=== PATIENT | female | born 1955 | race Caucasian/White ===

== ENCOUNTER 2017-03-27 14:11 | Inpatient (IN) | payer MEDICAID, SELFPAY ==
[2017-03-27] VITALS (21 sets, daily range): BP systolic 88–138; BP diastolic 43–98; PULSE 104–128; RESP 16–27; TEMP 37.4–38; O2SAT 89–98; BMI 39.2; BMI 39.9
--- NOTE | 2017-03-27 15:14 | EKG12_ITS ---
Test Reason : SOB Blood Pressure : / mmHG Vent. Rate : 118 BPM Atrial Rate : 118 BPM P-R Int : 142 ms QRS Dur : 086 ms QT Int : 324 ms P-R-T Axes : 068 -27 073 degrees QTc Int : 454 ms Sinus tachycardia Otherwise normal ECG Confirmed by JANIA GOINS ([id number]), health editor ENMA CAMACHO ([id number] on 03/29/2017 2:43:21 PM Referred By: LUCY Confirmed By:JANIA GOINS
--- NOTE | 2017-03-27 15:14 | RAD_ITS ---
STUDY: X-RAY CHEST REASON FOR EXAM: Female, 62 years old. Short of breath TECHNIQUE: Single AP portable view of the chest. COMPARISON: 09/22/2012. FINDINGS: Normal lung volumes. Poorly defined density in the mid right lung, possibly infiltrate. Nodules are not excluded. CT scan is recommended. Left lung is clear. No effusions. Normal size heart. Normal mediastinum and bautista. Normal visualized pulmonary arteries. Normal visualized aortic arch and descending thoracic aorta. There are diffuse degenerative changes of the visualized thoracic spine. Normal visualized ribs, clavicles, and shoulders. There is no demonstrated abnormality of the visualized soft tissue structures of the upper abdomen. RAD/Chest 1 View (Portable) IMPRESSION: Poorly defined density in the mid right lung, possibly infiltrate. Nodules are not excluded. CT scan is recommended. Electronically Signed: Migel Massey MD at 15:52 EST , Service support ,
[2017-03-27] MEDS: Ipratropium/Albuterol Sulfate 3 ML AMPUL.NEB INHALATION ×2 (15:25→22:56)
[2017-03-27] MEDS: Albuterol 2.5 MG/3 ML VIAL.NEB. INHALATION (15:32)
--- NOTE | 2017-03-27 15:39 | ED.VISSUMM ---
- ER Visit Summary Date of Service: 03/27/17 Chief Complaint: Shortness of breath History of Present Illness: The patient is a 62 F presenting with shortness of breath and cough. She states she has been sick since yesterday. She states her granddaughter was diagnosed with influenza. She states she has a sore throat, productive cough. She denies fever. Denies chest pain. Physical Examination: Vitals are stable. Patient is afebrile. Alert no acute distress. HEENT exam is unremarkable. Neck is supple. Lungs are rhonchi bilaterally. Heart is regular and tachycardic Abdomen is soft nontender nondistended. Extremities are unremarkable. Skin is warm and dry. No focal neurologic deficit. Remainder of exam is unremarkable. Emergency Department Course and Treatment: Chest x-ray shows a poorly defined density in the right midlung. EKG is sinus tachycardia rate of 118. White count is 20,000. Chemistries normal except glucose 330. Troponin is negative. D-dimer is elevated 0.73. Due to elevated d-dimer, CTA chest was obtained. This shows no PE, right upper and right lower lobe infiltrate. Blood cultures were sent. She is given Levaquin IV. On ambulation she is 83-87% on room air. Her repeat blood pressure is 88/61. IV fluids were continued to a bolus of 30 cc/kg. Her blood pressure improved to a systolic of 110. Discussed with Dr. Melara for admission. Disposition: Admission Impression: Septic shock, pneumonia This note was generated with [employer] dictation software. It may contain incorrect words, spelling, and punctuation that were not noted in review of the chart prior to signing ED Disposition - Plan for ED Patient: Chief Complaint: Shortness of Breath Referrals: Jesus Garcia MD [Primary Care Provider] -
[2017-03-27 16:01] LABS: Absolute Lymphocyte Count 1.24 X10^3/ul (0.83-4.51); Absolute Neutrophil Count 17.5 X10^3/uL (2.0-7.7); Basophil# 0.03 X10^3/uL; Basophil% 0.2 % (0-1); Eosinophil# 0.03 X10^3/uL; Eosinophils% 0.2 % (0-5); Hematocrit 38.2 % (37-47); Hemoglobin 12.2 g/dl (12.0-15.0); Lymphocyte # 1.24 X10^3/ul (4.0); Lymphocyte % 6.2 % (19-41); Mean Corp Hgb Conc 31.9 g/gl (32-36); Mean Corpuscular Hgb 25.7 pg (27.0-32.0); Mean Corpuscular Volume 80.6 fL (81-99); Mean Platelet Vol. 11.3 fl (6.2-12.0); Monocyte# 1.19 X10^3/uL; Neutrophil # 17.45 X10^3/uL (2.7-7.7); Neutrophil % 87.1 % (47-70); Platelet Count 193 K/mm3 (150-450); RBC Distribution Width CV 14.6 % (11.6-14.6); RBC Distribution Width SD 42.7 fl (35.1-43.9); Red Blood Count 4.74 M/mm3 (4.2-5.4)
[2017-03-27 16:06] LABS: Anion Gap 10 (5-15); BUN 10 mg/dL (7-18); BUN/Creat Ratio 11.5 RATIO (10-20); Calcium,Total 8.7 mg/dL (8.5-10.1); Chloride 98 mmol/L (98-107); Creatinine, Serum 0.87 mg/dL (0.55-1.02); EST Glomerular Filtration Rate 70 mL/min (>60); Est Glom Filt Rate - Afr Amer 85 mL/min (>60); Estimated Creatinine Clearance 46.92 ml/min; Glucose 330 mg/dL (74-106); Potassium 3.6 mmol/L (3.5-5.1); Sodium Level 135 mmol/L (136-145)
[2017-03-27 16:09] LABS: POSITIVE COUNT NO; POSITIVE DIFFERENTIAL NO; POSITIVE MORPHOLOGY NO
[2017-03-27 16:26] LABS: D-Dimer Quantitative (DVT/PE) 0.73 FEU/ug/m (0.27-0.49)
--- NOTE | 2017-03-27 16:29 | CT_ITS ---
STUDY: CTA CHEST REASON FOR EXAM: Female, 62 years old. Cough, shortness of breath, elevated d-dimer. RADIATION DOSAGE (If Supplied By Facility): CTDIvol = ( 13.24 ) mGy, DLP = ( 642.78 ) mGycm TECHNIQUE: The examination was performed with the intravenous administration of 75 ml of Isovue 370 contrast material. Post-processing of the angiographic images was performed, with multiplanar reformation and 3D reconstruction. Individualized dose optimization techniques were used for this CT. COMPARISON: Portable AP upright chest x-ray 1531 hours FINDINGS: Normal enhancement of the main pulmonary artery and right and left pulmonary arteries. Normal enhancement of the bilateral peripheral pulmonary arteries. There is no demonstrated pulmonary embolism. There is atherosclerotic calcification of the aortic arch with tortuosity of the descending thoracic aorta. There is no demonstrated aortic dissection. Normal heart and pericardium. There are calcifications of the coronary arteries. There is a nonspecific 2.3 x 1.7 x 0.6 cm right subcarinal lymph node, and a 1.1 x 0.65 x 0.4 cm lymph node just to its left. Two paratracheal lymph nodes (series 2 images 171 and 159) are upper normal in size to borderline enlarged. Normal hilar regions. Normal visualized trachea and bronchi. The lungs are well expanded. There are patchy alveolar densities consistent with infection in the lateral inferior right upper lobe and posterior medial right lower lobe. Normal pleura. Normal chest wall structures. There are multilevel spondylotic degenerative changes of the thoracic spine, and a 26-27 degree levoscoliosis centered at T3-4. The entire liver is not fully included in the lywub-ae-ecoa. Mild decreased density and mild cortical irregularity of the potentially enlarged liver suggest changes of fatty infiltration and early cirrhosis. CT/CTA Chest W/WO Contrast IMPRESSION: 1. No demonstrated pulmonary embolism or arterial dissection. 2. There are patchy alveolar densities consistent with infection in the inferolateral right upper lobe and posteromedial right lower lobe. 3. A few nonspecific mediastinal lymph nodes are described above. No overtly suspicious adenopathy. 4. Atherosclerotic calcifications of the coronary arteries and thoracic aortic arch. 5. Additional findings suggesting fatty infiltration and cirrhotic change in the enlarged liver. 6. Degenerative changes and levoscoliosis of the thoracic spine. Electronically Signed: Dealno Doe MD at 17:17 EST , Service support ,
--- NOTE | 2017-03-27 17:32 | ED.RN ---
STARTED PT FOR WALKING PULSE OX, THE EFFORT TO GET PATIENT OUT OF BED CAUSED PULSE OX TO DECREASE TO 83%. RN WAITED FOR PULSE OX TO INCREASE TO 97 TILL WE AMBULATED. WALKED PATIENT ON ROOM AIR PULSE OX DECREASED TO 87%. STOPPED AND OXYGEN LEVEL INCREASED TO 91. WHILE PATIENT GOT BACK IN BED PULSE OX DROPPED TO 81%
[2017-03-27] MEDS: 0.9% Normal Saline 1,000 ML 999 ML IV ×3 (17:44→19:18)
[2017-03-27 18:39] LABS: Lactic Acid 5.2 mmol/L (0.4-2.0)
--- NOTE | 2017-03-27 18:39 | ED.RN ---
DR. AYALA AWARE OF LACTIC 5.2
--- NOTE | 2017-03-27 19:23 | HP.PCM_ITS ---
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 Patient complains of having fever, cough and feeling short of breath. She has been around somebody who had an influenza which was a granddaughter. She complains of runny nose, sore throat and unable to eat anything last 2 days. She denied any chest pain or diarrhea or dysuria or frequency or urgency. On arrival to the ED, her temperature was 90 9.8F, heart rate is 121, was initially 121/43 but eventually dropped to 88/65, was given some fluid boluses in the ED with resolution of hypotension. A partial workup showed WBC count of 20.0, Hb of 12.2, platelets 193, d-dimer was 0.73, sodium was 135, potassium 3.6 , chloride 98, bicarbonate 27, BUN 10, creatinine 0.87, admitting lactic acid was 5.2, glucose was 330. Troponin was 0.02. Chest X-ray done shows a poorly defined infiltrate in the right midlung. CT of the chest shows no PE, it showed some infiltrate in the right upper lobe and posterior medial lower lobe and fatty infiltration with cirrhotic changes in the enlarged liver. Past Medical History Past Medical History (Chronic Problems): Chronic Problems Hyperlipemia (Chronic) Gastroenteritis (Chronic) Diabetes mellitus, type 2 (Chronic) Chronic obstructive lung disease (Chronic) Benign hypertension (Chronic) Allergies codeine Allergy (Verified 11/01/16 19:05) Rash naproxen Adverse Reaction (Verified 11/01/16 19:05) Other Home Medications: Ambulatory Orders Medication Instructions Recorded Amitriptyline HCl 50 mg PO QHS 01/16/16 Insulin Aspart [Novolog Flexpen 22 units SC TIDCM 01/16/16 ([facility])] Metformin HCl [Glucophage] 1,000 mg PO BIDCM 01/16/16 Oxybutynin [Ditropan] 10 mg PO DAILY 01/16/16 Simvastatin [Zocor] 40 mg PO QHS 01/16/16 Ondansetron [Zofran Odt] 4 mg PO Q8H PRN PRN #10 tablet 11/01/16 Albuterol Inhaler [Ventolin Hfa 1 - 2 puff INHALATION Q6H PRN PRN 03/27/17 (SP)] Cyclobenzaprine [Flexeril] 10 mg PO TID PRN PRN 03/27/17 GlipiZIDE [Glucotrol] 10 mg PO DAILY@0730 03/27/17 Insulin Glargine,Hum.rec.anlog 58 unit SQ QHS 03/27/17 [Basaglar Kwikpen U-100] Lisinopril [Zestril] 10 mg PO DAILY 03/27/17 Sertraline HCl [Zoloft] 50 mg PO DAILY 03/27/17 Surgical History: hysterectomy Psychiatric History: No pertinent psych hx 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: No pertinent 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 HEALTH RN history Lives: With Family Smoking Status: Former smoker Tobacco Use: Non-smoker Alcohol: None Drugs: None - *Family History Maternal History Items: Dementia, Heart Disease Review of Systems Constitutional: Denies: Chills, Fever, Weight Change HEENT: Denies: Head Aches, Sinus Congestion, Sinus Drainage Cardiovascular: Denies: Chest Pain, Palpitations Respiratory: Denies: Cough, Shortness of breath at rest, Sputum production Gastrointestinal: Denies: Abdominal Pain, Nausea, Vomiting Genitourinary: Denies: Dysuria Musculoskeletal: Denies: Joint Pain, Joint Tenderness Skin: Denies: Rash, Wounds Neurological: Denies: Numbness, Tingling, Focal weakness Psychiatric: Denies: Anxiety, Depression, Homicidal Ideations, Suicidal Ideations Hematologic/ Lymphatic: Denies: Easy Bruising, Easy Bleeding VTE Information - Inpt Only VTE Present on Admission: No VTE Pharm Prophylaxis ordered?: Yes Patient Problems: Active and Suspected Problems Septic shock (Acute) - Physical Exam General: Alert, Oriented x3, Cooperative HEENT: Atraumatic, PERRLA, EOMI, Normocephalic Neck: Supple, No JVD, Negative Carotid Bruits Lungs: Clear to auscultation, Normal air movement Cardiovascular: Regular rate, No murmurs Abdomen: Bowel Sounds Present, Soft, Non Tender Extremities: No edema, Capillary Refill Less than 3 Seconds Skin: No rashes, No breakdown Musculoskeletal: No Tenderness to Palpation of Joints or Extremities Neurological: Cranial nerves II-XII grossly intact Psych/Mental Status: Normal Affect, Appropriate Vital Signs Temp Pulse Resp BP Pulse Ox 99.8 F H 108 H 20 H 122/59 H 93 03/27/17 14:12 03/27/17 19:01 03/27/17 19:01 03/27/17 19:01 03/27/17 19:01 Oxygen Delivery Method Room Air Weight: 91 kg Body Mass Index (BMI) 39.2 Finger Stick Blood Glucose 333 Microbiology Past 72 Hours 03/27/17 16:10 Influenza Types A,B Direct FA (SARY) - Final Mucosa - Nose Laboratory Tests Past 24 Hrs 03/27/17 03/27/17 03/27/17 15:22 15:22 15:22 WBC 20.0 H RBC 4.74 Hgb 12.2 Hct 38.2 MCV 80.6 L MCH 25.7 L MCHC 31.9 L RDW 14.6 RDW Differential 42.7 Plt Count 193 MPV 11.3 Immature Gran % (Auto) 0.300 Neut % (Auto) 87.1 H Lymph % (Auto) 6.2 L Grady % (Auto) 6.0 Eos % (Auto) 0.2 Baso % (Auto) 0.2 Absolute Neuts (auto) 17.5 H Absolute Lymphs (auto) 1.24 Total Counted Not Reportable D-Dimer Quant (PE/DVT) 0.73 H* Sodium 135 L Potassium 3.6 Chloride 98 Carbon Dioxide 27.0 Anion Gap 10 BUN 10 Creatinine 0.87 Estim Creat Clear Calc 46.92 Est GFR (MDRD) Af Amer 85 Est GFR (MDRD) Non-Af 70 BUN/Creatinine Ratio 11.5 Glucose 330 H Lactic Acid Calcium 8.7 Troponin I < 0.02 03/27/17 17:35 WBC RBC Hgb Hct MCV MCH MCHC RDW RDW Differential Plt Count MPV Immature Gran % (Auto) Neut % (Auto) Lymph % (Auto) [place]ady % (Auto) Eos % (Auto) Baso % (Auto) Absolute Neuts (auto) Absolute Lymphs (auto) Total Counted D-Dimer Quant (PE/DVT) Sodium Potassium Chloride Carbon Dioxide Anion Gap BUN Creatinine Estim Creat Clear Calc Est GFR (MDRD) Af Amer Est GFR (MDRD) Non-Af BUN/Creatinine Ratio Glucose Lactic Acid 5.2 H* Calcium Troponin I Assessment/Plan Active and Suspected Problems Septic shock (Acute) 62 year old F past medical history of hypertension, type II DM, depression, who comes in with complaints of feeling unwell, fever, cough ongoing for the past 2 days. 1. Septic shock secondary to CAP, seen on chest x-ray and CT scan of the chest, WBC count is elevated at 20,000, patient is tachycardic, blood cultures are pending, influenza screen is negative, lactic acid is 5.2, no renal impairment. 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 2. Hypertension, now hypotensive, will hold lisinopril for now. 3. Type 2DM, on metformin, glipizide and Lantus, will check accucheks and low- dose insulin sliding scale 4. Hyperlipidemia, on statin 5. Depression, on zoloft, amitriptyline 6. Fatty liver/cirrhosis of the liver seen on CT scan of the abdomen, order hepatitis panel, liver function tests, needs to be worked up in the outpatient 7. DVT PPx - Lovenox SC Code Visit Inpatient E&M: 84097 Init Hosp L3
[2017-03-27] MEDS: Ondansetron 4 MG/2 ML Vial IV (19:53)
[2017-03-27 20:57] LABS: Bacteria 0 SEEN /hpf (None Seen); Mucous, Urine 0 SEEN /hpf (<or=2+); Red Blood Cells-Urine 0 SEEN /hpf (0-5)
[2017-03-27 21:02] LABS: Color, Urine Yellow (Yellow); Glucose, Dipstick 1000 mg/dl (Normal); Ketone-Dipstick 5 mg/dl (Negative); Leukocyte Esterase-Dipstick 25 /ul (Negative); Nitrite-Dipstick Negative (Negative); Occult Blood-Urine Negative /ul (Negative); Protein-Dipstick 15 mg/dl (Negative); Urine Bilirubin Dipstick Negative (Negative); Urine Clarity Sl. Cloudy (Clear); Urine Urobilinogen Normal (Normal)
[2017-03-27] MEDS: Amitriptyline 25 MG Tablet 50 MG PO (21:11)
[2017-03-27] MEDS: 0.9% Normal Saline 1,000 ML 125 ML IV (21:11)
[2017-03-27] MEDS: Atorvastatin Calcium 20 MG Tablet PO (21:14)
[2017-03-27] MEDS: guaiFENesin 600 MG Tablet 1200 MG PO (21:15)
[2017-03-27] MEDS: Famotidine 20 MG Tablet PO (21:16)
[2017-03-27 21:18] LABS: Lactic Acid 4.4 mmol/L (0.4-2.0)
[2017-03-27 21:30] LABS: Bedside Glucose 270 mg/dL (70-110)
[2017-03-27 21:31] LABS: Amorphous Sediment 1+ URATE; Squamous Epithelial Cells - UA 0-5 SEEN /hpf (5-10); White Blood Cells 0-5 SEEN /hpf (0-5)
[2017-03-27 21:41] LABS: Reflex Lactate? Y
[2017-03-27 22:07] LABS: M R Staph aureus DNA By PCR Negative (Negative); Probe Check PASS; Specimen Processing Control PASS
[2017-03-27] MEDS: Ceftriaxone 1 GM/50 ML BAG IV (22:30)
[2017-03-28] VITALS (23 sets, daily range): BP systolic 98–128; BP diastolic 46–70; PULSE 87–104; RESP 17–24; TEMP 36.9–37.7; O2SAT 89–99
[2017-03-28 00:39] LABS: Lactic Acid 2.5 mmol/L (0.4-2.0)
[2017-03-28 00:52] LABS: Reflex Lactate? Y
[2017-03-28] MEDS: Ipratropium/Albuterol Sulfate 3 ML AMPUL.NEB INHALATION ×3 (03:26→22:24)
[2017-03-28] MEDS: Acetaminophen 325 MG Tablet 650 MG PO ×2 (03:47→16:15)
[2017-03-28 04:58] LABS: Hematocrit 32.2 % (37-47); Mean Corp Hgb Conc 31.1 g/gl (32-36); Mean Corpuscular Hgb 25.2 pg (27.0-32.0); Mean Corpuscular Volume 81.1 fL (81-99); Mean Platelet Vol. 10.9 fl (6.2-12.0); Platelet Count 145 K/mm3 (150-450); RBC Distribution Width SD 44.4 fl (35.1-43.9); Red Blood Count 3.97 M/mm3 (4.2-5.4); White Blood Count 12.4 K/mm3 (4.4-11.0)
[2017-03-28 05:02] LABS: Scan Indicated on CBC? Y/N NO
[2017-03-28 05:23] LABS: Anion Gap 6 (5-15); BUN 9 mg/dL (7-18); BUN/Creat Ratio 14.5 RATIO (10-20); Calcium,Total 7.6 mg/dL (8.5-10.1); Chloride 102 mmol/L (98-107); Creatinine, Serum 0.62 mg/dL (0.55-1.02); EST Glomerular Filtration Rate 103 mL/min (>60); Est Glom Filt Rate - Afr Amer 125 mL/min (>60); Estimated Creatinine Clearance 65.84 ml/min; Glucose 251 mg/dL (74-106); Potassium 3.4 mmol/L (3.5-5.1); Sodium Level 136 mmol/L (136-145)
[2017-03-28 05:26] LABS: Lactic Acid 1.5 mmol/L (0.4-2.0)
[2017-03-28] MEDS: 0.9% Normal Saline 1,000 ML 125 ML IV ×2 (06:35→16:05)
[2017-03-28 08:01] LABS: Bedside Glucose 242 mg/dL (70-110)
[2017-03-28] MEDS: Famotidine 20 MG Tablet PO ×2 (09:18→21:09)
[2017-03-28] MEDS: Sertraline 50 MG Tablet PO (09:18)
[2017-03-28] MEDS: guaiFENesin 600 MG Tablet 1200 MG PO ×2 (09:18→21:09)
[2017-03-28 09:26] LABS: Hemoglobin A1c 10.5 % (4.2-6.3)
[2017-03-28] MEDS: Ondansetron 4 MG/2 ML Vial IV ×2 (09:31→20:08)
[2017-03-28] MEDS: 0.9% NaCl Peripheral Flush Adult/Peds IV (09:31)
[2017-03-28] MEDS: Enoxaparin 40 MG/0.4 ML Syringe SC (09:33)
--- NOTE | 2017-03-28 09:45 | PCM.CON.CC ---
Problem List (1) Septic shock Status: Acute (2) Hyperlipemia Status: Chronic Qualifiers: Hyperlipidemia type: unspecified Qualified Code(s): E78.5 - Hyperlipidemia, unspecified (3) Gastroenteritis Status: Chronic (4) Diabetes mellitus, type 2 Status: Chronic Qualifiers: Diabetes mellitus complication status: without complication Diabetes mellitus supervisor dials insulin use: without chcf use Qualified Code(s): E11.9 - Type 2 diabetes mellitus without complications (5) Benign hypertension Status: Chronic Reason for Consult Date of Consultation: 03/28/17 Reason for Consultation: Septic shock History of Present Illness: The patient is a 62 year old F, with past medical history listed below, who presented to [facility] on 03/27/2017 secondary to increasing shortness of breath, fever and cough over the past 2 days. Patient recently had her granddaughter admitted to the hospital with pneumonia and flu and was concerned that she had contracted the flu. Patient reports that 2 days prior to admission she started to have a runny nose, sore throat, nausea and body aches. Patient denied any chest pain at that time. On arrival to the emergency room, patient was noted to be tachycardic at 121 bpm, but blood pressure gradually decreased during ER stay to a chema of 88/65. Was also noted to have a lactic acid of 5.2 and a glucose of 330. Chest x-ray and CT scan showed no pulmonary embolism, but right upper lobe and right middle lobe infiltrates were appreciated. Patient was given a fluid bolus and transferred to the intensive care unit for further monitoring. Overnight, patient did hemodynamically well. Patient did not require any further boluses. Patient was initiated on antibiotic therapy. On my examination, patient was complaining of mild chest pain that was associated with coughing. Patient denied any hemoptysis and has variable production with the cough. Patient overall felt subjectively unchanged compared to previous. Nausea slightly improved, but patient is having difficulty eating all of breakfast. She denies any history of smoking, alcohol or drugs. Patient has never been exposed to asbestos or tuberculosis. Patient does give a history of asthma that she uses a as needed albuterol for occasionally. Patient states that she typically needs it more in the winter, but does not see a assistant golf professional at baseline. Patient has never had pulmonary function test that she is aware of. Review of systems otherwise negative ?10 systems. Past Medical History Past Medical History (Chronic Problems): Chronic Problems Hyperlipemia (Chronic) Gastroenteritis (Chronic) Diabetes mellitus, type 2 (Chronic) Chronic obstructive lung disease (Chronic) Benign hypertension (Chronic) Allergies codeine Allergy (Verified 11/01/16 19:05) Rash naproxen Adverse Reaction (Verified 11/01/16 19:05) Other Home Medications: Ambulatory Orders Medication Instructions Recorded Amitriptyline HCl 50 mg PO QHS 01/16/16 Insulin Aspart [Novolog Flexpen 22 units SC TIDCM 01/16/16 ([facility])] Metformin HCl [Glucophage] 1,000 mg PO BIDCM 01/16/16 Oxybutynin [Ditropan] 10 mg PO DAILY 01/16/16 Simvastatin [Zocor] 40 mg PO QHS 01/16/16 Ondansetron [Zofran Odt] 4 mg PO Q8H PRN PRN #10 tablet 11/01/16 Albuterol Inhaler [Ventolin Hfa 1 - 2 puff INHALATION Q6H PRN PRN 03/27/17 (SP)] Cyclobenzaprine [Flexeril] 10 mg PO TID PRN PRN 03/27/17 GlipiZIDE [Glucotrol] 10 mg PO DAILY@0730 03/27/17 Insulin Glargine,Hum.rec.anlog 58 unit SQ QHS 03/27/17 [Basaglar Kwikpen U-100] Lisinopril [Zestril] 10 mg PO DAILY 03/27/17 Sertraline HCl [Zoloft] 50 mg PO DAILY 03/27/17 Surgical History: hysterectomy Psychiatric History: No pertinent psych hx 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 CT scan did show some mediastinal lymphadenopathy with infiltrates on the right. - Physical Exam General: Alert, Oriented x3, Cooperative, No apparent distress, Well developed, Well nourished, - - Speaking in full sentences. Obese. HEENT: Atraumatic, PERRLA, EOMI, Normocephalic, - - Slight scleral injection without icterus Oral: Moist Mucosa, No Gingival or Mucosal Lesions/ Ulcerations Neck: Supple, No JVD, No Nodes, Trachea Midline Lungs: No wheeze, No rales, Diminished, Rhonchi Cardiovascular: Regular rate, Regular Rhythm, Normal S1, Normal S2, No murmurs, No rub noted, No Gallop Abdomen: Bowel Sounds Present, Soft, Non Tender, Non-Distended, Obese Extremities: No clubbing, No cyanosis, No edema, Capillary Refill Less than 3 Seconds Skin: No rashes, No breakdown Musculoskeletal: No Tenderness to Palpation of Joints or Extremities Lymphatic: No Cervical, Supraclavicular, or Inguinal Adenopathy Neurological: Cranial nerves II-XII grossly intact, Neuro grossly intact, Motor Exam 5/5 strength throughout Psych/Mental Status: Alert and oriented to time, place, person, mood and affect Vital Signs Temp Pulse Resp BP Pulse Ox 36.9 C 98 23 H 98/52 L 97 03/28/17 08:00 03/28/17 09:00 03/28/17 09:00 03/28/17 09:00 03/28/17 09:00 Oxygen Flow Rate 1 Oxygen Delivery Method Nasal Cannula Weight: 93.3 kg Body Mass Index (BMI) 39.9 Intake and Output for Last 24 Hours 03/26/17 03/27/17 03/28/17 23:59 23:59 23:59 Intake Total 1097 / 1097 818 / 818 Output Total 700 / 700 200 / 200 Balance 397 / 397 618 / 618 Microbiology Past 72 Hours 03/27/17 22:57 Respiratory Panel (PCR) - Final Mucosa - Nose Influenza A (Subtype H1) 03/27/17 20:20 Streptococcus pneumoniae Antigen (M - Final Urine, Clean Catch 03/27/17 20:20 Legionella Antigen - Final Urine, Clean Catch 03/27/17 20:20 Gram Stain - Preliminary Sputum, Expectorated/Coughed Laboratory Tests Past 24 Hrs 03/27/17 03/27/17 03/27/17 20:20 20:20 20:20 WBC RBC Hgb Hct MCV MCH MCHC RDW RDW Differential Plt Count MPV Sodium Potassium Chloride Carbon Dioxide Anion Gap BUN Creatinine Estim Creat Clear Calc Est GFR (MDRD) Af Amer Est GFR (MDRD) Non-Af BUN/Creatinine Ratio Glucose Hemoglobin A1c Lactic Acid 4.4 H* Calcium Urine Color Yellow Urine Clarity Sl. Cloudy Urine pH 5.0 Ur Specific [place] 1.010 Urine Protein 15 H Urine Glucose (UA) 1000 H Urine Ketones 5 H Urine Occult Blood Negative Urine Nitrite Negative Urine Bilirubin Negative Urine Urobilinogen Normal Ur Leukocyte Esterase 25 H Urine RBC 0 SEEN Urine WBC 0-5 SEEN Ur Squamous Epith Cells 0-5 SEEN Amorphous Sediment 1+ URATE Urine Bacteria 0 SEEN Urine Mucus 0 SEEN MRSA (PCR) Negative 03/28/17 03/28/17 03/28/17 00:00 04:35 04:35 WBC 12.4 H RBC 3.97 L Hgb 10.0 L Hct 32.2 L MCV 81.1 MCH 25.2 L MCHC 31.1 L RDW 15.0 H RDW Differential 44.4 H Plt Count 145 L MPV 10.9 Sodium 136 Potassium 3.4 L Chloride 102 Carbon Dioxide 28.0 Anion Gap 6 BUN 9 Creatinine 0.62 Estim Creat Clear Calc 65.84 Est GFR (MDRD) Af Amer 125 Est GFR (MDRD) Non-Af 103 BUN/Creatinine Ratio 14.5 Glucose 251 H Hemoglobin A1c Lactic Acid 2.5 H Calcium 7.6 L Urine Color Urine Clarity Urine pH Ur Specific [place] Urine Protein Urine Glucose (UA) Urine Ketones Urine Occult Blood Urine Nitrite Urine Bilirubin Urine Urobilinogen Ur Leukocyte Esterase Urine RBC Urine WBC Ur Squamous Epith Cells Amorphous Sediment Urine Bacteria Urine Mucus MRSA (PCR) 03/28/17 03/28/17 04:35 04:35 WBC RBC Hgb Hct MCV MCH MCHC RDW RDW Differential Plt Count MPV Sodium Potassium Chloride Carbon Dioxide Anion Gap BUN Creatinine Estim Creat Clear Calc Est GFR (MDRD) Af Amer Est GFR (MDRD) Non-Af BUN/Creatinine Ratio Glucose Hemoglobin A1c 10.5 H Lactic Acid 1.5 Calcium Urine Color Urine Clarity Urine pH Ur Specific [place] Urine Protein Urine Glucose (UA) Urine Ketones Urine Occult Blood Urine Nitrite Urine Bilirubin Urine Urobilinogen Ur Leukocyte Esterase Urine RBC Urine WBC Ur Squamous Epith Cells Amorphous Sediment Urine Bacteria Urine Mucus MRSA (PCR) POC Glucose 03/28/17 03/27/17 07:41 21:06 POC Glucose 242 H 270 H Clinical Impression(s) from Imaging Studies Chest X-Ray 03/27/17 15:14 IMPRESSION: Poorly defined density in the mid right lung, possibly infiltrate. Nodules are not excluded. CT scan is recommended. Electronically Signed: Migel Massey MD at 15:52 EST , Service support , Chest CTA 03/27/17 16:29 IMPRESSION: 1. No demonstrated pulmonary embolism or arterial dissection. 2. There are patchy alveolar densities consistent with infection in the inferolateral right upper lobe and posteromedial right lower lobe. 3. A few nonspecific mediastinal lymph nodes are described above. No overtly suspicious adenopathy. 4. Atherosclerotic calcifications of the coronary arteries and thoracic aortic arch. 5. Additional findings suggesting fatty infiltration and cirrhotic change in the enlarged liver. 6. Degenerative changes and levoscoliosis of the thoracic spine. Electronically Signed: Delano Doe MD at 17:17 EST , Service support , Assessment/Plan Active and Suspected Problems Septic shock (Acute) RECOMMENDATIONS: 1. Start Tamiflu 2. Continue Antibiotics, bronchodilators 3. Wean oxygen as tolerated 4. Okay to transfer from the intensive care unit. IMPRESSIONS: 1. Septic Shock secondary to Influenza and Community Acquired Pneumonia Patient was significantly elevated lactate on presentation with hypotension. Patient tolerated well with fluid boluses. Patient has come back positive with influenza, but imaging indicates a probable superinfection with bacterial pneumonia. Cultures have been taken. Patient is on appropriate antibiotics. Would initiate Tamiflu, but would also continue with current antibiotics and bronchodilators. Okay to leave the intensive care unit from my perspective. 2. Reported Asthma No PFTs are available for review. Patient does report periodic bronchodilator requirements. Would likely benefit from outpatient pulmonary function test for quantification and clarification of lung function studies. For now, continue with bronchodilators. 3. Diabetes Mellitus On it her blood sugars closely. During acute infections, but sugars can become very labile. Patient appears to be well-controlled at this time. Continue with q. before meals and at bedtime blood sugars. 4. Morbid Obesity Complicates care, management, recovery and prognosis. Code Visit Inpatient E&M: 68073 Init Hosp L3
--- NOTE | 2017-03-28 09:47 | PCM.PROGNOTE ---
Patient Problems: Active and Suspected Problems Septic shock (Acute) Subjective: Chief complaint: Follow-up after admission for septic shock by criteria due to a right lung community-acquired pneumonia. Patient seen and examined. No acute events overnight. She reported mild improvement of her shortness of breath, still complaining of productive cough with yellow sputum. Reported chest discomfort upon coughing. She has been having spikes of fever overnight, heart rate and blood pressure stable, pulse ox is 97% on 2 L. - Physical Exam General: Alert, Oriented x3, Cooperative, - - Minimally short of breath. HEENT: Atraumatic, PERRLA, EOMI Oral: Moist Mucosa, No Gingival or Mucosal Lesions/ Ulcerations Neck: Supple, No JVD, Negative Carotid Bruits, Trachea Midline, Thyroid Normal Size and Texture Lungs: No rhonchi, No wheeze, No rales, Diminished, Rales, Short of Breath, - - Decreased breath sounds bilateral, coarse crackles on the right base. Cardiovascular: Regular rate, Regular Rhythm, Normal S1, Normal S2, PMI Normal, Tachycardic Abdomen: Bowel Sounds Present, Soft, Non Tender, Non-Distended, No Hepato-splenomegaly Extremities: No clubbing, No cyanosis, No edema Skin: No rashes, No breakdown Lymphatic: No Cervical, Supraclavicular, or Inguinal Adenopathy Neurological: Cranial nerves II-XII grossly intact, Motor Exam 5/5 strength throughout Psych/Mental Status: Normal Affect, Appropriate, Alert and oriented to time, place, person, mood and affect Vital Signs Temp Pulse Resp BP Pulse Ox 98.5 F 98 23 H 98/52 L 97 03/28/17 08:00 03/28/17 09:00 03/28/17 09:00 03/28/17 09:00 03/28/17 09:00 Oxygen Flow Rate 1 Oxygen Delivery Method Nasal Cannula Weight: 205 lb 11.06 oz Body Mass Index (BMI) 39.9 Intake and Output for Last 24 Hours 03/26/17 03/27/17 03/28/17 23:59 23:59 23:59 Intake Total 1097 / 1097 818 / 818 Output Total 700 / 700 200 / 200 Balance 397 / 397 618 / 618 Microbiology Past 72 Hours 03/27/17 22:57 Respiratory Panel (PCR) - Final Mucosa - Nose Influenza A (Subtype H1) 03/27/17 20:20 Streptococcus pneumoniae Antigen (M - Final Urine, Clean Catch 03/27/17 20:20 Legionella Antigen - Final Urine, Clean Catch 03/27/17 20:20 Gram Stain - Preliminary Sputum, Expectorated/Coughed Laboratory Tests Past 24 Hrs 03/27/17 03/27/17 03/27/17 20:20 20:20 20:20 WBC RBC Hgb Hct MCV MCH MCHC RDW RDW Differential Plt Count MPV Sodium Potassium Chloride Carbon Dioxide Anion Gap BUN Creatinine Estim Creat Clear Calc Est GFR (MDRD) Af Amer Est GFR (MDRD) Non-Af BUN/Creatinine Ratio Glucose Hemoglobin A1c Lactic Acid 4.4 H* Calcium Urine Color Yellow Urine Clarity Sl. Cloudy Urine pH 5.0 Ur Specific [place] 1.010 Urine Protein 15 H Urine Glucose (UA) 1000 H Urine Ketones 5 H Urine Occult Blood Negative Urine Nitrite Negative Urine Bilirubin Negative Urine Urobilinogen Normal Ur Leukocyte Esterase 25 H Urine RBC 0 SEEN Urine WBC 0-5 SEEN Ur Squamous Epith Cells 0-5 SEEN Amorphous Sediment 1+ URATE Urine Bacteria 0 SEEN Urine Mucus 0 SEEN MRSA (PCR) Negative 03/28/17 03/28/17 03/28/17 00:00 04:35 04:35 WBC 12.4 H RBC 3.97 L Hgb 10.0 L Hct 32.2 L MCV 81.1 MCH 25.2 L MCHC 31.1 L RDW 15.0 H RDW Differential 44.4 H Plt Count 145 L MPV 10.9 Sodium 136 Potassium 3.4 L Chloride 102 Carbon Dioxide 28.0 Anion Gap 6 BUN 9 Creatinine 0.62 Estim Creat Clear Calc 65.84 Est GFR (MDRD) Af Amer 125 Est GFR (MDRD) Non-Af 103 BUN/Creatinine Ratio 14.5 Glucose 251 H Hemoglobin A1c Lactic Acid 2.5 H Calcium 7.6 L Urine Color Urine Clarity Urine pH Ur Specific [place] Urine Protein Urine Glucose (UA) Urine Ketones Urine Occult Blood Urine Nitrite Urine Bilirubin Urine Urobilinogen Ur Leukocyte Esterase Urine RBC Urine WBC Ur Squamous Epith Cells Amorphous Sediment Urine Bacteria Urine Mucus MRSA (PCR) 03/28/17 03/28/17 04:35 04:35 WBC RBC Hgb Hct MCV MCH MCHC RDW RDW Differential Plt Count MPV Sodium Potassium Chloride Carbon Dioxide Anion Gap BUN Creatinine Estim Creat Clear Calc Est GFR (MDRD) Af Amer Est GFR (MDRD) Non-Af BUN/Creatinine Ratio Glucose Hemoglobin A1c 10.5 H Lactic Acid 1.5 Calcium Urine Color Urine Clarity Urine pH Ur Specific [place] Urine Protein Urine Glucose (UA) Urine Ketones Urine Occult Blood Urine Nitrite Urine Bilirubin Urine Urobilinogen Ur Leukocyte Esterase Urine RBC Urine WBC Ur Squamous Epith Cells Amorphous Sediment Urine Bacteria Urine Mucus MRSA (PCR) POC Glucose 03/28/17 03/27/17 07:41 21:06 POC Glucose 242 H 270 H Clinical Impression(s) from Imaging Studies Chest X-Ray 03/27/17 15:14 IMPRESSION: Poorly defined density in the mid right lung, possibly infiltrate. Nodules are not excluded. CT scan is recommended. Electronically Signed: Migel Massey MD at 15:52 EST , Service support , Chest CTA 03/27/17 16:29 IMPRESSION: 1. No demonstrated pulmonary embolism or arterial dissection. 2. There are patchy alveolar densities consistent with infection in the inferolateral right upper lobe and posteromedial right lower lobe. 3. A few nonspecific mediastinal lymph nodes are described above. No overtly suspicious adenopathy. 4. Atherosclerotic calcifications of the coronary arteries and thoracic aortic arch. 5. Additional findings suggesting fatty infiltration and cirrhotic change in the enlarged liver. 6. Degenerative changes and levoscoliosis of the thoracic spine. Electronically Signed: Delano Doe MD at 17:17 EST , Service support , Assessment/Plan Active and Suspected Problems Septic shock (Acute) This is a 62 years old female patient presented to the emergency room because of fever, shortness of breath and productive cough and she was found to have right upper and lower lobe consolidation on CTA chest as well as lactic acid of 5.2 consistent with septic shock by criteria due to right lung community acquired pneumonia. #1 septic shock: Secondary to community acquired pneumonia, lactic acid was elevated at 5.2 and it came down to 1.5 this morning with IV fluid therapy. She is on IV Rocephin and Zithromax. This morning, patient was afebrile, blood pressure is stable, pulse ox is 97% on 2 L. Blood, sputum and urine cultures are pending. Respiratory panel for viruses is positive for influenza A. Plan: Continue same treatment, transferred to [facility] floor. #2 right lung community-acquired pneumonia: She is on IV Rocephin and Zithromax. Chest x-ray reviewed as well as CTA chest. Lactic acid is back to normal. White blood cell count is trending down. Blood pressure stabilized. Blood and urine cultures are pending as well as sputum culture. Pneumococcal and Legionella antigen were negative. Respiratory panel for viruses were positive for influenza A. Plan: Continue same treatment, monitor cultures. #3 acute influenza A: Start Tamiflu. #4 elevated d-dimer: Secondary to septic shock and infection. CTA chest negative for PE or dissection. #5 hypertension: Blood pressure stabilized, lisinopril held. #6 type 2 diabetes mellitus: ADA diet, Accu-Cheks, insulin sliding scale, continue Levemir insulin as well as glipizide, keep holding metformin. #7 COPD: Continue DuoNeb every 4 hours, albuterol as needed, oxygen as needed. No evidence of acute COPD exacerbation. #8 hyperlipidemia: Continue statins. #9 DVT prophylaxis: Subcu Lovenox. This note was generated with [employer] dictation software. It may contain incorrect words, spelling, and punctuation that were not noted in checking the note before signing. Code Visit Inpatient E&M: 41631 Subs Hosp L2
--- NOTE | 2017-03-28 09:56 | CON.PCM_ITS ---
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 Patient recently had her granddaughter admitted to the hospital with pneumonia and flu and was concerned that she had contracted the flu. Patient reports that 2 days prior to admission she started to have a runny nose, sore throat, nausea and body aches. Patient denied any chest pain at that time. On arrival to the emergency room, patient was noted to be tachycardic at 121 bpm, but blood pressure gradually decreased during ER stay to a chema of 88/65. Was also noted to have a lactic acid of 5.2 and a glucose of 330. Chest x-ray and CT scan showed no pulmonary embolism, but right upper lobe and right middle lobe infiltrates were appreciated. Patient was given a fluid bolus and transferred to the intensive care unit for further monitoring. Overnight, patient did hemodynamically well. Patient did not require any further boluses. Patient was initiated on antibiotic therapy. On my examination, patient was complaining of mild chest pain that was associated with coughing. Patient denied any hemoptysis and has variable production with the cough. Patient overall felt subjectively unchanged compared to previous. Nausea slightly improved, but patient is having difficulty eating all of breakfast. She denies any history of smoking, alcohol or drugs. Patient has never been exposed to asbestos or tuberculosis. Patient does give a history of asthma that she uses a as needed albuterol for occasionally. 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 Patient has never had pulmonary function test that she is aware of. Review of systems otherwise negative ?10 systems. Past Medical History Past Medical History (Chronic Problems): Chronic Problems Hyperlipemia (Chronic) Gastroenteritis (Chronic) Diabetes mellitus, type 2 (Chronic) Chronic obstructive lung disease (Chronic) Benign hypertension (Chronic) Allergies codeine Allergy (Verified 11/01/16 19:05) Rash naproxen Adverse Reaction (Verified 11/01/16 19:05) Other Home Medications: Ambulatory Orders Medication Instructions Recorded Amitriptyline HCl 50 mg PO QHS 01/16/16 Insulin Aspart [Novolog Flexpen 22 units SC TIDCM 01/16/16 ([facility])] Metformin HCl [Glucophage] 1,000 mg PO BIDCM 01/16/16 Oxybutynin [Ditropan] 10 mg PO DAILY 01/16/16 Simvastatin [Zocor] 40 mg PO QHS 01/16/16 Ondansetron [Zofran Odt] 4 mg PO Q8H PRN PRN #10 tablet 11/01/16 Albuterol Inhaler [Ventolin Hfa 1 - 2 puff INHALATION Q6H PRN PRN 03/27/17 (SP)] Cyclobenzaprine [Flexeril] 10 mg PO TID PRN PRN 03/27/17 GlipiZIDE [Glucotrol] 10 mg PO DAILY@0730 03/27/17 Insulin Glargine,Hum.rec.anlog 58 unit SQ QHS 03/27/17 [Basaglar Kwikpen U-100] Lisinopril [Zestril] 10 mg PO DAILY 03/27/17 Sertraline HCl [Zoloft] 50 mg PO DAILY 03/27/17 Surgical History: hysterectomy Psychiatric History: No pertinent psych hx 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 CT scan did show some mediastinal lymphadenopathy with infiltrates on the right. - Physical Exam General: Alert, Oriented x3, Cooperative, No apparent distress, Well developed, Well nourished, - - Speaking in full sentences. Obese. HEENT: Atraumatic, PERRLA, EOMI, Normocephalic, - - Slight scleral injection without icterus Oral: Moist Mucosa, No Gingival or Mucosal Lesions/ Ulcerations Neck: Supple, No JVD, No Nodes, Trachea Midline Lungs: No wheeze, No rales, Diminished, Rhonchi Cardiovascular: Regular rate, Regular Rhythm, Normal S1, Normal S2, No murmurs, No rub noted, No Gallop Abdomen: Bowel Sounds Present, Soft, Non Tender, Non-Distended, Obese Extremities: No clubbing, No cyanosis, No edema, Capillary Refill Less than 3 Seconds Skin: No rashes, No breakdown Musculoskeletal: No Tenderness to Palpation of Joints or Extremities Lymphatic: No Cervical, Supraclavicular, or Inguinal Adenopathy Neurological: Cranial nerves II-XII grossly intact, Neuro grossly intact, Motor Exam 5/5 strength throughout Psych/Mental Status: Alert and oriented to time, place, person, mood and affect Vital Signs Temp Pulse Resp BP Pulse Ox 36.9 C 98 23 H 98/52 L 97 03/28/17 08:00 03/28/17 09:00 03/28/17 09:00 03/28/17 09:00 03/28/17 09:00 Oxygen Flow Rate 1 Oxygen Delivery Method Nasal Cannula Weight: 93.3 kg Body Mass Index (BMI) 39.9 Intake and Output for Last 24 Hours 03/26/17 03/27/17 03/28/17 23:59 23:59 23:59 Intake Total 1097 / 1097 818 / 818 Output Total 700 / 700 200 / 200 Balance 397 / 397 618 / 618 Microbiology Past 72 Hours 03/27/17 22:57 Respiratory Panel (PCR) - Final Mucosa - Nose Influenza A (Subtype H1) 03/27/17 20:20 Streptococcus pneumoniae Antigen (M - Final Urine, Clean Catch 03/27/17 20:20 Legionella Antigen - Final Urine, Clean Catch 03/27/17 20:20 Gram Stain - Preliminary Sputum, Expectorated/Coughed Laboratory Tests Past 24 Hrs 03/27/17 03/27/17 03/27/17 20:20 20:20 20:20 WBC RBC Hgb Hct MCV MCH MCHC RDW RDW Differential Plt Count MPV Sodium Potassium Chloride Carbon Dioxide Anion Gap BUN Creatinine Estim Creat Clear Calc Est GFR (MDRD) Af Amer Est GFR (MDRD) Non-Af BUN/Creatinine Ratio Glucose Hemoglobin A1c Lactic Acid 4.4 H* Calcium Urine Color Yellow Urine Clarity Sl. Cloudy Urine pH 5.0 Ur Specific [place] 1.010 Urine Protein 15 H Urine Glucose (UA) 1000 H Urine Ketones 5 H Urine Occult Blood Negative Urine Nitrite Negative Urine Bilirubin Negative Urine Urobilinogen Normal Ur Leukocyte Esterase 25 H Urine RBC 0 SEEN Urine WBC 0-5 SEEN Ur Squamous Epith Cells 0-5 SEEN Amorphous Sediment 1+ URATE Urine Bacteria 0 SEEN Urine Mucus 0 SEEN MRSA (PCR) Negative 03/28/17 03/28/17 03/28/17 00:00 04:35 04:35 WBC 12.4 H RBC 3.97 L Hgb 10.0 L Hct 32.2 L MCV 81.1 MCH 25.2 L MCHC 31.1 L RDW 15.0 H RDW Differential 44.4 H Plt Count 145 L MPV 10.9 Sodium 136 Potassium 3.4 L Chloride 102 Carbon Dioxide 28.0 Anion Gap 6 BUN 9 Creatinine 0.62 Estim Creat Clear Calc 65.84 Est GFR (MDRD) Af Amer 125 Est GFR (MDRD) Non-Af 103 BUN/Creatinine Ratio 14.5 Glucose 251 H Hemoglobin A1c Lactic Acid 2.5 H Calcium 7.6 L Urine Color Urine Clarity Urine pH Ur Specific [place] Urine Protein Urine Glucose (UA) Urine Ketones Urine Occult Blood Urine Nitrite Urine Bilirubin Urine Urobilinogen Ur Leukocyte Esterase Urine RBC Urine WBC Ur Squamous Epith Cells Amorphous Sediment Urine Bacteria Urine Mucus MRSA (PCR) 03/28/17 03/28/17 04:35 04:35 WBC RBC Hgb Hct MCV MCH MCHC RDW RDW Differential Plt Count MPV Sodium Potassium Chloride Carbon Dioxide Anion Gap BUN Creatinine Estim Creat Clear Calc Est GFR (MDRD) Af Amer Est GFR (MDRD) Non-Af BUN/Creatinine Ratio Glucose Hemoglobin A1c 10.5 H Lactic Acid 1.5 Calcium Urine Color Urine Clarity Urine pH Ur Specific [place] Urine Protein Urine Glucose (UA) Urine Ketones Urine Occult Blood Urine Nitrite Urine Bilirubin Urine Urobilinogen Ur Leukocyte Esterase Urine RBC Urine WBC Ur Squamous Epith Cells Amorphous Sediment Urine Bacteria Urine Mucus MRSA (PCR) POC Glucose 03/28/17 03/27/17 07:41 21:06 POC Glucose 242 H 270 H Clinical Impression(s) from Imaging Studies Chest X-Ray 03/27/17 15:14 IMPRESSION: Poorly defined density in the mid right lung, possibly infiltrate. Nodules are not excluded. CT scan is recommended. Electronically Signed: Migel Massey MD at 15:52 EST , Service support , Chest CTA 03/27/17 16:29 IMPRESSION: 1. No demonstrated pulmonary embolism or arterial dissection. 2. There are patchy alveolar densities consistent with infection in the inferolateral right upper lobe and posteromedial right lower lobe. 3. A few nonspecific mediastinal lymph nodes are described above. No overtly suspicious adenopathy. 4. Atherosclerotic calcifications of the coronary arteries and thoracic aortic arch. 5. Additional findings suggesting fatty infiltration and cirrhotic change in the enlarged liver. 6. Degenerative changes and levoscoliosis of the thoracic spine. Electronically Signed: Delano Doe MD at 17:17 EST , Service support , Assessment/Plan Active and Suspected Problems Septic shock (Acute) RECOMMENDATIONS: 1. Start Tamiflu 2. Continue Antibiotics, bronchodilators 3. Wean oxygen as tolerated 4. Okay to transfer from the intensive care unit. IMPRESSIONS: 1. Septic Shock secondary to Influenza and Community Acquired Pneumonia Patient was significantly elevated lactate on presentation with hypotension. Patient tolerated well with fluid boluses. Patient has come back positive with influenza, but imaging indicates a probable superinfection with bacterial pneumonia. Cultures have been taken. Patient is on appropriate antibiotics. Would initiate Tamiflu, but would also continue with current antibiotics and bronchodilators. Okay to leave the intensive care unit from my perspective. 2. Reported Asthma No PFTs are available for review. Patient does report periodic bronchodilator requirements. Would likely benefit from outpatient pulmonary function test for quantification and clarification of lung function studies. For now, continue with bronchodilators. 3. Diabetes Mellitus On it her blood sugars closely. During acute infections, but sugars can become very labile. Patient appears to be well-controlled at this time. Continue with q. before meals and at bedtime blood sugars. 4. Morbid Obesity Complicates care, management, recovery and prognosis. Code Visit Inpatient E&M: 93543 Init Hosp L3
--- NOTE | 2017-03-28 10:11 | CASEMGMT ---
DC PLAN: home, no needs.
[2017-03-28] MEDS: Ceftriaxone 1 GM/50 ML BAG IV (10:43)
[2017-03-28 11:11] LABS: Bedside Glucose 206 mg/dL (70-110)
[2017-03-28] MEDS: Oseltamivir Phosphate 75 MG Capsule PO ×2 (13:22→21:09)
[2017-03-28 16:16] LABS: Bedside Glucose 185 mg/dL (70-110)
[2017-03-28] MEDS: Amitriptyline 25 MG Tablet 50 MG PO (21:09)
[2017-03-28] MEDS: Atorvastatin Calcium 20 MG Tablet PO (21:09)
[2017-03-28 21:35] LABS: Bedside Glucose 149 mg/dL (70-110)
--- NOTE | 2017-03-28 22:27 | CPS ---
aerosol tx given, pt refused to wear nasal o2. RN notified
[2017-03-29] VITALS (15 sets, daily range): BP systolic 106–159; BP diastolic 53–82; PULSE 81–108; RESP 16–20; TEMP 36.8–37.2; O2SAT 87–95
[2017-03-29] MEDS: 0.9% Normal Saline 1,000 ML 125 ML IV ×2 (00:03→08:09)
[2017-03-29] MEDS: Ipratropium/Albuterol Sulfate 3 ML AMPUL.NEB INHALATION ×4 (02:12→19:14)
[2017-03-29 05:29] LABS: Absolute Lymphocyte Count 1.46 X10^3/ul (0.83-4.51); Absolute Neutrophil Count 4.5 X10^3/uL (2.0-7.7); Basophil# 0.03 X10^3/uL; Basophil% 0.5 % (0-1); Eosinophil# 0.03 X10^3/uL; Eosinophils% 0.5 % (0-5); Hemoglobin 10.2 g/dl (12.0-15.0); Lymphocyte # 1.46 X10^3/ul (4.0); Lymphocyte % 22.3 % (19-41); Mean Corp Hgb Conc 30.9 g/gl (32-36); Mean Corpuscular Hgb 25.6 pg (27.0-32.0); Mean Corpuscular Volume 82.9 fL (81-99); Mean Platelet Vol. 11.7 fl (6.2-12.0); Monocyte# 0.52 X10^3/uL; Monocyte% 7.9 % (0-10); Neutrophil # 4.51 X10^3/uL (2.7-7.7); Neutrophil % 68.6 % (47-70); Platelet Count 139 K/mm3 (150-450); RBC Distribution Width CV 15.1 % (11.6-14.6); RBC Distribution Width SD 45.1 fl (35.1-43.9); Red Blood Count 3.98 M/mm3 (4.2-5.4); White Blood Count 6.6 K/mm3 (4.4-11.0)
[2017-03-29 05:32] LABS: Potassium 3.8 mmol/L (3.5-5.1)
[2017-03-29 05:39] LABS: POSITIVE COUNT NO; POSITIVE DIFFERENTIAL NO; POSITIVE MORPHOLOGY NO
[2017-03-29 07:11] LABS: Bedside Glucose 181 mg/dL (70-110)
--- NOTE | 2017-03-29 08:15 | PN_ITS ---
Patient Problems: Active and Suspected Problems Septic shock (Acute) Influenza A virus subtype H1 present (Acute) Community acquired pneumonia (Acute) Subjective: Patient was seen and examined. She is complaining of epigastric pain with nausea and was given antiemetics with no relief. She states this is not new. She is supposed to be receiving some different medications for her nausea. Denies any diarrhea. Endorses persistent wheezing and dyspnea on exertion, as well as intermittent yellow sputum production. Patient reports improvement with bronchodilators. Objective: Recent lab work and culture data reviewed. Patient had a low-grade fever yesterday evening and is currently afebrile and hemodynamically stable. Respiratory panel revealed influenza A. Urine strep and Legionella antigens were negative. Urine culture is pending as well as respiratory and blood cultures. She remains on Rocephin and azithromycin. - Physical Exam General: Alert, Oriented x3, Cooperative, Well developed, Well nourished, - - mild conversational dyspnea HEENT: Atraumatic, Normocephalic Oral: Moist Mucosa, No Gingival or Mucosal Lesions/ Ulcerations, - - edentulous Neck: Supple, No Nodes, Trachea Midline Lungs: - - Diminished throughout with global wheezing Cardiovascular: Regular rate, Regular Rhythm, Normal S1, Normal S2, No murmurs, No rub noted, No Gallop Abdomen: Bowel Sounds Present, Soft, Obese, Tender - Upper quadrants and epigastric area Extremities: No clubbing, No cyanosis, No edema Skin: No rashes, No breakdown Musculoskeletal: No Tenderness to Palpation of Joints or Extremities Lymphatic: No Cervical, Supraclavicular, or Inguinal Adenopathy Neurological: Cranial nerves II-XII grossly intact, Neuro grossly intact, Motor Exam 5/5 strength throughout Psych/Mental Status: Alert and oriented to time, place, person, mood and affect Vital Signs Temp Pulse Resp BP Pulse Ox 98.8 F 92 20 H 159/82 H 93 03/29/17 03:44 03/29/17 07:20 03/29/17 07:17 03/29/17 03:44 03/29/17 07:20 Oxygen Flow Rate 2 Oxygen Delivery Method Room Air Weight: 208 lb 15.971 oz Body Mass Index (BMI) 39.9 Intake and Output for Last 24 Hours 03/27/17 03/28/17 03/29/17 23:59 23:59 23:59 Intake Total 1097 / 1097 3009 / 3009 1094 / 1094 Output Total 700 / 700 200 / 200 Balance 397 / 397 2809 / 2809 1094 / 1094 Microbiology Past 72 Hours 03/27/17 20:20 Gram Stain - Final Sputum, Expectorated/Coughed 03/27/17 22:57 Respiratory Panel (PCR) - Final Mucosa - Nose Influenza A (Subtype H1) 03/27/17 20:20 Streptococcus pneumoniae Antigen (M - Final Urine, Clean Catch 03/27/17 20:20 Legionella Antigen - Final Urine, Clean Catch Laboratory Tests Past 24 Hrs 03/28/17 03/29/17 03/29/17 04:35 05:14 05:14 WBC 6.6 RBC 3.98 L Hgb 10.2 L Hct 33.0 L MCV 82.9 MCH 25.6 L MCHC 30.9 L RDW 15.1 H RDW Differential 45.1 H Plt Count 139 L MPV 11.7 Immature Gran % (Auto) 0.200 Neut % (Auto) 68.6 Lymph % (Auto) 22.3 [place] % (Auto) 7.9 Eos % (Auto) 0.5 Baso % (Auto) 0.5 Absolute Neuts (auto) 4.5 Absolute Lymphs (auto) 1.46 Total Counted Not Reportable Potassium 3.8 Hemoglobin A1c 10.5 H POC Glucose 03/29/17 03/28/17 03/28/17 06:58 21:12 16:09 POC Glucose 181 H 149 H 185 H 03/28/17 11:05 POC Glucose 206 H Assessment/Plan Active and Suspected Problems Septic shock (Acute) Influenza A virus subtype H1 present (Acute) Community acquired pneumonia (Acute) RECOMMENDATIONS: 1. Continue Tamiflu 2. Continue antibiotics 3. Wean oxygen as tolerated to keep saturations 88-92% 4. Continue incentive spirometer and increase activity as tolerated 5. Continue bronchodilators, mucolytics 6. Ambulatory pulse ox prior to discharge 7. Would benefit from outpatient pulmonary function tests to clarify/ quantify lung disease. She can follow-up in pulmonary clinic 2 weeks from discharge if she desires. IMPRESSIONS: 1. Septic Shock secondary to Influenza and Community Acquired Pneumonia Patient was significantly elevated lactate on presentation with hypotension. Improvement with fluid boluses. Lactate now normalized and leukocytosis resolved. Patient has come back positive with influenza, but imaging indicates a probable superinfection with bacterial pneumonia. Cultures have been taken, pending. Strep/Legionella negative. Patient is on appropriate antibiotics. Continue Tamiflu and current antibiotics, bronchodilators. 2. Reported Asthma No PFTs are available for review. Patient does report periodic bronchodilator requirements. Would likely benefit from outpatient pulmonary function test for quantification and clarification of lung function studies. For now, continue with bronchodilators. 3. Diabetes Mellitus Monitor blood sugars closely with acute infection. Patient appears to be well-controlled at this time. Continue scheduled and sliding scale insulin and adjust as indicated. 4. Morbid Obesity/hypertension/chronic gastroenteritis Complicates care, management, recovery and prognosis. Patient complains of epigastric and upper quadrant abdominal pain, states is not new and has history of peptic ulcer and abdominal discomfort. Defer management to hospitalist. This note was generated with [employer] dictation software. It may contain incorrect words, spelling, and punctuation that were not noted in checking the note before signing.
--- NOTE | 2017-03-29 09:20 | PN_ITS ---
Patient Problems: Active and Suspected Problems Septic shock (Acute) Subjective: Chief complaint: Follow-up after admission for septic shock by criteria due to a right lung community-acquired pneumonia. Patient seen and examined. No acute events overnight. This morning, she complained of epigastric pain with nausea. Her breathing is stable and improving. She still complaining of mild cough, no sputum production. Still having occasional wheezes. She mentioned that she does have a history of peptic ulcer disease. Recently, she saw a depot manager as outpatient and she had upper EGD done that was unremarkable according to the patient. She is afebrile, blood pressure slightly elevated, pulse ox is 93% on room air. - Physical Exam General: Alert, Oriented x3, Cooperative, No apparent distress HEENT: Atraumatic, PERRLA, EOMI Oral: Moist Mucosa, No Gingival or Mucosal Lesions/ Ulcerations Neck: Supple, No JVD, Negative Carotid Bruits, Trachea Midline, Thyroid Normal Size and Texture Lungs: Clear to auscultation, No rales, Diminished, Rhonchi, Wheezes - Minimal end expiratory wheezes. Cardiovascular: Regular rate, Regular Rhythm, Normal S1, Normal S2, PMI Normal Abdomen: Bowel Sounds Present, Soft, Non Tender, Non-Distended, No Hepato- splenomegaly Extremities: No clubbing, No cyanosis, No edema Skin: No rashes, No breakdown Lymphatic: No Cervical, Supraclavicular, or Inguinal Adenopathy Neurological: Cranial nerves II-XII grossly intact, Neuro grossly intact Psych/Mental Status: Normal Affect, Appropriate, Alert and oriented to time, place, person, mood and affect Vital Signs Temp Pulse Resp BP Pulse Ox 98.8 F 92 20 H 159/82 H 93 03/29/17 03:44 03/29/17 07:20 03/29/17 07:17 03/29/17 03:44 03/29/17 07:20 Oxygen Flow Rate 2 Oxygen Delivery Method Room Air Weight: 208 lb 15.971 oz Body Mass Index (BMI) 39.9 Intake and Output for Last 24 Hours 03/27/17 03/28/17 03/29/17 23:59 23:59 23:59 Intake Total 1097 / 1097 3009 / 3009 1094 / 1094 Output Total 700 / 700 200 / 200 Balance 397 / 397 2809 / 2809 1094 / 1094 Microbiology Past 72 Hours 03/27/17 20:20 Gram Stain - Final Sputum, Expectorated/Coughed 03/27/17 22:57 Respiratory Panel (PCR) - Final Mucosa - Nose Influenza A (Subtype H1) 03/27/17 20:20 Streptococcus pneumoniae Antigen (M - Final Urine, Clean Catch 03/27/17 20:20 Legionella Antigen - Final Urine, Clean Catch Laboratory Tests Past 24 Hrs 03/28/17 03/29/17 03/29/17 04:35 05:14 05:14 WBC 6.6 RBC 3.98 L Hgb 10.2 L Hct 33.0 L MCV 82.9 MCH 25.6 L MCHC 30.9 L RDW 15.1 H RDW Differential 45.1 H Plt Count 139 L MPV 11.7 Immature Gran % (Auto) 0.200 Neut % (Auto) 68.6 Lymph % (Auto) 22.3 Vermilion % (Auto) 7.9 Eos % (Auto) 0.5 Baso % (Auto) 0.5 Absolute Neuts (auto) 4.5 Absolute Lymphs (auto) 1.46 Total Counted Not Reportable Potassium 3.8 Hemoglobin A1c 10.5 H POC Glucose 03/29/17 03/28/17 03/28/17 06:58 21:12 16:09 POC Glucose 181 H 149 H 185 H 03/28/17 11:05 POC Glucose 206 H Assessment/Plan Active and Suspected Problems Septic shock (Acute) This is a 62 years old female patient presented to the emergency room because of fever, shortness of breath and productive cough and she was found to have right upper and lower lobe consolidation on CTA chest as well as lactic acid of 5.2 consistent with septic shock by criteria due to right lung community acquired pneumonia. #1 septic shock: She is on IV Rocephin and Zithromax. It is secondary to community acquired pneumonia, lactic acid was elevated at 5.2 and it came down to 1.5 with IV fluid therapy. Vital signs stabilized. She has been afebrile. Blood, sputum and urine cultures are pending. Respiratory panel for viruses is positive for influenza A. Plan: Continue same treatment. #2 right lung community-acquired pneumonia: Remained on IV Rocephin and Zithromax. Cultures are pending as above. White blood cell count is back to normal. Blood pressure stabilized. Blood and urine cultures are pending as well as sputum culture. Pneumococcal and Legionella antigen were negative. Respiratory panel for viruses were positive for influenza A. Plan: Continue same treatment, monitor cultures. #3 acute influenza A: She is on Tamiflu. #4 epigastric pain: In context of history of peptic ulcer disease. Recently, she saw gastroenterology as outpatient, EGD performed and no findings according to the patient. She denied upper chest pain or shortness of breath. This is likely because GERD versus peptic ulcer disease. Plan: We will start Protonix twice daily, Mylanta as needed. #5 elevated d-dimer: Secondary to septic shock and infection. CTA chest negative for PE or dissection. #6 hypertension: Blood pressure start to go up, lisinopril held. Plan to resume lisinopril. #7 type 2 diabetes mellitus: Blood sugar stable, continue ADA diet, Accu-Cheks, insulin sliding scale, continue Levemir insulin as well as glipizide, keep holding metformin. #8 COPD: Continue DuoNeb every 4 hours, albuterol as needed, oxygen as needed. No evidence of acute COPD exacerbation. #9 hyperlipidemia: Continue statins. #10 DVT prophylaxis: Subcu Lovenox. This note was generated with [employer] dictation software. It may contain incorrect words, spelling, and punctuation that were not noted in checking the note before signing. Code Visit Inpatient E&M: 77722 Subs Hosp L2
[2017-03-29] MEDS: Lisinopril 10 MG Tablet PO (10:36)
[2017-03-29] MEDS: Sertraline 50 MG Tablet PO (10:36)
[2017-03-29] MEDS: Pantoprazole Sodium 40 MG Tablet PO ×2 (10:36→21:34)
[2017-03-29] MEDS: Famotidine 20 MG Tablet PO ×2 (10:36→21:34)
[2017-03-29] MEDS: Oseltamivir Phosphate 75 MG Capsule PO ×2 (10:37→21:34)
[2017-03-29] MEDS: Enoxaparin 40 MG/0.4 ML Syringe SC (10:37)
[2017-03-29] MEDS: guaiFENesin 600 MG Tablet 1200 MG PO ×2 (10:37→21:34)
[2017-03-29] MEDS: Ceftriaxone 1 GM/50 ML BAG IV (10:37)
[2017-03-29] MEDS: Ondansetron 4 MG/2 ML Vial IV (10:37)
[2017-03-29 11:27] LABS: Bedside Glucose 190 mg/dL (70-110)
[2017-03-29 16:51] LABS: Bedside Glucose 127 mg/dL (70-110)
[2017-03-29] MEDS: Acetaminophen 325 MG Tablet 650 MG PO (19:07)
[2017-03-29] MEDS: Atorvastatin Calcium 20 MG Tablet PO (21:34)
[2017-03-29] MEDS: Amitriptyline 25 MG Tablet 50 MG PO (21:34)
[2017-03-29 21:41] LABS: Bedside Glucose 106 mg/dL (70-110)
[2017-03-30] VITALS (10 sets, daily range): BP systolic 122–127; BP diastolic 49–72; PULSE 76–100; RESP 16–20; TEMP 36.7–36.8; O2SAT 87–98
[2017-03-30] MEDS: 0.9% NaCl Peripheral Flush Adult/Peds IV ×2 (06:48→09:05)
[2017-03-30] MEDS: Ondansetron 4 MG/2 ML Vial IV (06:48)
[2017-03-30] MEDS: Ipratropium/Albuterol Sulfate 3 ML AMPUL.NEB INHALATION ×2 (06:58→10:34)
[2017-03-30 07:26] LABS: Bedside Glucose 108 mg/dL (70-110)
--- NOTE | 2017-03-30 08:38 | PCM.PROGNOTE ---
Patient Problems: Active and Suspected Problems Community acquired pneumonia (Acute) Influenza A virus subtype H1 present (Acute) Septic shock (Acute) Subjective: Patient was seen and examined. She is sitting up in bed in no acute distress. Reports she is feeling significantly better today, less achiness. Epigastric/abdominal discomfort and nausea have resolved. Still having some wheezing but less severe, endorses improvement with bronchodilators. She was 95% on a liter of oxygen, the nurses removed oxygen and is going to perform an ambulatory pulse ox. Plans are to discharge patient today. Objective: Respiratory panel positive for influenza A, subtype H1. Respiratory culture showed no growth. Urine Legionella/strep antigens were negative. Blood cultures are pending from 03/27/17. Urine culture showing mixed organisms, likely contaminant. Lab data reviewed, leukocytosis has resolved. Patient remains afebrile and hemodynamically stable. Electrolyte imbalances have resolved. No new imaging to review. - Physical Exam General: Alert, Oriented x3, Cooperative, No apparent distress, Well developed, Well nourished, - - No conversational dyspnea HEENT: Atraumatic, Normocephalic Oral: Moist Mucosa, No Gingival or Mucosal Lesions/ Ulcerations, - - Edentulous Neck: Supple, No Nodes, Trachea Midline Lungs: No rhonchi, No rales, - - Diminished throughout with faint expiratory wheeze, improved Cardiovascular: Regular rate, Regular Rhythm, Normal S1, Normal S2, No murmurs, No rub noted, No Gallop Abdomen: Bowel Sounds Present, Soft, Non Tender, Non-Distended, Obese Extremities: No clubbing, No cyanosis, No edema, Capillary Refill Less than 3 Seconds Skin: - - No changes Musculoskeletal: No Tenderness to Palpation of Joints or Extremities Lymphatic: No Cervical, Supraclavicular, or Inguinal Adenopathy Neurological: Cranial nerves II-XII grossly intact, Neuro grossly intact, Motor Exam 5/5 strength throughout Psych/Mental Status: Alert and oriented to time, place, person, mood and affect Vital Signs Temp Pulse Resp BP Pulse Ox 98.3 F 86 16 127/66 H 91 03/30/17 03:08 03/30/17 07:30 03/30/17 06:58 03/30/17 03:08 03/30/17 06:58 Oxygen Flow Rate 1 Oxygen Delivery Method Nasal Cannula Weight: 209 lb 7.026 oz Body Mass Index (BMI) 39.9 Intake and Output for Last 24 Hours 03/28/17 03/29/17 03/30/17 23:59 23:59 23:59 Intake Total 3009 / 3009 2389 / 2389 500 / 500 Output Total 200 / 200 Balance 2809 / 2809 2389 / 2389 500 / 500 Microbiology Past 72 Hours 03/27/17 20:20 Urine Culture - Preliminary Urine, Clean Catch Mixed Gram Positive Organisms 03/27/17 20:20 Gram Stain - Final Sputum, Expectorated/Coughed Respiratory Culture - Preliminary 03/27/17 22:57 Respiratory Panel (PCR) - Final Mucosa - Nose Influenza A (Subtype H1) 03/27/17 20:20 Streptococcus pneumoniae Antigen (M - Final Urine, Clean Catch 03/27/17 20:20 Legionella Antigen - Final Urine, Clean Catch POC Glucose 03/30/17 03/29/17 03/29/17 07:20 21:22 16:46 POC Glucose 108 106 127 H 03/29/17 11:21 POC Glucose 190 H Assessment/Plan Active and Suspected Problems Community acquired pneumonia (Acute) Influenza A virus subtype H1 present (Acute) Septic shock (Acute) RECOMMENDATIONS: 1. Continue Tamiflu 2. Continue antibiotics as outpatient to complete course 3. Wean oxygen as tolerated to keep saturations 88-92% 4. Continue incentive spirometer and increase activity as tolerated 5. Continue bronchodilators, mucolytics 6. Ambulatory pulse ox prior to discharge 7. Would benefit from outpatient pulmonary function tests to clarify/quantify lung disease. She can follow-up in pulmonary clinic 2 weeks from discharge 8. Patient will have a repeat chest x-ray in 4-6 weeks for documentation of resolution of pneumonia 9. Okay to discharge from pulmonary perspective IMPRESSIONS: 1. Septic Shock secondary to Influenza and Community Acquired Pneumonia Patient was significantly elevated lactate on presentation with hypotension. Improvement with fluid boluses. Lactate now normalized and leukocytosis resolved. Patient has come back positive with influenza, but imaging indicates a probable superinfection with bacterial pneumonia. Cultures have been taken, pending. Strep/Legionella negative. Patient is on appropriate antibiotics. Continue Tamiflu and current antibiotics, bronchodilators. Ambulatory pulse ox prior to discharge to assess for exertional hypoxia. Patient will require a repeat chest x-ray in 4-6 weeks for documentation of resolution of pneumonia. Pulmonary function tests can be completed as an outpatient once patient has resolution of acute illness. 2. Reported Asthma No PFTs are available for review. Patient does report periodic bronchodilator requirements. Would likely benefit from outpatient pulmonary function test for quantification and clarification of lung function studies. For now, continue with bronchodilators. Patient is willing to follow-up in the pulmonary clinic, please make appointment in 2 weeks with [employer] MAKER. 3. Diabetes Mellitus Monitor blood sugars closely with acute infection. Patient appears to be well-controlled at this time. Continue scheduled and sliding scale insulin and adjust as indicated. 4. Morbid Obesity/hypertension/chronic gastroenteritis Complicates care, management, recovery and prognosis. Patient complains of epigastric and upper quadrant abdominal pain, states is not new and has history of peptic ulcer and abdominal discomfort. No bleeding noted her stool. This note was generated with [employer] dictation software. It may contain incorrect words, spelling, and punctuation that were not noted in checking the note before signing.
[2017-03-30] MEDS: Enoxaparin 40 MG/0.4 ML Syringe SC (08:39)
[2017-03-30] MEDS: guaiFENesin 600 MG Tablet 1200 MG PO (08:41)
[2017-03-30] MEDS: Oseltamivir Phosphate 75 MG Capsule PO (08:41)
--- NOTE | 2017-03-30 08:41 | PN_ITS ---
Patient Problems: Active and Suspected Problems Community acquired pneumonia (Acute) Influenza A virus subtype H1 present (Acute) Septic shock (Acute) Subjective: Patient was seen and examined. She is sitting up in bed in no acute distress. Reports she is feeling significantly better today, less achiness. Epigastric/ abdominal discomfort and nausea have resolved. Still having some wheezing but less severe, endorses improvement with bronchodilators. She was 95% on a liter of oxygen, the nurses removed oxygen and is going to perform an ambulatory pulse ox. Plans are to discharge patient today. Objective: Respiratory panel positive for influenza A, subtype H1. Respiratory culture showed no growth. Urine Legionella/strep antigens were negative. Blood cultures are pending from 03/27/17. Urine culture showing mixed organisms, likely contaminant. Lab data reviewed, leukocytosis has resolved. Patient remains afebrile and hemodynamically stable. Electrolyte imbalances have resolved. No new imaging to review. - Physical Exam General: Alert, Oriented x3, Cooperative, No apparent distress, Well developed, Well nourished, - - No conversational dyspnea HEENT: Atraumatic, Normocephalic Oral: Moist Mucosa, No Gingival or Mucosal Lesions/ Ulcerations, - - Edentulous Neck: Supple, No Nodes, Trachea Midline Lungs: No rhonchi, No rales, - - Diminished throughout with faint expiratory wheeze, improved Cardiovascular: Regular rate, Regular Rhythm, Normal S1, Normal S2, No murmurs, No rub noted, No Gallop Abdomen: Bowel Sounds Present, Soft, Non Tender, Non-Distended, Obese Extremities: No clubbing, No cyanosis, No edema, Capillary Refill Less than 3 Seconds Skin: - - No changes Musculoskeletal: No Tenderness to Palpation of Joints or Extremities Lymphatic: No Cervical, Supraclavicular, or Inguinal Adenopathy Neurological: Cranial nerves II-XII grossly intact, Neuro grossly intact, Motor Exam 5/5 strength throughout Psych/Mental Status: Alert and oriented to time, place, person, mood and affect Vital Signs Temp Pulse Resp BP Pulse Ox 98.3 F 86 16 127/66 H 91 03/30/17 03:08 03/30/17 07:30 03/30/17 06:58 03/30/17 03:08 03/30/17 06:58 Oxygen Flow Rate 1 Oxygen Delivery Method Nasal Cannula Weight: 209 lb 7.026 oz Body Mass Index (BMI) 39.9 Intake and Output for Last 24 Hours 03/28/17 03/29/17 03/30/17 23:59 23:59 23:59 Intake Total 3009 / 3009 2389 / 2389 500 / 500 Output Total 200 / 200 Balance 2809 / 2809 2389 / 2389 500 / 500 Microbiology Past 72 Hours 03/27/17 20:20 Urine Culture - Preliminary Urine, Clean Catch Mixed Gram Positive Organisms 03/27/17 20:20 Gram Stain - Final Sputum, Expectorated/Coughed Respiratory Culture - Preliminary 03/27/17 22:57 Respiratory Panel (PCR) - Final Mucosa - Nose Influenza A (Subtype H1) 03/27/17 20:20 Streptococcus pneumoniae Antigen (M - Final Urine, Clean Catch 03/27/17 20:20 Legionella Antigen - Final Urine, Clean Catch POC Glucose 03/30/17 03/29/17 03/29/17 07:20 21:22 16:46 POC Glucose 108 106 127 H 03/29/17 11:21 POC Glucose 190 H Assessment/Plan Active and Suspected Problems Community acquired pneumonia (Acute) Influenza A virus subtype H1 present (Acute) Septic shock (Acute) RECOMMENDATIONS: 1. Continue Tamiflu 2. Continue antibiotics as outpatient to complete course 3. Wean oxygen as tolerated to keep saturations 88-92% 4. Continue incentive spirometer and increase activity as tolerated 5. Continue bronchodilators, mucolytics 6. Ambulatory pulse ox prior to discharge 7. Would benefit from outpatient pulmonary function tests to clarify/ quantify lung disease. She can follow-up in pulmonary clinic 2 weeks from discharge 8. Patient will have a repeat chest x-ray in 4-6 weeks for documentation of resolution of pneumonia 9. Okay to discharge from pulmonary perspective IMPRESSIONS: 1. Septic Shock secondary to Influenza and Community Acquired Pneumonia Patient was significantly elevated lactate on presentation with hypotension. Improvement with fluid boluses. Lactate now normalized and leukocytosis resolved. Patient has come back positive with influenza, but imaging indicates a probable superinfection with bacterial pneumonia. Cultures have been taken, pending. Strep/Legionella negative. Patient is on appropriate antibiotics. Continue Tamiflu and current antibiotics, bronchodilators. Ambulatory pulse ox prior to discharge to assess for exertional hypoxia. Patient will require a repeat chest x-ray in 4-6 weeks for documentation of resolution of pneumonia. Pulmonary function tests can be completed as an outpatient once patient has resolution of acute illness. 2. Reported Asthma No PFTs are available for review. Patient does report periodic bronchodilator requirements. Would likely benefit from outpatient pulmonary function test for quantification and clarification of lung function studies. For now, continue with bronchodilators. Patient is willing to follow-up in the pulmonary clinic, please make appointment in 2 weeks with [employer] MACHINE OPERATOR. 3. Diabetes Mellitus Monitor blood sugars closely with acute infection. Patient appears to be well-controlled at this time. Continue scheduled and sliding scale insulin and adjust as indicated. 4. Morbid Obesity/hypertension/chronic gastroenteritis Complicates care, management, recovery and prognosis. Patient complains of epigastric and upper quadrant abdominal pain, states is not new and has history of peptic ulcer and abdominal discomfort. No bleeding noted her stool. This note was generated with [employer] dictation software. It may contain incorrect words, spelling, and punctuation that were not noted in checking the note before signing.
[2017-03-30] MEDS: Pantoprazole Sodium 40 MG Tablet PO (08:42)
[2017-03-30] MEDS: Famotidine 20 MG Tablet PO (08:42)
[2017-03-30] MEDS: Sertraline 50 MG Tablet PO (08:42)
[2017-03-30] MEDS: Lisinopril 10 MG Tablet PO (08:48)
[2017-03-30] MEDS: Mag Hydrox/Al Hydrox/Simeth 30 ML UDC PO (09:05)
[2017-03-30] MEDS: Ceftriaxone 1 GM/50 ML BAG IV (09:05)
--- NOTE | 2017-03-30 09:06 | NURSING ---
Walked in hallway with mask on since pt is on droplet prec. Walking oxygen trail test done, see intervention.
--- NOTE | 2017-03-30 10:55 | PCM.DC ---
- Discharge Diagnoses Current Active Problems: Current Active and Chronic Problems Community acquired pneumonia (Acute) Influenza A virus subtype H1 present (Acute) Septic shock (Acute) Hyperlipemia (Chronic) Gastroenteritis (Chronic) Diabetes mellitus, type 2 (Chronic) Benign hypertension (Chronic) You will use the following diet at home:: Calorie/Carbohydrate Controlled (specify 1200, 1400, etc) - 1800 yumiko., Cardiac Your food should be the consistency of: Regular Discharge Activity: Return to Normal Activity Weight Bearing Status: Weight bearing as tolerated Call your doctor if you observe: Fever of 101 or Higher, Shortness of breath, Dizziness, Fainting spells, Chest pain, Increased palpitations (irregular heartbeat), Uncontrolled pain Instructions: Discharge Instructions for Pneumonia, Discharge Instructions for Gastroesophageal Reflux Disease (GERD) Allergies/Adverse Reactions: Allergies codeine Allergy (Verified 11/01/16 19:05) Rash naproxen Adverse Reaction (Verified 11/01/16 19:05) Other Medications to take at Discharge Amitriptyline HCl 50 mg PO QHS 01/16/16 Insulin Aspart [Novolog Flexpen] 22 units SC TIDCM 01/16/16 Metformin HCl [Glucophage] 1,000 mg PO BIDCM 01/16/16 Oxybutynin [Ditropan] 10 mg PO DAILY 01/16/16 Simvastatin [Zocor] 40 mg PO QHS 01/16/16 Albuterol Inhaler [Ventolin Hfa] 1 - 2 puff INHALATION Q6H PRN PRN 03/27/17 Cyclobenzaprine [Flexeril] 10 mg PO TID PRN PRN 03/27/17 GlipiZIDE [Glucotrol] 10 mg PO DAILY@0730 03/27/17 Insulin Glargine,Hum.rec.anlog [Basaglar Kwikpen U-100] 58 unit SQ QHS 03/27/17 Lisinopril [Zestril] 10 mg PO DAILY 03/27/17 Sertraline HCl [Zoloft] 50 mg PO DAILY 03/27/17 Levofloxacin [Levaquin] 750 mg PO DAILY #7 tab 03/30/17 Mag Hydrox/Al Hydrox/Simeth [Mylanta II] 15 ml PO Q8H PRN PRN #1 bottle 03/30/17 Ondansetron [Zofran Odt] 4 mg PO Q8H PRN PRN #20 tab 03/30/17 Oseltamivir Phosphate [Tamiflu] 75 mg PO BID #5 cap 03/30/17 Pantoprazole Sodium [Protonix] 40 mg PO DAILY #30 tab 03/30/17 The following prescriptions were given: Mag Hydrox/Al Hydrox/Simeth [Mylanta II] 15 ml PO Q8H PRN PRN #1 bottle PRN Reason: Epigastric pain, heartburn. Ondansetron [Zofran Odt] 4 mg PO Q8H PRN PRN #20 tab PRN Reason: Nausea Levofloxacin [Levaquin] 750 mg PO DAILY #7 tab Pantoprazole Sodium [Protonix] 40 mg PO DAILY #30 tab Oseltamivir Phosphate [Tamiflu] 75 mg PO BID #5 cap Primary Care Physician: Jesus Garcia MD [Primary Care Provider] - Please follow up with your Primary Care Physician in: 1 week.
--- NOTE | 2017-03-30 11:34 | CASEMGMT ---
Home oxygen testing reviewed with Dr. Crews. Pt will not need home O2. RN CARMINA discussed with pt, teaching re: being mindful of exertion and to rest if any shortness of breath occurs. If symptoms persist or are not relieved at rest, contact her PCP or come to ER. Pt states she is feeling fine even with short ambulation around room and to bathroom. Nursing updated. Latasha ASHFORD RN ACM
--- NOTE | 2017-03-30 12:03 | NURSING ---
Continues to sit up in chair. Blood sugar is 195. Novolog 22 units ordered to be given a long with sliding scale of 1 unit. This nurse asked pt about giving 22 units despite blood sugar only being 195. Pt stated that was right, she should take 22 units of Novolog with lunch and blood sugar of 195. Pt states she can tell when her blood sugar goes low.
[2017-03-30 12:06] LABS: Bedside Glucose 195 mg/dL (70-110)
--- NOTE | 2017-03-30 15:31 | PCM.DC.SUM ---
Discharge Date and Diagnosis Date of Admission: 03/27/17 Date of Discharge: 03/30/17 - Primary Discharge Diagnosis Active and Suspected Problems #1 septic shock by criteria. #2 right lung community-acquired pneumonia. #3 acute influenza A. #4 elevated d-dimer, CTA chest negative for PE or dissection. #5 epigastric pain/history of peptic ulcer disease. - Secondary Discharge Diagnosis Chronic Problems Hyperlipemia (Chronic) Gastroenteritis (Chronic) Diabetes mellitus, type 2 (Chronic) Chronic obstructive lung disease (Chronic) Benign hypertension (Chronic) Hospital Course and Treatment Imaging Results: Clinical Impression(s) from Imaging Studies Chest X-Ray 03/27/17 15:14 IMPRESSION: Poorly defined density in the mid right lung, possibly infiltrate. Nodules are not excluded. CT scan is recommended. Electronically Signed: Migel Massey MD at 15:52 EST , Service support , Chest CTA 03/27/17 16:29 IMPRESSION: 1. No demonstrated pulmonary embolism or arterial dissection. 2. There are patchy alveolar densities consistent with infection in the inferolateral right upper lobe and posteromedial right lower lobe. 3. A few nonspecific mediastinal lymph nodes are described above. No overtly suspicious adenopathy. 4. Atherosclerotic calcifications of the coronary arteries and thoracic aortic arch. 5. Additional findings suggesting fatty infiltration and cirrhotic change in the enlarged liver. 6. Degenerative changes and levoscoliosis of the thoracic spine. Electronically Signed: Delano Doe MD at 17:17 EST , Service support , Dr. Varghese, critical care. Operations: None Procedures: None Summary of Care Provided: Patient seen and examined on the day of discharge and appeared to be stable to be discharged home. She mentioned that her epigastric pain improved but still there. Still having mild cough, no sputum production. Denies any more shortness of breath. Her vital signs are stable, afebrile. - Physical Exam General: Alert, Oriented x3, Cooperative, No apparent distress. HEENT: Atraumatic, PERRLA, EOMI. Neck: Supple, No JVD, Negative Carotid Bruits, Trachea Midline, Thyroid Normal. Lungs: Decreased breath sounds bilateral, occasional wheezes, no rhonchi, No rales. Cardiovascular: Regular rate, Regular Rhythm, Normal S1, Normal S2, PMI Normal. Abdomen: Bowel Sounds Present, Soft, Non Tender, Non-Distended, No Hepato-splenomegaly. Extremities: No clubbing, No cyanosis, No edema Skin: No rashes, No breakdown Neurological: Neuro grossly intact Vital Signs are stable. Hospital course: The patient is a 62 year old F admitted because of fever, shortness of breath and productive cough and she was found to have right upper and lower lobe consolidation with lactic acid of 5.2 on admission consistent with septic shock due to a right lung community-acquired pneumonia. Patient was admitted to the intensive care unit for septic shock, started on IV antibiotics and IV fluids and her lactic acid came back to normal. On admission, lactic acid was 5.2 and with IV fluid therapy, it came down back to normal. Nasal swab for influenza a and B were positive for influenza A and she was treated with Tamiflu. Her d-dimer was elevated for which CTA chest done and was negative for PE or dissection. Initially, patient required oxygen up to 2 L. With treatment, patient was able to come off oxygen and she remained stable. Her pneumococcal and Legionella antigen were negative. Respiratory panel for viruses were positive for influenza A. Blood culture revealed no growth up to the time of discharge. Sputum culture revealed mixed normal respiratory sreedhar. During this hospital stay, patient complained of epigastric pain and heartburn. She did mention that she had a history of peptic ulcer disease and she has been following with GI as outpatient. She was given Protonix and Mylanta and her symptoms improved. Patient discharged home in a stable medical condition, discharged on Levaquin for 7 days, discharged on Protonix and Mylanta as needed, continued on her home medication without any changes, recommended follow-up with PCP in 1 week. Discharge Activity: Return to Normal Activity Weight Bearing Status: Weight bearing as tolerated Call your doctor if you observe: Fever of 101 or Higher, Shortness of breath, Dizziness, Fainting spells, Chest pain, Increased palpitations (irregular heartbeat), Uncontrolled pain Home Medications: Medications to take at Discharge Amitriptyline HCl 50 mg PO QHS 01/16/16 Insulin Aspart [Novolog Flexpen] 22 units SC TIDCM 01/16/16 Metformin HCl [Glucophage] 1,000 mg PO BIDCM 01/16/16 Oxybutynin [Ditropan] 10 mg PO DAILY 01/16/16 Simvastatin [Zocor] 40 mg PO QHS 01/16/16 Albuterol Inhaler [Ventolin Hfa] 1 - 2 puff INHALATION Q6H PRN PRN 03/27/17 Cyclobenzaprine [Flexeril] 10 mg PO TID PRN PRN 03/27/17 GlipiZIDE [Glucotrol] 10 mg PO DAILY@0730 03/27/17 Insulin Glargine,Hum.rec.anlog [Basaglar Kwikpen U-100] 58 unit SQ QHS 03/27/17 Lisinopril [Zestril] 10 mg PO DAILY 03/27/17 Sertraline HCl [Zoloft] 50 mg PO DAILY 03/27/17 Levofloxacin [Levaquin] 750 mg PO DAILY #7 tab 03/30/17 Mag Hydrox/Al Hydrox/Simeth [Mylanta II] 15 ml PO Q8H PRN PRN #1 bottle 03/30/17 Ondansetron [Zofran Odt] 4 mg PO Q8H PRN PRN #20 tab 03/30/17 Oseltamivir Phosphate [Tamiflu] 75 mg PO BID #5 cap 03/30/17 Pantoprazole Sodium [Protonix] 40 mg PO DAILY #30 tab 03/30/17 Following Prescrptions Were Given to Patient: Mag Hydrox/Al Hydrox/Simeth [Mylanta II] 15 ml PO Q8H PRN PRN #1 bottle PRN Reason: Epigastric pain, heartburn. Ondansetron [Zofran Odt] 4 mg PO Q8H PRN PRN #20 tab PRN Reason: Nausea Levofloxacin [Levaquin] 750 mg PO DAILY #7 tab Pantoprazole Sodium [Protonix] 40 mg PO DAILY #30 tab Oseltamivir Phosphate [Tamiflu] 75 mg PO BID #5 cap Primary Care Physician: Jesus Garcia MD [Primary Care Provider] - Please follow up with your Primary Care Physician in: 1 week. Patient Instructions: Discharge Instructions for Gastroesophageal Reflux Disease (GERD), Discharge Instructions for Pneumonia Disposition: Home Minutes spent on discharge:: 32 Patient Condition:: Stable Meaningful Use Info Meaningful Use Diagnoses (Choose all that apply): None applicable Code Visit Inpatient E&M: 31393 Disch Hosp
--- NOTE | 2017-03-30 15:34 | DS.PCM_ITS ---
Discharge Date and Diagnosis Date of Admission: 03/27/17 Date of Discharge: 03/30/17 - Primary Discharge Diagnosis Active and Suspected Problems #1 septic shock by criteria. #2 right lung community-acquired pneumonia. #3 acute influenza A. #4 elevated d-dimer, CTA chest negative for PE or dissection. #5 epigastric pain/history of peptic ulcer disease. - Secondary Discharge Diagnosis Chronic Problems Hyperlipemia (Chronic) Gastroenteritis (Chronic) Diabetes mellitus, type 2 (Chronic) Chronic obstructive lung disease (Chronic) Benign hypertension (Chronic) Hospital Course and Treatment Imaging Results: Clinical Impression(s) from Imaging Studies Chest X-Ray 03/27/17 15:14 IMPRESSION: Poorly defined density in the mid right lung, possibly infiltrate. Nodules are not excluded. CT scan is recommended. Electronically Signed: Migel Massey MD at 15:52 EST , Service support , Chest CTA 03/27/17 16:29 IMPRESSION: 1. No demonstrated pulmonary embolism or arterial dissection. 2. There are patchy alveolar densities consistent with infection in the inferolateral right upper lobe and posteromedial right lower lobe. 3. A few nonspecific mediastinal lymph nodes are described above. No overtly suspicious adenopathy. 4. Atherosclerotic calcifications of the coronary arteries and thoracic aortic arch. 5. Additional findings suggesting fatty infiltration and cirrhotic change in the enlarged liver. 6. Degenerative changes and levoscoliosis of the thoracic spine. Electronically Signed: Delano Doe MD at 17:17 EST , Service support , Dr. Varghese, critical care. Operations: None Procedures: None Summary of Care Provided: Patient seen and examined on the day of discharge and appeared to be stable to be discharged home. She mentioned that her epigastric pain improved but still there. Still having mild cough, no sputum production. Denies any more shortness of breath. Her vital signs are stable, afebrile. - Physical Exam General: Alert, Oriented x3, Cooperative, No apparent distress. HEENT: Atraumatic, PERRLA, EOMI. Neck: Supple, No JVD, Negative Carotid Bruits, Trachea Midline, Thyroid Normal. Lungs: Decreased breath sounds bilateral, occasional wheezes, no rhonchi, No rales. Cardiovascular: Regular rate, Regular Rhythm, Normal S1, Normal S2, PMI Normal. Abdomen: Bowel Sounds Present, Soft, Non Tender, Non-Distended, No Hepato- splenomegaly. Extremities: No clubbing, No cyanosis, No edema Skin: No rashes, No breakdown Neurological: Neuro grossly intact Vital Signs are stable. Hospital course: The patient is a 62 year old F admitted because of fever, shortness of breath and productive cough and she was found to have right upper and lower lobe consolidation with lactic acid of 5.2 on admission consistent with septic shock due to a right lung community-acquired pneumonia. Patient was admitted to the intensive care unit for septic shock, started on IV antibiotics and IV fluids and her lactic acid came back to normal. On admission, lactic acid was 5.2 and with IV fluid therapy, it came down back to normal. Nasal swab for influenza a and B were positive for influenza A and she was treated with Tamiflu. Her d- dimer was elevated for which CTA chest done and was negative for PE or dissection. Initially, patient required oxygen up to 2 L. With treatment, patient was able to come off oxygen and she remained stable. Her pneumococcal and Legionella antigen were negative. Respiratory panel for viruses were positive for influenza A. Blood culture revealed no growth up to the time of discharge. Sputum culture revealed mixed normal respiratory sreedhar. During this hospital stay, patient complained of epigastric pain and heartburn. She did mention that she had a history of peptic ulcer disease and she has been following with GI as outpatient. She was given Protonix and Mylanta and her symptoms improved. Patient discharged home in a stable medical condition, discharged on Levaquin for 7 days, discharged on Protonix and Mylanta as needed , continued on her home medication without any changes, recommended follow-up with PCP in 1 week. Discharge Activity: Return to Normal Activity Weight Bearing Status: Weight bearing as tolerated Call your doctor if you observe: Fever of 101 or Higher, Shortness of breath, Dizziness, Fainting spells, Chest pain, Increased palpitations (irregular heartbeat), Uncontrolled pain Home Medications: Medications to take at Discharge Amitriptyline HCl 50 mg PO QHS 01/16/16 Insulin Aspart [Novolog Flexpen] 22 units SC TIDCM 01/16/16 Metformin HCl [Glucophage] 1,000 mg PO BIDCM 01/16/16 Oxybutynin [Ditropan] 10 mg PO DAILY 01/16/16 Simvastatin [Zocor] 40 mg PO QHS 01/16/16 Albuterol Inhaler [Ventolin Hfa] 1 - 2 puff INHALATION Q6H PRN PRN 03/27/17 Cyclobenzaprine [Flexeril] 10 mg PO TID PRN PRN 03/27/17 GlipiZIDE [Glucotrol] 10 mg PO DAILY@0730 03/27/17 Insulin Glargine,Hum.rec.anlog [Basaglar Kwikpen U-100] 58 unit SQ QHS 03/27/17 Lisinopril [Zestril] 10 mg PO DAILY 03/27/17 Sertraline HCl [Zoloft] 50 mg PO DAILY 03/27/17 Levofloxacin [Levaquin] 750 mg PO DAILY #7 tab 03/30/17 Mag Hydrox/Al Hydrox/Simeth [Mylanta II] 15 ml PO Q8H PRN PRN #1 bottle Ondansetron [Zofran Odt] 4 mg PO Q8H PRN PRN #20 tab 03/30/17 Oseltamivir Phosphate [Tamiflu] 75 mg PO BID #5 cap 03/30/17 Pantoprazole Sodium [Protonix] 40 mg PO DAILY #30 tab 03/30/17 Following Prescrptions Were Given to Patient: Mag Hydrox/Al Hydrox/Simeth [Mylanta II] 15 ml PO Q8H PRN PRN #1 bottle PRN Reason: Epigastric pain, heartburn. Ondansetron [Zofran Odt] 4 mg PO Q8H PRN PRN #20 tab PRN Reason: Nausea Levofloxacin [Levaquin] 750 mg PO DAILY #7 tab Pantoprazole Sodium [Protonix] 40 mg PO DAILY #30 tab Oseltamivir Phosphate [Tamiflu] 75 mg PO BID #5 cap Primary Care Physician: Jesus Garcia MD [Primary Care Provider] - Please follow up with your Primary Care Physician in: 1 week. Patient Instructions: Discharge Instructions for Gastroesophageal Reflux Disease (GERD), Discharge Instructions for Pneumonia Disposition: Home Minutes spent on discharge:: 32 Patient Condition:: Stable Meaningful Use Info Meaningful Use Diagnoses (Choose all that apply): None applicable Code Visit Inpatient E&M: 76611 Disch Hosp
== END 2017-03-30 15:35 | disposition home or self-care (01) | DRG 720 ==
LOC: ED 17:47 → ICU 19:34 → MS2 03-29 16:18
PROVIDERS: Admitting Provider Internal Medicine; Emergency Provider Emergency Medicine; Family Provider Family Medicine; PCP Family Medicine; Visit Provider Hospitalist
DX: A41.9 Sepsis, unspecified organism (principal); J10.00 Influenza due to other identified influenza virus with unspecified type of pneumonia; E78.5 Hyperlipidemia, unspecified; F32.9 Major depressive disorder, single episode, unspecified; I10 Essential (primary) hypertension; Z79.899 Other long term (current) drug therapy; Z79.84 Long term (current) use of oral hypoglycemic drugs; Z87.891 Personal history of nicotine dependence; Z87.11 Personal history of peptic ulcer disease; E11.9 Type 2 diabetes mellitus without complications; E66.01 Morbid (severe) obesity due to excess calories; R10.13 Epigastric pain; K52.9 Noninfective gastroenteritis and colitis, unspecified; Z68.39 Body mass index [BMI] 39.0-39.9, adult
CPT/HCPCS: 36415; 71045; 71275; 80048; 81001; 82962; 83036; 83605; 84132; 84484; 85025; 85027; 85379; 87040; 87070; 87086; 87088; 87205; 87449; 87633; 87641; 87804; 93005; 94640; 99283; J7030; Q9967; A4216; J2405

== ENCOUNTER 2017-08-19 15:00 | Emergency (ER) | payer MEDICAID, SELFPAY ==
[2017-08-19 15:02] VITALS: BP 149/83; PULSE 105; RESP 16; TEMP 36.9; O2SAT 98; BMI 37.8
--- NOTE | 2017-08-19 15:09 | ED.VISSUMM ---
- ER Visit Summary Date of Service: 08/19/17 Chief Complaint: Swelling right upper eyelid after hymenoptera envenomation. History of Present Illness: The patient is a 62 F who presents secondary to hymenoptera envenomation with swelling of her right upper eyelid. She complain some burning sensation. She denies swelling of her lips, tongue or throat. She denies trouble breathing. Denies difficulty swallowing and denies drooling. She denies any palpitations or rapid heartbeat. She denies shortness of breath or cough. She denies nausea, vomiting diarrhea. She denies orthostatic symptoms. Denies skin lesions. She is never been stung before or had a reaction to her knowledge. Physical Examination: Vital signs remarkable and elevated blood pressure 149/83 heart rate 105. She appears in no distress. There is soft tissue swelling of the right upper eyelid. There is no rash. Pupils equal round reactive. Extra muscle intact. Sclerae anicteric. TMs are normal. Nares patent with no discharge. Uvula midline with mild swelling. There is no evidence of angioedema. Trach is midline. There is no inspiratory expiratory stridor. There is no cervical lymphadenopathy. Insert cardiopulmonary exam there are no skin lesions or rash noted. Test Results: None Emergency Department Course and Treatment: Benadryl Treatment Plan: Prescription for Benadryl Disposition: Discharged home Impression: Local reaction secondary to hymenoptera envenomation This note was generated with [employer] dictation software. It may contain incorrect words, spelling, and punctuation that were not noted in review of the chart prior to signing ED Disposition - Plan for ED Patient: Disposition: Home or Assisted Living Chief Complaint: Bite Instructions: ED Bite Sting Insect Local Allergic React Prescriptions: DiphenhydrAMINE [Benadryl] 25 mg PO TID PRN PRN #10 cap PRN Reason: itching and swelling Referrals: Jesus Garcia MD [Primary Care Provider] - As Needed
[2017-08-19] MEDS: DiphenhydrAMINE 25 MG Capsule PO (15:18)
== END 2017-08-19 15:35 | disposition home or self-care (01) ==
PROVIDERS: Emergency Provider Emergency Medicine; Family Provider Family Medicine; PCP Family Medicine
DX: T63.441A Toxic effect of venom of bees, accidental (unintentional), initial encounter (principal); H02.841 Edema of right upper eyelid; Y92.9 Unspecified place or not applicable; J44.9 Chronic obstructive pulmonary disease, unspecified; E11.9 Type 2 diabetes mellitus without complications; I10 Essential (primary) hypertension; E78.00 Pure hypercholesterolemia, unspecified; E66.9 Obesity, unspecified; Z68.37 Body mass index [BMI] 37.0-37.9, adult; Z79.4 Long term (current) use of insulin; Z79.84 Long term (current) use of oral hypoglycemic drugs; Z79.899 Other long term (current) drug therapy; Z87.891 Personal history of nicotine dependence
CPT/HCPCS: 99283

== ENCOUNTER 2019-08-17 19:21 | Emergency (ER) | payer MEDICARE, MEDICAID, SELFPAY ==
[2019-05-27 11:39] VITALS: BMI 37.8
[2019-08-17 19:22] VITALS: BP 128/70; PULSE 84; RESP 15; TEMP 36.7; O2SAT 94; BMI 42.4
--- NOTE | 2019-08-17 19:37 | ED.VIS.GEN ---
History of Present Illness Chief Complaint: Edema Onset: Today Current Severity: Mild Maximum Severity: Mild Narrative: 64-year-old female presents with lip swelling of her upper lip. She states that a couple of hours ago she started to have swelling from the right side of her upper lip to the mid lip. Is now improved dramatically. She has no swelling under her tongue. She has no difficulty swallowing or breathing. She is on lisinopril. She is never had a reaction like this before. Prior similar symptoms: No Past Medical History - Allergies and Home Meds Allergies/Adverse Reactions: Allergies codeine Allergy (Verified 08/17/19 19:25) Rash naproxen Adverse Reaction (Verified 08/17/19 19:25) Other Primary Care Physician: Jesus Garcia MD [Primary Care Provider] - Prior records reviewed: Yes Surgical History: hysterectomy Lives: With Family Smoking Status: Former smoker Alcohol: None Drugs: None - Family History Maternal Family History: Family History (Last Reviewed 04/18/19 @ 13:[address] MD) Other Arthritis Breast cancer Diabetes Family History: Reports: Dementia, Heart Disease Review of Systems General: Denies: Chills, Fever Eyes: Denies: Visual changes - bilaterally, Diplopia ENT: Reports: - - Mild swelling of right upper lip Cardiovascular: Denies: Chest pain, Palpitations Respiratory: Denies: Dyspnea, Cough, Dyspnea on exertion Genitourinary: Denies: Dysuria, Hematuria, Frequency Skin: Denies: Rash, Wounds Neurological: Denies: Headache, Weakness, Numbness Allergy: Denies: Uticaria, Swelling of the mouth, Swelling of the tongue Physical Exam Vital Signs/Narrative: Vital Signs Temp Pulse Resp BP Pulse Ox 08/17/19 19:22 98.0 F 84 15 128/70 H 94 Inital Vital Signs reviewed: Yes General: Well nourished, No Acute Distress Head: Normocephalic, Atraumatic Eyes: Perrl, EOMI ENT: Moist mucous membranes, - - Mild swelling of the right upper lip. No sublingual edema. No tongue swelling. Cardiovascular: Regular rate, Regular rhythm Respiratory: No distress, CTA bilaterally Skin: Normal color. Negative for: Rash Neurological: Alert, Oriented x3 Psychological: Normal affect Diagnostic/Tx/Re-eval - Medical Decision Making Patient's lip swelling is decreased dramatically. She does not have any type of allergic reaction. I feel this is likely due to her lisinopril. The swelling has dramatically improved so I feel she is safe to be discharged home. 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
== END 2019-08-17 19:58 | disposition home or self-care (01) ==
LOC: ED 19:52
PROVIDERS: Emergency Provider Student in an Organized Health Care Education/Training Program; PCP Family Medicine
DX: T78.3XXA Angioneurotic edema, initial encounter (principal); T46.4X5A Adverse effect of angiotensin-converting-enzyme inhibitors, initial encounter; Z87.891 Personal history of nicotine dependence
CPT/HCPCS: 99282

== ENCOUNTER 2019-10-04 18:46 | Emergency (ER) | payer MEDICARE, SELFPAY ==
[2019-10-04 18:47] VITALS: BP 138/71; PULSE 102; RESP 16; TEMP 36.7; O2SAT 98; BMI 41.5
--- NOTE | 2019-10-04 19:11 | ED.VISSUMM ---
- ER Visit Summary Date of Service: 10/04/19 Chief Complaint: Elevated blood sugar History of Present Illness: The patient is a 64 F presenting with elevated blood sugar. Patient states this started today. Her blood sugar has been running in the 400s. She states she been taking her normal insulin and diabetes medications. No recent change in dosages. She states she has felt nausea with no vomiting. She has had dry mouth and polyuria. She has mild headache. Denies fever or other illness. Physical Examination: Vitals are stable. Patient is afebrile. Alert no acute distress. HEENT exam is unremarkable. Neck is supple. Lungs are clear and equal bilaterally. Heart is regular rate and rhythm. Abdomen is soft nontender nondistended. Extremities are unremarkable. Skin is warm and dry. No focal neurologic deficit. Remainder of exam is unremarkable. Emergency Department Course and Treatment: Patient was given IV fluids, Zofran. CBC shows hemoglobin 11.8. Chemistries show glucose 373. Acetone negative. Patient was given IV fluids, insulin subcutaneously. Repeat BGT 248. She is feeling improved. Advised to follow-up with her primary care physician. Advised return to ED for worsening complaints. Disposition: Discharge home Impression: Hyperglycemia This note was generated with [employer] dictation software. It may contain incorrect words, spelling, and punctuation that were not noted in review of the chart prior to signing ED Disposition - Plan for ED Patient: Instructions: ED Diabetic Hyperglycemia Referrals: Jesus Garcia MD [Primary Care Provider] -
[2019-10-04] MEDS: Ondansetron 4 MG/2 ML Vial IV (19:35)
[2019-10-04] MEDS: 0.9% Normal Saline 1,000 ML 1000 ML IV (19:36)
[2019-10-04 19:38] LABS: Absolute Lymphocyte Count 2.42 X10^3/uL (0.83-4.51); Absolute Neutrophil Count 4.8 X10^3/uL (2.0-7.7); Basophil# 0.04 X10^3/uL; Basophil% 0.5 % (0-1); Eosinophils% 2.5 % (0-5); Hematocrit 38.3 % (37-47); Hemoglobin 11.8 g/dL (12.0-15.0); Lymphocyte # 2.42 X10^3/ul (4.0); Lymphocyte % 29.8 % (19-41); Mean Corp Hgb Conc 30.8 g/dL (32-36); Mean Corpuscular Hgb 25.6 pg (27.0-32.0); Mean Corpuscular Volume 83.1 fL (81-99); Mean Platelet Vol. 11.5 fl (6.2-12.0); Monocyte# 0.58 X10^3/uL; Monocyte% 7.2 % (0-10); NRBC Flagged by Analyzer 0 % (0-5); Neutrophil # 4.84 X10^3/uL (2.7-7.7); Neutrophil % 59.6 % (47-70); Platelet Count 231 K/mm3 (150-450); RBC Distribution Width CV 14.6 % (11.6-14.6); RBC Distribution Width SD 43.9 fl (35.1-43.9); Red Blood Count 4.61 M/mm3 (4.2-5.4); White Blood Count 8.1 K/mm3 (4.4-11.0)
[2019-10-04 19:45] LABS: Anion Gap 7 (5-15); BUN 10 mg/dL (7-18); BUN/Creat Ratio 10.8 RATIO (10-20); Calcium,Total 9.1 mg/dL (8.5-10.1); Chloride 101 mmol/L (98-107); Creatinine, Serum 0.92 mg/dL (0.55-1.02); EST Glomerular Filtration Rate 64 mL/min (>60); Est Glom Filt Rate - Afr Amer 78 mL/min (>60); Estimated Creatinine Clearance 82.61 ml/min; Glucose 373 mg/dL (74-106); Potassium 3.7 mmol/L (3.5-5.1); Sodium Level 137 mmol/L (136-145)
[2019-10-04] MEDS: Insulin Lispro 100 UNIT/ML INSULN.PEN 10 UNIT SC (19:57)
[2019-10-04 21:00] VITALS: BP 132/76; PULSE 85; RESP 15; O2SAT 97
[2019-10-04 21:11] LABS: Bedside Glucose 248 mg/dL (70-110)
--- NOTE | 2019-10-04 21:26 | ED.DEP ---
ED Disposition - Plan for ED Patient: Instructions: ED Diabetic Hyperglycemia Referrals: Jesus Garcia MD [Primary Care Provider] -
[2019-10-04 21:58] VITALS: BP 120/64; PULSE 80; RESP 16; O2SAT 98
== END 2019-10-04 21:58 | disposition home or self-care (01) ==
LOC: ED 19:17
PROVIDERS: Emergency Provider Emergency Medicine; PCP Family Medicine
DX: E11.65 Type 2 diabetes mellitus with hyperglycemia (principal); Z79.4 Long term (current) use of insulin; Z79.84 Long term (current) use of oral hypoglycemic drugs
CPT/HCPCS: 80048; 82009; 82962; 85025; 96361; 96374; 99283; J7030; J2405

== ENCOUNTER 2020-07-22 21:32 | Emergency (ER) | payer MEDICARE, MEDICAID, SELFPAY ==
[2020-07-22 21:32] VITALS: BP 140/73; PULSE 96; RESP 18; TEMP 36.4; O2SAT 97; BMI 40.0
--- NOTE | 2020-07-22 21:51 | EX.ED.DYSGE1 ---
HPI History of Present Illness Chief Complaint: Cellulitis Detail of Chief Complaint: This is not cellulitis is actually left lower leg pain. Informant: patient Onset/Context/Timing Onset: Weeks Timing: Intermittent Current Severity: Mild Maximum Severity: Mild Narrative Narrative: 65-year-old female history of diabetes. States she has had intermittent discomfort and swelling in her left lower leg is been going on 3 to 4 months. About a month ago she had a noninvasive study done through her primary care physician's office which was negative and there was no DVT. She is never had a DVT or PE. She has had no recent travel, surgery or immobilization. Denies any fever or chills. Primary care physician told her according to the patient she might need to start wearing compressive stockings. She denies any falls or trauma. Prior similar symptoms: Yes Recent Illness/Hospitalization: No PFSH PFSH Medical History (Updated 07/22/20 @ 22:[address] Jimbo Tamayo MD) Anemia Back problem Cataract Chronic bronchitis Chronic migraine Heart murmur High cholesterol Hypertension Neuropathy UTI (urinary tract infection) Vision problems Home Medications amitriptyline 50 mg PO QHS 01/16/16 [History Last Taken 03/25/17] insulin aspart U-100 22 units SUBCUT TIDCM 01/16/16 [History Last Taken 03/25/17] metformin 1,000 mg PO BIDCM 01/16/16 [History Last Taken 03/25/17] oxybutynin chloride 10 mg PO DAILY 01/16/16 [History Last Taken 03/25/17] simvastatin 40 mg PO QHS 01/16/16 [History Last Taken 03/25/17] albuterol sulfate [Ventolin HFA] 1 - 2 puff INHALATION Q6H PRN PRN 03/27/17 [History Last Taken Unknown] cyclobenzaprine 10 mg PO TID PRN PRN 03/27/17 [History Last Taken Unknown] glipizide 10 mg PO DAILY@0730 03/27/17 [History Last Taken 03/26/17] insulin glargine 58 unit SQ QHS 03/27/17 [History Last Taken 03/25/17] lisinopril 10 mg PO DAILY 03/27/17 [History Last Taken 03/25/17] sertraline 50 mg PO DAILY 03/27/17 [History Last Taken 02/18/18] alum-mag hydroxide-simeth 15 ml PO Q8H PRN PRN #1 bottle 03/30/17 [Rx Last Taken Unknown] ondansetron 4 mg PO Q8H PRN PRN #20 tab 03/30/17 [Rx Last Taken Unknown] oseltamivir 75 mg PO BID #5 cap 03/30/17 [Rx Last Taken Unknown] pantoprazole 40 mg PO DAILY #30 tab 03/30/17 [Rx Last Taken Unknown] diphenhydramine HCl 25 mg PO TID PRN PRN #10 cap 08/19/17 [Rx Last Taken Unknown] Allergy/AdvReac Type Severity Reaction Status Date / Time codeine Allergy Rash Verified 07/22/20 21:37 lisinopril AdvReac Angioedema Verified 07/22/20 21:37 naproxen AdvReac Other Verified 07/22/20 21:37 Family History Other Arthritis Breast cancer Diabetes Social History Smoking Status: Former smoker alcohol intake: never substance use type: does not use what type of physical activity do you participate in: none ROS ROS ED ROS Narrative Patient denies any recent illnesses. Review of Systems ROS Unobtainable: Denies due to encephalopathy Constitutional Constitutional ED: Denies chills or fever(s) Eyes Eyes: Denies change in vision ENT ENT ED: Denies ear pain or sore throat Cardiovascular Cardiovascular: Denies chest pain Respiratory/Chest Respiratory/Chest: Denies cough or dyspnea Gastrointestinal Gastrointestinal: Denies abdominal pain, diarrhea, nausea or vomiting Genitourinary Genitourinary ED: Denies dysuria Musculoskeletal Musculoskeletal: Denies myalgias Integumentary Denies rash Neurologic Neurologic: Denies headache(s) Psychiatric Psychiatric: Denies depression Endocrine Endocrinology: Denies polyuria Allergic/Immunologic Allergic/Immunologic ED: Denies urticaria EXAM Physical Exam Narrative Exam Narrative: Older female no acute distress. Exam unremarkable. Specifically left hip, knee and ankle are nontender. Normal range of motion. The lower leg there is no significant edema. There is no pitting. Is normal in color. There is no cellulitis. Is not warm to the touch. There is no calf pain. No cords. She has a very strong equal symmetrical DP pulses. Dorsi plantar flexion intact. Foot is unremarkable other than her left small toe the nail is irregular from trauma as a child. She has normal touch sensation in her feet. The lower leg and foot are unremarkable. Const Vital Signs: 07/22/20 21:32 Temperature 97.6 F L Temperature Source Temporal Pulse Rate 96 Respiratory Rate 18 Blood Pressure 140/73 H Blood Pressure Mean 95 Pulse Ox 97 Oxygen Delivery Method Room Air Positive well nourished and well developed General Appearance ED: well developed HEENT Reports moist mucous membranes Negative for trauma or tenderness Eyes PERRL and EOMs intact bilaterally Neck no lymphadenopathy, supple and no JVD General: Negative for tenderness Chest Wall inspection of chest normal and palpation of chest normal Resp normal respiratory effort and clear to auscultation bilaterally Cardio regular rate and regular rhythm; Negative for no murmurs GI normal to inspection, nondistended, normoactive bowel sounds, non-tender and non-distended Palpation: soft Back/Spine no CVA tenderness Extremity normal to inspection Extremity Narrative: Normal-appearing legs. Equal symmetrical strong DP pulses. Neurovascularly intact. General Extremety ED: Negative for edema or tenderness General Extremity: Negative for edema Neuro oriented x3, CN's II-XII intact bilaterally and no sensory deficits noted Motor Exam: strength 5/5 throughout Psych mental status grossly normal Skin no rashes or lesions noted MDM MDM MDM Narrative Medical decision making narrative: Patient is leg exam is normal. She has a strong pulse. There is no signs of cellulitis. There is no signs of DVT and she has had a recent ultrasound that was reportedly negative. I do not think she needs any further work-up at this time. She can follow-up with her primary care physician. They may want to try compression stockings. Discharge Plan Triage Chief Complaint: Cellulitis ED Provider: Jimbo Tamayo Dx/Rx/DC Orders Clinical Impression: Venous insufficiency of left leg Instructions: Understanding Chronic Venous Insufficiency Prescriptions: No Action amitriptyline 10 MG tablet 50 mg PO QHS RF: 0 simvastatin 20 MG tablet 40 mg PO QHS RF: 0 metformin 1,000 MG tablet 1,000 mg PO BIDCM RF: 0 oxybutynin chloride 5 MG tablet 10 mg PO DAILY RF: 0 insulin aspart U-100 100 UNITS/ML insulin pen 22 units subcut TIDCM RF: 0 cyclobenzaprine 10 MG tablet 10 mg PO TID PRN PRN (Reason: back pain) RF: 0 glipizide 10 MG tablet 10 mg PO DAILY@0730 RF: 0 lisinopril 10 MG tablet 10 mg PO DAILY RF: 0 albuterol sulfate [Ventolin HFA] 1 INHALER inhaler 1 - 2 puff inhalation Q6H PRN PRN (Reason: Sob &/Or Wheezing) RF: 0 sertraline 50 MG tablet 50 mg PO DAILY RF: 0 insulin glargine 100 UNIT/ML insulin pen 58 unit SQ QHS RF: 0 pantoprazole 40 MG tablet 40 mg PO DAILY Qty: 30 RF: 0 oseltamivir 75 MG capsule 75 mg PO BID Qty: 5 RF: 0 alum-mag hydroxide-simeth 30 ML suspension 15 ml PO Q8H PRN PRN (Reason: Epigastric pain, heartburn.) Qty: 1 RF: 0 ondansetron 4 MG tablet 4 mg PO Q8H PRN PRN (Reason: Nausea) Qty: 20 RF: 0 diphenhydramine HCl 25 MG capsule 25 mg PO TID PRN PRN (Reason: itching and swelling) Qty: 10 RF: 0 Primary Care Provider: Jesus Garcia Referrals: Jesus Garcia MD [Primary Care Provider] - 10-14 Days if not better Activity Restrictions/Additional Instructions: Elevate your leg at night especially to decrease swelling. You may want to try compressive stockings to see if that helps with any swelling or discomfort. Otherwise your leg exam tonight is normal. Disposition Disposition: Home, self care
== END 2020-07-22 22:12 | disposition home or self-care (01) ==
LOC: ED 22:05
PROVIDERS: Emergency Provider Emergency Medicine; PCP Family Medicine
DX: I87.2 Venous insufficiency (chronic) (peripheral) (principal); Z87.891 Personal history of nicotine dependence
CPT/HCPCS: 99282

== ENCOUNTER 2020-12-12 21:42 | Inpatient (IN) | payer MEDICARE, MEDICAID, SELFPAY ==
[2020-12-12 21:43] VITALS: BP 143/67; PULSE 104; PULSE 98; RESP 31; TEMP 37.2; O2SAT 91; O2SAT 92; BMI 42.0
[2020-12-12 21:52] VITALS: O2SAT 92
[2020-12-12 21:54] VITALS: O2SAT 90
[2020-12-12 21:55] VITALS: O2SAT 92
--- NOTE | 2020-12-12 22:08 | RAD_ITS ---
INDICATION: cough EXAMINATION/TECHNIQUE: X-RAY - XR Chest 1 View COMPARISON: 03/27/2017. FINDINGS: Patchy bilateral airspace opacities. The cardiomediastinal silhouette is unremarkable. No pleural effusion or pneumothorax. No acute osseous abnormalities. RAD/Chest 1 View (Portable) IMPRESSION: Patchy bilateral airspace opacities may represent edema and/or infection. Electronically Signed: Yohan Sanchez MD at 22:35 EST Tel , Service support ,
--- NOTE | 2020-12-12 22:09 | EDS_ITS ---
HPI History of Present Illness Chief Complaint: Shortness of Breath Informant: patient Narrative Narrative: Patient is a 65-year-old female with history of COPD, diabetes mellitus type 2, hypertension and hyperlipidemia presenting with dry eyes malaise, nausea, vomiting and positive Covid test. Patient states that she started having symptoms 1 week ago today and 3 days ago, on Sunday, had a positive home Covid test. She then went to the urgent care where she was prescribed Zofran and had a positive test there. She is not previously had a Covid vaccine. Patient is complaining of worsening dizziness, lightheadedness, nausea and vomiting. She states anything she tries to eat or drink comes back up. She was prescribed Zofran at the urgent care with no relief of her symptoms. She is continue to have cough and shortness of breath. She denies any chest pain. She does not wear oxygen at home. Patient notes that she did have a stress test on Sunday, 6 days ago, which she was told was normal. [facility] Medical History (Updated 12/13/20 @ 01:[address] Sujit Gutierrez, ) Anemia Back problem Cataract Chronic bronchitis Chronic migraine Diabetes mellitus, type 2 Heart murmur High cholesterol Hypertension Neuropathy UTI (urinary tract infection) Vision problems Home Medications amitriptyline 50 mg PO QHS 01/16/16 [History Last Taken 03/25/17] insulin aspart U-100 26 units SUBCUT TIDCM 01/16/16 [History Last Taken 03/25/17] metformin 1,000 mg PO BIDCM 01/16/16 [History Last Taken 03/25/17] oxybutynin chloride 10 mg PO DAILY 01/16/16 [History Last Taken 03/25/17] simvastatin 40 mg PO QHS 01/16/16 [History Last Taken 03/25/17] albuterol sulfate [Ventolin HFA] 1 - 2 puff INHALATION Q6H PRN PRN 03/27/17 [History Last Taken Unknown] cyclobenzaprine 10 mg PO TID PRN PRN 03/27/17 [History Last Taken Unknown] glipizide 10 mg PO DAILY@0730 03/27/17 [History Last Taken 03/26/17] insulin glargine 68 unit SQ QHS 03/27/17 [History Last Taken 02/18/18] lisinopril 10 mg PO DAILY 03/27/17 [History Last Taken 03/25/17] sertraline 50 mg PO DAILY 03/27/17 [History Last Taken 03/25/17] alum-mag hydroxide-simeth 15 ml PO Q8H PRN PRN #1 bottle 03/30/17 [Rx Last Taken Unknown] ondansetron 4 mg PO Q8H PRN PRN #20 tab 03/30/17 [Rx Last Taken Unknown] pantoprazole 40 mg PO DAILY #30 tab 03/30/17 [Rx Last Taken Unknown] diphenhydramine HCl 25 mg PO TID PRN PRN #10 cap 08/19/17 [Rx Last Taken Unknown] dulaglutide [Trulicity] mg SUBCUT 12/12/20 [History Last Taken Unknown] Allergy/AdvReac Type Severity Reaction Status Date / Time codeine Allergy Rash Verified 07/22/20 21:37 lisinopril AdvReac Angioedema Verified 07/22/20 21:37 naproxen AdvReac Other Verified 07/22/20 21:37 Family History (Updated 12/13/20 @ 01:[address] Sujit Gutierrez DO) Other Arthritis Breast cancer Diabetes Social History Smoking Status: Former smoker alcohol intake: never substance use type: does not use what type of physical activity do you participate in: none ROS ROS ED Constitutional Constitutional ED: Reports chills and fever(s) Eyes Eyes: Denies change in vision ENT ENT ED: Denies ear pain, rhinorrhea or sore throat Cardiovascular Cardiovascular: Denies chest pain Respiratory/Chest Respiratory/Chest: Reports cough and dyspnea; Denies dyspnea on exertion or sputum Gastrointestinal Gastrointestinal: Reports nausea and vomiting; Denies abdominal pain Genitourinary Genitourinary ED: Denies dysuria Musculoskeletal Musculoskeletal: Denies arthralgias or myalgias Integumentary Denies rash Neurologic Neurologic: Reports weakness; Denies headache(s) Psychiatric Psychiatric: Denies anxiety or depression EXAM Physical Exam Const Vital Signs: 12/12/20 21:43 12/12/20 21:52 12/12/20 21:54 Temperature 99 F Temperature Source Temporal Pulse Rate 98 Respiratory Rate 31 H Respiratory Effort Non-Labored Short of Breath Blood Pressure 143/67 H Blood Pressure Mean 92 Pulse Ox 92 90 Oxygen Delivery Method Room Air Room Air Room Air Oxygen Flow Rate (L/min) 12/12/20 21:55 12/13/20 00:51 Temperature Temperature Source Pulse Rate 84 Respiratory Rate 23 H Respiratory Effort Blood Pressure Blood Pressure Mean Pulse Ox 92 96 Oxygen Delivery Method Nasal Cannula Oxygen Flow Rate (L/min) 2 Positive well nourished, well developed and obese General Appearance ED: well developed Nutritional Appearance: obese HEENT Reports dry mucous membranes Negative for trauma Mouth ED: Yes dry mucous membranes Mouth: dry mucous membranes Eyes PERRL and EOMs intact bilaterally Neck supple and no JVD Chest Wall inspection of chest normal Resp normal respiratory effort Auscultation: diminished lung sounds Cardio regular rate, regular rhythm and no murmurs GI normal to inspection, nondistended, normoactive bowel sounds and non-tender Palpation: Negative for guarding Extremity normal to inspection General Extremety ED: Negative for edema or tenderness General Extremity: Negative for edema Neuro oriented x3 Sensorium / Orientation: alert Motor Exam: general weakness Psych mental status grossly normal Skin no rashes or lesions noted MDM MDM MDM Narrative Medical decision making narrative: Patient evaluated for shortness of breath, nausea and vomiting. She had positive Covid test 3 days ago. This is confirmed and report/results is printed out. Patient is hypoxic requiring supplemental oxygen the emergency room. Addition she is tachypneic. She is given IV fluids and, Pepcid and Zofran. She did not tolerate p.o. challenge and started retching again after trying to drink water. Chest x-ray shows a multifocal infiltrate. I think this is consistent with Covid. Her inflammatory markers are elevated. She is a mildly elevated D-dimer and a CTA is obtained. This s hows multifocal pneumonitis but no acute infiltrate or PE. Patient dropped on 82% on room air after ambulation. She is given IV Decadron in the ER. I do think she will require admission given her hypoxia, underlying comorbidities and inability to tolerate p.o. Patient is agreeable with this plan of care. She is otherwise hemodynamically stable in the ER. Urine culture is sent as she does have pyuria. Her procalcitonin is normal and will defer antibiotics at this time. Lab Data Attestation: I reviewed the patient's lab results. Labs: Laboratory Results - last 24 hr 12/12/20 12/12/20 12/12/20 21:53 21:53 21:53 WBC 4.6 RBC 4.86 Hgb 12.3 Hct 38.3 MCV 78.8 L MCH 25.3 L MCHC 32.1 RDW Std Deviation 42.2 RDW Coeff of Cari 14.8 H Plt Count 171 MPV 11.6 Immature Gran % (Auto) 0.200 Neut % (Auto) 59.9 Lymph % (Auto) 32.8 Foster % (Auto) 6.9 Eos % (Auto) 0.0 Baso % (Auto) 0.2 Absolute Neuts (auto) 2.8 Absolute Lymphs (auto) 1.52 Nucleated RBC % 0 Fibrinogen 486 H D-Dimer Quant (PE/DVT) 0.70 H* Sodium 133 L Potassium 3.4 L Chloride 97 L Carbon Dioxide 25.0 Anion Gap 11 BUN 10 Creatinine 0.84 Estim Creat Clear Calc 90.28 Est GFR (MDRD) Af Amer 86 Est GFR (MDRD) Non-Af 71 BUN/Creatinine Ratio 11.8 Glucose 326 H Lactic Acid Calcium 8.0 L Total Bilirubin 0.60 AST 41 H ALT 24 Alkaline Phosphatase 93 Lactate Dehydrogenase 262 H Total Creatine Kinase 79 Troponin I High Sens 12 C-React Prot Ext Range 66.30 H Total Protein 7.4 Albumin 3.1 L Globulin 4.3 H Albumin/Globulin Ratio 0.7 L Lipase 72 L Procalcitonin Urine Color Urine Clarity Urine pH Ur Specific [place] Urine Protein Urine Glucose (UA) Urine Ketones Urine Occult Blood Urine Nitrite Urine Bilirubin Urine Urobilinogen Ur Leukocyte Esterase Urine RBC Urine WBC Ur Squamous Epith Cells Urine Bacteria Hyaline Casts Urine Mucus 12/12/20 12/12/20 12/12/20 21:53 22:20 23:03 WBC RBC Hgb Hct MCV MCH MCHC RDW Std Deviation RDW Coeff of Cari Plt Count MPV Immature Gran % (Auto) Neut % (Auto) Lymph % (Auto) Foster % (Auto) Eos % (Auto) Baso % (Auto) Absolute Neuts (auto) Absolute Lymphs (auto) Nucleated RBC % Fibrinogen D-Dimer Quant (PE/DVT) Sodium Potassium Chloride Carbon Dioxide Anion Gap BUN Creatinine Estim Creat Clear Calc Est GFR (MDRD) Af Amer Est GFR (MDRD) Non-Af BUN/Creatinine Ratio Glucose Lactic Acid 1.9 Calcium Total Bilirubin AST ALT Alkaline Phosphatase Lactate Dehydrogenase Total Creatine Kinase Troponin I High Sens C-React Prot Ext Range Total Protein Albumin Globulin Albumin/Globulin Ratio Lipase Procalcitonin 0.11 H Urine Color Yellow Urine Clarity Clear Urine pH 6.0 Ur Specific [place] 1.025 Urine Protein 100 H Urine Glucose (UA) 1000 H Urine Ketones 50 H Urine Occult Blood 25 H Urine Nitrite Negative Urine Bilirubin 1 H Urine Urobilinogen 1 H Ur Leukocyte Esterase 500 H Urine RBC 0-5 SEEN Urine WBC 10-25 SEEN Ur Squamous Epith Cells 0 SEEN Urine Bacteria 1+ Hyaline Casts 25-50 SEEN Urine Mucus 3+ Radiography Chest X-Ray - ED: 1 View, Read by ED Physician, Read by Radiologist, Right Infiltrate and Left Infiltrate Diagnostic Testing: Clinical Impression(s) from Imaging Studies Chest X-Ray 12/12/20 22:08 IMPRESSION: Patchy bilateral airspace opacities may represent edema and/or infection. Electronically Signed: Yohan Sanchez MD at 22:35 EST Tel , Service support , Chest CTA 12/12/20 23:08 IMPRESSION: Negative CTA chest examination, without a demonstrated pulmonary embolism or arterial dissection. Diffuse bilateral multifocal pneumonitis. Electronically Signed: Shreya Gonzalez MD at 1:02 EST , Service support , Discharge Plan Triage Chief Complaint: Shortness of Breath ED Provider: Ginny White Dx/Rx/DC Orders Clinical Impression: COVID-19 virus infection, Hypoxia, Nausea & vomiting, Pneumonitis Primary Care Provider: Jesus Garcia Disposition Disposition: Acute Care Hospital [facility]
[2020-12-12] MEDS: Famotidine 200 MG/20 ML MDV 20 MG in 0.9% Normal Saline (Pres. free 8 ML 300 MG IV (22:23)
[2020-12-12] MEDS: Ondansetron 4 MG/2 ML Vial IV (22:23)
[2020-12-12 22:49] LABS: Fibrinogen 486 mg/dl (203-444)
[2020-12-12 22:50] LABS: Absolute Lymphocyte Count 1.52 X10^3/uL (0.83-4.51); Absolute Neutrophil Count 2.8 X10^3/uL (2.0-7.7); Basophil# 0.01 X10^3/uL; Basophil% 0.2 % (0-1); Hematocrit 38.3 % (37-47); Hemoglobin 12.3 g/dL (12.0-15.0); Lymphocyte # 1.52 X10^3/ul (0.83-4.51); Lymphocyte % 32.8 % (19-41); Mean Corp Hgb Conc 32.1 g/dL (32-36); Mean Corpuscular Hgb 25.3 pg (27.0-32.0); Mean Corpuscular Volume 78.8 fL (81-99); Mean Platelet Vol. 11.6 fl (6.2-12.0); Monocyte# 0.32 X10^3/uL; Monocyte% 6.9 % (0-10); NRBC Flagged by Analyzer 0 % (0-5); Neutrophil # 2.78 X10^3/uL (2.7-7.7); Neutrophil % 59.9 % (47-70); Platelet Count 171 K/mm3 (150-450); RBC Distribution Width CV 14.8 % (11.6-14.6); RBC Distribution Width SD 42.2 fl (35.1-43.9); Red Blood Count 4.86 M/mm3 (4.2-5.4); White Blood Count 4.6 K/mm3 (4.4-11.0)
[2020-12-12 22:56] LABS: ALB/GLOB Ratio 0.7 RATIO (0.9-2.4); AST(SGOT) 41 U/L (15-37); Alanine Aminotransfer ALT/SGPT 24 U/L (13-56); Albumin, Serum 3.1 g/dL (3.2-5.0); Alkaline Phosphatase 93 U/L (45-117); Anion Gap 11 (5-15); BUN 10 mg/dL (7-18); BUN/Creat Ratio 11.8 RATIO (10-20); CPK Total, Creatine Kinase 79 U/L (26-192); Chloride 97 mmol/L (98-107); Creatinine, Serum 0.84 mg/dL (0.55-1.02); EST Glomerular Filtration Rate 71 mL/min (>60); Est Glom Filt Rate - Afr Amer 86 mL/min (>60); Estimated Creatinine Clearance 90.28 ml/min; Globulin 4.3 g/dL (2.2-4.2); Glucose 326 mg/dL (74-106); LDH 262 U/L (84-246); Lipase 72 U/L (73-393); Potassium 3.4 mmol/L (3.5-5.1); Protein, Total 7.4 g/dL (6.4-8.2); Sodium Level 133 mmol/L (136-145); Troponin-I HS 12 pg/mL (3.0-54.0)
[2020-12-12 23:01] LABS: Procalcitonin 0.11 ng/mL (0.00-0.09)
[2020-12-12 23:07] LABS: Squamous Epithelial Cells - UA 0 SEEN /hpf (5-10)
[2020-12-12 23:08] LABS: Lactic Acid 1.9 mmol/L (0.4-1.9)
--- NOTE | 2020-12-12 23:08 | CT_ITS ---
STUDY: CTA CHEST REASON FOR EXAM: Female, 65 years old. hypoxia, COVID, elevated dimer RADIATION DOSAGE (If Supplied By Facility): CTDIvol = ( 12.57 ) mGy, DLP = ( 463.93 ) mGycm TECHNIQUE: The examination was performed with the intravenous administration of IV 100mL [id number]-370. Post-processing of the angiographic images was performed, with multiplanar reformation and 3D reconstruction. Individualized dose optimization techniques were used for this CT. COMPARISON: None. FINDINGS: Normal enhancement of the main pulmonary artery and right and left pulmonary arteries. Normal enhancement of the bilateral peripheral pulmonary arteries. There is no demonstrated pulmonary embolism. There is atherosclerotic calcification of the aortic arch with tortuosity. There is no demonstrated aortic dissection. Normal heart and pericardium. Normal mediastinum. Normal hilar regions. Normal visualized trachea and bronchi. The lungs are well expanded. There are numerous bilateral multifocal groundglass opacities compatible with multifocal pneumonitis . Normal pleura. Normal chest wall structures. There are degenerative changes of thoracic spine. Normal visualized upper abdomen. CT/CTA Chest W/WO Contrast IMPRESSION: Negative CTA chest examination, without a demonstrated pulmonary embolism or arterial dissection. Diffuse bilateral multifocal pneumonitis. Electronically Signed: Shreya Gonzalez MD at 1:02 EST , Service support ,
[2020-12-12 23:10] LABS: Color, Urine Yellow (Yellow); Glucose, Dipstick 1000 mg/dl (Normal); Ketone-Dipstick 50 mg/dl (Negative); Leukocyte Esterase-Dipstick 500 /ul (Negative); Nitrite-Dipstick Negative (Negative); Occult Blood-Urine 25 /ul (Negative); Protein-Dipstick 100 mg/dl (Negative); Specific Gravity, Urine 1.025 (1.002-1.030); Urine Clarity Clear (Clear); Urine Urobilinogen 1 mg/dl (Normal)
[2020-12-12 23:20] LABS: Urine Bilirubin Dipstick 1 mg/dL (Negative)
[2020-12-12 23:22] LABS: Bacteria 1+ /hpf (None Seen); Red Blood Cells-Urine 0-5 SEEN /hpf (0-5); White Blood Cells 10-25 SEEN /hpf (0-5)
[2020-12-12 23:23] LABS: Hyaline Cast 25-50 SEEN /lpf (0-5); Mucous, Urine 3+ /hpf (<or=2+)
[2020-12-13] VITALS (10 sets, daily range): BP systolic 105–130; BP diastolic 54–78; PULSE 79–85; RESP 18–23; TEMP 36.7–37.6; O2SAT 86–96; BMI 41.1
--- NOTE | 2020-12-13 01:55 | HP.PCM.HOS_ITS ---
HPI - General General Date of Admission: 12/13/20 Date of Service: 12/13/20 Chief Complaint: N/V HPI Narrative GLEN MOON, is a 65 F who presents with 3 days of nausea and vomiting. Patient has been unable to keep anything down during this time and presented to the emergency room. Patient has been sick overall for COVID-19 and is recently checked positive for COVID-19. She is unvaccinated. She does not know how she contracted it. In the emergency room, patient's oxygenation dropped down to the 80% range on room air and patient was put on 4 L of oxygen. She denies any diarrhea. In the emergency room, patient received IV fluids, ondansetron, famotidine and dexamethasone. [facility] Medical History (Updated 12/13/20 @ 01:[address] Sujit Gutierrez, ) Anemia Back problem Cataract Chronic bronchitis Chronic migraine Diabetes mellitus, type 2 Heart murmur High cholesterol Hypertension Neuropathy UTI (urinary tract infection) Vision problems Home Medications amitriptyline 50 mg PO QHS 01/16/16 [History Last Taken 03/25/17] insulin aspart U-100 26 units SUBCUT TIDCM 01/16/16 [History Last Taken 03/25/17] metformin 1,000 mg PO BIDCM 01/16/16 [History Last Taken 03/25/17] oxybutynin chloride 10 mg PO DAILY 01/16/16 [History Last Taken 03/25/17] simvastatin 40 mg PO QHS 01/16/16 [History Last Taken 03/25/17] albuterol sulfate [Ventolin HFA] 1 - 2 puff INHALATION Q6H PRN PRN 03/27/17 [History Last Taken Unknown] cyclobenzaprine 10 mg PO TID PRN PRN 03/27/17 [History Last Taken Unknown] glipizide 10 mg PO DAILY@0730 03/27/17 [History Last Taken 03/26/17] insulin glargine 68 unit SQ QHS 03/27/17 [History Last Taken 03/25/17] lisinopril 10 mg PO DAILY 03/27/17 [History Last Taken 03/25/17] sertraline 50 mg PO DAILY 03/27/17 [History Last Taken 03/25/17] alum-mag hydroxide-simeth 15 ml PO Q8H PRN PRN #1 bottle 02/23/18 [Rx Last Taken Unknown] ondansetron 4 mg PO Q8H PRN PRN #20 tab 03/30/17 [Rx Last Taken Unknown] pantoprazole 40 mg PO DAILY #30 tab 03/30/17 [Rx Last Taken Unknown] diphenhydramine HCl 25 mg PO TID PRN PRN #10 cap 08/19/17 [Rx Last Taken Unknown] dulaglutide [Trulicity] mg SUBCUT 12/12/20 [History Last Taken Unknown] Allergy/AdvReac Type Severity Reaction Status Date / Time codeine Allergy Rash Verified 07/22/20 21:37 lisinopril AdvReac Angioedema Verified 07/22/20 21:37 naproxen AdvReac Other Verified 07/22/20 21:37 Family History (Updated 12/13/20 @ 01:[address] Sujit Gutierrez DO) Other Arthritis Breast cancer Diabetes Social History Smoking Status: Former smoker alcohol intake: never substance use type: does not use what type of physical activity do you participate in: none ROS ROS Narrative No anosmia. No dysgeusia. All review of systems were negative except as mentioned above in the history of present illness and the other review of systems. Vital Signs Vital Signs Vital Signs: 12/12/20 21:43 12/12/20 21:52 12/12/20 21:54 Temperature 37.2 C Temperature Source Temporal Pulse Rate 98 Respiratory Rate 31 H Respiratory Effort Non-Labored Short of Breath Blood Pressure 143/67 H Blood Pressure Mean 92 Pulse Ox 92 90 Oxygen Delivery Method Room Air Room Air Room Air Oxygen Flow Rate (L/min) 12/12/20 21:55 12/13/20 00:51 Temperature Temperature Source Pulse Rate 84 Respiratory Rate 23 H Respiratory Effort Blood Pressure Blood Pressure Mean Pulse Ox 92 96 Oxygen Delivery Method Nasal Cannula Oxygen Flow Rate (L/min) 2 Weight Weight: 87.997 kg Body Mass Index (BMI) 42.0 Physical Exam Const alert and no apparent distress General Appearance: cooperative HEENT normocephalic, head/scalp atraumatic and hearing grossly normal bilaterally Eyes PERRL Resp normal respiratory effort, no retractions, no use of accessory muscles and clear to auscultation bilaterally Cardio regular rate, regular rhythm, S1 normal heart sound and S2 normal heart sound GI normal to inspection, nondistended, normoactive bowel sounds, soft to palpation, non-tender and non-distended Extremity normal to inspection and no clubbing, cyanosis or edema Skin no rashes or lesions noted and no wounds Neuro Sensorium / Orientation: awake and alert Psych affect normal Results Lab / Micro Data Attestation: I reviewed the patient's lab results. Result Diagrams: 12/12/20 21:53 12/12/20 21:53 Labs: Laboratory Results - last 24 hr 12/12/20 21:53: WBC 4.6, RBC 4.86, Hgb 12.3, Hct 38.3, MCV 78.8 L, MCH 25.3 L, MCHC 32.1, RDW Std Deviation 42.2, RDW Coeff of Cari 14.8 H, Plt Count 171, MPV 11.6, Immature Gran % (Auto) 0.200, Neut % (Auto) 59.9, Lymph % (Auto) 32.8, [place] % (Auto) 6.9, Eos % (Auto) 0.0, Baso % (Auto) 0.2, Absolute Neuts (auto) 2.8, Absolute Lymphs (auto) 1.52, Nucleated RBC % 0 12/12/20 21:53: Fibrinogen 486 H, D-Dimer Quant (PE/DVT) 0.70 H* 12/12/20 21:53: Sodium 133 L, Potassium 3.4 L, Chloride 97 L, Carbon Dioxide 25.0, Anion Gap 11, BUN 10, Creatinine 0.84, Estim Creat Clear Calc 90.28, Est GFR (MDRD) Af Amer 86, Est GFR (MDRD) Non-Af 71, BUN/Creatinine Ratio 11.8, Glucose 326 H, Calcium 8.0 L, Total Bilirubin 0.60, AST 41 H, ALT 24, Alkaline Phosphatase 93, Lactate Dehydrogenase 262 H, Total Creatine Kinase 79, Troponin I High Sens 12, C-React Prot Ext Range 66.30 H, Total Protein 7.4, Albumin 3.1 L , Globulin 4.3 H, Albumin/Globulin Ratio 0.7 L, Lipase 72 L 12/12/20 21:53: Procalcitonin 0.11 H 12/12/20 22:20: Lactic Acid 1.9 12/12/20 23:03: Urine Color Yellow, Urine Clarity Clear, Urine pH 6.0, Ur Specific [place] 1.025, Urine Protein 100 H, Urine Glucose (UA) 1000 H, Urine Ketones 50 H, Urine Occult Blood 25 H, Urine Nitrite Negative, Urine Bilirubin 1 H, Urine Urobilinogen 1 H, Ur Leukocyte Esterase 500 H, Urine RBC 0-5 SEEN, Urine WBC 10-25 SEEN, Ur Squamous Epith Cells 0 SEEN, Urine Bacteria 1+, Hyaline Casts 25-50 SEEN, Urine Mucus 3+ Radiology Impression Chest X-Ray 12/12/20 22:08 IMPRESSION: Patchy bilateral airspace opacities may represent edema and/or infection. Electronically Signed: Yohan Sanchez MD at 22:35 EST Tel , Service support , Chest CTA 12/12/20 23:08 IMPRESSION: Negative CTA chest examination, without a demonstrated pulmonary embolism or arterial dissection. Diffuse bilateral multifocal pneumonitis. Electronically Signed: Shreya Gonzalez MD at 1:02 EST , Service support , Assessment & Plan Assessment/Plan (1) Acute respiratory failure with hypoxia: (2) COVID-19: (3) Nausea & vomiting: QUALIFIERS: Vomiting type: unspecified Vomiting Intractability: intractable Qualified Code(s): R11.2 - Nausea with vomiting, unspecified PLAN: 1. Acute hypoxic respiratory failure * Secondary to COVID-19 pneumonia * Stable at present * Wean oxygen as able * Discussed with the patient about the progression of respiratory failure needs of providing oxygen, including air Vo, BiPAP and and intubation. 2. Acute COVID-19 pneumonia * Unvaccinated * onset was December 06, patient will need to quarantine through December 25 * Discussed with patient about the emergency used authorization severe and dexamethasone. She is okay with using these medications 3. Intractable nausea and vomiting * Suspect due to COVID-19 * Abdominal exam is unremarkable * Consider abdominal imaging if symptoms persist * As needed antiemetics * Add PPI 4. Diabetes mellitus type 2 * Insulin-dependent * Patient states that she has not been using her insulin lately because she is not been eating * Continue with her basal insulin instead of 60 8 at night will make it 30 twice daily and will cut her prandial insulin in half with meals and also add sliding scale insulin 5. VTE prophylaxis: Enoxaparin 6 CODE STATUS: Discussed with patient. Patient wishes to be full code. Charges/Coding Visit Charges Inpatient E&M: 16531 Init Hosp L3
[2020-12-13] MEDS: 0.9% Saline Lock 10 ML Syringe IV ×4 (03:04→07:18)
[2020-12-13] MEDS: Ondansetron 4 MG/2 ML Vial IV (03:04)
[2020-12-13 04:34] LABS: Absolute Lymphocyte Count 1.26 X10^3/uL (0.83-4.51); Hematocrit 35.2 % (37-47); Hemoglobin 11.5 g/dL (12.0-15.0); Lymphocyte # 1.26 X10^3/ul (0.83-4.51); Lymphocyte % 36.7 % (19-41); Mean Corp Hgb Conc 32.7 g/dL (32-36); Mean Corpuscular Hgb 25.5 pg (27.0-32.0); Mean Platelet Vol. 11.2 fl (6.2-12.0); Monocyte# 0.18 X10^3/uL; Monocyte% 5.2 % (0-10); NRBC Flagged by Analyzer 0 % (0-5); Neutrophil # 1.97 X10^3/uL (2.7-7.7); Neutrophil % 57.5 % (47-70); Platelet Count 135 K/mm3 (150-450); RBC Distribution Width CV 14.9 % (11.6-14.6); RBC Distribution Width SD 42.5 fl (35.1-43.9); Red Blood Count 4.51 M/mm3 (4.2-5.4); White Blood Count 3.4 K/mm3 (4.4-11.0)
[2020-12-13 04:52] LABS: Alkaline Phosphatase 81 U/L (45-117)
[2020-12-13 04:55] LABS: ALB/GLOB Ratio 0.7 RATIO (0.9-2.4); AST(SGOT) 36 U/L (15-37); Alanine Aminotransfer ALT/SGPT 20 U/L (13-56); Albumin, Serum 2.7 g/dL (3.2-5.0); Alkaline Phosphatase 81 U/L (45-117); Anion Gap 8 (5-15); BUN 8 mg/dL (7-18); BUN/Creat Ratio 11.3 RATIO (10-20); Calcium,Total 7.8 mg/dL (8.5-10.1); Chloride 98 mmol/L (98-107); Creatinine, Serum 0.71 mg/dL (0.55-1.02); EST Glomerular Filtration Rate 87 mL/min (>60); Est Glom Filt Rate - Afr Amer 106 mL/min (>60); Estimated Creatinine Clearance 74.29 ml/min; Glucose 285 mg/dL (74-106); Potassium 3.4 mmol/L (3.5-5.1); Protein, Total 6.7 g/dL (6.4-8.2); Sodium Level 133 mmol/L (136-145)
[2020-12-13] MEDS: dexAMETHasone 4 MG/ML Vial 6 MG IV (05:10)
[2020-12-13] MEDS: proCHLORPERazine 10 MG/2 ML Vial 5 MG IV (07:18)
[2020-12-13 08:00] LABS: Bedside Glucose 297 mg/dL (70-110)
[2020-12-13] MEDS: Enoxaparin 40 MG/0.4 ML Syringe SC (08:44)
[2020-12-13] MEDS: glipiZIDE 10 MG Tablet PO (08:45)
[2020-12-13] MEDS: Oxybutynin 5 MG Tablet 10 MG PO (08:45)
[2020-12-13] MEDS: Insulin Lispro 100 UNIT/ML INSULN.PEN SC ×3 (08:49→16:49)
[2020-12-13] MEDS: Insulin Lispro 100 UNIT/ML INSULN.PEN 13 UNIT SC ×2 (08:49→11:43)
[2020-12-13] MEDS: Glucerna Shake 120 ML LIQUID PO ×2 (08:50→14:24)
[2020-12-13] MEDS: Sertraline 50 MG Tablet PO (09:02)
[2020-12-13] MEDS: Pantoprazole Sodium 40 MG Tablet PO (09:02)
--- NOTE | 2020-12-13 11:37 | PCM.PN.HOSP ---
Subjective Subjective Follow-up on acute hypoxic respiratory failure secondary to acute COVID-19 pneumonia: Patient was seen and examined. She is currently on 2 L of oxygen. She feels much improved. Denied any more nausea or vomiting. Objective Data Objective Data Vital Signs: Vital Signs Temp Pulse Resp BP Pulse Ox 98.1 F 85 18 130/70 H 93 12/13/20 09:01 12/13/20 09:01 12/13/20 10:00 12/13/20 09:01 12/13/20 09:01 Oxygen Flow Rate (L/min) 2 Oxygen Delivery Method Nasal Cannula Weight: 86.2 kg Body Mass Index (BMI) 41.1 Intake & Output: Intake and Output for Last 24 Hours 12/12/20 12/12/20 12/13/20 00:59 23:59 23:59 Intake Total 250.5 / 250.5 Balance 250.5 / 250.5 Lab / Micro Data Result Diagrams: 12/13/20 04:20 12/13/20 04:20 Labs: Laboratory Results - last 24 hr 12/12/20 21:53: WBC 4.6, RBC 4.86, Hgb 12.3, Hct 38.3, MCV 78.8 L, MCH 25.3 L, MCHC 32.1, RDW Std Deviation 42.2, RDW Coeff of Cari 14.8 H, Plt Count 171, MPV 11.6, Immature Gran % (Auto) 0.200, Neut % (Auto) 59.9, Lymph % (Auto) 32.8, [place] % (Auto) 6.9, Eos % (Auto) 0.0, Baso % (Auto) 0.2, Absolute Neuts (auto) 2.8, Absolute Lymphs (auto) 1.52, Nucleated RBC % 0 12/12/20 21:53: Fibrinogen 486 H, D-Dimer Quant (PE/DVT) 0.70 H* 12/12/20 21:53: Sodium 133 L, Potassium 3.4 L, Chloride 97 L, Carbon Dioxide 25.0, Anion Gap 11, BUN 10, Creatinine 0.84, Estim Creat Clear Calc 90.28, Est GFR (MDRD) Af Amer 86, Est GFR (MDRD) Non-Af 71, BUN/Creatinine Ratio 11.8, Glucose 326 H, Calcium 8.0 L, Total Bilirubin 0.60, AST 41 H, ALT 24, Alkaline Phosphatase 93, Lactate Dehydrogenase 262 H, Total Creatine Kinase 79, Troponin I High Sens 12, C-React Prot Ext Range 66.30 H, Total Protein 7.4, Albumin 3.1 L, Globulin 4.3 H, Albumin/Globulin Ratio 0.7 L, Lipase 72 L 12/12/20 21:53: Procalcitonin 0.11 H 12/12/20 22:20: Lactic Acid 1.9 12/12/20 23:03: Urine Color Yellow, Urine Clarity Clear, Urine pH 6.0, Ur Specific [place] 1.025, Urine Protein 100 H, Urine Glucose (UA) 1000 H, Urine Ketones 50 H, Urine Occult Blood 25 H, Urine Nitrite Negative, Urine Bilirubin 1 H, Urine Urobilinogen 1 H, Ur Leukocyte Esterase 500 H, Urine RBC 0-5 SEEN, Urine WBC 10-25 SEEN, Ur Squamous Epith Cells 0 SEEN, Urine Bacteria 1+, Hyaline Casts 25-50 SEEN, Urine Mucus 3+ 12/13/20 04:20: Alkaline Phosphatase 81 12/13/20 04:20: WBC 3.4 L, RBC 4.51, Hgb 11.5 L, Hct 35.2 L, MCV 78.0 L, MCH 25.5 L, MCHC 32.7, RDW Std Deviation 42.5, RDW Coeff of Cari 14.9 H, Plt Count 135 L, MPV 11.2, Immature Gran % (Auto) 0.600, Neut % (Auto) 57.5, Lymph % (Auto) 36.7, [place] % (Auto) 5.2, Eos % (Auto) 0.0, Baso % (Auto) 0.0, Absolute Neuts (auto) 2.0, Absolute Lymphs (auto) 1.26, Nucleated RBC % 0 12/13/20 04:20: Sodium 133 L, Potassium 3.4 L, Chloride 98, Carbon Dioxide 27.0, Anion Gap 8, BUN 8, Creatinine 0.71, Estim Creat Clear Calc 74.29, Est GFR (MDRD) Af Amer 106, Est GFR (MDRD) Non-Af 87, BUN/Creatinine Ratio 11.3, Glucose 285 H, Calcium 7.8 L, Total Bilirubin 0.50, AST 36, ALT 20, Alkaline Phosphatase 81, Total Protein 6.7, Albumin 2.7 L, Globulin 4.0, Albumin/Globulin Ratio 0.7 L 12/13/20 07:09: POC Glucose 297 H Micro: Microbiology 12/12/20 23:03 Urine, Clean Catch Urine Culture - Preliminary Beta streptococcus Radiography Diagnostic Testing: Radiology Impression Chest X-Ray 12/12/20 22:08 IMPRESSION: Patchy bilateral airspace opacities may represent edema and/or infection. Electronically Signed: Yohan Sanchez MD at 22:35 EST Tel , Service support , Chest CTA 12/12/20 23:08 IMPRESSION: Negative CTA chest examination, without a demonstrated pulmonary embolism or arterial dissection. Diffuse bilateral multifocal pneumonitis. Electronically Signed: Shreya Gonzalez MD at 1:02 EST , Service support , Physical Exam Narrative Physical exam: General: Alert, Oriented x3, Cooperative, No apparent distress, Well developed, on 2 L of oxygen HEENT: Atraumatic Oral: Moist Mucosa Neck: Supple Lungs: Clear to auscultation Cardiovascular: HS I+II, regular, no murmurs Abdomen: Bowel Sounds Present, Soft, Non Tender Extremities: No edema Assessment & Plan Assessment/Plan (1) Acute respiratory failure with hypoxia: (2) COVID-19: (3) Nausea & vomiting: QUALIFIERS: Vomiting type: unspecified Vomiting Intractability: intractable Qualified Code(s): R11.2 - Nausea with vomiting, unspecified PLAN: 1. Acute hypoxic respiratory failure secondary to acute COVID-19 pneumonia Patient is unvaccinated; symptoms started on 06 December. Admitting chest x-ray and CTA shows bilateral pneumonitis; negative for acute PE Patient remains on 2 L of oxygen Continue on Decadron and remdesivir Encourage use of incentive spirometer 2. Acute intractable nausea and vomiting secondary to acute COVID-19 pneumonia, resolved 3. Hypokalemia, potassium is 3.4, secondary to #2, replaced 4. Diabetes mellitus type 2, uncontrolled secondary to steroid use and noncompliance Continue on Lantus 40 mg twice daily, Premeal insulin 15 units 3 times daily as well as insulin sliding scale 5. DVT prophylaxis with Lovenox subcu Charges/Coding Visit Charges Inpatient E&M: 57757 Subs Hosp L2
[2020-12-13] MEDS: Potassium Chloride Oral Tablet 20 MEQ 40 MEQ PO (11:43)
[2020-12-13 11:56] LABS: Bedside Glucose 413 mg/dL (70-110)
--- NOTE | 2020-12-13 13:48 | CASEMGMT ---
GARRICK GREWAL Assessment: Face to Face with pt for initial transition planning/care coordination assessment. GARRICK GREWAL introduced self and role at [facility], pt voices understanding and consents to assessment. Pt is A/O x4 and answers all questions appropriately at this time. Pt lying in bed with O2 on in no distress. Care providers, pharmacy, and demographics verified/updated. Admitting Dx: COVID 19, N/V PCP:Radha Specialists: Pt denies. Preferred Pharmacy: [facility] while inpatient Insurance: [employer] [facility] Comp, IVANIA Prescription Benefit: yes LW/HPOA: Pt denies having a LW/DPOA and denies need for info regarding AD. LNOK: Alexandria Day, dtr; Earl Day, son Living Arrangements: Pt lives alone in a ground level apt with a ramp to enter. Pt reports being I in ADL's and denies concerns at home. Transportation: Pt drives self and denies concerns with transportation. DME/HHC/SNF: Pt has a rollator, cane, walker, grab bars in the bathroom. Pt denies using AD to ambulate. Pt also has a BGM with all the supplies including lancets and needles. She states she checks her blood sugars 3x/wk. She reports she has needles for her insulin pens as well. Pt denies any previous HHC or SNF stays. Pt states she was first tested for COVID with a home test that was positive. She went to [facility] in [place] and was also positive. Pt has family who can provide her with groceries and supplies. Pt provided with a verbal local in network list of DME companies should she need home O2, pt chose [employer]. Pt states no concerns with going home at time of dc. Pt states no further concerns/needs. CM to follow. Advised pt to ask CM if any further question/concerns/needs arise, voices understanding. Pt Goal: Home Plan:Home
[2020-12-13] MEDS: Insulin Lispro 100 UNIT/ML INSULN.PEN 15 UNIT SC (16:49)
[2020-12-13 17:00] LABS: Bedside Glucose 333 mg/dL (70-110)
--- NOTE | 2020-12-13 19:31 | PCS.PANDOC ---
PANDEMIC DOCUMENTATION INITIATED: Date: 09/20/2020 Time: 190
[2020-12-13] MEDS: Amitriptyline 25 MG Tablet 50 MG PO (21:15)
[2020-12-13] MEDS: Atorvastatin Calcium 20 MG Tablet PO (21:15)
[2020-12-13] MEDS: Acetaminophen 325 MG Tablet 650 MG PO (21:16)
[2020-12-13 23:30] LABS: Bedside Glucose 276 mg/dL (70-110)
[2020-12-14] VITALS (9 sets, daily range): BP systolic 122–131; BP diastolic 64–74; PULSE 65–86; RESP 18; TEMP 35.9–36.6; O2SAT 82–95
[2020-12-14] MEDS: Insulin Lispro 100 UNIT/ML INSULN.PEN SC ×3 (08:04→16:42)
[2020-12-14] MEDS: Insulin Lispro 100 UNIT/ML INSULN.PEN 15 UNIT SC ×3 (08:05→16:44)
[2020-12-14] MEDS: Sertraline 50 MG Tablet PO (08:06)
[2020-12-14] MEDS: glipiZIDE 10 MG Tablet PO (08:06)
[2020-12-14] MEDS: Pantoprazole Sodium 40 MG Tablet PO (08:06)
[2020-12-14] MEDS: Enoxaparin 40 MG/0.4 ML Syringe SC (08:07)
[2020-12-14] MEDS: Oxybutynin 5 MG Tablet 10 MG PO (08:07)
[2020-12-14] MEDS: dexAMETHasone 4 MG Tablet 6 MG PO (08:07)
[2020-12-14 08:51] LABS: Bedside Glucose 280 mg/dL (70-110)
[2020-12-14 12:55] LABS: Bedside Glucose 344 mg/dL (70-110)
--- NOTE | 2020-12-14 14:57 | PCM.DC ---
Discharge Instructions Diet Discharge Diet: 2000 Calorie Control Diet and 2000 mg Sodium Diet Activity Discharge Activity: Return to Normal Activity Follow Up Care Test Results: Test results from this visit will be discussed in further detail at your follow-up appointment, if applicable. Discharge Plan Admission Admit Date/Time: 12/13/20 01:46 Primary Reason for Your Visit: Acute hypoxic respiratory failure/acute COVID-19 pneumonia Attending Provider: Earlene Leonardo Primary Care Provider: Jesus Garcia Instructions Additional Instructions / Restrictions: You are being discharged with oxygen. Continue to use your oxygen all the time. Continue to use your incentive spirometer. Continue to remain active and eat healthy. Let your doctor know if you develop fever >101.3F or have progressive worsening shortness of breath. Follow-up with your primary care doctor and also with pulmonology to have your continued oxygen use reevaluated. Be careful of going near open flames whilst on oxygen. Complete your Decadron as prescribed. Continue to use your inhaler as needed for shortness of breath. Continue to quarantine for 20 days total from the start of your symptoms. Discharge Orders/Prescriptions Prescriptions: New dexamethasone 4 mg Tablet 6 mg PO DAILY 9 Days Qty: 14 RF: 0 Lantus Solostar U-100 Insulin 100 unit/mL (3 mL) Insulin Pen 40 units subcut BID Qty: 0 RF: 0 Continued amitriptyline 10 MG tablet 50 mg PO QHS RF: 0 simvastatin 20 MG tablet 40 mg PO QHS RF: 0 metformin 1,000 MG tablet 1,000 mg PO BIDCM RF: 0 oxybutynin chloride 5 MG tablet 10 mg PO DAILY RF: 0 insulin aspart U-100 100 UNITS/ML insulin pen 26 units subcut TIDCM RF: 0 cyclobenzaprine 10 MG tablet 10 mg PO TID PRN PRN (Reason: Pain) RF: 0 glipizide 10 MG tablet 10 mg PO DAILY RF: 0 albuterol sulfate [Ventolin HFA] 1 INHALER inhaler 1 - 2 puff inhalation Q6H PRN PRN (Reason: Sob &/Or Wheezing) RF: 0 sertraline 50 MG tablet 50 mg PO DAILY RF: 0 pantoprazole 40 MG tablet 40 mg PO DAILY Qty: 30 RF: 0 alum-mag hydroxide-simeth 30 ML suspension 15 ml PO Q8H PRN PRN (Reason: Epigastric pain, heartburn.) Qty: 1 RF: 0 ondansetron 4 MG tablet 4 mg PO Q8H PRN PRN (Reason: Nausea) Qty: 20 RF: 0 diphenhydramine HCl 25 MG capsule 25 mg PO TID PRN PRN (Reason: itching and swelling) Qty: 10 RF: 0 Trulicity 1.5 mg/0.5 mL pen injector SUBCUT QWEEK RF: 0 hydrocodone-acetaminophen 5-325 mg Tablet 1 tab PO BID PRN (Reason: Pain) RF: 0 Discontinued insulin glargine 100 UNIT/ML insulin pen 68 unit SQ QHS RF: 0 Referrals / Follow Up: Jesus Garcia MD [Primary Care Provider] - Within 2 Weeks Disposition Disposition (needs filled in before D/C Order can be placed): Home, Self Care
--- NOTE | 2020-12-14 15:01 | PCM.DC.SUM ---
Providers Date of Admission: 12/13/20 Date of Discharge: 12/14/20 Primary Care Physician: Dr. Jesus Garcia MD Reason For Visit: COVID19, N/V Diagnosis Discharge Diagnosis (1) Acute respiratory failure with hypoxia: Status: Acute Code(s): J96.01 - Acute respiratory failure with hypoxia (2) COVID-19: Status: Acute Code(s): U07.1 - COVID-19 (3) Nausea & vomiting: Status: Acute Code(s): R11.2 - Nausea with vomiting, unspecified Qualifiers: Vomiting Intractability: intractable Vomiting type: unspecified Qualified Code(s): R11.2 - Nausea with vomiting, unspecified Medications at Discharge Home Medications amitriptyline 50 mg PO QHS 01/16/16 insulin aspart U-100 26 units SUBCUT TIDCM 01/16/16 metformin 1,000 mg PO BIDCM 01/16/16 oxybutynin chloride 10 mg PO DAILY 01/16/16 simvastatin 40 mg PO QHS 01/16/16 albuterol sulfate [Ventolin HFA] 1 - 2 puff INHALATION Q6H PRN PRN 03/27/17 cyclobenzaprine 10 mg PO TID PRN PRN 03/27/17 glipizide 10 mg PO DAILY 03/27/17 sertraline 50 mg PO DAILY 03/27/17 alum-mag hydroxide-simeth 15 ml PO Q8H PRN PRN #1 bottle 03/30/17 ondansetron 4 mg PO Q8H PRN PRN #20 tab 03/30/17 pantoprazole 40 mg PO DAILY #30 tab 03/30/17 diphenhydramine HCl 25 mg PO TID PRN PRN #10 cap 08/19/17 Trulicity mg SUBCUT QWEEK 12/12/20 hydrocodone-acetaminophen 1 tab PO BID PRN 12/13/20 dexamethasone 6 mg PO DAILY 9 Days #14 tab 12/14/20 insulin glargine [Lantus Solostar U-100 Insulin] 40 units SUBCUT BID #0 ml 12/14/20 Weight / BMI Weight Weight: 86.2 kg Body Mass Index (BMI) 41.1 ABG / Lab / Microbiology Data Result Diagrams: 12/13/20 04:20 12/13/20 04:20 Laboratory: Laboratory Results - last 24 hr 12/13/20 16:46: POC Glucose 333 H 12/13/20 21:13: POC Glucose 276 H 12/14/20 07:58: POC Glucose 280 H 12/14/20 12:24: POC Glucose 344 H Microbiology: Microbiology 12/12/20 23:03 Urine, Clean Catch Urine Culture - Final Streptococcus agalactiae (B) D/C Instructions Discharge Diet: 2000 Calorie Control Diet and 2000 mg Sodium Diet Discharge Plan Admission Admit Date/Time: 12/13/20 01:46 Primary Reason for Your Visit: Acute hypoxic respiratory failure/acute COVID-19 pneumonia Attending Provider: Earlene Leonardo Primary Care Provider: Jesus Garcia Instructions Additional Instructions / Restrictions: You are being discharged with oxygen. Continue to use your oxygen all the time. Continue to use your incentive spirometer. Continue to remain active and eat healthy. Let your doctor know if you develop fever >101.3F or have progressive worsening shortness of breath. Follow-up with your primary care doctor and also with pulmonology to have your continued oxygen use reevaluated. Be careful of going near open flames whilst on oxygen. Complete your Decadron as prescribed. Continue to use your inhaler as needed for shortness of breath. Continue to quarantine for 20 days total from the start of your symptoms. Discharge Orders/Prescriptions Prescriptions: New dexamethasone 4 mg Tablet 6 mg PO DAILY 9 Days Qty: 14 RF: 0 Lantus Solostar U-100 Insulin 100 unit/mL (3 mL) Insulin Pen 40 units subcut BID Qty: 0 RF: 0 Continued amitriptyline 10 MG tablet 50 mg PO QHS RF: 0 simvastatin 20 MG tablet 40 mg PO QHS RF: 0 metformin 1,000 MG tablet 1,000 mg PO BIDCM RF: 0 oxybutynin chloride 5 MG tablet 10 mg PO DAILY RF: 0 insulin aspart U-100 100 UNITS/ML insulin pen 26 units subcut TIDCM RF: 0 cyclobenzaprine 10 MG tablet 10 mg PO TID PRN PRN (Reason: Pain) RF: 0 glipizide 10 MG tablet 10 mg PO DAILY RF: 0 albuterol sulfate [Ventolin HFA] 1 INHALER inhaler 1 - 2 puff inhalation Q6H PRN PRN (Reason: Sob &/Or Wheezing) RF: 0 sertraline 50 MG tablet 50 mg PO DAILY RF: 0 pantoprazole 40 MG tablet 40 mg PO DAILY Qty: 30 RF: 0 alum-mag hydroxide-simeth 30 ML suspension 15 ml PO Q8H PRN PRN (Reason: Epigastric pain, heartburn.) Qty: 1 RF: 0 ondansetron 4 MG tablet 4 mg PO Q8H PRN PRN (Reason: Nausea) Qty: 20 RF: 0 diphenhydramine HCl 25 MG capsule 25 mg PO TID PRN PRN (Reason: itching and swelling) Qty: 10 RF: 0 Trulicity 1.5 mg/0.5 mL pen injector SUBCUT QWEEK RF: 0 hydrocodone-acetaminophen 5-325 mg Tablet 1 tab PO BID PRN (Reason: Pain) RF: 0 Discontinued insulin glargine 100 UNIT/ML insulin pen 68 unit SQ QHS RF: 0 Referrals / Follow Up: Jesus Garcia MD [Primary Care Provider] - Within 2 Weeks Disposition Disposition (needs filled in before D/C Order can be placed): Home, Self Care Charges/Coding Visit Charges Inpatient E&M: 87366 Disch Hosp
--- NOTE | 2020-12-14 17:16 | PCM.PN.HOSP ---
Subjective Subjective Follow-up on acute hypoxic respiratory failure secondary to acute COVID-19 pneumonia: Patient was seen and examined. She was on 2 L, and 7L on exertion. Denies fever or chills. Objective Data Objective Data Vital Signs: Vital Signs Temp Pulse Resp BP Pulse Ox 97.8 F 82 18 126/71 H 94 12/14/20 16:46 12/14/20 16:46 12/14/20 16:46 12/14/20 16:46 12/14/20 16:46 Oxygen Flow Rate (L/min) [ 8 AMBULATING with Oxygen #3] Oxygen Flow Rate (L/min) [ 6 AMBULATING with Oxygen #2] Oxygen Flow Rate (L/min) [ 4 AMBULATING with Oxygen #1] Oxygen Flow Rate (L/min) [At 2 REST with Oxygen] Oxygen Flow Rate (L/min) 4 Oxygen Delivery Method Nasal Cannula Weight: 86.2 kg Body Mass Index (BMI) 41.1 Intake & Output: Intake and Output for Last 24 Hours 12/12/20 12/13/20 12/14/20 23:59 23:59 23:59 Intake Total 2460.0 / 2460.0 Balance 2460.0 / 2460.0 Lab / Micro Data Result Diagrams: 12/13/20 04:20 12/13/20 04:20 Labs: Laboratory Results - last 24 hr 12/13/20 21:13: POC Glucose 276 H 12/14/20 07:58: POC Glucose 280 H 12/14/20 12:24: POC Glucose 344 H Micro: Microbiology 12/12/20 23:03 Urine, Clean Catch Urine Culture - Final Streptococcus agalactiae (B) Physical Exam Narrative Physical exam: General: Alert, Oriented x3, Cooperative, No apparent distress, Well developed, on 2 L of oxygen HEENT: Atraumatic Oral: Moist Mucosa Neck: Supple Lungs: Clear to auscultation Cardiovascular: HS I+II, regular, no murmurs Abdomen: Bowel Sounds Present, Soft, Non Tender Extremities: No edema Assessment & Plan Assessment/Plan (1) Acute respiratory failure with hypoxia: (2) COVID-19: (3) Nausea & vomiting: QUALIFIERS: Vomiting type: unspecified Vomiting Intractability: intractable Qualified Code(s): R11.2 - Nausea with vomiting, unspecified PLAN: 1. Acute hypoxic respiratory failure secondary to acute COVID-19 pneumonia, remains on oxygen Patient is unvaccinated; symptoms started on 06 December. Admitting chest x-ray and CTA shows bilateral pneumonitis; negative for acute PE Continue on Decadron and remdesivir Encourage use of incentive spirometer Lasix IV x 1 2. Acute intractable nausea and vomiting secondary to acute COVID-19 pneumonia, resolved 3. Hypokalemia, potassium is 3.4, secondary to #2, replaced 4. Diabetes mellitus type 2, uncontrolled secondary to steroid use and noncompliance Continue on Lantus 40 mg twice daily, Premeal insulin 15 units 3 times daily as well as insulin sliding scale 5. DVT prophylaxis with Lovenox subcu Charges/Coding Visit Charges Inpatient E&M: 32373 Subs Hosp L2
[2020-12-14 17:46] LABS: Bedside Glucose 295 mg/dL (70-110)
[2020-12-14] MEDS: Atorvastatin Calcium 20 MG Tablet PO (22:46)
[2020-12-14] MEDS: Amitriptyline 25 MG Tablet 50 MG PO (22:46)
[2020-12-14] MEDS: Furosemide 40 MG/4 ML Vial IV (22:48)
[2020-12-15 01:30] VITALS: PULSE 73; O2SAT 91
[2020-12-15 06:21] VITALS: BP 128/73; PULSE 80; RESP 18; TEMP 36.3; O2SAT 93
[2020-12-15 07:38] LABS: Absolute Lymphocyte Count 1.07 X10^3/uL (0.83-4.51); Absolute Neutrophil Count 4.9 X10^3/uL (2.0-7.7); Basophil# 0.01 X10^3/uL; Basophil% 0.2 % (0-1); Hematocrit 37.8 % (37-47); Lymphocyte # 1.07 X10^3/ul (0.83-4.51); Lymphocyte % 16.3 % (19-41); Mean Corp Hgb Conc 31.7 g/dL (32-36); Mean Corpuscular Hgb 25.1 pg (27.0-32.0); Mean Corpuscular Volume 79.1 fL (81-99); Mean Platelet Vol. 11.1 fl (6.2-12.0); Monocyte# 0.59 X10^3/uL; NRBC Flagged by Analyzer 0 % (0-5); Neutrophil # 4.86 X10^3/uL (2.7-7.7); Neutrophil % 74.2 % (47-70); POSITIVE MORPHOLOGY YES; Platelet Count 190 K/mm3 (150-450); RBC Distribution Width CV 15.2 % (11.6-14.6); RBC Distribution Width SD 43.3 fl (35.1-43.9); Red Blood Count 4.78 M/mm3 (4.2-5.4); White Blood Count 6.6 K/mm3 (4.4-11.0)
[2020-12-15 07:42] LABS: Differential Indicated SCAN CRITERIA MET
[2020-12-15 07:57] LABS: ALB/GLOB Ratio 0.7 RATIO (0.9-2.4); AST(SGOT) 30 U/L (15-37); Alanine Aminotransfer ALT/SGPT 21 U/L (13-56); Albumin, Serum 2.8 g/dL (3.2-5.0); Alkaline Phosphatase 88 U/L (45-117); Anion Gap 5 (5-15); BUN 20 mg/dL (7-18); BUN/Creat Ratio 28.2 RATIO (10-20); Calcium,Total 8.5 mg/dL (8.5-10.1); Chloride 104 mmol/L (98-107); Creatinine, Serum 0.71 mg/dL (0.55-1.02); EST Glomerular Filtration Rate 87 mL/min (>60); Est Glom Filt Rate - Afr Amer 105 mL/min (>60); Estimated Creatinine Clearance 74.29 ml/min; Globulin 4.3 g/dL (2.2-4.2); Glucose 228 mg/dL (74-106); Potassium 4.4 mmol/L (3.5-5.1); Protein, Total 7.1 g/dL (6.4-8.2); Sodium Level 139 mmol/L (136-145)
[2020-12-15 08:20] VITALS: BP 132/68; PULSE 83; RESP 18; TEMP 36.6; O2SAT 92
[2020-12-15] MEDS: Oxybutynin 5 MG Tablet 10 MG PO (08:25)
[2020-12-15] MEDS: Enoxaparin 40 MG/0.4 ML Syringe SC (08:26)
[2020-12-15] MEDS: glipiZIDE 10 MG Tablet PO (08:26)
[2020-12-15] MEDS: dexAMETHasone 4 MG Tablet 6 MG PO (08:26)
[2020-12-15] MEDS: Sertraline 50 MG Tablet PO (08:26)
[2020-12-15] MEDS: Pantoprazole Sodium 40 MG Tablet PO (08:26)
[2020-12-15] MEDS: Insulin Lispro 100 UNIT/ML INSULN.PEN SC ×3 (08:28→16:15)
[2020-12-15] MEDS: Insulin Lispro 100 UNIT/ML INSULN.PEN 15 UNIT SC ×3 (08:29→16:15)
[2020-12-15 09:01] LABS: Bedside Glucose 213 mg/dL (70-110)
--- NOTE | 2020-12-15 11:27 | PN.HOSP_ITS ---
Subjective Subjective Follow-up on acute hypoxic respiratory failure secondary to acute COVID-19 pneumonia: Patient seen and examined. Her oxygen requirements has worsened. She is on 5 L of oxygen. Denies any fever or chills. Objective Data Objective Data Vital Signs: Vital Signs Temp Pulse Resp BP Pulse Ox 97.8 F 83 18 132/68 H 92 12/15/20 08:20 12/15/20 08:20 12/15/20 08:20 12/15/20 08:20 12/15/20 08:20 Oxygen Flow Rate (L/min) [ 8 AMBULATING with Oxygen #3] Oxygen Flow Rate (L/min) [ 6 AMBULATING with Oxygen #2] Oxygen Flow Rate (L/min) [ 4 AMBULATING with Oxygen #1] Oxygen Flow Rate (L/min) [At 2 REST with Oxygen] Oxygen Flow Rate (L/min) 5 Oxygen Delivery Method Nasal Cannula Weight: 86.2 kg Body Mass Index (BMI) 41.1 Intake & Output: Intake and Output for Last 24 Hours 12/13/20 12/14/20 12/15/20 23:59 23:59 23:59 Intake Total 2460.0 / 2460.0 300 / 300 Balance 2460.0 / 2460.0 300 / 300 Lab / Micro Data Result Diagrams: 12/15/20 07:21 12/15/20 07:21 Labs: Laboratory Results - last 24 hr 12/14/20 12:24: POC Glucose 344 H 12/14/20 16:41: POC Glucose 295 H 12/15/20 07:21: WBC 6.6, RBC 4.78, Hgb 12.0, Hct 37.8, MCV 79.1 L, MCH 25.1 L, MCHC 31.7 L, RDW Std Deviation 43.3, RDW Coeff of Cari 15.2 H, Plt Count 190, MPV 11.1, Immature Gran % (Auto) 0.300, Neut % (Auto) 74.2 H, Lymph % (Auto) 16.3 L, [place] % (Auto) 9.0, Eos % (Auto) 0.0, Baso % (Auto) 0.2, Absolute Neuts (auto) 4.9, Absolute Lymphs (auto) 1.07, Nucleated RBC % 0 12/15/20 07:21: Sodium 139, Potassium 4.4, Chloride 104, Carbon Dioxide 30.0, Anion Gap 5, BUN 20 H, Creatinine 0.71, Estim Creat Clear Calc 74.29, Est GFR (MDRD) Af Amer 105, Est GFR (MDRD) Non-Af 87, BUN/Creatinine Ratio 28.2 H, Glucose 228 H, Calcium 8.5, Total Bilirubin 0.50, AST 30, ALT 21, Alkaline Phosphatase 88, Total Protein 7.1, Albumin 2.8 L, Globulin 4.3 H, Albumin/Globulin Ratio 0.7 L 12/15/20 08:18: POC Glucose 213 H Micro: Microbiology 12/12/20 22:28 Blood Culture (Wb) - Anticubital Left Blood Culture - Preliminary No growth in 48 hours. 12/12/20 22:20 Blood Culture (Wb) - Anticubital Left Blood Culture - Preliminary No growth in 48 hours. 12/12/20 23:03 Urine, Clean Catch Urine Culture - Final Streptococcus agalactiae (B) Physical Exam Narrative Physical exam: General: Alert, Oriented x3, Cooperative, No apparent distress, Well developed, on 5 L of oxygen HEENT: Atraumatic Oral: Moist Mucosa Neck: Supple Lungs: Diminished to auscultation Cardiovascular: HS I+II, regular, no murmurs Abdomen: Bowel Sounds Present, Soft, Non Tender Extremities: No edema Assessment & Plan Assessment/Plan (1) Acute respiratory failure with hypoxia: (2) COVID-19: (3) Nausea & vomiting: QUALIFIERS: Vomiting type: unspecified Vomiting Intractability: intractable Qualified Code(s): R11.2 - Nausea with vomiting, unspecified PLAN: 1. Acute hypoxic respiratory failure secondary to acute COVID-19 pneumonia, remains on oxygen Patient is unvaccinated; symptoms started on 06 December. Admitting chest x-ray and CTA shows bilateral pneumonitis; negative for acute PE Continue on Decadron and remdesivir Encourage use of incentive spirometer Repeat Lasix IV x 1 2. Acute intractable nausea and vomiting secondary to acute COVID-19 pneumonia, resolved 3. Hypokalemia, potassium is 3.4, secondary to #2, replaced 4. Diabetes mellitus type 2, uncontrolled secondary to steroid use and noncompliance Continue on Lantus 45 mg twice daily, Premeal insulin 15 units 3 times daily as well as insulin sliding scale 5. DVT prophylaxis with Lovenox subcu Charges/Coding Visit Charges Inpatient E&M: 22394 Subs Hosp L2
[2020-12-15] MEDS: Furosemide 40 MG/4 ML Vial IV (12:08)
[2020-12-15] MEDS: 0.9% Saline Lock 10 ML Syringe IV (12:08)
[2020-12-15] MEDS: guaiFENesin 600 MG Tablet PO ×2 (12:09→21:33)
[2020-12-15 16:17] VITALS: BP 136/74; PULSE 90; RESP 18; TEMP 36.6; O2SAT 92
[2020-12-15 17:01] LABS: Bedside Glucose 293 mg/dL (70-110)
[2020-12-15 17:01] LABS: Bedside Glucose 293 mg/dL (70-110)
--- NOTE | 2020-12-15 17:57 | CASEMGMT ---
Social Work Note VALERIE received call from pt's daughter Alexandria Day requesting call back ([phone]). SW placed a call to pt's daughter Alexandria. Alexandria states that she needs this worker to have pt complete form that will allow Alexandria to advocate for pt on making health care decisions. VALERIE informed Alexandria that this worker can speak with pt about HCPOA but informed Alexandria that HCPOA only comes into play if pt is not able to make own decisions, up until that point, pt is own person and can make own decisions. VALERIE informed Alexandria that this worker will ask pt about completing HCPOA and pt can complete document if she would like to. Alexandria states that pt also needs to have a medication be stopped. VALERIE informed Alexandria that she will need to speak with pt's RN about this. Alexandria states that she has called in requesting to speak to RN and RN hasn't called her back. SW into speak with pt. VALERIE introduced self and role at [facility]. Pt is alert and orientated. VALERIE spoke with pt about completing advanced directives. Pt agreeable to completing advanced directives. Pt completed advanced directives, original provided to pt. Pt denied additional needs or concerns. Annalisa Phillip MARKETING MANAGER [employer]ICATIONS, [employer]UNCH [employer]IMMER [employer]
[2020-12-15] MEDS: Amitriptyline 25 MG Tablet 50 MG PO (21:33)
[2020-12-15] MEDS: Atorvastatin Calcium 20 MG Tablet PO (21:33)
[2020-12-15 21:37] VITALS: BP 119/68; PULSE 86; RESP 18; TEMP 36.6; O2SAT 93
[2020-12-15 21:55] LABS: Bedside Glucose 213 mg/dL (70-110)
[2020-12-16 00:26] LABS: Bedside Glucose 156 mg/dL (70-110)
[2020-12-16 06:03] VITALS: BP 136/67; PULSE 89; RESP 18; TEMP 36.2; O2SAT 93
[2020-12-16 08:00] LABS: Absolute Lymphocyte Count 1.67 X10^3/uL (0.83-4.51); Absolute Neutrophil Count 5.4 X10^3/uL (2.0-7.7); Basophil# 0.02 X10^3/uL; Basophil% 0.2 % (0-1); Hematocrit 40.8 % (37-47); Hemoglobin 12.8 g/dL (12.0-15.0); Lymphocyte # 1.67 X10^3/ul (0.83-4.51); Lymphocyte % 20.6 % (19-41); Mean Corp Hgb Conc 31.4 g/dL (32-36); Mean Corpuscular Volume 79.8 fL (81-99); Monocyte# 0.97 X10^3/uL; Monocyte% 11.9 % (0-10); NRBC Flagged by Analyzer 0 % (0-5); Neutrophil % 66.6 % (47-70); POSITIVE MORPHOLOGY YES; Platelet Count 253 K/mm3 (150-450); RBC Distribution Width CV 15.3 % (11.6-14.6); RBC Distribution Width SD 44.3 fl (35.1-43.9); Red Blood Count 5.11 M/mm3 (4.2-5.4); White Blood Count 8.1 K/mm3 (4.4-11.0)
[2020-12-16 08:06] LABS: Differential Indicated SCAN CRITERIA MET
[2020-12-16] MEDS: Insulin Lispro 100 UNIT/ML INSULN.PEN SC ×3 (08:31→17:21)
[2020-12-16] MEDS: Oxybutynin 5 MG Tablet 10 MG PO (08:32)
[2020-12-16] MEDS: glipiZIDE 10 MG Tablet PO (08:32)
[2020-12-16] MEDS: Insulin Lispro 100 UNIT/ML INSULN.PEN 15 UNIT SC ×3 (08:32→17:22)
[2020-12-16] MEDS: Sertraline 50 MG Tablet PO (08:34)
[2020-12-16] MEDS: guaiFENesin 600 MG Tablet PO ×2 (08:34→21:09)
[2020-12-16] MEDS: Enoxaparin 40 MG/0.4 ML Syringe SC (08:34)
[2020-12-16] MEDS: Pantoprazole Sodium 40 MG Tablet PO (08:34)
[2020-12-16 08:39] LABS: ALB/GLOB Ratio 0.6 RATIO (0.9-2.4); AST(SGOT) 37 U/L (15-37); Alanine Aminotransfer ALT/SGPT 27 U/L (13-56); Albumin, Serum 2.9 g/dL (3.2-5.0); Alkaline Phosphatase 99 U/L (45-117); Anion Gap 8 (5-15); BUN 21 mg/dL (7-18); Calcium,Total 8.6 mg/dL (8.5-10.1); Chloride 99 mmol/L (98-107); Creatinine, Serum 0.78 mg/dL (0.55-1.02); EST Glomerular Filtration Rate 78 mL/min (>60); Est Glom Filt Rate - Afr Amer 95 mL/min (>60); Estimated Creatinine Clearance 74.29 ml/min; Globulin 4.7 g/dL (2.2-4.2); Glucose 150 mg/dL (74-106); Potassium 3.3 mmol/L (3.5-5.1); Protein, Total 7.6 g/dL (6.4-8.2); Sodium Level 140 mmol/L (136-145)
[2020-12-16] MEDS: dexAMETHasone 4 MG Tablet 6 MG PO (08:39)
[2020-12-16] MEDS: 0.9% Saline Lock 10 ML Syringe IV ×2 (08:44→21:09)
[2020-12-16] MEDS: Furosemide 40 MG/4 ML Vial IV (08:44)
[2020-12-16 12:40] LABS: Bedside Glucose 285 mg/dL (70-110)
[2020-12-16 13:44] VITALS: O2SAT 96
--- NOTE | 2020-12-16 14:04 | EX.PCM.CONCC ---
Assessment & Plan Assessment/Plan (1) Acute respiratory failure with hypoxia: (2) COVID-19: (3) Chronic obstructive lung disease: QUALIFIERS: Emphysema type: unspecified PLAN: RECOMMENDATIONS: 1. Continue Decadron (12/24/2020) and bronchodilator therapy 2. Agree with Lasix challenge as renal function allows 3. Electrolyte repletion as necessary 4. Titrate Lantus as necessary given Decadron in the setting of diabetes 5. Walking oximetry prior to discharge 6. Complete PFT and sleep study as an outpatient IMPRESSIONS: 1. Acute hypoxic respiratory failure secondary to COVID-19 in the setting of reported COPD/asthma overlap Patient states symptoms started on December 06, but is refusing Remdesivir therapy. Patient should be continued on Decadron therapy. Bronchodilators are appropriate given patient's reported history of COPD. Patient should have an outpatient pulmonary function test for quantification clarification of lung function when she has recovered from COVID-19. Patient will need a walking oximetry prior to discharge. Patient can tolerate ambulation on 6 L or less, can evaluate for disposition home. Patient appears to have responded well to diuretic therapy 2. Diabetes mellitus type 2/hypokalemia Patient is on Decadron therapy and tolerating well. Lantus has been increased as necessary along with premeal insulin. Will need to follow closely but appears to be well controlled at this time. 3. Morbid obesity/unvaccinated status/hyperlipidemia/hypertension Complicates care, management, recovery and prognosis. Okay to continue with baseline medications from my perspective. Continue to monitor renal function closely. HPI Consult Data Date of Consult: 12/16/20 HPI Narrative HPI Narrative: GLEN MOON is a 65 F, with past medical history listed below, who presented to [facility] on 12/12/2020 secondary to worsening shortness of breath, malaise, nausea and vomiting. 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 Patient reportedly had a positive Covid test and came to the ER for evaluation. Patient believes that she is on day 14 or so of symptoms. Patient had gone to an urgent care previously and was given Zofran. Patient has not received a COVID-19 vaccination or monoclonal antibody. Patient did have decreased p.o. intake. Patient does not wear supplemental oxygen at baseline. Patient reportedly did have a stress test recently that was within normal limits. In the ER, patient was afebrile, but hypertensive at 143/67. Patient was tachypneic and eventually required 2 L nasal cannula to maintain saturations. Laboratory work-up was relatively unremarkable except for an elevated fibrinogen at 486, D-dimer of 0.7 and potassium of 3.4. LDH was elevated to 262 and CRP was 66.3. Glucose was elevated at 326. Pro calcitonin was only slightly elevated at 0.11. Patient did have a UA suggestive of possible infection. Chest x-ray showed bilateral infiltrates and a follow-up CTA of the chest showed no PE with diffuse bilateral groundglass opacities. In the ER, patient desaturated 82% on ambulation, so was given IV Decadron admitted to the floor for further evaluation. Initially on the floor, patient was well controlled on nasal cannula oxygen at 2 L. After relative stability, patient was tentatively going to go home, but then started to have worsening shortness of breath and hypoxia. Patient required up to 9 L nasal cannula to maintain saturations, so a pulmonary consult was placed. Patient did receive IV Lasix prior to my evaluation and felt subjectively improved. Patient was also able to be dropped to 3 L nasal cannula. Patient does report an extensive smoking history. Patient states that she has been diagnosed with COPD and asthma, but does not report ever seeing a tree feller operator or having a pulmonary function test. Patient does not use any inhalers or oxygen at baseline. Patient is unaware of any obstructive sleep apnea. Patient carries a diagnosis of rheumatoid arthritis, but was unaware that this can affect the lungs. Patient does believe that her heart in good shape as she recently had a negative stress test. Patient is refusing Remdesivir therapy. Patient does not believe the vaccine would have made a difference. Patient believes that she can be discharged home on supplemental oxygen and do fine. Patient has noted some intermittent lower extremity edema, but feels it is better today. Review of systems otherwise negative from a constitutional, HEENT, respiratory, cardiovascular, GI, genitourinary, musculoskeletal, skin, neurologic, psychiatric and hematologic system unless stated above. [facility] Medical History Anemia Anxiety Asthma Back problem Cataract Chronic bronchitis Chronic migraine Depression Diabetes Diabetes mellitus, type 2 Former smoker Heart murmur High cholesterol Hypertension Neuropathy Rheumatoid arthritis UTI (urinary tract infection) Vision loss of left eye Vision loss of right eye Vision problems Home Medications amitriptyline 50 mg PO QHS 01/16/16 [History Last Taken 03/25/17] insulin aspart U-100 26 units SUBCUT TIDCM 01/16/16 [History Last Taken 03/25/17] metformin 1,000 mg PO BIDCM 01/16/16 [History Last Taken 03/25/17] oxybutynin chloride 10 mg PO DAILY 01/16/16 [History Last Taken 03/25/17] simvastatin 40 mg PO QHS 01/16/16 [History Last Taken 03/25/17] albuterol sulfate [Ventolin HFA] 1 - 2 puff INHALATION Q6H PRN PRN 03/27/17 [History Last Taken Unknown] cyclobenzaprine 10 mg PO TID PRN PRN 03/27/17 [History Last Taken Unknown] glipizide 10 mg PO DAILY 03/27/17 [History Last Taken 03/26/17] sertraline 50 mg PO DAILY 03/27/17 [History Last Taken 03/25/17] alum-mag hydroxide-simeth 15 ml PO Q8H PRN PRN #1 bottle 03/30/17 [Rx Last Taken Unknown] ondansetron 4 mg PO Q8H PRN PRN #20 tab 03/30/17 [Rx Last Taken Unknown] pantoprazole 40 mg PO DAILY #30 tab 03/30/17 [Rx Last Taken Unknown] diphenhydramine HCl 25 mg PO TID PRN PRN #10 cap 08/19/17 [Rx Last Taken Unknown] Trulicity mg SUBCUT QWEEK 12/12/20 [History Last Taken Unknown] hydrocodone-acetaminophen 1 tab PO BID PRN 12/13/20 [History Last Taken Unknown] dexamethasone 6 mg PO DAILY 9 Days #14 tab 12/14/20 [Rx Last Taken Unknown] insulin glargine [Lantus Solostar U-100 Insulin] 40 units SUBCUT BID #0 ml 12/14/20 [Rx Last Taken Unknown] Allergy/AdvReac Type Severity Reaction Status Date / Time codeine Allergy Rash Verified 07/22/20 21:37 lisinopril AdvReac Angioedema Verified 07/22/20 21:37 naproxen AdvReac Other Verified 07/22/20 21:37 Family History Other Arthritis Breast cancer Diabetes Surgical History History of cholecystectomy Social History Smoking Status: Former smoker alcohol intake: never substance use type: does not use what type of physical activity do you participate in: none ROS ROS Narrative See HPI Physical Exam Const alert and no apparent distress General Appearance: cooperative HEENT normocephalic, head/scalp atraumatic and hearing grossly normal bilaterally Eyes PERRL Neck General: JVD Chest inspection of chest normal Chest: symmetrical chest wall rise; Negative for crepitus Resp normal respiratory effort, no retractions and no use of accessory muscles Auscultation: diminished lung sounds; Negative for rales, rhonchi or wheezes Cardio regular rate, regular rhythm, S1 normal heart sound, S2 normal heart sound, no murmurs, no rub and no gallops GI normal to inspection, nondistended, normoactive bowel sounds, soft to palpation, non-tender and non-distended Extremity normal to inspection and no clubbing, cyanosis or edema Skin no rashes or lesions noted and no wounds Neuro Sensorium / Orientation: awake and alert Psych affect normal Lab / Micro Data Result Diagrams: 12/16/20 07:10 12/16/20 07:10 Labs: Laboratory Results - last 24 hr 12/14/20 22:44: POC Glucose 213 H 12/15/20 07:21: Diff Path Review Not Reportable 12/15/20 12:06: POC Glucose 293 H 12/15/20 16:14: POC Glucose 293 H 12/15/20 21:30: POC Glucose 156 H 12/16/20 07:10: WBC 8.1, RBC 5.11, Hgb 12.8, Hct 40.8, MCV 79.8 L, MCH 25.0 L, MCHC 31.4 L, RDW Std Deviation 44.3 H, RDW Coeff of Cari 15.3 H, Plt Count 253, MPV 11.0, Immature Gran % (Auto) 0.700, Neut % (Auto) 66.6, Lymph % (Auto) 20.6, [place] % (Auto) 11.9 H, Eos % (Auto) 0.0, Baso % (Auto) 0.2, Absolute Neuts (auto) 5.4, Absolute Lymphs (auto) 1.67, Nucleated RBC % 0 12/16/20 07:10: Sodium 140, Potassium 3.3 L, Chloride 99, Carbon Dioxide 33.0 H, Anion Gap 8, BUN 21 H, Creatinine 0.78, Estim Creat Clear Calc 74.29, Est GFR (MDRD) Af Amer 95, Est GFR (MDRD) Non-Af 78, BUN/Creatinine Ratio 27.0 H, Glucose 150 H, Calcium 8.6, Total Bilirubin 0.60, AST 37, ALT 27, Alkaline Phosphatase 99, Total Protein 7.6, Albumin 2.9 L, Globulin 4.7 H, Albumin/Globulin Ratio 0.6 L 12/16/20 12:25: POC Glucose 285 H Charges/Coding Visit Charges Inpatient E&M: 93827 Init Hosp L3
--- NOTE | 2020-12-16 14:16 | PN.HOSP_ITS ---
Subjective Subjective Follow-up on acute hypoxic respiratory failure secondary to acute COVID-19 pneumonia: Patient was seen and examined. Denied any new complaints. She is on 9 L of oxygen. She refused remdesivir. Objective Data Objective Data Vital Signs: Vital Signs Temp Pulse Resp BP Pulse Ox 97.1 F L 89 18 136/67 H 96 12/16/20 06:03 12/16/20 06:03 12/16/20 06:03 12/16/20 06:03 12/16/20 13:44 Oxygen Flow Rate (L/min) [ 8 AMBULATING with Oxygen #3] Oxygen Flow Rate (L/min) [ 6 AMBULATING with Oxygen #2] Oxygen Flow Rate (L/min) [ 4 AMBULATING with Oxygen #1] Oxygen Flow Rate (L/min) [At 2 REST with Oxygen] Oxygen Flow Rate (L/min) 9 Oxygen Delivery Method Nasal Cannula Weight: 86.2 kg Body Mass Index (BMI) 41.1 Intake & Output: Intake and Output for Last 24 Hours 12/14/20 12/15/20 12/16/20 23:59 23:59 23:59 Intake Total 300 / 300 Output Total 1600 / 1600 Balance -1300 / -1300 Lab / Micro Data Result Diagrams: 12/16/20 07:10 12/16/20 07:10 Labs: Laboratory Results - last 24 hr 12/14/20 22:44: POC Glucose 213 H 12/15/20 12:06: POC Glucose 293 H 12/15/20 16:14: POC Glucose 293 H 12/15/20 21:30: POC Glucose 156 H 12/16/20 07:10: WBC 8.1, RBC 5.11, Hgb 12.8, Hct 40.8, MCV 79.8 L, MCH 25.0 L, MCHC 31.4 L, RDW Std Deviation 44.3 H, RDW Coeff of Cari 15.3 H, Plt Count 253, MPV 11.0, Immature Gran % (Auto) 0.700, Neut % (Auto) 66.6, Lymph % (Auto) 20.6, [place] % (Auto) 11.9 H, Eos % (Auto) 0.0, Baso % (Auto) 0.2, Absolute Neuts (auto) 5.4, Absolute Lymphs (auto) 1.67, Nucleated RBC % 0 12/16/20 07:10: Sodium 140, Potassium 3.3 L, Chloride 99, Carbon Dioxide 33.0 H, Anion Gap 8, BUN 21 H, Creatinine 0.78, Estim Creat Clear Calc 74.29, Est GFR (MDRD) Af Amer 95, Est GFR (MDRD) Non-Af 78, BUN/Creatinine Ratio 27.0 H, Glucose 150 H, Calcium 8.6, Total Bilirubin 0.60, AST 37, ALT 27, Alkaline Phosphatase 99, Total Protein 7.6, Albumin 2.9 L, Globulin 4.7 H, Albumin/Globulin Ratio 0.6 L 12/16/20 12:25: POC Glucose 285 H Micro: Microbiology 12/12/20 22:28 Blood Culture (Wb) - Anticubital Left Blood Culture - Preliminary No growth in 48 hours. 12/12/20 22:20 Blood Culture (Wb) - Anticubital Left Blood Culture - Preliminary No growth in 48 hours. 12/12/20 23:03 Urine, Clean Catch Urine Culture - Final Streptococcus agalactiae (B) Physical Exam Narrative Physical exam: General: Alert, Oriented x3, Cooperative, No apparent distress, Well developed, on 9 L of oxygen HEENT: Atraumatic Oral: Moist Mucosa Neck: Supple Lungs: Diminished to auscultation Cardiovascular: HS I+II, regular, no murmurs Abdomen: Bowel Sounds Present, Soft, Non Tender Extremities: No edema Assessment & Plan Assessment/Plan (1) Acute respiratory failure with hypoxia: (2) COVID-19: (3) Nausea & vomiting: QUALIFIERS: Vomiting Intractability: intractable Vomiting type: unspecified Qualified Code(s): R11.2 - Nausea with vomiting, unspecified PLAN: 1. Acute hypoxic respiratory failure secondary to acute COVID-19 pneumonia, remains on oxygen Patient is unvaccinated; symptoms started on 06 December. Admitting chest x-ray and CTA shows bilateral pneumonitis; negative for acute PE Continue on Decadron. Refused remdesivir Encourage use of incentive spirometer Repeat Lasix IV x 1 2. Acute intractable nausea and vomiting secondary to acute COVID-19 pneumonia, resolved 3. Hypokalemia, potassium is 3.4, secondary to #2, replaced 4. Diabetes mellitus type 2, uncontrolled secondary to steroid use and noncompliance Continue on Lantus 50 mg twice daily, Premeal insulin 15 units 3 times daily as well as insulin sliding scale 5. DVT prophylaxis with Lovenox subcu Charges/Coding Visit Charges Inpatient E&M: 03813 Subs Hosp L2
[2020-12-16 14:21] VITALS: BP 133/71; PULSE 90; RESP 18; TEMP 36.6; O2SAT 93
[2020-12-16 14:26] VITALS: RESP 18
[2020-12-16] MEDS: Potassium Chloride Oral Tablet 20 MEQ 60 MEQ PO (14:28)
--- NOTE | 2020-12-16 15:19 | CASEMGMT ---
Social Work Note VALERIE updated that pt's daughter Alexandria is on the phone requesting to speak with SW. Alexandria states she had the SW yesterday have pt fill out document that allows her to participate in pt's care and advocate for pt's healthcare decisions. Alexandria states that she has called in multiple times and has asked nurses and doctors to call her back and no one has called her. Alexandria then states she did speak with RN earlier. VALERIE informed Alexandria that typically the RN's just update the families. Alexandria states that she was told pt is own person and competent and she doesn't need to be called. VALERIE had told Alexandria yesterday that HCPOA only comes into play if pt is unable to make own decisions for pt and until that point, pt is own person and can make own decisions. VALERIE informed Alexandria that this worker can update pt's physician that she wants to be called for an update. VALERIE updated physician. Annalisa Phillip FLAT GRINDER OPERATOR, RAW STOCK DRIER TENDER
[2020-12-16 17:41] LABS: Bedside Glucose 217 mg/dL (70-110)
[2020-12-16 18:00] VITALS: RESP 18
[2020-12-16 21:05] VITALS: BP 145/89; PULSE 84; RESP 18; TEMP 36.8; O2SAT 93
[2020-12-16 21:06] LABS: Bedside Glucose 161 mg/dL (70-110)
[2020-12-16] MEDS: Amitriptyline 25 MG Tablet 50 MG PO (21:09)
[2020-12-16] MEDS: Atorvastatin Calcium 20 MG Tablet PO (21:09)
[2020-12-16 21:45] LABS: Bedside Glucose 261 mg/dL (70-110)
[2020-12-17] VITALS (8 sets, daily range): BP systolic 127–146; BP diastolic 71–85; PULSE 84–86; RESP 18–22; TEMP 36.4–36.6; O2SAT 8–93
[2020-12-17 07:22] LABS: Absolute Lymphocyte Count 1.57 X10^3/uL (0.83-4.51); Absolute Neutrophil Count 3.9 X10^3/uL (2.0-7.7); Basophil# 0.01 X10^3/uL; Basophil% 0.2 % (0-1); Hematocrit 41.2 % (37-47); Lymphocyte # 1.57 X10^3/ul (0.83-4.51); Lymphocyte % 24.3 % (19-41); Mean Corp Hgb Conc 31.6 g/dL (32-36); Mean Corpuscular Hgb 25.3 pg (27.0-32.0); Mean Corpuscular Volume 80.2 fL (81-99); Monocyte# 0.88 X10^3/uL; Monocyte% 13.6 % (0-10); NRBC Flagged by Analyzer 0 % (0-5); Neutrophil # 3.94 X10^3/uL (2.7-7.7); Neutrophil % 61.1 % (47-70); POSITIVE MORPHOLOGY YES; Platelet Count 231 K/mm3 (150-450); RBC Distribution Width CV 15.4 % (11.6-14.6); RBC Distribution Width SD 44.1 fl (35.1-43.9); Red Blood Count 5.14 M/mm3 (4.2-5.4); White Blood Count 6.5 K/mm3 (4.4-11.0)
[2020-12-17 07:25] LABS: Differential Indicated SCAN CRITERIA MET
[2020-12-17 07:57] LABS: ALB/GLOB Ratio 0.7 RATIO (0.9-2.4); AST(SGOT) 43 U/L (15-37); Alanine Aminotransfer ALT/SGPT 32 U/L (13-56); Albumin, Serum 2.9 g/dL (3.2-5.0); Alkaline Phosphatase 101 U/L (45-117); Anion Gap 6 (5-15); BUN 20 mg/dL (7-18); BUN/Creat Ratio 28.5 RATIO (10-20); Calcium,Total 8.6 mg/dL (8.5-10.1); Chloride 103 mmol/L (98-107); EST Glomerular Filtration Rate 88 mL/min (>60); Est Glom Filt Rate - Afr Amer 107 mL/min (>60); Estimated Creatinine Clearance 74.29 ml/min; Globulin 4.3 g/dL (2.2-4.2); Glucose 121 mg/dL (74-106); Potassium 3.9 mmol/L (3.5-5.1); Protein, Total 7.2 g/dL (6.4-8.2); Sodium Level 139 mmol/L (136-145)
[2020-12-17 08:46] LABS: Bedside Glucose 136 mg/dL (70-110)
[2020-12-17] MEDS: Insulin Lispro 100 UNIT/ML INSULN.PEN 15 UNIT SC ×3 (08:48→16:33)
[2020-12-17] MEDS: Oxybutynin 5 MG Tablet 10 MG PO (08:50)
[2020-12-17] MEDS: Enoxaparin 40 MG/0.4 ML Syringe SC (08:50)
[2020-12-17] MEDS: guaiFENesin 600 MG Tablet PO ×2 (08:50→20:47)
[2020-12-17] MEDS: Pantoprazole Sodium 40 MG Tablet PO (08:51)
[2020-12-17] MEDS: glipiZIDE 10 MG Tablet PO (08:51)
[2020-12-17] MEDS: dexAMETHasone 4 MG Tablet 6 MG PO (08:51)
[2020-12-17] MEDS: Sertraline 50 MG Tablet PO (08:51)
--- NOTE | 2020-12-17 09:00 | NURSING ---
pt taking over 20 minutes to recover from mininal activity
--- NOTE | 2020-12-17 10:53 | PN.HOSP_ITS ---
Subjective Subjective Follow-up on acute hypoxic respiratory failure secondary to acute COVID-19 pneumonia: Patient was seen and examined. She is currently on 10 L of oxygen. I had a long talk with the daughter yesterday and answered all her questions. She denied any fever or chills. Objective Data Objective Data Vital Signs: Vital Signs Temp Pulse Resp BP Pulse Ox 97.8 F 85 22 H 135/71 H 90 12/17/20 08:57 12/17/20 08:57 12/17/20 09:51 12/17/20 08:57 12/17/20 09:51 Oxygen Flow Rate (L/min) [ 8 AMBULATING with Oxygen #3] Oxygen Flow Rate (L/min) [ 91 AMBULATING with Oxygen #2] Oxygen Flow Rate (L/min) [ 6 AMBULATING with Oxygen #1] Oxygen Flow Rate (L/min) [At 6 REST with Oxygen] Oxygen Flow Rate (L/min) 10 Oxygen Delivery Method Nasal Cannula Weight: 86.2 kg Body Mass Index (BMI) 41.1 Intake & Output: Intake and Output for Last 24 Hours 12/15/20 12/16/20 12/17/20 23:59 23:59 23:59 Intake Total 300 / 300 700 / 700 Output Total 1600 / 1600 1200 / 1200 Balance -1300 / -1300 -500 / -500 Lab / Micro Data Result Diagrams: 12/17/20 06:44 12/17/20 06:44 Labs: Laboratory Results - last 24 hr 12/16/20 08:30: POC Glucose 161 H 12/16/20 12:25: POC Glucose 285 H 12/16/20 17:18: POC Glucose 217 H 12/16/20 21:02: POC Glucose 261 H 12/17/20 06:44: WBC 6.5, RBC 5.14, Hgb 13.0, Hct 41.2, MCV 80.2 L, MCH 25.3 L, MCHC 31.6 L, RDW Std Deviation 44.1 H, RDW Coeff of Cari 15.4 H, Plt Count 231, MPV 11.0, Immature Gran % (Auto) 0.800, Neut % (Auto) 61.1, Lymph % (Auto) 24.3, [place] % (Auto) 13.6 H, Eos % (Auto) 0.0, Baso % (Auto) 0.2, Absolute Neuts (auto) 3.9, Absolute Lymphs (auto) 1.57, Nucleated RBC % 0 12/17/20 06:44: Sodium 139, Potassium 3.9, Chloride 103, Carbon Dioxide 30.0, Anion Gap 6, BUN 20 H, Creatinine 0.70, Estim Creat Clear Calc 74.29, Est GFR (MDRD) Af Amer 107, Est GFR (MDRD) Non-Af 88, BUN/Creatinine Ratio 28.5 H, Glucose 121 H, Calcium 8.6, Total Bilirubin 0.60, AST 43 H, ALT 32, Alkaline Phosphatase 101, Total Protein 7.2, Albumin 2.9 L, Globulin 4.3 H, Albumin/ Globulin Ratio 0.7 L 12/17/20 08:40: POC Glucose 136 H Micro: Microbiology 12/12/20 22:28 Blood Culture (Wb) - Anticubital Left Blood Culture - Preliminary No growth in 48 hours. 12/12/20 22:20 Blood Culture (Wb) - Anticubital Left Blood Culture - Preliminary No growth in 48 hours. 12/12/20 23:03 Urine, Clean Catch Urine Culture - Final Streptococcus agalactiae (B) Physical Exam Narrative Physical exam: General: Alert, Oriented x3, Cooperative, No apparent distress, Well developed, on 10 L of oxygen HEENT: Atraumatic Oral: Moist Mucosa Neck: Supple Lungs: Diminished to auscultation Cardiovascular: HS I+II, regular, no murmurs Abdomen: Bowel Sounds Present, Soft, Non Tender Extremities: No edema Const alert and no apparent distress General Appearance: cooperative HEENT normocephalic, head/scalp atraumatic and hearing grossly normal bilaterally Eyes PERRL Resp normal respiratory effort, no retractions, no use of accessory muscles and clear to auscultation bilaterally Cardio regular rate, regular rhythm, S1 normal heart sound and S2 normal heart sound GI normal to inspection, nondistended, normoactive bowel sounds, soft to palpation, non-tender and non-distended Extremity normal to inspection and no clubbing, cyanosis or edema Skin no rashes or lesions noted and no wounds Neuro Sensorium / Orientation: awake and alert Psych affect normal Assessment & Plan Assessment/Plan (1) Acute respiratory failure with hypoxia: (2) COVID-19: (3) Nausea & vomiting: QUALIFIERS: Vomiting type: unspecified Vomiting Intractability: intractable Qualified Code(s): R11.2 - Nausea with vomiting, unspecified PLAN: 1. Acute hypoxic respiratory failure secondary to acute COVID-19 pneumonia, slightly worsening, on 10 L of oxygen Patient is unvaccinated; symptoms started on 06 December. Admitting chest x-ray and CTA shows bilateral pneumonitis; negative for acute PE Continue on Decadron. Refused remdesivir Encourage use of incentive spirometer Repeat Lasix IV x 1 2. Acute intractable nausea and vomiting secondary to acute COVID-19 pneumonia, resolved 3. Hypokalemia, potassium is 3.4, secondary to #2, replaced 4. Diabetes mellitus type 2, uncontrolled secondary to steroid use and nonc ompliance Continue on Lantus 60 mg twice daily, Premeal insulin 20 units 3 times daily as well as insulin sliding scale 5. DVT prophylaxis with Lovenox subcu Charges/Coding Visit Charges Inpatient E&M: 82637 Subs Hosp L3
[2020-12-17] MEDS: Insulin Lispro 100 UNIT/ML INSULN.PEN SC ×2 (11:30→16:33)
[2020-12-17 11:36] LABS: Bedside Glucose 295 mg/dL (70-110)
--- NOTE | 2020-12-17 12:08 | PN.CC_ITS ---
Assessment & Plan Assessment/Plan (1) Acute respiratory failure with hypoxia: (2) COVID-19: (3) Chronic obstructive lung disease: QUALIFIERS: Emphysema type: unspecified PLAN: RECOMMENDATIONS: 1. Continue Decadron (12/24/2020) and bronchodilator therapy 2. Agree with Lasix challenge as renal function allows. Dose today 3. Electrolyte repletion as necessary 4. Titrate Lantus as necessary given Decadron in the setting of diabetes 5. Walking oximetry prior to discharge 6. Complete PFT and sleep study as an outpatient IMPRESSIONS: 1. Acute hypoxic respiratory failure secondary to COVID-19 in the setting of reported COPD/asthma overlap Patient states symptoms started on December 06, but is refusing Remdesivir therapy. Patient should be continued on Decadron therapy. Bronchodilators are appropriate given patient's reported history of COPD. Patient should have an outpatient pulmonary function test for quantification clarification of lung function when she has recovered from COVID-19. Patient will need a walking oximetry prior to discharge. Patient can tolerate ambulation on 6 L or less, can evaluate for disposition home. Patient appears to have responded well to diuretic therapy. We will dose again today 2. Diabetes mellitus type 2/hypokalemia Patient is on Decadron therapy and tolerating well. Lantus has been increased as necessary along with premeal insulin. Will need to follow closely but appears to be well controlled at this time. 3. Morbid obesity/unvaccinated status/hyperlipidemia/hypertension Complicates care, management, recovery and prognosis. Okay to continue with baseline medications from my perspective. Continue to monitor renal function closely. Subjective Subjective Patient did okay overnight. No acute issues were reported. Patient overall feels subjectively slightly improved compared to yesterday. Nursing is reporting patient requires up to 10 L nasal cannula with any ambulation. Objective Data Objective Data Vital Signs: Vital Signs Temp Pulse Resp BP Pulse Ox 36.6 C 85 22 H 135/71 H 90 12/17/20 08:57 12/17/20 08:57 12/17/20 09:51 12/17/20 08:57 12/17/20 09:51 Oxygen Flow Rate (L/min) [ 8 AMBULATING with Oxygen #3] Oxygen Flow Rate (L/min) [ 91 AMBULATING with Oxygen #2] Oxygen Flow Rate (L/min) [ 6 AMBULATING with Oxygen #1] Oxygen Flow Rate (L/min) [At 6 REST with Oxygen] Oxygen Flow Rate (L/min) 10 Oxygen Delivery Method Nasal Cannula Weight: 86.2 kg Body Mass Index (BMI) 41.1 Intake & Output: Intake and Output for Last 24 Hours 12/15/20 12/16/20 12/17/20 23:59 23:59 23:59 Intake Total 300 / 300 700 / 700 Output Total 1600 / 1600 1200 / 1200 Balance -1300 / -1300 -500 / -500 Lab / Micro Data Result Diagrams: 12/17/20 06:44 12/17/20 06:44 Labs: Laboratory Results - last 24 hr 12/16/20 08:30: POC Glucose 161 H 12/16/20 12:25: POC Glucose 285 H 12/16/20 17:18: POC Glucose 217 H 12/16/20 21:02: POC Glucose 261 H 12/17/20 06:44: WBC 6.5, RBC 5.14, Hgb 13.0, Hct 41.2, MCV 80.2 L, MCH 25.3 L, MCHC 31.6 L, RDW Std Deviation 44.1 H, RDW Coeff of Cari 15.4 H, Plt Count 231, MPV 11.0, Immature Gran % (Auto) 0.800, Neut % (Auto) 61.1, Lymph % (Auto) 24.3, [place] % (Auto) 13.6 H, Eos % (Auto) 0.0, Baso % (Auto) 0.2, Absolute Neuts (auto) 3.9, Absolute Lymphs (auto) 1.57, Nucleated RBC % 0 12/17/20 06:44: Sodium 139, Potassium 3.9, Chloride 103, Carbon Dioxide 30.0, Anion Gap 6, BUN 20 H, Creatinine 0.70, Estim Creat Clear Calc 74.29, Est GFR (MDRD) Af Amer 107, Est GFR (MDRD) Non-Af 88, BUN/Creatinine Ratio 28.5 H, Glucose 121 H, Calcium 8.6, Total Bilirubin 0.60, AST 43 H, ALT 32, Alkaline Phosphatase 101, Total Protein 7.2, Albumin 2.9 L, Globulin 4.3 H, Albumin/Globulin Ratio 0.7 L 12/17/20 08:40: POC Glucose 136 H 12/17/20 11:26: POC Glucose 295 H Micro: Microbiology 12/12/20 22:28 Blood Culture (Wb) - Anticubital Left Blood Culture - Preliminary No growth in 48 hours. 12/12/20 22:20 Blood Culture (Wb) - Anticubital Left Blood Culture - Preliminary No growth in 48 hours. 12/12/20 23:03 Urine, Clean Catch Urine Culture - Final Streptococcus agalactiae (B) Physical Exam Const alert and no apparent distress General Appearance: cooperative HEENT normocephalic, head/scalp atraumatic and hearing grossly normal bilaterally Eyes PERRL Neck General: JVD Chest inspection of chest normal Chest: symmetrical chest wall rise; Negative for crepitus Resp normal respiratory effort, no retractions and no use of accessory muscles Auscultation: diminished lung sounds; Negative for rales, rhonchi or wheezes Cardio regular rate, regular rhythm, S1 normal heart sound, S2 normal heart sound, no murmurs, no rub and no gallops GI normal to inspection, nondistended, normoactive bowel sounds, soft to palpation, non-tender and non-distended Extremity normal to inspection and no clubbing, cyanosis or edema Skin no rashes or lesions noted and no wounds Neuro Sensorium / Orientation: awake and alert Psych affect normal Charges/Coding Visit Charges Inpatient E&M: 61323 Subs Hosp L2
[2020-12-17] MEDS: 0.9% Saline Lock 10 ML Syringe IV (14:25)
[2020-12-17] MEDS: Furosemide 20 MG/2 ML VIAL IV (14:25)
[2020-12-17 16:41] LABS: Bedside Glucose 444 mg/dL (70-110)
[2020-12-17] MEDS: Amitriptyline 25 MG Tablet 50 MG PO (20:47)
[2020-12-17] MEDS: Atorvastatin Calcium 20 MG Tablet PO (20:47)
[2020-12-18] VITALS (7 sets, daily range): BP systolic 124–134; BP diastolic 66–78; PULSE 83–98; RESP 18–22; TEMP 36.4–36.6; O2SAT 84–94
[2020-12-18 00:10] LABS: Bedside Glucose 374 mg/dL (70-110)
[2020-12-18 08:17] LABS: Absolute Lymphocyte Count 1.84 X10^3/uL (0.83-4.51); Absolute Neutrophil Count 5.2 X10^3/uL (2.0-7.7); Basophil# 0.01 X10^3/uL; Basophil% 0.1 % (0-1); Hematocrit 42.4 % (37-47); Hemoglobin 13.3 g/dL (12.0-15.0); Lymphocyte # 1.84 X10^3/ul (0.83-4.51); Mean Corp Hgb Conc 31.4 g/dL (32-36); Mean Corpuscular Hgb 24.6 pg (27.0-32.0); Mean Corpuscular Volume 78.5 fL (81-99); Monocyte# 0.95 X10^3/uL; Monocyte% 11.9 % (0-10); NRBC Flagged by Analyzer 0 % (0-5); Neutrophil # 5.16 X10^3/uL (2.7-7.7); Neutrophil % 64.4 % (47-70); POSITIVE MORPHOLOGY YES; Platelet Count 243 K/mm3 (150-450); RBC Distribution Width CV 15.3 % (11.6-14.6); RBC Distribution Width SD 42.8 fl (35.1-43.9)
[2020-12-18 08:20] LABS: Differential Indicated SCAN CRITERIA MET
[2020-12-18 08:33] LABS: ALB/GLOB Ratio 0.8 RATIO (0.9-2.4); AST(SGOT) 50 U/L (15-37); Alanine Aminotransfer ALT/SGPT 55 U/L (13-56); Albumin, Serum 3.1 g/dL (3.2-5.0); Alkaline Phosphatase 127 U/L (45-117); Anion Gap 7 (5-15); BUN 21 mg/dL (7-18); BUN/Creat Ratio 27.7 RATIO (10-20); Calcium,Total 8.7 mg/dL (8.5-10.1); Chloride 99 mmol/L (98-107); Creatinine, Serum 0.76 mg/dL (0.55-1.02); EST Glomerular Filtration Rate 81 mL/min (>60); Est Glom Filt Rate - Afr Amer 98 mL/min (>60); Estimated Creatinine Clearance 74.29 ml/min; Globulin 4.1 g/dL (2.2-4.2); Glucose 105 mg/dL (74-106); Potassium 3.5 mmol/L (3.5-5.1); Protein, Total 7.2 g/dL (6.4-8.2); Sodium Level 138 mmol/L (136-145)
[2020-12-18] MEDS: dexAMETHasone 4 MG Tablet 6 MG PO (08:43)
[2020-12-18] MEDS: Oxybutynin 5 MG Tablet 10 MG PO (08:44)
[2020-12-18] MEDS: Sertraline 50 MG Tablet PO (08:44)
[2020-12-18] MEDS: Pantoprazole Sodium 40 MG Tablet PO (08:44)
[2020-12-18] MEDS: glipiZIDE 10 MG Tablet PO (08:44)
[2020-12-18] MEDS: guaiFENesin 600 MG Tablet PO (08:45)
[2020-12-18] MEDS: Insulin Lispro 100 UNIT/ML INSULN.PEN 20 UNIT SC ×2 (08:46→11:28)
[2020-12-18] MEDS: Enoxaparin 40 MG/0.4 ML Syringe SC (08:50)
[2020-12-18 09:41] LABS: Differential Comment SCANNED
--- NOTE | 2020-12-18 09:45 | PN.CC_ITS ---
Assessment & Plan Assessment/Plan (1) Acute respiratory failure with hypoxia: (2) COVID-19: (3) Chronic obstructive lung disease: QUALIFIERS: Emphysema type: unspecified PLAN: RECOMMENDATIONS: 1. Continue Decadron (12/24/2020) and bronchodilator therapy 2. Agree with Lasix challenge as renal function allows. Dose today 3. Electrolyte repletion as necessary 4. Titrate Lantus as necessary given Decadron in the setting of diabetes 5. Obtain walking oximetry 6. Complete PFT and sleep study as an outpatient IMPRESSIONS: 1. Acute hypoxic respiratory failure secondary to COVID-19 in the setting of reported COPD/asthma overlap Patient states symptoms started on December 06, but is refusing Remdesivir therapy. Patient should be continued on Decadron therapy. Bronchodilators are appropriate given patient's reported history of COPD. Patient should have an outpatient pulmonary function test for quantification clarification of lung function when she has recovered from COVID-19. Will obtain walking oximetry prior to discharge. Patient can tolerate ambulation on 6 L or less, can evaluate for disposition home. Patient appears to have responded well to diuretic therapy. We will dose again today with prophylactic potassium supplementation 2. Diabetes mellitus type 2/hypokalemia Patient is on Decadron therapy and tolerating well. Lantus has been used as necessary along with premeal insulin. Will need to follow closely but appears to be well controlled at this time. 3. Morbid obesity/unvaccinated status/hyperlipidemia/hypertension Complicates care, management, recovery and prognosis. Okay to continue with baseline medications from my perspective. Continue to monitor renal func tion closely. Subjective Subjective Patient did okay overnight. No acute issues are reported. Patient subjectively feels improved compared to yesterday. Patient denies any current chest pain or abdominal pain. Patient was able to be weaned to 4 L nasal cannula during my evaluation. Patient reports her cough is slightly improved. Objective Data Objective Data Vital Signs: Vital Signs Temp Pulse Resp BP Pulse Ox 36.6 C 95 20 H 124/66 H 91 12/18/20 08:41 12/18/20 08:41 12/18/20 09:02 12/18/20 08:41 12/18/20 08:41 Oxygen Flow Rate (L/min) [ 8 AMBULATING with Oxygen #3] Oxygen Flow Rate (L/min) [ 6 AMBULATING with Oxygen #2] Oxygen Flow Rate (L/min) [ 5 AMBULATING with Oxygen #1] Oxygen Flow Rate (L/min) [At 5 REST with Oxygen] Oxygen Flow Rate (L/min) 5 Oxygen Delivery Method Nasal Cannula Weight: 86.2 kg Body Mass Index (BMI) 41.1 Intake & Output: Intake and Output for Last 24 Hours 12/16/20 12/17/20 12/18/20 23:59 23:59 23:59 Intake Total 700 / 700 Output Total 1200 / 1200 500 / 500 Balance -500 / -500 -500 / -500 Lab / Micro Data Result Diagrams: 12/18/20 08:03 12/18/20 08:03 Labs: Laboratory Results - last 24 hr 12/17/20 11:26: POC Glucose 295 H 12/17/20 16:31: POC Glucose 444 H 12/17/20 20:41: POC Glucose 374 H 12/18/20 08:03: WBC 8.0, RBC 5.40, Hgb 13.3, Hct 42.4, MCV 78.5 L, MCH 24.6 L, MCHC 31.4 L, RDW Std Deviation 42.8, RDW Coeff of Cari 15.3 H, Plt Count 243, MPV 11.0, Immature Gran % (Auto) 0.600, Neut % (Auto) 64.4, Lymph % (Auto) 23.0, [place] % (Auto) 11.9 H, Eos % (Auto) 0.0, Baso % (Auto) 0.1, Absolute Neuts (auto) 5.2, Absolute Lymphs (auto) 1.84, Nucleated RBC % 0, Differential Comment SCANNED 12/18/20 08:03: Sodium 138, Potassium 3.5, Chloride 99, Carbon Dioxide 32.0, Anion Gap 7, BUN 21 H, Creatinine 0.76, Estim Creat Clear Calc 74.29, Est GFR (MDRD) Af Amer 98, Est GFR (MDRD) Non-Af 81, BUN/Creatinine Ratio 27.7 H, Glucose 105, Calcium 8.7, Total Bilirubin 0.70, AST 50 H, ALT 55, Alkaline Phosphatase 127 H, Total Protein 7.2, Albumin 3.1 L, Globulin 4.1, Albumin/Globulin Ratio 0.8 L Micro: Microbiology 11/07/21 22:20 Blood Culture (Wb) - Anticubital Left Blood Culture - Final No growth in 5 days. 12/12/20 22:28 Blood Culture (Wb) - Anticubital Left Blood Culture - Final No growth in 5 days. 12/12/20 23:03 Urine, Clean Catch Urine Culture - Final Streptococcus agalactiae (B) Physical Exam Const alert and no apparent distress General Appearance: cooperative HEENT normocephalic, head/scalp atraumatic and hearing grossly normal bilaterally Eyes PERRL Neck General: JVD Chest inspection of chest normal Chest: symmetrical chest wall rise; Negative for crepitus Resp normal respiratory effort, no retractions and no use of accessory muscles Auscultation: diminished lung sounds; Negative for rales, rhonchi or wheezes Cardio regular rate, regular rhythm, S1 normal heart sound, S2 normal heart sound, no murmurs, no rub and no gallops GI normal to inspection, nondistended, normoactive bowel sounds, soft to palpation, non-tender and non-distended Extremity normal to inspection and no clubbing, cyanosis or edema Skin no rashes or lesions noted and no wounds Neuro Sensorium / Orientation: awake and alert Psych affect normal Charges/Coding Visit Charges Inpatient E&M: 99636 Subs Hosp L2
[2020-12-18 10:15] LABS: Bedside Glucose 95 mg/dL (70-110)
[2020-12-18] MEDS: Potassium Chloride Oral Tablet 20 MEQ 40 MEQ PO (11:27)
[2020-12-18] MEDS: Furosemide 20 MG/2 ML VIAL IV (11:28)
[2020-12-18] MEDS: 0.9% Saline Lock 10 ML Syringe IV (11:29)
[2020-12-18] MEDS: Insulin Lispro 100 UNIT/ML INSULN.PEN SC (11:29)
[2020-12-18 11:41] LABS: Bedside Glucose 287 mg/dL (70-110)
--- NOTE | 2020-12-18 15:00 | PCM.PN.HOSP ---
Subjective Subjective Follow-up on acute hypoxic respiratory failure secondary to acute COVID-19 pneumonia: Patient was seen and examined. She feels improved. She is on 5 L of oxygen. Objective Data Objective Data Vital Signs: Vital Signs Temp Pulse Resp BP Pulse Ox 97.8 F 98 22 H 129/71 H 92 12/18/20 14:13 12/18/20 14:13 12/18/20 14:13 12/18/20 14:13 12/18/20 14:13 Oxygen Flow Rate (L/min) [ 8 AMBULATING with Oxygen #3] Oxygen Flow Rate (L/min) [ 5 AMBULATING with Oxygen #2] Oxygen Flow Rate (L/min) [ 3 AMBULATING with Oxygen #1] Oxygen Flow Rate (L/min) [At 3 REST with Oxygen] Oxygen Flow Rate (L/min) 3 Oxygen Delivery Method Nasal Cannula Weight: 86.2 kg Body Mass Index (BMI) 41.1 Intake & Output: Intake and Output for Last 24 Hours 12/16/20 12/17/20 12/18/20 23:59 23:59 23:59 Intake Total 700 / 700 350 / 350 Output Total 1200 / 1200 500 / 500 Balance -500 / -500 -150 / -150 Lab / Micro Data Result Diagrams: 12/18/20 08:03 12/18/20 08:03 Labs: Laboratory Results - last 24 hr 12/17/20 16:31: POC Glucose 444 H 12/17/20 20:41: POC Glucose 374 H 12/18/20 08:03: WBC 8.0, RBC 5.40, Hgb 13.3, Hct 42.4, MCV 78.5 L, MCH 24.6 L, MCHC 31.4 L, RDW Std Deviation 42.8, RDW Coeff of Cari 15.3 H, Plt Count 243, MPV 11.0, Immature Gran % (Auto) 0.600, Neut % (Auto) 64.4, Lymph % (Auto) 23.0, [place] % (Auto) 11.9 H, Eos % (Auto) 0.0, Baso % (Auto) 0.1, Absolute Neuts (auto) 5.2, Absolute Lymphs (auto) 1.84, Nucleated RBC % 0, Differential Comment SCANNED 12/18/20 08:03: Sodium 138, Potassium 3.5, Chloride 99, Carbon Dioxide 32.0, Anion Gap 7, BUN 21 H, Creatinine 0.76, Estim Creat Clear Calc 74.29, Est GFR (MDRD) Af Amer 98, Est GFR (MDRD) Non-Af 81, BUN/Creatinine Ratio 27.7 H, Glucose 105, Calcium 8.7, Total Bilirubin 0.70, AST 50 H, ALT 55, Alkaline Phosphatase 127 H, Total Protein 7.2, Albumin 3.1 L, Globulin 4.1, Albumin/Globulin Ratio 0.8 L 12/18/20 08:33: POC Glucose 95 12/18/20 11:26: POC Glucose 287 H Micro: Microbiology 12/12/20 22:20 Blood Culture (Wb) - Anticubital Left Blood Culture - Final No growth in 5 days. 12/12/20 22:28 Blood Culture (Wb) - Anticubital Left Blood Culture - Final No growth in 5 days. 12/12/20 23:03 Urine, Clean Catch Urine Culture - Final Streptococcus agalactiae (B) Physical Exam Narrative Physical exam: General: Alert, Oriented x3, Cooperative, No apparent distress, Well developed, on 10 L of oxygen HEENT: Atraumatic Oral: Moist Mucosa Neck: Supple Lungs: Diminished to auscultation Cardiovascular: HS I+II, regular, no murmurs Abdomen: Bowel Sounds Present, Soft, Non Tender Extremities: No edema Assessment & Plan Assessment/Plan (1) Acute respiratory failure with hypoxia: (2) COVID-19: (3) Chronic obstructive lung disease: QUALIFIERS: Emphysema type: unspecified COPD type: emphysema Qualified Code(s): J43.9 - Emphysema, unspecified PLAN: 1. Acute hypoxic respiratory failure secondary to acute COVID-19 pneumonia, slightly worsening, on 10 L of oxygen Patient is unvaccinated; symptoms started on 06 December. Admitting chest x-ray and CTA shows bilateral pneumonitis; negative for acute PE Continue on Decadron. Refused remdesivir Encourage use of incentive spirometer 2. Acute intractable nausea and vomiting secondary to acute COVID-19 pneumonia, resolved 3. Hypokalemia, replaced 4. Diabetes mellitus type 2, uncontrolled secondary to steroid use and noncompliance Continue on Lantus 60 mg twice daily, Premeal insulin 20 units 3 times daily as well as insulin sliding scale 5. DVT prophylaxis with Lovenox subcu Charges/Coding Visit Charges Inpatient E&M: 93097 Subs Hosp L2
--- NOTE | 2020-12-18 15:53 | DS.PCM_ITS ---
Providers Date of Admission: 12/13/20 Date of Discharge: 12/18/20 Primary Care Physician: Dr. Jesus Garcia MD Consultations 12/16/20 07:27 Consult: Chief Technology Officer / Pulmonary Medicine Routine Consulting Provider: Moose Varghese Reason for Consult: COVID-19 EMERGENT Consult: No MD Notified: Yes Date Notified: 12/16/20 Time Notified: 09:53 Method of Notification: Text Reason For Visit: COVID19, N/V Diagnosis Discharge Diagnosis (1) Acute respiratory failure with hypoxia: Status: Acute Code(s): J96.01 - Acute respiratory failure with hypoxia (2) COVID-19: Status: Acute Code(s): U07.1 - COVID-19 (3) Chronic obstructive lung disease: Status: Chronic Code(s): J44.9 - Chronic obstructive pulmonary disease, unspecified Qualifiers: Emphysema type: unspecified Medications at Discharge Home Medications amitriptyline 50 mg PO QHS 01/16/16 insulin aspart U-100 26 units SUBCUT TIDCM 01/16/16 metformin 1,000 mg PO BIDCM 01/16/16 oxybutynin chloride 10 mg PO DAILY 01/16/16 simvastatin 40 mg PO QHS 01/16/16 albuterol sulfate [Ventolin HFA] 1 - 2 puff INHALATION Q6H PRN PRN 03/27/17 cyclobenzaprine 10 mg PO TID PRN PRN 03/27/17 glipizide 10 mg PO DAILY 03/27/17 sertraline 50 mg PO DAILY 03/27/17 alum-mag hydroxide-simeth 15 ml PO Q8H PRN PRN #1 bottle 03/30/17 ondansetron 4 mg PO Q8H PRN PRN #20 tab 03/30/17 pantoprazole 40 mg PO DAILY #30 tab 03/30/17 diphenhydramine HCl 25 mg PO TID PRN PRN #10 cap 08/19/17 Trulicity mg SUBCUT QWEEK 12/12/20 hydrocodone-acetaminophen 1 tab PO BID PRN 12/13/20 dexamethasone 6 mg PO DAILY 4 Days #6 tab 12/18/20 insulin glargine [Lantus Solostar U-100 Insulin] 60 units SUBCUT BID 30 Days #36 ml 11/13/21 Hospital Course Operations None Procedures None Summary of Care Provided Minutes Spent on Discharge: 50 Hospital Course: 65 y/o female with multiple co-morbidities, who is unvaccinated for COVID-19 infection, who comes with intractable nausea and vomiting. She was unable to keep anything down. She has recently been diagnosed COVID-19 infection. The emergency room, she was found to be saturating 80% on room air, improved to 4 L. He received IV fluids, dexamethasone, famotidine ondansetron in the ED Patient was admitted to the [facility] floor and managed as acute hypoxic respiratory failure secondary to acute COVID-19 pneumonia. Her oxygen status worsened. She went up to 10 L of oxygen. She was managed initially on dexamethasone and remdesivir. Patient after a second day refused to be giving remdesivir. She received intermittent Lasix. Pulmonology was consulted. Patient several times wanted to be discharged. She was evaluated for oxygen and remained less than 6 L on oxygen. She was on 2 to 3 L on room air and that progressed to 5 L on exertion. She had uncontrolled blood sugars and changes were made to her insulin regimen. She qualified for home oxygen and will follow up with her primary care doctor within 1 to 2 weeks. Physical Exam Narrative Physical exam: General: Alert, Oriented x3, Cooperative, No apparent distress, Well developed, on 10 L of oxygen HEENT: Atraumatic Oral: Moist Mucosa Neck: Supple Lungs: Diminished to auscultation Cardiovascular: HS I+II, regular, no murmurs Abdomen: Bowel Sounds Present, Soft, Non Tender Extremities: No edema Weight / BMI Weight Weight: 86.2 kg Body Mass Index (BMI) 41.1 ABG / Lab / Microbiology Data Result Diagrams: 12/18/20 08:03 12/18/20 08:03 Laboratory: Laboratory Results - last 24 hr 12/17/20 16:31: POC Glucose 444 H 12/17/20 20:41: POC Glucose 374 H 12/18/20 08:03: WBC 8.0, RBC 5.40, Hgb 13.3, Hct 42.4, MCV 78.5 L, MCH 24.6 L, MCHC 31.4 L, RDW Std Deviation 42.8, RDW Coeff of Cari 15.3 H, Plt Count 243, MPV 11.0, Immature Gran % (Auto) 0.600, Neut % (Auto) 64.4, Lymph % (Auto) 23.0, [place] % (Auto) 11.9 H, Eos % (Auto) 0.0, Baso % (Auto) 0.1, Absolute Neuts (auto) 5.2, Absolute Lymphs (auto) 1.84, Nucleated RBC % 0, Differential Comment SCANNED 12/18/20 08:03: Sodium 138, Potassium 3.5, Chloride 99, Carbon Dioxide 32.0, Anion Gap 7, BUN 21 H, Creatinine 0.76, Estim Creat Clear Calc 74.29, Est GFR (MDRD) Af Amer 98, Est GFR (MDRD) Non-Af 81, BUN/Creatinine Ratio 27.7 H, Glucose 105, Calcium 8.7, Total Bilirubin 0.70, AST 50 H, ALT 55, Alkaline Phosphatase 127 H, Total Protein 7.2, Albumin 3.1 L, Globulin 4.1, Albumin/Globulin Ratio 0.8 L 12/18/20 08:33: POC Glucose 95 12/18/20 11:26: POC Glucose 287 H Microbiology: Microbiology 12/12/20 22:20 Blood Culture (Wb) - Anticubital Left Blood Culture - Final No growth in 5 days. 12/12/20 22:28 Blood Culture (Wb) - Anticubital Left Blood Culture - Final No growth in 5 days. 12/12/20 23:03 Urine, Clean Catch Urine Culture - Final Streptococcus agalactiae (B) D/C Instructions Discharge Diet: 2000 Calorie Control Diet and 2000 mg Sodium Diet Meaningful Use Info Meaningful Use Diagnoses (Choose all that apply): None applicable Discharge Plan Admission Admit Date/Time: 12/13/20 01:46 Primary Reason for Your Visit: Acute hypoxic respiratory failure/acute COVID-19 pneumonia Attending Provider: Earlene Leonardo Primary Care Provider: Jesus Garcia Consulting Providers: Moose Varghese Instructions Additional Instructions / Restrictions: You are being discharged with oxygen. Continue to use your oxygen all the time. Continue to use your incentive spirometer. Continue to remain active and eat healthy. Let your doctor know if you develop fever >101.3F or have progressive worsening shortness of breath. Follow-up with your primary care doctor and also with pulmonology to have your continued oxygen use reevaluated. Be careful of going near open flames whilst on oxygen. Complete your Decadron as prescribed. Continue to use your inhaler as needed for shortness of breath. Continue to quarantine for 20 days total from the start of your symptoms. Discharge Orders/Prescriptions Prescriptions: New dexamethasone 4 mg Tablet 6 mg PO DAILY 4 Days Qty: 6 RF: 0 Lantus Solostar U-100 Insulin 100 unit/mL (3 mL) Insulin Pen 60 units subcut BID 30 Days Qty: 36 RF: 0 Continued amitriptyline 10 MG tablet 50 mg PO QHS RF: 0 simvastatin 20 MG tablet 40 mg PO QHS RF: 0 metformin 1,000 MG tablet 1,000 mg PO BIDCM RF: 0 oxybutynin chloride 5 MG tablet 10 mg PO DAILY RF: 0 insulin aspart U-100 100 UNITS/ML insulin pen 26 units subcut TIDCM RF: 0 cyclobenzaprine 10 MG tablet 10 mg PO TID PRN PRN (Reason: Pain) RF: 0 glipizide 10 MG tablet 10 mg PO DAILY RF: 0 albuterol sulfate [Ventolin HFA] 1 INHALER inhaler 1 - 2 puff inhalation Q6H PRN PRN (Reason: Sob &/Or Wheezing) RF: 0 sertraline 50 MG tablet 50 mg PO DAILY RF: 0 pantoprazole 40 MG tablet 40 mg PO DAILY Qty: 30 RF: 0 alum-mag hydroxide-simeth 30 ML suspension 15 ml PO Q8H PRN PRN (Reason: Epigastric pain, heartburn.) Qty: 1 RF: 0 ondansetron 4 MG tablet 4 mg PO Q8H PRN PRN (Reason: Nausea) Qty: 20 RF: 0 diphenhydramine HCl 25 MG capsule 25 mg PO TID PRN PRN (Reason: itching and swelling) Qty: 10 RF: 0 Trulicity 1.5 mg/0.5 mL pen injector SUBCUT QWEEK RF: 0 hydrocodone-acetaminophen 5-325 mg Tablet 1 tab PO BID PRN (Reason: Pain) RF: 0 Discontinued insulin glargine 100 UNIT/ML insulin pen 68 unit SQ QHS RF: 0 Referrals / Follow Up: Jesus Garcia MD [Primary Care Provider] - Within 2 Weeks Disposition Disposition (needs filled in before D/C Order can be placed): Home, Self Care Charges/Coding Visit Charges Inpatient E&M: 53137 Disch Hosp
[2020-12-18 17:31] LABS: Bedside Glucose 322 mg/dL (70-110)
--- NOTE | 2020-12-20 14:51 | CASEMGMT ---
GARRICK GREWAL Discharge Follow-up Phone Call: CHRISTAL: Vaibhav Strata: 3 Call Date: 12/20/20 Discharge Date: 12/18/20 Time of Call: 1455 Duration: 1 min Admitting Diagnosis: Covid GARRICK GREWAL attempted to complete follow-up phone call after recent hospitalization. Patient's grandson answered and stated patient was not available. Return number left with grandson and requested patient call back.
== END 2020-12-18 18:11 | disposition home or self-care (01) | DRG 177 ==
LOC: ED 22:17 → MS3 12-13 02:01
PROVIDERS: Emergency Provider Emergency Medicine; PCP Family Medicine; Visit Provider Internal Medicine
DX: U07.1 COVID-19 (principal); J12.82 Pneumonia due to coronavirus disease 2019; J96.01 Acute respiratory failure with hypoxia; J44.0 Chronic obstructive pulmonary disease with (acute) lower respiratory infection; Z68.41 Body mass index [BMI] 40.0-44.9, adult; E11.65 Type 2 diabetes mellitus with hyperglycemia; T38.0X5A Adverse effect of glucocorticoids and synthetic analogues, initial encounter; Y92.9 Unspecified place or not applicable; I10 Essential (primary) hypertension; E11.36 Type 2 diabetes mellitus with diabetic cataract; E66.01 Morbid (severe) obesity due to excess calories; E78.00 Pure hypercholesterolemia, unspecified; E78.5 Hyperlipidemia, unspecified; E87.6 Hypokalemia; F32.A Depression, unspecified; F41.9 Anxiety disorder, unspecified; M06.9 Rheumatoid arthritis, unspecified; E11.42 Type 2 diabetes mellitus with diabetic polyneuropathy; G43.909 Migraine, unspecified, not intractable, without status migrainosus; Z87.440 Personal history of urinary (tract) infections; Z79.4 Long term (current) use of insulin; Z79.899 Other long term (current) drug therapy; Z87.891 Personal history of nicotine dependence; Z91.14 Patient's other noncompliance with medication regimen
CPT/HCPCS: 36415; 71045; 71275; 80053; 81001; 82550; 82962; 83605; 83615; 83690; 84075; 84145; 84484; 85025; 85027; 85379; 85384; 86140; 87040; 87077; 87086; 87088; 87186; 94667; 94762; 99285; J7040; J7050; Q9967; A4216; J1940; J2405; J3490

== ENCOUNTER → 2021-08-24 | Outpatient (CLI) | payer MEDICARE, MEDICAID, SELFPAY ==
[2021-08-24 10:46] LABS: Erythrocyte Sedimentation Rate 28 mm/hr (0-30)
[2021-08-24 10:49] LABS: Absolute Lymphocyte Count 2.11 X10^3/uL (0.83-4.51); Absolute Neutrophil Count 2.7 X10^3/uL (2.0-7.7); Basophil# 0.05 X10^3/uL; Basophil% 0.9 % (0-1); Eosinophils% 3.6 % (0-5); Hemoglobin 12.7 g/dL (12.0-15.0); Lymphocyte # 2.11 X10^3/ul (0.83-4.51); Lymphocyte % 38.4 % (19-41); Mean Corpuscular Hgb 24.9 pg (27.0-32.0); Mean Corpuscular Volume 80.4 fL (81-99); Mean Platelet Vol. 12.4 fl (6.2-12.0); Monocyte# 0.48 X10^3/uL; Monocyte% 8.7 % (0-10); NRBC Flagged by Analyzer 0 % (0-5); Neutrophil # 2.65 X10^3/uL (2.7-7.7); Neutrophil % 48.2 % (47-70); Platelet Count 207 K/mm3 (150-450); RBC Distribution Width CV 16.3 % (11.6-14.6); RBC Distribution Width SD 46.8 fl (35.1-43.9); White Blood Count 5.5 K/mm3 (4.4-11.0)
[2021-08-24 10:52] LABS: Prothrombin Time (Protime)PT. 12.6 SECONDS (11.7-14.9)
[2021-08-24 11:18] LABS: Hemoglobin A1c 9.1 % (3.8-5.6)
[2021-08-24 11:21] LABS: ALB/GLOB Ratio 0.9 RATIO (0.9-2.4); AST(SGOT) 23 U/L (15-37); Alanine Aminotransfer ALT/SGPT 23 U/L (13-56); Albumin, Serum 3.6 g/dL (3.2-5.0); Alkaline Phosphatase 111 U/L (45-117); Anion Gap 7 (5-15); BUN 14 mg/dL (7-18); BUN/Creat Ratio 19.4 RATIO (10-20); Calcium,Total 8.8 mg/dL (8.5-10.1); Chloride 107 mmol/L (98-107); Creatinine, Serum 0.72 mg/dL (0.55-1.02); EST Glomerular Filtration Rate 85 mL/min (>60); Est Glom Filt Rate - Afr Amer 103 mL/min (>60); Ferritin 32 ng/mL (8-252); Glucose 142 mg/dL (74-106); LDH 207 U/L (84-246); Potassium 3.7 mmol/L (3.5-5.1); Protein, Total 7.6 g/dL (6.4-8.2); Sodium Level 140 mmol/L (136-145)
[2021-08-24 11:43] LABS: HIV - WCH Non-Reactive (Nonreactive)
[2021-08-25 15:08] LABS: Anti-Centromere B Ab <0.2 AI (0.0-0.9); Anti-Chromatin <0.2 AI (0.0-0.9); Anti-Jo <0.2 AI (0.0-0.9); Anti-Scleroderma-70 AB <0.2 AI (0.0-0.9); RNP Ab 0.8 AI (0.0-0.9); SJOGREN'S Anti-SS-A test < 0.2 AI (0.0-0.9); SJOGREN'S Anti-SS-B test < 0.2 AI (0.0-0.9); Smith Ab <0.2 AI (0.0-0.9)
[2021-08-26 07:52] LABS: Anti-Mitochondrial AB <20.0 Units (0.0-20.0); Anti-dsDNA Ab 2 IU/mL (0-9)
[2021-08-27 00:06] LABS: Angiotensin Convert Enzyme 75 U/L (14-82); Ceruloplasmin 30.9 mg/dL (19.0-39.0); Cytoplasmic Ab (C-ANCA) <1:20 titer (Neg:<1:20); HEPATITIS B SURFACE AG Negative (Negative); Hep C Antibodies <0.1 s/co ratio (0.0-0.9); Hepatitis A IgM Antibody Negative (Negative); Hepatitis B Core AB IgM Negative (Negative)
[2021-08-27 08:18] LABS: AFP, Tumor Marker 4.6 ng/mL (0.0-9.2); Anti-Smooth Muscle ABS 3 Units (0-19); Copper, Serum or Plasma 132 ug/dL (80-158); Haptoglobin 131 mg/dL (37-355); Perinuclear Ab (P-ANCA) <1:20 titer (Neg:<1:20)
== END | disposition home or self-care (01) ==
LOC: LAB 10:05
PROVIDERS: PCP Family Medicine; Visit Provider Nurse Practitioner Adult Health
DX: K74.00 Hepatic fibrosis, unspecified (principal); E11.9 Type 2 diabetes mellitus without complications; Z79.4 Long term (current) use of insulin; I87.2 Venous insufficiency (chronic) (peripheral); K86.89 Other specified diseases of pancreas; J18.9 Pneumonia, unspecified organism
CPT/HCPCS: 36415; 80053; 80074; 82105; 82140; 82164; 82390; 82525; 82728; 83010; 83036; 83516; 83615; 85025; 85610; 85652; 86140; 86225; 86235; 86256; 86703

== ENCOUNTER → 2021-09-01 | Outpatient (CLI) | payer MEDICARE, MEDICAID, SELFPAY ==
--- NOTE | 2021-09-01 09:15 | US_ITS ---
STUDY: ABDOMINAL ULTRASOUND - RIGHT UPPER QUADRANT REASON FOR VISIT: Female, 66 years old . Hepatomegaly. TECHNIQUE: Ultrasound evaluation of the right upper quadrant was performed with real-time and static lawson-scale imaging. TECHNICAL QUALITY: Adequate. COMPARISON: Comparison is made with prior study dated 02/19/2017. FINDINGS: Liver: The liver is enlarged and measures 18.9 cm. 3 The bile ducts are within normal limits. There is hepatic color flow. The direction of portal flow is hepatopetal. There is no demonstrated mass lesion. Gallbladder: The patient is status post cholecystectomy. Common Bile Duct (C.B.D.): The common bile duct measures 4 mm. Pancreas: Normal size of the head, body and tail of the pancreas. There is normal echogenicity of the pancreas. There is no demonstrated pancreatic mass or cyst. Right Kidney: Normal size of the right kidney. The right kidney measures 11.9 cm x 5.2 cm x 4.8 cm. Normal renal cortex. The right cortex measures 1.4 cm. There is no demonstrated renal mass or cyst. There is no right hydronephrosis. US/Abdomen Limited IMPRESSION: Hepatomegaly and diffuse fatty infiltration of the liver. The patient is status post cholecystectomy. Electronically Signed: Eric Pichardo MD at 14:44 EDT ,
--- NOTE | 2021-09-01 09:15 | US_ITS ---
STUDY: ABDOMINAL ULTRASOUND - ELASTOGRAPHY REASON FOR VISIT: Female, 66 years old. Hepatomegaly and fatty infiltration of the liver. TECHNIQUE: Liver stiffness measurements were obtained on a Sossee RS 85 ultrasound machine using a CA 1-7 probe following the SRU guidelines. 3 measurements were obtained using a 2-D-SWE method. The IQR/M was 17% suggesting a quality data set. TECHNICAL QUALITY: Adequate. COMPARISON: Comparison is made with prior study done earlier in the day. FINDINGS: Liver: Hepatomegaly. Diffuse fatty infiltration of the liver. Median liver stiffness measured 21 kPa. US/Elastography Parenchyma/Organ IMPRESSION: Liver stiffness measures 21 kPa compatible with F3-F4 (Moderate to severe liver fibrosis) Metavir score. Electronically Signed: Eric Pichardo MD at 14:46 EDT ,
== END | disposition home or self-care (01) ==
PROVIDERS: PCP Family Medicine; Referring Provider Nurse Practitioner Adult Health; Visit Provider Nurse Practitioner Adult Health
DX: K76.89 Other specified diseases of liver (principal)
CPT/HCPCS: 76705; 76981

== ENCOUNTER → 2021-09-12 | Outpatient (CLI) | payer MEDICARE, MEDICAID, SELFPAY ==
[2021-09-12] VITALS (7 sets, daily range): BP systolic 137–186; BP diastolic 58–92; PULSE 82–88; RESP 15–18; TEMP 36.2–36.6; O2SAT 92–100; BMI 41.1
--- NOTE | 2021-09-12 08:44 | CT_ITS ---
PROCEDURE: CT DIRECTED CORE LIVER BIOPSY INDICATION: Female, 66 years old. 21 kPa, F3-F4, eval for cirrhosis PHYSICIAN: Dr. RHODA Carnes CONSENT: Written informed consent was obtained having explained the risks, benefits and alternatives in detail with the patient who accepted the risks and agreed to proceed. Laboratory review and clinical assessment was performed. CONSCIOUS SEDATION PROTOCOL: The Drugs used were: 2 mg Versed, IV., and 50 mcg Fentanyl, IV. The sedation time was: 17 minutes. Conscious sedation was started at 9:50 AM and terminated at 10:07 AM. The conscious sedation protocol was independently monitored. RADIATION DOSAGE (If Supplied By Facility): CTDIvol = ( 21 ) mGy, DLP = ( 1066.33 ) mGycm Individualized dose optimization techniques were used for this CT. TECHNIQUE: Using CT image guidance with image documentation, a suitable location in the left lobe of the liver was identified. Using an anterior approach , puncture of the liver was uneventful with an 18-gauge core needle system. 4, 18-gauge core samples were obtained, and submitted in formalin to the pathologist for further assessment. Followup CT scan revealed no distinct sequelae. CT/Biopsy/Inj or Needle Placement IMPRESSION: 1. CT directed core needle biopsy of the liver, using CT image guidance with image documentation as described. 2. Conscious Sedation protocol utilized with independent monitoring. Electronically Signed: Eric Pichardo MD at 10:35 EDT ,
[2021-09-12 09:00] LABS: Platelet Count 196 K/mm3 (150-450)
[2021-09-12 09:11] LABS: Prothrombin Time (Protime)PT. 12.8 SECONDS (11.7-14.9)
[2021-09-12 09:12] LABS: Partial Thromboplast Time 27.9 Seconds (24.1-36.2)
[2021-09-12] MEDS: 0.9% Normal Saline 250 ML IV.SOLN. IV (09:45)
[2021-09-12] MEDS: fentaNYL 100 MCG/2 ML Ampul IV (09:50)
[2021-09-12] MEDS: Midazolam 2 MG/2 ML Syringe IV (09:50)
[2021-09-12] MEDS: Lidocaine 2% (10 ml mdv) 10 ML Vial INFILT (09:58)
--- NOTE | 2021-09-12 10:05 | LIVB_PTH ---
PATIENT: GLEN MOON LOC: CT U#:[id number] AGE/SX: 66/F ROOM: RE09/12/[address]: ANDER Reyes : 1955 BED: DIS: 09/12/2021 SPEC #: [id number] RECD: 09/12/21 10:24 STATUS: CHANTAL DOUG #: [id number] ELIZABET: 09/12/21 10:[address]: Ana Guerra NP DEPT: SURGICAL PATHOLOGY RECD BY: Maria Fernanda Conner ENTERED: 09/12/21 12:59 SP TYPE: LIVER BX OTHR DR: Dr. Jesus Garcia MD Tissues: Liver, NOS Procedures: PAS with Diastase (control) Trichrome (control) Special Stain Group II PAS Stain (control) Surgery Specimen Level V Retic (control) Iron Stain (control) HEADER OPERATION: Liver biopsy PRE-OP DIAGNOSIS: Cirrhosis, hepatic fibrosis TISSUE SUBMITTED: Liver 18-gauge core x4 MICROSCOPIC DIAGNOSIS Liver, core biopsy: Consistent with cirrhosis. Extensive macro- and microvesicular steatosis. See microscopic description and comment. LILLIE:dimas 09/13/2021 COMMENT Clinical correlation and appropriate follow up are necessary. MICROSCOPIC DESCRIPTION Slides are reviewed. The specimen shows liver parenchymal tissue with distortion of normal lobular architecture in multiple nodules divided by fibrous septae. The hepatocytes in the nodules show extensive macro- and microvesicular steatosis. Fibrous septae show mild to moderate chronic inflammation. Iron stain does not show any iron deposition. Reticulin and trichrome stains highlight the fibrous septae. PAS stain with and without diastase does not show any abnormal accumulation of protein. All stains are performed with appropriate matched control. GROSS DESCRIPTION Received in fixative is one container labeled with the patient's name and designated liver. The specimen consists of multiple elongated fragments of soliman soft tissue that in aggregate measure 0.8 to 2 cm in length and 0.1 cm in diameter. The specimen is totally submitted in one cassette. / LILLIE:dimas 09/12/2021 TC:5 CPT: 76230, 79114 x5
== END | disposition home or self-care (01) ==
LOC: CT 08:44
PROVIDERS: PCP Family Medicine; Referring Provider Nurse Practitioner Adult Health; Visit Provider Nurse Practitioner Adult Health
DX: K76.89 Other specified diseases of liver (principal); K74.00 Hepatic fibrosis, unspecified
CPT/HCPCS: 47000; 36415; 77012; 85049; 85610; 85730; 88307; 88313; 99156; J7050

== ENCOUNTER 2021-09-13 09:34 | Outpatient (CLI) | payer MEDICARE, SELFPAY ==
[2021-09-13 10:56] LABS: Amphetamine Urine VISTA NEGATIVE (<1000 ng/mL); Barbiturate Urine VISTA NEGATIVE (< 200 ng/mL); Benzodiazepine Urine VISTA POSITIVE (< 200 ng/mL); Cocaine Urine VISTA NEGATIVE (< 300 ng/mL); Ecstacy Urine VISTA NEGATIVE (< 500 ng/mL); Methadone Urine VISTA NEGATIVE (< 300 ng/mL); PCP Urine VISTA NEGATIVE (< 25 ng/mL); THC Urine VISTA NEGATIVE (< 50 ng/mL); Vista UDS pH Range 5
== END 2021-09-13 23:59 | disposition home or self-care (01) ==
PROVIDERS: PCP Family Medicine; Visit Provider Physician Assistant
DX: F11.90 Opioid use, unspecified, uncomplicated (principal)
CPT/HCPCS: 80307

== ENCOUNTER → 2021-10-05 | Outpatient (CLI) | payer MEDICARE, SELFPAY ==
[2021-10-09 11:44] LABS: Vitamin D 1,25-Dihydroxy 18.4 pg/mL (24.8-81.5)
== END | disposition home or self-care (01) ==
LOC: LAB 11:25
PROVIDERS: PCP Family Medicine; Referring Provider Nurse Practitioner Adult Health; Visit Provider Nurse Practitioner Adult Health
DX: K74.60 Unspecified cirrhosis of liver (principal)
CPT/HCPCS: 36415; 82652

== ENCOUNTER 2021-10-25 12:09 | Day surgery (SDC) | payer MEDICARE, MEDICAID, SELFPAY ==
[2021-10-25] VITALS (7 sets, daily range): BP systolic 98–143; BP diastolic 54–79; PULSE 73–79; RESP 15–18; TEMP 36.6–37.1; O2SAT 94–98; BMI 31.3
--- NOTE | 2021-10-25 12:31 | HP.PCM_ITS ---
History and Physical Date of Admission: 10/25/21 66 F who presents to the office today for 6 wk f/u?nodular contour of liver seen on CT and ultrasound; since her initial visit we have confirmed she has cirrhosis. We obtained liver elastography which demonstrated liver stiffness 21kPa compatible with F3 to F4 Metavir score.? Liver biopsy is consistent with cirrhosis, and extensive macro and microvesicular steatosis.? The biochemical work-up? CRP 10.6, hgb A1c 9.1 09/13/21 started vitamin E 400 IU bid and ursodiol 300 mg BID. She wonders if these meds are affecting her blood glucose; numbers are very variable. She saw direct marketing representative Dr Lane on 09/08/21, has f/u in early November. MELD Scores: 09/2021 6 Daughter notes she is forgetful, patient does not think it is a problem BM 1-2x per day She denies jaundice, ascites, edema, bleeding She denies nausea, vomiting, dysphagia, abdominal pain, diarrhea, constipation, melena, hematochezia. She established with [facility] on 08/24/21 for nodular liver seen on CT and ultrasound.? A chest CT that was done in April 2021 revealed mild nodular surface of the liver as well as recannulization of the umbilical vein, raising the question of possible liver cirrhosis.? She had ultrasound in June 2021 which revealed heterogeneous echotexture of the liver and mildly lobular contour of the liver.? The liver measures 18 cm.? Patient reports no prior history of liver disease.? She was surprised that she might have liver disease considering no history of alcohol use and the fact that she feels fine.? She does have poorly controlled diabetes, hyperlipidemia, and obesity.? 04/29/2021 CT chest without contrast: Limited study through the upper abdomen demonstrates mild nodular surface of the liver.? There appears to be recannulization of the umbilical vein. 06/27/2021 right upper quadrant ultrasound, abdominal ultrasound: Heterogeneous echotexture of the liver and mildly lobular contour with increased echogenicity, raising concern for liver cirrhosis.? No splenomegaly the liver measures 18 cm.? Gallbladder is surgically absent.? Normal appearance of pancreas.? No biliary duct dilatation. 2013 colonoscopy 2016 EGD Former smoker, no alcohol use Comorbidities include anxiety, chronic pain, COPD, degenerative disc disease, diabetes, hyperlipidemia, hypertension, murmur, low iron Past surgical history includes cholecystectomy, hysterectomy/BSO 09/01/21 US/Elastography Parenchyma/Organ IMPRESSION: Liver stiffness measures 21 kPa compatible with F3-F4 (Moderate to severe liver fibrosis) Metavir score. 09/13/21 Liver Biopsy MICROSCOPIC DIAGNOSIS Liver, core biopsy: ?Consistent with cirrhosis. ?Extensive macro- and microvesicular steatosis. MICROSCOPIC DESCRIPTION Slides are reviewed. The specimen shows liver parenchymal tissue with distortion of normal lobular architecture in multiple nodules divided by fibrous septae.? The hepatocytes in the nodules show extensive macro- and microvesicular steatosis.? Fibrous septae show mild to moderate chronic inflammation.? Iron stain does not show any iron deposition.? Reticulin and trichrome stains highlight the fibrous septae.? PAS stain with and without diastase does not show any abnormal accumulation of protein.? All stains are performed with appropriate matched control, ROS Const Constitutional: No fatigue, fever(s), headache(s), weight change, sleep problems, abnormal sleep pattern or change in appetite ENT ENT: No headache(s), difficulty swallowing, hoarseness or sore throat Resp Respiratory: No cough, hemoptysis or shortness of breath Cardio Cardiology: No chest pain at rest or generalized swelling Gastro GI: No abdominal pain, belching, bloating, change in bowel habits, change in stool character, coffee ground emesis, constipation, cramping, diarrhea, heartburn, difficulty swallowing, feeling full early, excessive flatus, incontinent of stools, Vomiting blood/hematemesis, Blood in stool, loose stools, Black,tarry stools, nausea/dyspepsia, pain with swallowing or vomiting Musc Musculoskeletal: Positive for joint swelling, numbness, tingling and Arthritis; No joint pain or back pain Skin Skin: No itchy eyes or rash Neuro Neurology: Positive for numbness and tingling; No behavioral changes, confusion or headache(s) Psych Psychiatric: No abnormal sleep pattern, No anxiety, No behavioral changes, No change in appetite, No confusion and Positive for depression Endo Endocrine: No cold intolerance, fatigue, heat intolerance, increased thirst/drinking or weight change Aller/Imm Allergy/Immunologic: No food intolerance or itchy eyes Tanvir/Lymp Hematologic/Lymphatic: No easy bleeding, easy bruising or enlarged lymph nodes Exam Const General: cooperative and comfortable Nutritional Appearance: obese Orientation: alert, awake and oriented x3 Eyes General: appearance normal, both eyes and all related structures Resp Effort & Inspection: normal respiratory effort GI Inspection: obesity Palpation: soft Skin General: no jaundice Extrem General: no pedal edema Quality Reporting Tobacco Screening ([facility] 138) Smoking Status: Former smoker Assessment and Plan Assessment and Plan (1) Cirrhosis: ?Status:?Acute ?Plan: Discussion with patient and her daughter about recent diagnosis of cirrhosis I'll check with endocrinology re patient's concern about vitamin E and ursodiol; initially she was concerned they were causing labile blood glucose readings; we are using this medication to treat the liver steatosis Will provide handout on cirrhosis at next visit Will schedule EGD to eval for varices and portal hypertensive gastropathy, scheduled for 10/25/21, f/u 2 wks later in office We discussed that she can focus on managing DM since that will help with her liver health also Consider lactulose, diuretics ? ? ? Orders: Orders Vitamin D 1,25-Dihydroxy 10/05/21 K74.60 - Unspecified cirrhosis of liver ? I have re-examined the patient. There are no clinical changes since date of exam.
[2021-10-25 12:55] LABS: Bedside Glucose 90 mg/dL (74-106)
--- NOTE | 2021-10-25 12:55 | OP.CCLET_ITS ---
10/25/2021 Jesus Garcia Re : Upper GI endoscopy procedure for Krystina Alicea Radha This procedure was performed on Monday, October 25, 2021. My impressions and recommendations are as follows: Impressions : - LA Grade A reflux esophagitis. Biopsied. - A large amount of a phytobezoar in the stomach. - No gross lesions in the duodenal bulb. Recommendations : - Discharge patient to home. - Resume previous diet. - Continue present medications. - Await pathology results. - Gastric emptying study My findings are described in the full procedure note, which is enclosed. If I can be of further assistance, please feel free to contact me at . Sincerely, Kirk King, 10/25/2021 12:54:25 PM This report has been signed electronically.
--- NOTE | 2021-10-25 12:55 | OP.EGD_ITS ---
Patient Name: Krystina Day Procedure Date: 10/25/2021 12:40 PM Date of : 1955 Age: 66 Procedure: Upper GI endoscopy Indications: Epigastric abdominal pain, Functional Dyspepsia, Suspected esophageal reflux Providers: Kirk King DO Referring MD: Jesus Garcia Medicines: Monitored Anesthesia Care Patient Profile: This is a 66 year old female. Refer to note in patient chart for documentation of history and physical. Patient has symptoms of chronic nausea. Complications: No immediate complications. Procedure: Pre-Anesthesia Assessment: - Prior to the procedure, a History and Physical was performed, and patient medications and allergies were reviewed. The risks and benefits of the procedure and the sedation options and risks were discussed with the patient. All questions were answered and informed consent was obtained. Patient identification and proposed procedure were verified by the physician in the pre-procedure area. Mental Status Examination: alert and oriented. Airway Examination: normal oropharyngeal airway and neck mobility. Respiratory Examination: clear to auscultation. CV Examination: normal. Prophylactic Antibiotics: The patient does not require prophylactic antibiotics. Prior Anticoagulants: The patient has taken no previous anticoagulant or antiplatelet agents. ASA Grade Assessment: II - A patient with mild systemic disease. After reviewing the risks and benefits, the patient was deemed in satisfactory condition to undergo the procedure. The anesthesia plan was to use monitored anesthesia care (MAC). Immediately prior to administration of medications, the patient was re-assessed for adequacy to receive sedatives. The heart rate, respiratory rate, oxygen saturations, blood pressure, adequacy of pulmonary ventilation, and response to care were monitored throughout the procedure. The physical status of the patient was re-assessed after the procedure. After obtaining informed consent, the endoscope was passed under direct vision. Throughout the procedure, the patient's blood pressure, pulse, and oxygen saturations were monitored continuously. The Endoscope was introduced through the mouth, and advanced to the second part of duodenum. The upper GI endoscopy was accomplished without difficulty. The patient tolerated the procedure well. Scope In: 12:47:41 PM Scope Out: 12:50:38 PM Total Procedure Duration Time 0 hours 2 minutes 57 seconds Findings: LA Grade A (one or more mucosal breaks less than 5 mm, not extending between tops of 2 mucosal folds) esophagitis with no bleeding was found 36 to 38 cm from the incisors. Biopsies were taken with a cold forceps for histology. Verification of patient identification for the specimen was done. Estimated blood loss was minimal. A large amount of a phytobezoar was found in the gastric body. No gross lesions were noted in the duodenal bulb. Impression: - LA Grade A reflux esophagitis. Biopsied. - A large amount of a phytobezoar in the stomach. - No gross lesions in the duodenal bulb. Recommendation: - Discharge patient to home. - Resume previous diet. - Continue present medications. - Await pathology results. - Gastric emptying study Procedure Code(s): --- Professional --- 19470, Esophagogastroduodenoscopy, flexible, transoral; with biopsy, single or multiple CPT copyright 2017 [employer]. All rights reserved. The codes documented in this report are preliminary and upon certified procedural coder review may be revised to meet current compliance requirements. Kirk King DO 10/25/2021 12:54:25 PM This report has been signed electronically. Number of Addenda: 0 Note Initiated On: 10/25/2021 12:40 PM
--- NOTE | 2021-10-25 13:15 | EGD_PTH ---
PATIENT: GLEN MOON LOC: EN U#:[id number] AGE/SX: 66/F ROOM: RE10/25/[address]: Dr. Kirk King DO : 1955 BED: DIS: 10/25/2021 SPEC #: [id number] RECD: 10/25/21 15:19 STATUS: CHANTAL CAMACHO #: [id number] ELIZABET: 10/25/21 13:[address]: Kirk King DEPT: SURGICAL PATHOLOGY RECD BY: Sarah Vidal ENTERED: 10/26/21 07:50 SP TYPE: EGD BIOPSY OT DR: Dr. Jesus Garcia MD Tissues: Esophagus, NOS Procedures: Special Stain Group II Surgery Specimen Level IV Alcian Blue/PAS (control) HEADER OPERATION: EGD ([facility] [place]), biopsy PRE-OP DIAGNOSIS: Cirrhosis TISSUE SUBMITTED: Distal esophagus biopsy MICROSCOPIC DIAGNOSIS Distal esophagus, biopsy: Fragments of gastroesophageal mucosa with chronic inflammation. Intestinal metaplasia (goblet cell metaplasia) not identified. See comment. LILLIE:dimas 10/27/2021 COMMENT Alcian blue/PAS stain with matched control is used in the evaluation of the specimen. MICROSCOPIC DESCRIPTION Slides are reviewed. GROSS DESCRIPTION Received in fixative is one container labeled with the patient's name and designated distal esophagus biopsy. The specimen consists of two irregular fragments of light soliman soft tissue that in aggregate measure 0.6 x 0.3 x 0.1 cm. The specimen is totally submitted in one cassette. / LILLIE:dimas 10/26/2021 TC:3 CPT: 04042, 86738
== END 2021-10-25 13:50 | disposition home or self-care (01) ==
LOC: EN 12:09 → AC 12:10
PROVIDERS: PCP Family Medicine; Referring Provider Family Medicine; Visit Provider Internal Medicine Gastroenterology
PROC: 0DJ08ZZ Inspection of Upper Intestinal Tract, Via Natural or Artificial Opening Endoscopic (ICD-10-PCS; CPT 43235; principal; 2021-10-25 13:10)
DX: K21.00 Gastro-esophageal reflux disease with esophagitis, without bleeding (principal); K74.60 Unspecified cirrhosis of liver; Z79.4 Long term (current) use of insulin; E11.9 Type 2 diabetes mellitus without complications; F41.9 Anxiety disorder, unspecified; F32.A Depression, unspecified; I10 Essential (primary) hypertension; G47.33 Obstructive sleep apnea (adult) (pediatric); E78.00 Pure hypercholesterolemia, unspecified; Z87.891 Personal history of nicotine dependence; Z79.899 Other long term (current) drug therapy; Z79.84 Long term (current) use of oral hypoglycemic drugs; Z86.16 Personal history of COVID-19
CPT/HCPCS: 43239; 82962; 88305; 88313; J7120; J2405

== ENCOUNTER → 2021-11-14 | Outpatient (CLI) | payer MEDICARE, MEDICAID, SELFPAY ==
--- NOTE | 2021-11-14 12:18 | NM_ITS ---
CLINICAL: 66-year-old diabetic female with history of chronic nausea. SEMI-SOLID PHASE 99m Tc SULFUR COLLOID GASTRIC EMPTYING STUDY COMPARISON: Abdominal ultrasound report 09/01/2021 FINDINGS: The patient was administered 1.1 mCi of 99m Tc sulfur colloid mixed with oatmeal and consumed per os. Image acquisitions in the anterior and posterior projections were obtained for 60 minutes. There is prompt visualization of the stomach. There is no gastroesophageal reflux identified. The T ? emptying was calculated to be 47.97 minutes, (Normal: 12-56 minutes). NM/Gastric Emptying Study IMPRESSION: 1. NORMAL 99m Tc sulfur colloid semi-solid phase (oatmeal) gastric emptying imaging examination. A. There is normal and preserved semi-solid phase gastric emptying compared to normal controls. (Ana et al, J Nucl Med Tech 38: 186, 2010). Electronically Signed: Earl Sands, at 22:42 EDT ,
[2021-11-14 14:35] LABS: Absolute Lymphocyte Count 2.66 X10^3/uL (0.83-4.51); Absolute Neutrophil Count 4.2 X10^3/uL (2.0-7.7); Basophil# 0.04 X10^3/uL; Basophil% 0.5 % (0-1); Eosinophil# 0.33 X10^3/uL; Eosinophils% 4.3 % (0-5); Hematocrit 39.8 % (37-47); Hemoglobin 12.4 g/dL (12.0-15.0); Lymphocyte # 2.66 X10^3/ul (0.83-4.51); Lymphocyte % 34.5 % (19-41); Mean Corp Hgb Conc 31.2 g/dL (32-36); Mean Corpuscular Hgb 26.3 pg (27.0-32.0); Mean Corpuscular Volume 84.5 fL (81-99); Mean Platelet Vol. 11.7 fl (6.2-12.0); Monocyte# 0.47 X10^3/uL; Monocyte% 6.1 % (0-10); NRBC Flagged by Analyzer 0 % (0-5); Neutrophil % 54.3 % (47-70); Platelet Count 214 K/mm3 (150-450); RBC Distribution Width CV 14.6 % (11.6-14.6); RBC Distribution Width SD 44.9 fl (35.1-43.9); Red Blood Count 4.71 M/mm3 (4.2-5.4); White Blood Count 7.7 K/mm3 (4.4-11.0)
[2021-11-14 14:42] LABS: Ammonia < 10.0 umol/L (11-32)
[2021-11-14 14:46] LABS: International Normalized Ratio 1.1; Prothrombin Time (Protime)PT. 13.9 SECONDS (11.7-14.9)
[2021-11-14 16:42] LABS: ALB/GLOB Ratio 0.9 RATIO (0.9-2.4); AST(SGOT) 16 U/L (15-37); Alanine Aminotransfer ALT/SGPT 18 U/L (13-56); Albumin, Serum 3.6 g/dL (3.2-5.0); Alkaline Phosphatase 80 U/L (45-117); Anion Gap 5 (5-15); BUN 13 mg/dL (7-18); BUN/Creat Ratio 20.7 RATIO (10-20); Calcium,Total 9.6 mg/dL (8.5-10.1); Chloride 105 mmol/L (98-107); Creatinine, Serum 0.63 mg/dL (0.55-1.02); EST Glomerular Filtration Rate 100 mL/min (>60); Est Glom Filt Rate - Afr Amer 121 mL/min (>60); Globulin 3.8 g/dL (2.2-4.2); Glucose 80 mg/dL (74-106); Potassium 4.5 mmol/L (3.5-5.1); Protein, Total 7.4 g/dL (6.4-8.2); Sodium Level 142 mmol/L (136-145)
== END | disposition home or self-care (01) ==
PROVIDERS: Nurse Practitioner Adult Health; PCP Family Medicine; Referring Provider Internal Medicine Gastroenterology; Visit Provider Internal Medicine Gastroenterology
DX: I87.2 Venous insufficiency (chronic) (peripheral) (principal); K74.60 Unspecified cirrhosis of liver; I10 Essential (primary) hypertension
CPT/HCPCS: 36415; 78264; 80053; 82140; 85025; 85610; A9541

== ENCOUNTER 2022-03-14 08:54 | Inpatient (IN) | payer MEDICARE, MEDICAID, SELFPAY ==
[2022-03-14] VITALS (10 sets, daily range): BP systolic 120–141; BP diastolic 72–79; PULSE 81–117; RESP 16–20; TEMP 36.6–36.8; O2SAT 89–98; BMI 40.8; BMI 40.6
--- NOTE | 2022-03-14 09:49 | EKG12_ITS ---
Test Reason : Blood Pressure : / mmHG Vent. Rate : 094 BPM Atrial Rate : 094 BPM P-R Int : 144 ms QRS Dur : 088 ms QT Int : 364 ms P-R-T Axes : 069 -49 071 degrees QTc Int : 455 ms Normal sinus rhythm Left anterior fascicular block Abnormal ECG Confirmed by ZACHARY GOINS, BRYN ([id number]), communications editor LOC WALLS ([id number]) on 03/16/2022 11:38:54 AM Referred By: ENMANUEL Confirmed By:BRYN SHARMA MD
--- NOTE | 2022-03-14 10:13 | EDS_ITS ---
HPI HPI - GI History of Present Illness Chief Complaint: Abd Pain Informant: patient Narrative Narrative: Patient is a 67-year-old female with history of COPD, hypertension, hyperlipidemia, diabetes mellitus and cirrhosis of the liver presenting with 2 weeks of persistent/worsening epigastric abdominal pain. She states she really cannot eat or drink anything because it makes the pain worse. Denies any other aggravating or alleviating factors. Feels nauseous and has had intermittent vomiting. Denies any change in her bowel movements. Did try taking Pepto- Bismol with no relief. States she had an EGD and colonoscopy within the last year and does follow with Dr. King. She reports a history of an ulcer but is not on any medicine for it. Denies any black or blood in her stool. Denies any fever chills. States sometimes the pain radiates around her bilateral upper abdomen into her back. States that she had a hard time taking her medicines because of her symptoms. Notes her blood sugar was 290 this morning. Has been taking her evening medicines. No other complaints at this time. [facility] Medical History Abnormal liver ultrasound Anemia Anxiety Arthritis Asthma Back problem Cataract Chronic bronchitis Chronic migraine Depression Diabetes Diabetes mellitus, type 2 Easy bruising Esophagitis Former smoker Heart murmur High cholesterol History of stress test Hypertension Injury of head and neck Low iron Migraines Neuropathy Obesity BRAXTON (obstructive sleep apnea) Proteinuria due to type 2 diabetes mellitus Rheumatoid arthritis Shortness of breath on exertion UTI (urinary tract infection) Vision loss of left eye Vision loss of right eye Vision problems Wears dentures Wears glasses Home Medications amitriptyline 10 mg tablet 50 mg PO QHS heart 01/16/16 [History Last Taken 03/13/22] metformin 1,000 mg tablet 1,000 mg PO BIDCM blood sugar 01/16/16 [History Last Taken 03/13/22] oxybutynin chloride 5 mg tablet 10 mg PO DAILY bladder 01/16/16 [History Last Taken 03/13/22] simvastatin 20 mg tablet 40 mg PO QHS cholesterol lowering 01/16/16 [History Last Taken 03/13/22] cyclobenzaprine 10 mg tablet 10 mg PO TID PRN PRN Pain 03/27/17 [History Last Taken 03/13/22] hydrocodone-acetaminophen 5-325mg 5mg-325mg 1 tab PO BID PRN Pain 12/13/20 [History Last Taken 03/13/22] ferrous sulfate 325 mg (65 mg iron) tablet 325 mg PO DAILY supplement 07/05/21 [History Last Taken 03/13/22] insulin aspart U-100 100 unit/mL (3 mL) subcutaneous pen 24 unit subcut TIDCM blood sugar 08/24/21 [History Last Taken 03/13/22] insulin glargine 100 unit/mL (3 mL) subcutaneous pen (Lantus Solostar U-100 Insulin) 68 unit subcut QPM DM 08/24/21 [History Last Taken 03/13/22] sertraline 50 mg tablet (Zoloft) 50 mg PO DAILY mood 09/09/21 [History Last Taken 03/13/22] dulaglutide 3 mg/0.5 mL subcutaneous pen injector (Trulicity) 1.5 mg subcut QWEE K dm 10/21/21 [History Last Taken 03/08/22] ergocalciferol (vitamin D2) 25,000 unit capsule 50,000 unit PO WE supplement 10/21/21 [History Last Taken 03/08/22] albuterol sulfate 90 mcg/actuation aerosol inhaler 2 puff inhalation Q4H PRN PRN sob 03/14/22 [History Last Taken Unknown] tiotropium bromide 2.5 mcg/actuation mist for inhalation (Spiriva Respimat) 2 puff inhalation DAILY PRN sob 03/14/22 [History Last Taken 3 Days Ago ~03/11/22] ursodiol 300 mg capsule 300 mg PO BID GI 03/14/22 [History Last Taken 03/13/22] vitamin E (dl, acetate) 180 mg (400 unit) capsule 180 mg PO BID supplement 08/27 [History Last Taken 03/13/22] Allergy/AdvReac Type Severity Reaction Status Date / Time codeine Allergy Rash Verified 03/14/22 08:56 lisinopril AdvReac Angioedema Verified 03/14/22 08:56 naproxen AdvReac Other Verified 03/14/22 08:56 Family History Mother Diabetes Breast cancer Sister Diabetes CAD (coronary artery disease) Other Arthritis Surgical History History of cholecystectomy History of colonoscopy History of esophagogastroduodenoscopy (EGD) History of hysterectomy Social History Smoking Status: Former smoker alcohol intake: never substance use type: does not use what type of physical activity do you participate in: none ROS ROS ED Constitutional Constitutional ED: Denies chills or fever(s) ENT ENT ED: Denies sore throat Cardiovascular Cardiovascular: Denies chest pain or palpitations Respiratory/Chest Respiratory/Chest: Denies cough or dyspnea Gastrointestinal Gastrointestinal: Reports abdominal pain and nausea; Denies constipation, diar meredith or melena Genitourinary Genitourinary ED: Denies dysuria, hematuria or urinary frequency Musculoskeletal Musculoskeletal: Denies back pain or myalgias Neurologic Neurologic: Denies headache(s) or weakness Psychiatric Psychiatric: Denies anxiety Hematologic/Lymphatic Hematologic/Lymphatic: Denies easy bleeding or easy bruising EXAM Physical Exam Const Vital Signs: 03/14/22 08:54 03/14/22 11:16 03/14/22 13:00 Temperature 97.8 F Temperature Source Temporal Pulse Rate 117 H 94 98 Respiratory Rate 16 16 18 Blood Pressure 120/79 136/79 H 141/78 H Blood Pressure Mean 92 98 99 Pulse Ox 98 97 94 Oxygen Delivery Method Room Air Room Air Room Air Positive well nourished and well developed General Appearance ED: well developed and NAD; Negative for pallor HEENT Reports moist mucous membranes normocephalic and atraumatic Eyes PERRL and EOMs intact bilaterally General Eye ED: Negative for scleral icterus Resp normal respiratory effort and clear to auscultation bilaterally Cardio regular rate, regular rhythm and no murmurs GI non-distended GI Narrative: No fluid wave appreciated Auscultation: normoactive bowel sounds Palpation: soft and tender epigastric and RUQ; Negative for guarding or rigid Back/Spine no CVA tenderness Neuro moves all extremities Sensorium / Orientation: alert, oriented to person, oriented to place and oriented to time Motor Exam: Negative for general weakness Psych mental status grossly normal and thought process normal Skin no wounds General Skin Exam: Negative for jaundice or pallor MDM MDM MDM Narrative Medical decision making narrative: Patient is evaluated for 2 weeks of worsening epigastric abdominal pain with decreased oral intake. Pain is worse after she eats. Patient is initially given morphine for pain control with no significant proving her symptoms. She is also given IV Zofran and IV fluids. She did have some slight improvement with a GI cocktail. Patient CBC is normal. Her CMP is remarkable for hyperglycemia with a glucose of 207 however she has a normal anion gap and normal bicarb. She has an elevation of her AST, ALT and alkaline phosphatase and her direct/total bili is mildly elevated at 0.[address] of the abdomen pelvis is obtained for further evaluation and incidentally she is noted to have a mass in her right lung. A CT of the chest is added on. CT abdomen pelvis shows diffuse fatty infiltration of the liver with nodular contour suggestive of cirrhotic changes, multiple rounded nodular densities in the region of the gastro epiglottic ligaments as well as fat in the region of the head of the uncinates process of the pancreas suggestive of adenopathy and consolidation of the left aspect of the right middle lobe. CT of the chest shows a right perihilar mass with postobstructive pneumonitis of the right middle lobe and volume loss. She has enlarged mediastinal lymph nodes. This is concerning for metastatic disease. Patient is 90 to 91% was seen in the bed. She is ambulated while she is symptomatic she does drop to 85% on room air. Case is discussed with Dr. Varghese, pulmonology on-call, who states that patient likely will require bronchoscopy but more likely on an outpatient basis. Case is discussed with Dr. King, GI on-call (her GI doctor) who has no immediate interventions at this time. Patient is started on Protonix in the ER for her epigastric abdominal pain. Case is discussed with hospitalist admitted for her acute hypoxia and started on Unasyn as well as Solu-Medrol for pneumonitis and possible aspiration/postobstructive pneumonia. Patient agreeable this plan of care. She remains hemodynamically stable in the ER. Lab Data Attestation: I reviewed the patient's lab results. Labs: Laboratory Results - last 24 hr 03/14/22 03/14/22 03/14/22 10:15 10:15 10:15 WBC 7.4 RBC 5.03 Hgb 13.4 Hct 42.5 MCV 84.5 MCH 26.6 L MCHC 31.5 L RDW Std Deviation 43.4 RDW Coeff of Cari 14.1 Plt Count 197 MPV 12.5 H Immature Gran % (Auto) 0.100 Neut % (Auto) 70.8 H Lymph % (Auto) 19.7 [place] % (Auto) 7.3 Eos % (Auto) 1.4 Baso % (Auto) 0.7 Absolute Neuts (auto) 5.2 Absolute Lymphs (auto) 1.46 Nucleated RBC % 0 Sodium 139 Potassium 3.8 Chloride 104 Carbon Dioxide 25.0 Anion Gap 10 BUN 11 Creatinine 0.73 Estim Creat Clear Calc 71.86 Est GFR (MDRD) Af Amer 102 Est GFR (MDRD) Non-Af 85 BUN/Creatinine Ratio 15.2 Glucose 207 H Calcium 9.2 Total Bilirubin 1.40 H Direct Bilirubin 0.67 H AST 108 H ALT 72 H Alkaline Phosphatase 263 H Ammonia 31.0 Troponin I High Sens 5 Total Protein 7.6 Albumin 3.5 Globulin 4.1 Lipase 230 Urine Color Urine Clarity Urine pH Ur Specific [place] Urine Protein Urine Glucose (UA) Urine Ketones Urine Occult Blood Urine Nitrite Urine Bilirubin Urine Urobilinogen Ur Leukocyte Esterase Urine RBC Urine WBC Ur Squamous Epith Cells Ur Renal Epithelial Cell Urine Bacteria Hyaline Casts Urine Mucus POC Glucose 03/14/22 03/14/22 10:15 13:00 WBC RBC Hgb Hct MCV MCH MCHC RDW Std Deviation RDW Coeff of Cari Plt Count MPV Immature Gran % (Auto) Neut % (Auto) Lymph % (Auto) [place] % (Auto) Eos % (Auto) Baso % (Auto) Absolute Neuts (auto) Absolute Lymphs (auto) Nucleated RBC % Sodium Potassium Chloride Carbon Dioxide Anion Gap BUN Creatinine Estim Creat Clear Calc Est GFR (MDRD) Af Amer Est GFR (MDRD) Non-Af BUN/Creatinine Ratio Glucose Calcium Total Bilirubin Direct Bilirubin AST ALT Alkaline Phosphatase Ammonia Troponin I High Sens Total Protein Albumin Globulin Lipase Urine Color Yellow Urine Clarity Sl. Cloudy Urine pH 6.0 Ur Specific [place] 1.020 Urine Protein 30 H Urine Glucose (UA) 50 H Urine Ketones 15 H Urine Occult Blood 10 H Urine Nitrite Negative Urine Bilirubin 3 H Urine Urobilinogen 4 H Ur Leukocyte Esterase 100 H Urine RBC 0-5 SEEN Urine WBC 5-10 SEEN Ur Squamous Epith Cells 0-5 SEEN Ur Renal Epithelial Cell 0-5 SEEN Urine Bacteria 1+ Hyaline Casts 0-5 SEEN Urine Mucus 2+ POC Glucose 159 H Radiography Diagnostic Testing: Clinical Impression(s) from Imaging Studies Abdomen/Pelvis CT 03/14/22 11:01 IMPRESSION: Diffuse fatty infiltration of liver with a nodular contour suggestive of a cirrhotic change. Multiple rounded nodular densities in the region of the gastroepiploic ligament as well as in the fat in the region of the head and uncinate process of the pancreas suggestive of adenopathy. Consolidation in the left aspect of the right middle lobe. Electronically Signed: Eric Pichardo MD at 12:33 EST , Chest CT 03/14/22 11:25 IMPRESSION: Right perihilar mass with postobstructive pneumonitis of the right middle lobe and volume loss. Enlarged mediastinal lymph nodes. Electronically Signed: Eric Pichardo MD at 12:36 EST , Rhythm Strip Rhythm Strip: Sinus Rhythm Rate: 94 Ectopy: None EKG Initial EKG: Attestation: I personally reviewed and interpreted this EKG as follows: Interpretation: Sinus Rhythm Comments: Normal sinus rhythm at a rate of 94 bpm Slight left axis deviation Normal intervals Left anterior fascicular block Normal ST segments Compared to prior EKG on 03/27/2017 patient is no longer tachycardic and did not meet criteria for left anterior fascicular block with no significant changes noted Discharge Plan Dx/Rx/DC Orders Clinical Impression: Obstructive pneumonia, Cirrhosis, Mass of right lung, Abdominal pain, acute, epigastric Disposition Disposition: Acute Care Hospital [facility] Discharge Date/Time: 03/14/22 15:47
[2022-03-14 10:26] LABS: Color, Urine Yellow (Yellow); Glucose, Dipstick 50 mg/dl (Normal); Ketone-Dipstick 15 mg/dl (Negative); Leukocyte Esterase-Dipstick 100 /ul (Negative); Nitrite-Dipstick Negative (Negative); Occult Blood-Urine 10 /ul (Negative); Protein-Dipstick 30 mg/dl (Negative); Urine Clarity Sl. Cloudy (Clear); Urine Urobilinogen 4 mg/dl (Normal)
[2022-03-14] MEDS: 0.9% Normal Saline 1,000 ML 1000 ML IV (10:26)
[2022-03-14] MEDS: fentaNYL 100 MCG/2 ML Ampul 50 MCG IV (10:26)
[2022-03-14] MEDS: Ondansetron 4 MG/2 ML Vial IV (10:26)
[2022-03-14 10:27] LABS: Urine Bilirubin Dipstick 3 mg/dL (Negative)
[2022-03-14 10:28] LABS: Absolute Lymphocyte Count 1.46 X10^3/uL (0.83-4.51); Absolute Neutrophil Count 5.2 X10^3/uL (2.0-7.7); Basophil# 0.05 X10^3/uL; Basophil% 0.7 % (0-1); Eosinophils% 1.4 % (0-5); Hematocrit 42.5 % (37-47); Hemoglobin 13.4 g/dL (12.0-15.0); Lymphocyte # 1.46 X10^3/ul (0.83-4.51); Lymphocyte % 19.7 % (19-41); Mean Corp Hgb Conc 31.5 g/dL (32-36); Mean Corpuscular Hgb 26.6 pg (27.0-32.0); Mean Corpuscular Volume 84.5 fL (81-99); Mean Platelet Vol. 12.5 fl (6.2-12.0); Monocyte# 0.54 X10^3/uL; Monocyte% 7.3 % (0-10); NRBC Flagged by Analyzer 0 % (0-5); Neutrophil # 5.24 X10^3/uL (2.7-7.7); Neutrophil % 70.8 % (47-70); Platelet Count 197 K/mm3 (150-450); RBC Distribution Width CV 14.1 % (11.6-14.6); RBC Distribution Width SD 43.4 fl (35.1-43.9); Red Blood Count 5.03 M/mm3 (4.2-5.4); White Blood Count 7.4 K/mm3 (4.4-11.0)
[2022-03-14 10:32] LABS: Bacteria 1+ /hpf (None Seen); Red Blood Cells-Urine 0-5 SEEN /hpf (0-5); Renal Epithelial Cells 0-5 SEEN /hpf (0-5); Squamous Epithelial Cells - UA 0-5 SEEN /hpf (5-10); White Blood Cells 5-10 SEEN /hpf (0-5)
[2022-03-14 10:33] LABS: Hyaline Cast 0-5 SEEN /lpf (0-5); Mucous, Urine 2+ /hpf (<or=2+)
[2022-03-14 10:51] LABS: AST(SGOT) 108 U/L (15-37); Alanine Aminotransfer ALT/SGPT 72 U/L (13-56); Albumin, Serum 3.5 g/dL (3.2-5.0); Alkaline Phosphatase 263 U/L (45-117); Anion Gap 10 (5-15); BUN 11 mg/dL (7-18); BUN/Creat Ratio 15.2 RATIO (10-20); Bilirubin, Direct 0.67 mg/dL (0.00-0.30); Calcium,Total 9.2 mg/dL (8.5-10.1); Chloride 104 mmol/L (98-107); Creatinine, Serum 0.73 mg/dL (0.55-1.02); EST Glomerular Filtration Rate 85 mL/min (>60); Est Glom Filt Rate - Afr Amer 102 mL/min (>60); Estimated Creatinine Clearance 71.86 ml/min; Globulin 4.1 g/dL (2.2-4.2); Glucose 207 mg/dL (74-106); Lipase 230 U/L (73-393); Potassium 3.8 mmol/L (3.5-5.1); Protein, Total 7.6 g/dL (6.4-8.2); Sodium Level 139 mmol/L (136-145); Troponin-I HS 5 pg/mL (3.0-54.0)
--- NOTE | 2022-03-14 11:01 | CT_ITS ---
STUDY: CT ABDOMEN AND PELVIS WITH CONTRAST REASON FOR EXAM: Female, 67 years old. Upper abd pain, transaminitis RADIATION DOSAGE (If Supplied By Facility): CTDIvol = ( 16.31 ) mGy, DLP = ( 1568.15 ) mGycm TECHNIQUE: Transaxial images were obtained from the dome of the diaphragm to the symphysis pubis without oral contrast. IV 100mL [id number]-300 was administered. Sagittal and coronal images were reconstructed. Individualized dose optimization techniques were used for this CT. COMPARISON: None. FINDINGS: Consolidation in the posterior aspect of the right middle lobe. Coronary artery calcification. There is decreased attenuation of the liver consistent with steatosis. Mild nodular contour of the liver. There is recannulization of the umbilical vein. The patient is status post cholecystectomy. Normal spleen. Normal pancreas. Lymphadenopathy is seen in the gastroepiploic ligament as well as in the region of the neda hepatis and in the region of the head of the pancreas as well as the uncinate process of the pancreas. Normal bilateral adrenal glands. Normal right kidney. Normal left kidney. Normal visualized stomach. Normal small intestine. There are scattered colonic diverticula consistent with diverticulosis. The appendix is visualized and appears normal. Normal abdominal aorta. Normal inferior vena cava. Normal retroperitoneum. Normal urinary bladder. There is absence of the uterus consistent with a prior hysterectomy. Normal abdominal wall. There are degenerative changes of the visualized lumbar spine. CT/Abdomen/Pelvis W IV Cont ONLY IMPRESSION: Diffuse fatty infiltration of liver with a nodular contour suggestive of a cirrhotic change. Multiple rounded nodular densities in the region of the gastroepiploic ligament as well as in the fat in the region of the head and uncinate process of the pancreas suggestive of adenopathy. Consolidation in the left aspect of the right middle lobe. Electronically Signed: Eric Pichardo MD at 12:33 EST ,
[2022-03-14] MEDS: Morphine 4 MG/ML Syringe IV (11:13)
--- NOTE | 2022-03-14 11:25 | CT_ITS ---
STUDY: CT CHEST WITHOUT CONTRAST REASON FOR EXAM: Female, 67 years old. MASS RADIATION DOSAGE (If Supplied By Facility): CTDIvol = ( 16.31 ) mGy, DLP = ( 1568.15 ) mGycm TECHNIQUE: Transaxial imaging was performed without the administration of intravenous contrast material. Multiplanar coronal and sagittal images were reformatted. Individualized dose optimization techniques were used for this CT. COMPARISON: Comparison made with prior examination of 12/13/2020. FINDINGS: CHEST Bilaterally consolidation in the posterolateral aspect of the right middle lobe most likely send it to postobstructive pneumonitis caused by a right parahilar mass. There is no demonstrated pleural abnormality. There are calcifications of the coronary arteries. There is evidence of a mediastinal lymphadenopathy. The largest lymph node is in the precarinal space and measures 2.4 cm. Right hilar mass with consolidation and mild loss in the posterior aspect of the right middle lobe. This most likely represents postobstructive pneumonitis. Normal unenhanced pulmonary arteries. There is atherosclerotic calcification of the aortic arch with tortuosity and elongation of the aortic arch and descending thoracic aorta. There are multi-level degenerative changes of the thoracic spine. Diffuse fatty filtration of the liver with a mild contour nodularity. CT/Chest without Contrast IMPRESSION: Right perihilar mass with postobstructive pneumonitis of the right middle lobe and volume loss. Enlarged mediastinal lymph nodes. Electronically Signed: Eric Pichardo MD at 12:36 EST ,
[2022-03-14] MEDS: Mag Hydrox/Al Hydrox/Simeth 30 ML UDC PO (13:16)
[2022-03-14 13:25] LABS: Bedside Glucose 159 mg/dL (74-106)
--- NOTE | 2022-03-14 13:54 | HP.PCM.HOS_ITS ---
HPI - General General Date of Admission: 03/14/22 Date of Service: 03/14/22 Chief Complaint: Abdominal pain, N/V HPI Narrative The patient is a 67 y/o F w/ PMHx: Morbid obesity, Diabetes mellitus type II w/ neuropathy, Asthma/COPD, Rheumatoid arthritis, BRAXTON, HTN, HLD, Former tobacco use, Cirrhotic liver disease following with gastroenterology outpatient with last evaluation 11/10/2021 who presents to the [facility] ED on 03/14/22 with history of 2 weeks of ongoing worsening epigastric discomfort with inability to appropriately have oral intake both food and drink secondary to worsening discomfort with oral intake ~ 20-30 minutes following each intake attempt with associated nausea and intermittent emesis with no specific change in her bowel movements with no improvement with any self administered medications including Pepto-Bismol with normal peeling stools and no fevers or chills. She does report that sometimes the pain radiates to her bilateral upper abdomen and back; however, R>L. Patient improved with GI cocktail in the ED. She denies any recent cough, congestion, rhinorrhea, dyspnea sensation or chest pain despite her noted ED work-up and findings. Work-up in the ED included T97.8, heart rate initially 117, BP 120/79, respiratory rate 16, 98% on room air however when she ambulated she dropped 85% on RA but denied dyspnea sensation, CBC with WC 7.4, hemoglobin 13.4, platelet 197 without marked shift, CMP with glucose 207, total bilirubin 1.40, direct bilirubin 0.67, AST/LT 108/72, alk phos 263, lipase 230, troponin 5, ammonia level 31, urinalysis with elevated specific [place] 1.020, protein 30, glucose 50, ketones 10, occult blood 10, negative nitrate, leukocyte esterase 100, urine RBCs 0-5, urine WBCs 5-10 with 1+ urine bacteria, CT of the chest with a right perihilar mass with postobstructive pneumonitis of the right middle lobe and volume loss, enlarged mediastinal lymph nodes, CT abdomen and pelvis with IV con trast with diffuse fatty infiltration of the liver with nodular contour suggestive of cirrhotic change, multiple rounded nodular densities in the region of the gastroepiploic ligament as well as the fat in the region of the head and uncinate process of the pancreas suggestive of adenopathy, consolidation in the left aspect of the right middle lobe, EKG with sinus rhythm with LAFB with no acute evidence of ischemia. In the ED administered 1 L normal saline, Unasyn, prednisone 125 mg IV x1, GI cocktail, fentanyl 50 mcg IV x1, morphine 4 mg IV x1, Zofran 4 mg IV x1 as well as Protonix 40 mg IV x1. ED discussed case with Dr. Bullock and Dr. Fernando given abdominal findings concurrently and he follows with her for her cirrhotic disease. [facility] Medical History Abnormal liver ultrasound Anemia Anxiety Arthritis Asthma Back problem Cataract Chronic bronchitis Chronic migraine Depression Diabetes Diabetes mellitus, type 2 Easy bruising Esophagitis Former smoker Heart murmur High cholesterol History of stress test Hypertension Injury of head and neck Low iron Migraines Neuropathy Obesity BRAXTON (obstructive sleep apnea) Proteinuria due to type 2 diabetes mellitus Rheumatoid arthritis Shortness of breath on exertion UTI (urinary tract infection) Vision loss of left eye Vision loss of right eye Vision problems Wears dentures Wears glasses Home Medications amitriptyline 10 mg tablet 50 mg PO QHS 01/16/16 [History Last Taken 03/25/17] metformin 1,000 mg tablet 1,000 mg PO BIDCM blood sugar 01/16/16 [History Last Taken 03/25/17] oxybutynin chloride 5 mg tablet 10 mg PO DAILY bladder 01/16/16 [History Last Taken 03/25/17] simvastatin 20 mg tablet 40 mg PO QHS cholesterol lowering 01/16/16 [History Last Taken 03/25/17] cyclobenzaprine 10 mg tablet 10 mg PO TID PRN PRN Pain 03/27/17 [History Last Taken Unknown] hydrocodone-acetaminophen 5-325mg 5mg-325mg 1 tab PO BID PRN Pain 12/13/20 [History Last Taken Unknown] ferrous sulfate 325 mg (65 mg iron) tablet 325 mg PO DAILY 07/05/21 [History Last Taken Unknown] insulin aspart U-100 100 unit/mL (3 mL) subcutaneous pen 28 unit subcut TIDCM blood sugar 08/24/21 [History Last Taken Unknown] insulin glargine 100 unit/mL (3 mL) subcutaneous pen (Lantus Solostar U-100 Insulin) 68 unit subcut QPM 08/24/21 [History Last Taken Unknown] sertraline 50 mg tablet (Zoloft) 50 mg PO DAILY 09/09/21 [History Last Taken Unknown] ursodiol 300 mg capsule 300 mg PO BID #180 caps 09/13/21 [Rx Last Taken Unknown] vitamin E (dl, acetate) 180 mg (400 unit) capsule 180 mg PO BID #180 caps 09/13/21 [Rx Last Taken Unknown] dulaglutide 3 mg/0.5 mL subcutaneous pen injector (Trulicity) 1.5 mg subcut Q WEEK 10/21/21 [History Last Taken Unknown] ergocalciferol (vitamin D2) 25,000 unit capsule 50,000 unit PO WE 10/21/21 [History Last Taken Unknown] Allergy/AdvReac Type Severity Reaction Status Date / Time codeine Allergy Rash Verified 03/14/22 08:56 lisinopril AdvReac Angioedema Verified 03/14/22 08:56 naproxen AdvReac Other Verified 03/14/22 08:56 Family History Mother Diabetes Breast cancer Sister Diabetes CAD (coronary artery disease) Other Arthritis Surgical History History of cholecystectomy History of colonoscopy History of esophagogastroduodenoscopy (EGD) History of hysterectomy Social History Smoking Status: Former smoker alcohol intake: never substance use type: does not use what type of physical activity do you participate in: none ROS ROS Narrative Admission Review of Systems: CONSTITUTIONAL: No weight loss, fever, chills, + weakness or fatigue. HEENT: Eyes: No visual loss, blurred vision, double vision or yellow sclerae. Ears, Nose, Throat: No hearing loss, sneezing, congestion, runny nose or sore throat. SKIN: No rash or itching, lesions, wounds. CARDIOVASCULAR: No chest pain, chest pressure or chest discomfort, palpitations, edema, orthopnea, syncopal events. RESPIRATORY: + Hypoxia in the ED but asymptomatic. No shortness of breath, cough or sputum, wheezing, hemoptysis. GASTROINTESTINAL: + anorexia, nausea, vomiting, abdominal pain, No diarrhea/constipation, melena, BRBPR. GENITOURINARY: No dysuria, frequency, urgency or retention. NEUROLOGICAL: No headache, dizziness, syncope, paralysis, ataxia, numbness or tingling in the extremities, focal weakness, change in bowel or bladder control, seizure. MUSCULOSKELETAL: + muscle, back pain, joint pain or stiffness. HEMATOLOGIC: No anemia, bleeding or bruising. LYMPHATICS: No enlarged nodes. No history of splenectomy. PSYCHIATRIC: + history of depression or anxiety. ENDOCRINOLOGIC: No reports of sweating, cold or heat intolerance. No polyuria or polydipsia. ALLERGIES: + history of angioedema. Vital Signs Vital Signs Vital Signs: 03/14/22 08:54 03/14/22 11:16 03/14/22 13:00 Temperature 97.8 F Temperature Source Temporal Pulse Rate 117 H 94 98 Respiratory Rate 16 16 18 Blood Pressure 120/79 136/79 H 141/78 H Blood Pressure Mean 92 98 99 Pulse Ox 98 97 94 Oxygen Delivery Method Room Air Room Air Room Air Weight Weight: 189 lb Body Mass Index (BMI) 40.8 Physical Exam Narrative Physical Examination: General: Awake, alert, oriented x 3 and cooperative, seated upright in ED bed, fatigued appearing, no acute distress. Skin: Normal color, normal turgor, no icterus, no cyanosis. HEENT: AT/NC, EOMI, PERRLA, dry MM, no carotid bruits or JVD noted. Lungs: Significantly diminished, greater bases to mid, right greater than left, mildly increased respiratory rate but no distress, occasional expiratory wheeze but very tight, no rhonchi or rales. Heart: Currently regular rate and rhythm; no gallop, rub audible. Abdomen: Soft, morbidly obese, notable tenderness to right upper quadrant and epigastric discomfort with voluntary guarding, no marked rebound, difficult to assess distention given habitus, mildly hyperactive bowel sounds, difficult to assess HSM given pain and habitus. Extremities: No cyanosis, clubbing, or edema. Neurological: Patient awake, alert, oriented as noted cognitive function intact; pupils equally reactive to light and accommodation, cranial nerves II-XII gr ossly normal, moving all 4 extremities, no focal deficits, strength moderately to severely global decrease secondary to acute presentation and complaints Psychiatric: Affect appears fatigued, flat, no acute evidence of depressive or anxiety feelings but does have underlying history. Results Lab / Micro Data Result Diagrams: 03/14/22 10:15 03/14/22 10:15 Labs: Laboratory Results - last 24 hr 03/14/22 10:15: WBC 7.4, RBC 5.03, Hgb 13.4, Hct 42.5, MCV 84.5, MCH 26.6 L, MCHC 31.5 L, RDW Std Deviation 43.4, RDW Coeff of Cari 14.1, Plt Count 197, MPV 12.5 H, Immature Gran % (Auto) 0.100, Neut % (Auto) 70.8 H, Lymph % (Auto) 19.7, [place] % (Auto) 7.3, Eos % (Auto) 1.4, Baso % (Auto) 0.7, Absolute Neuts (auto) 5 .2, Absolute Lymphs (auto) 1.46, Nucleated RBC % 0 03/14/22 10:15: Sodium 139, Potassium 3.8, Chloride 104, Carbon Dioxide 25.0, Anion Gap 10, BUN 11, Creatinine 0.73, Estim Creat Clear Calc 71.86, Est GFR (MDRD) Af Amer 102, Est GFR (MDRD) Non-Af 85, BUN/Creatinine Ratio 15.2, Glucose 207 H, Calcium 9.2, Total Bilirubin 1.40 H, Direct Bilirubin 0.67 H, AST 108 H, ALT 72 H, Alkaline Phosphatase 263 H, Troponin I High Sens 5, Total Protein 7.6, Albumin 3.5, Globulin 4.1, Lipase 230 03/14/22 10:15: Ammonia 31.0 03/14/22 10:15: Urine Color Yellow, Urine Clarity Sl. Cloudy, Urine pH 6.0, Ur Specific [place] 1.020, Urine Protein 30 H, Urine Glucose (UA) 50 H, Urine Ketones 15 H, Urine Occult Blood 10 H, Urine Nitrite Negative, Urine Bilirubin 3 H, Urine Urobilinogen 4 H, Ur Leukocyte Esterase 100 H, Urine RBC 0-5 SEEN, Urine WBC 5-10 SEEN, Ur Squamous Epith Cells 0-5 SEEN, Ur Renal Epithelial Cell 0-5 SEEN, Urine Bacteria 1+, Hyaline Casts 0-5 SEEN, Urine Mucus 2+ 03/14/22 13:00: POC Glucose 159 H Rhythm Strip Rhythm Strip: Sinus Rhythm Rate: 94 Ectopy: None Radiology Impression Abdomen/Pelvis CT 03/14/22 11:01 IMPRESSION: Diffuse fatty infiltration of liver with a nodular contour suggestive of a cirrhotic change. Multiple rounded nodular densities in the region of the gastroepiploic ligament as well as in the fat in the region of the head and uncinate process of the pancreas suggestive of adenopathy. Consolidation in the left aspect of the right middle lobe. Electronically Signed: Eric Pichardo MD at 12:33 EST , Chest CT 03/14/22 11:25 IMPRESSION: Right perihilar mass with postobstructive pneumonitis of the right middle lobe and volume loss. Enlarged mediastinal lymph nodes. Electronically Signed: Eric Pichardo MD at 12:36 EST , Assessment & Plan Assessment/Plan (1) Pneumonia: PLAN: Plan The patient is a 67 y/o F w/ PMHx: Morbid obesity, Diabetes mellitus type II w/ neuropathy, Asthma/COPD, Rheumatoid arthritis, BRAXTON, HTN, HLD, Former tobacco use, Cirrhotic liver disease following with gastroenterology outpatient with last evaluation 11/10/2021 who presents to the [facility] ED on 03/14/22 with history of 2 weeks of ongoing worsening epigastric discomfort with inability to appropriately have oral intake both food and drink secondary to worsening discomfort with oral intake ~ 20-30 minutes following each intake attempt with associated nausea and intermittent emesis with no specific change in her bowel movements with no improvement with any self administered medications including Pepto-Bismol with normal peeling stools and no fevers or chills. She does report that sometimes the pain radiates to her bilateral upper abdomen and back; however, R>L. Patient improved with GI cocktail in the ED. #1. Acute Hypoxia secondary to Acute Right perihilar mass with postobstructive pneumonitis of the right middle lobe with enlarged mediastinal lymphadenopathy and consolidation in the left aspect of the right middle lobe/Pneumonia complicated by Acute on Chronic Asthma/COPD Exacerbation: Will admit to medical surgical floor, maintain on oxygen with wean as tolerated to room air, continue ATC duonebs, PRN albuterol, maintain on IV Solu-Medrol, maintained on IV Unasyn/Azithromycin per pneumonia order set protocol with pending MRSA screen with de-escalation as able, HOB, IS parameters w/ pending sputum cultures and urine antigens. Pulmonary medicine consulted, evaluation pending. Will maintain n.p.o. after midnight given #2, #3 in case of possible endoscopy repeat needs. From discussion pulmonary medicine likely would not perform bronchoscopy until outpatient follow-up. #2. Cirrhotic Liver Disease w/ acutely elevated Bilirubin and LFTs, Unclear etiology with multiple rounded nodular densities in the region of the gastroepiploic ligament as well as the fat in the region of the head and uncinate process of the pancreas concerning for metastatic disease complicated by acute epigastric abdominal pain with intractable nausea and emesis suspected possibly related to acute gastritis/GERD possible ulcer although did have recent endoscopy as noted prior: Admission CMP with total bilirubin 1.40, direct bi lirubin 0.67, AST/ALT 108/72, alk phos 263, ammonia level normal 31 however these had been previously normal and translate you elevated in the past but normalized, patient with 09/01/2021 gallbladder/liver ultrasound with diffuse fatty infiltration of the liver at that time status post cholecystectomy with follow-up liver elastography with liver stiffness measuring 21 K PA compatible with F3 to F4 moderate to severe liver fibrosis Medicare score, CT biopsy liver 09/12/2021 consistent with cirrhosis with extensive macro and microvascular steatosis. 11/14/2021 gastric emptying study performed secondary to chronic nausea noted to be normal. 10/25/2021 distal esophagus biopsy with fragments of the GE mucosa with chronic inflammation, intestinal metaplasia not identified. Will continue vitamin E 400 IU twice daily and ursodiol 300 mg twice daily, repeat CMP in a.m, continue gastroenterology involvement, maintain n.p.o. status on judicious IV fluids with as needed nausea and pain medications, maintain on IV PPI. Of note lipase is normal however to be cautious we will repeat in a.m. #3. Diabetes mellitus type II with chronic neuropathy: Hold oral home regimen, continue home insulin regimen however may have to dose given n.p.o. status pending blood sugar trending, n.p.o. status with every 6 hours accu checks w/ ISS. #4. Rheumatoid arthritis: Not on any chronic regimen per review of current list, encourage continued outpatient follow-up with rheumatology. #5. Anxiety and depression: We will continue patient low-dose sertraline and amitriptyline regimen. #6. Hypertension: Noted history, not on a regimen currently, BP normal range in the ED, continue monitor and add oral regimen if appropriate, IV hydralazine in the interim #7. Hyperlipidemia: Given presentation we will hold patient home statin therapy. #8. Morbid Obesity: Weight loss and lifestyle changes encouraged. #9. Former tobacco use: Encourage continued tobacco cessation #10. GERD: Given acute presentation as noted will maintain on IV PPI. #11. BRAXTON: CPAP nightly. #12. DVT prophylaxis: SCDs, hold chemoprophylaxis in case of endoscopy. #13. CODE status: Patient SANJANA is her daughter who is present, living will is not. Discussed CODE status at length including difference between FULL code, DNR-CCA and DNR-CC status. Following discussions about the differences in these status, requested Full Code status. Advanced Care Planning Face to Face Time: 16 minutes. Admission Evaluation Time spent evaluating chart, patient history, patient evaluation, care planning and discussion with specialists: 76 minutes. Charges/Coding Visit Charges Inpatient E&M: 10898 Init Hosp L3 Procedures Hospitalists Procedures: 57761 Advncd Care Plan 30 Min
[2022-03-14] MEDS: MethylPREDNISolone 125 MG/2 ML Vial IV (14:07)
[2022-03-14] MEDS: 0.9% Normal Saline 1,000 ML 100 ML IV (17:04)
[2022-03-14] MEDS: 0.9% Saline Lock 10 ML Syringe IV (17:05)
[2022-03-14] MEDS: Insulin Lispro 100 UNIT/ML INSULN.PEN SC ×2 (18:10→20:44)
[2022-03-14] MEDS: Morphine 2 MG/ML Syringe IV (18:43)
[2022-03-14 18:45] LABS: Bedside Glucose 164 mg/dL (74-106)
--- NOTE | 2022-03-14 19:46 | CON.PCM.GI_ITS ---
HPI Consult Data Date of Consult: 03/14/22 HPI Narrative Reason for Consultation: Abdominal pain HPI Narrative: GLEN MOON, is a 67 F who presents from home with worsening abdominal pain. She has a past medical history of COPD, hypertension, hyperlipidemia, diabetes mellitus and cirrhosis of the liver presenting with 2 weeks of persi stent/worsening epigastric abdominal pain.? She states she really cannot eat or drink anything because it makes the pain worse.? Denies any other aggravating or alleviating factors.? Feels nauseous and has had intermittent vomiting.? Denies any change in her bowel movements.? Did try taking Pepto-Bismol with no relief.?.? She recently underwent a?EGD because of a new diagnosis of cirrhosis. No esophageal varices or portal hypertensive gastropathy. Esophageal biopsies were negative for Montano's. Large bezoar found in her stomach; she is scheduled for gastric emptying study. She does report nausea, she has been waking up with nausea for the past few days.? Denies any black or blood in her stool.? Denies any fever chills.? States sometimes the pain radiates around her bilateral upper abdomen into her back.? States that she had a hard time taking her medicines because of her symptoms.? Notes her blood sugar was 290 this morning.? Has been taking her evening medicines.? No other complaints at this time. She had a CT scan of the abdomen pelvis due to worsening abdominal pain. It d isplayed: Diffuse fatty infiltration of liver with a nodular contour suggestive of a cirrhotic change. Multiple rounded nodular densities in the region of the gastroepiploic ligament as well as in the fat in the region of the head and uncinate process of the pancreas suggestive of adenopathy. Consolidation in the left aspect of the right middle lobe. She had a CT scan of the chest: Right perihilar mass with postobstructive pneumonitis of the right middle lobe and volume loss. Enlarged mediastinal lymph nodes. FORMERLY [facility], [facility] Medical History Abnormal liver ultrasound Anemia Anxiety Arthritis Asthma Back problem Cataract Chronic bronchitis Chronic migraine Depression Diabetes Diabetes mellitus, type 2 Easy bruising Esophagitis Former smoker Heart murmur High cholesterol History of stress test Hypertension Injury of head and neck Low iron Migraines Neuropathy Obesity BRAXTON (obstructive sleep apnea) Proteinuria due to type 2 diabetes mellitus Rheumatoid arthritis Shortness of breath on exertion UTI (urinary tract infection) Vision loss of left eye Vision loss of right eye Vision problems Wears dentures Wears glasses Home Medications amitriptyline 10 mg tablet 50 mg PO QHS heart 01/16/16 [History Last Taken 03/13/22] metformin 1,000 mg tablet 1,000 mg PO BIDCM blood sugar 01/16/16 [History Last Taken 03/13/22] oxybutynin chloride 5 mg tablet 10 mg PO DAILY bladder 01/16/16 [History Last Taken 03/13/22] simvastatin 20 mg tablet 40 mg PO QHS cholesterol lowering 01/16/16 [History Last Taken 03/13/22] cyclobenzaprine 10 mg tablet 10 mg PO TID PRN PRN Pain 03/27/17 [History Last Taken 03/13/22] hydrocodone-acetaminophen 5-325mg 5mg-325mg 1 tab PO BID PRN Pain 12/13/20 [History Last Taken 03/13/22] ferrous sulfate 325 mg (65 mg iron) tablet 325 mg PO DAILY supplement 07/05/21 [History Last Taken 03/13/22] insulin aspart U-100 100 unit/mL (3 mL) subcutaneous pen 24 unit subcut TIDCM blood sugar 08/24/21 [History Last Taken 03/13/22] insulin glargine 100 unit/mL (3 mL) subcutaneous pen (Lantus Solostar U-100 Insulin) 68 unit subcut QPM DM 08/24/21 [History Last Taken 03/13/22] sertraline 50 mg tablet (Zoloft) 50 mg PO DAILY mood 09/09/21 [History Last Taken 03/13/22] dulaglutide 3 mg/0.5 mL subcutaneous pen injector (Trulicity) 1.5 mg subcut QWEEK dm 10/21/21 [History Last Taken 03/08/22] ergocalciferol (vitamin D2) 25,000 unit capsule 50,000 unit PO WE supplement 10/21/21 [History Last Taken 03/08/22] albuterol sulfate 90 mcg/actuation aerosol inhaler 2 puff inhalation Q4H PRN PRN sob 03/14/22 [History Last Taken Unknown] tiotropium bromide 2.5 mcg/actuation mist for inhalation (Spiriva Respimat) 2 puff inhalation DAILY PRN sob 03/14/22 [History Last Taken 3 Days Ago ~03/11/22] ursodiol 300 mg capsule 300 mg PO BID GI 03/14/22 [History Last Taken 03/13/22] vitamin E (dl, acetate) 180 mg (400 unit) capsule 180 mg PO BID supplement 03/14/22 [History Last Taken 03/13/22] Allergy/AdvReac Type Severity Reaction Status Date / Time codeine Allergy Rash Verified 03/14/22 08:56 lisinopril AdvReac Angioedema Verified 03/14/22 08:56 naproxen AdvReac Other Verified 03/14/22 08:56 Family History Mother Diabetes Breast cancer Sister Diabetes CAD (coronary artery disease) Other Arthritis Surgical History History of cholecystectomy History of colonoscopy History of esophagogastroduodenoscopy (EGD) History of hysterectomy Social History Smoking Status: Former smoker alcohol intake: never substance use type: does not use what type of physical activity do you participate in: none ROS ROS Narrative Admission Review of Systems: CONSTITUTIONAL: No weight loss, fever, chills, + weakness or fatigue. HEENT: Eyes: No visual loss, blurred vision, double vision or yellow sclerae. Ears, Nose, Throat: No hearing loss, sneezing, congestion, runny nose or sore throat. SKIN: No rash or itching, lesions, wounds. CARDIOVASCULAR: No chest pain, chest pressure or chest discomfort, palpitations, edema, orthopnea, syncopal events. RESPIRATORY: + Hypoxia in the ED but asymptomatic. No shortness of breath, cough or sputum, wheezing, hemoptysis. GASTROINTESTINAL: + anorexia, nausea, vomiting, abdominal pain, No diarr hea/constipation, melena, BRBPR. GENITOURINARY: No dysuria, frequency, urgency or retention. NEUROLOGICAL: No headache, dizziness, syncope, paralysis, ataxia, numbness or tingling in the extremities, focal weakness, change in bowel or bladder control, seizure. MUSCULOSKELETAL: + muscle, back pain, joint pain or stiffness. HEMATOLOGIC: No anemia, bleeding or bruising. LYMPHATICS: No enlarged nodes. No history of splenectomy. PSYCHIATRIC: + history of depression or anxiety. ENDOCRINOLOGIC: No reports of sweating, cold or heat intolerance. No polyuria or polydipsia. ALLERGIES: + history of angioedema. Physical Exam Narrative Physical Examination: General: Awake, alert, oriented x 3 and cooperative, seated upright in ED bed, fatigued appearing, no acute distress. Skin: Normal color, normal turgor, no icterus, no cyanosis. HEENT: AT/NC, EOMI, PERRLA, dry MM, no carotid bruits or JVD noted. Lungs: Significantly diminished, greater bases to mid, right greater than left, mildly increased respiratory rate but no distress, occasional expiratory wheeze but very tight, no rhonchi or rales. Heart: Currently regular rate and rhythm; no gallop, rub audible. Abdomen: Soft, morbidly obese, notable tenderness to right upper quadrant and epigastric discomfort with voluntary guarding, no marked rebound, difficult to assess distention given habitus, mildly hyperactive bowel sounds, difficult to assess HSM given pain and habitus. Extremities: No cyanosis, clubbing, or edema. Neurological: Patient awake, alert, oriented as noted cognitive function intact; pupils equally reactive to light and accommodation, cranial nerves II-XII grossly normal, moving all 4 extremities, no focal deficits, strength moderately to severely global decrease secondary to acute presentation and complaints Psychiatric: Affect appears fatigued, flat, no acute evidence of depressive or anxiety feelings but does have underlying history. Lab / Micro Data Result Diagrams: 03/14/22 10:15 03/14/22 10:15 Labs: Laboratory Results - last 24 hr 03/14/22 10:15: WBC 7.4, RBC 5.03, Hgb 13.4, Hct 42.5, MCV 84.5, MCH 26.6 L, MCHC 31.5 L, RDW Std Deviation 43.4, RDW Coeff of Cari 14.1, Plt Count 197, MPV 12.5 H, Immature Gran % (Auto) 0.100, Neut % (Auto) 70.8 H, Lymph % (Auto) 19.7, [place] % (Auto) 7.3, Eos % (Auto) 1.4, Baso % (Auto) 0.7, Absolute Neuts (auto) 5.2, Absolute Lymphs (auto) 1.46, Nucleated RBC % 0 03/14/22 10:15: Sodium 139, Potassium 3.8, Chloride 104, Carbon Dioxide 25.0, Anion Gap 10, BUN 11, Creatinine 0.73, Estim Creat Clear Calc 71.86, Est GFR (MDRD) Af Amer 102, Est GFR (MDRD) Non-Af 85, BUN/Creatinine Ratio 15.2, Glucose 207 H, Calcium 9.2, Total Bilirubin 1.40 H, Direct Bilirubin 0.67 H, AST 108 H, ALT 72 H, Alkaline Phosphatase 263 H, Troponin I High Sens 5, Total Protein 7.6, Albumin 3.5, Globulin 4.1, Lipase 230 03/14/22 10:15: Ammonia 31.0 03/14/22 10:15: Urine Color Yellow, Urine Clarity Sl. Cloudy, Urine pH 6.0, Ur Specific [place] 1.020, Urine Protein 30 H, Urine Glucose (UA) 50 H, Urine Ketones 15 H, Urine Occult Blood 10 H, Urine Nitrite Negative, Urine Bilirubin 3 H, Urine Urobilinogen 4 H, Ur Leukocyte Esterase 100 H, Urine RBC 0-5 SEEN, Urine WBC 5-10 SEEN, Ur Squamous Epith Cells 0-5 SEEN, Ur Renal Epithelial Cell 0-5 SEEN, Urine Bacteria 1+, Hyaline Casts 0-5 SEEN, Urine Mucus 2+ 03/14/22 13:00: POC Glucose 159 H 03/14/22 18:04: POC Glucose 164 H Micro: Microbiology 03/14/22 10:15 Urine, Clean Catch Legionella Antigen - Final 03/14/22 10:15 Urine, Clean Catch Streptococcus pneumoniae Antigen (M - Final Rhythm Strip Rhythm Strip: Sinus Rhythm Rate: 94 Ectopy: None Radiology Impression Abdomen/Pelvis CT 03/14/22 11:01 IMPRESSION: Diffuse fatty infiltration of liver with a nodular contour suggestive of a cirrhotic change. Multiple rounded nodular densities in the region of the gastroepiploic ligament as well as in the fat in the region of the head and uncinate process of the pancreas suggestive of adenopathy. Consolidation in the left aspect of the right middle lobe. Electronically Signed: Eric Pichardo MD at 12:33 EST , Chest CT 03/14/22 11:25 IMPRESSION: Right perihilar mass with postobstructive pneumonitis of the right middle lobe and volume loss. Enlarged mediastinal lymph nodes. Electronically Signed: Eric Pichardo MD at 12:36 EST , Assessment & Plan Assessment/Plan (1) Pneumonia: PLAN: Plan Nonalcoholic steatohepatitis with cirrhosis. 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 She has been having intermittent abdominal pain for the last several months and has not been seen in the office in approximately 3-1/2 to 4 months. She has lost weight since she was seen in the office. CT scan does show some diffuse lymphadenopathy near the pancreas and I am concerned about obstructive physiology affecting the hepatobiliary system in the setting of possible decompensated cirrhosis. I would recommend an MRCP for evaluation of her hepatobiliary system. I agree with antibiotic at this time. She is not exhibiting any signs of a sending cholangitis. She has multiple factors for chronic nausea including poorly controlled diabetes, med side effect from multiple anticholinergic medicines that she takes on a daily basis. She can have a liquid diet until midnight. Continue ursodiol and I will start Xifaxan 550 mg twice a day, Reglan and continue PPI twice a day. Check ammonia level. Check CA 19-9 and alpha-fetoprotein. Charges/Coding Visit Charges Inpatient E&M: 51093 Init Hosp L3
[2022-03-14] MEDS: Ipratropium/Albuterol Sulfate 3 ML AMPUL.NEB INHALATION (19:47)
--- NOTE | 2022-03-14 20:09 | NURSING ---
pt states she has had mris in the past and does not require medications.
[2022-03-14 20:27] LABS: M R Staph aureus DNA By PCR Negative (Negative); Probe Check PASS; Specimen Processing Control PASS
[2022-03-14] MEDS: Insulin Glargine-YFGN 100 UNIT/ML Pen 68 UNIT SC (20:36)
[2022-03-14] MEDS: guaiFENesin 1,200 MG Tablet 1200 MG PO (20:37)
[2022-03-14] MEDS: Amitriptyline 25 MG Tablet 50 MG PO (20:37)
[2022-03-14] MEDS: Ursodiol 250 MG Tablet PO (20:37)
[2022-03-15] VITALS (8 sets, daily range): BP systolic 105–125; BP diastolic 57–81; PULSE 59–94; RESP 16–18; TEMP 36.4–36.8; O2SAT 93–97
[2022-03-15] MEDS: Metoclopramide 10 MG/2 ML Vial 5 MG IV ×4 (00:27→17:07)
[2022-03-15] MEDS: 0.9% Normal Saline 1,000 ML 100 ML IV (04:49)
[2022-03-15 05:01] LABS: Bedside Glucose 216 mg/dL (74-106)
[2022-03-15] MEDS: 0.9% Saline Lock 10 ML Syringe IV ×4 (05:47→17:08)
[2022-03-15 06:26] LABS: Absolute Lymphocyte Count 0.94 X10^3/uL (0.83-4.51); Absolute Neutrophil Count 5.6 X10^3/uL (2.0-7.7); Hematocrit 36.6 % (37-47); Hemoglobin 11.7 g/dL (12.0-15.0); Lymphocyte # 0.94 X10^3/ul (0.83-4.51); Lymphocyte % 13.9 % (19-41); Mean Corpuscular Hgb 27.2 pg (27.0-32.0); Mean Corpuscular Volume 85.1 fL (81-99); Mean Platelet Vol. 12.8 fl (6.2-12.0); Monocyte# 0.22 X10^3/uL; Monocyte% 3.2 % (0-10); NRBC Flagged by Analyzer 0 % (0-5); Neutrophil # 5.59 X10^3/uL (2.7-7.7); Neutrophil % 82.6 % (47-70); Platelet Count 158 K/mm3 (150-450); RBC Distribution Width CV 14.1 % (11.6-14.6); RBC Distribution Width SD 43.9 fl (35.1-43.9); White Blood Count 6.8 K/mm3 (4.4-11.0)
[2022-03-15 06:52] LABS: ALB/GLOB Ratio 0.7 RATIO (0.9-2.4); AST(SGOT) 76 U/L (15-37); Alanine Aminotransfer ALT/SGPT 59 U/L (13-56); Albumin, Serum 2.8 g/dL (3.2-5.0); Alkaline Phosphatase 215 U/L (45-117); Anion Gap 7 (5-15); BUN 15 mg/dL (7-18); BUN/Creat Ratio 21.6 RATIO (10-20); Chloride 108 mmol/L (98-107); EST Glomerular Filtration Rate 89 mL/min (>60); Est Glom Filt Rate - Afr Amer 107 mL/min (>60); Globulin 3.9 g/dL (2.2-4.2); Glucose 250 mg/dL (74-106); Lipase 261 U/L (73-393); Potassium 4.1 mmol/L (3.5-5.1); Protein, Total 6.7 g/dL (6.4-8.2); Sodium Level 140 mmol/L (136-145)
--- NOTE | 2022-03-15 07:33 | PN.HOSP_ITS ---
Reason for Visit Reason for Visit: Diagnoses Pneumonia, unspecified organism (03/14/22) Subjective Subjective Mrs. Ashley is a 67-year-old white female who presented to the emergency department on 03/14/2022 with abdominal pain, nausea, and vomiting. She indicated on presentation she has had about a 2-week history of worsening epigastric pain and discomfort with the inability to appropriately intake food and drink with worsening discomfort approximately 20 to 30 minutes following the intake with associated nausea and intermittent emesis. She denies any specific changes to her bowel movements and has had no improvement with any administered medications including Pepto-Bismol. She indicated she does have some pain that intermittently radiates to the upper abdomen and back right greater than left however her symptoms did improve with a GI cocktail in the emergency department. CT of the chest was performed as she became hypoxic with ambulation on room air but denied dyspnea. Oxygen saturations were 98% with rest and 85% with exertion on room air. CT of the chest showed a right perihilar mass with a postobstructive pneumonitis of the right middle lobe and volume loss along with a large mediastinal lymph nodes. A CT of the abdomen pelvis with IV contrast showed diffuse fatty liver infiltration of the liver with a nodular contour suggestive of cirrhosis, multiple rounded nodular densities in the region of the gastroepiploic ligament as well as the fat in the region of the head and the uncinate process of the pancreas suggestive of adenopathy and consolidation of the left aspect of the middle lobe. She is a known cirrhotic and follows with gastroenterology for this. They were consulted for her abdominal pain and recommended an MRCP as they were concerned based on her CAT scan findings that some of the diffuse lymphadenopathy near the pancreas could be causing obstructive physiology. He also ordered rifaximin 550 mg p.o. twice daily as well as Reglan and a PPI to continue twice daily. He assess an ammonia level, CA 19-9, and an alpha-fetoprotein level. Discussed the case the pulmonology and they are consulted however not have the have not seen the patient as of yet. The current plan is for treatment with antibiotics and supplemental oxygen for her postobstructive pneumonia and then arrange for an outpatient EBUS to be done shortly after discharge. Patient was evaluated on hospital day 1. Patient is overall feeling much better today. She has been weaned to room air and we did ambulate her on room air and she had no hypoxia with sats at 93% with ambulation. She was seen by pulmonary medicine who recommended ongoing antibiotics at discharge and will follow-up for EBUS shortly after discharge. Gastroenterology feels that she likely had a stone that she passed as her LFTs were elevated and she had hyperbilirubinemia on presentation her LFTs are improving and her bilirubin is normalized. She is hungry and would like to eat. Objective Data Objective Data Vital Signs: Vital Signs Temp Pulse Resp BP Pulse Ox O2 Del Method O2 Flow Rate 97.8 F 78 18 114/81 H 96 Room Air 2 03/15/22 05:36 03/15/22 05:36 03/15/22 05:36 03/15/22 05:36 03/15/22 05:36 03/15/22 05:36 03/15/22 05:36 Oxygen Flow Rate (L/min) 2 Oxygen Delivery Method Room Air Weight: 86.5 kg Body Mass Index (BMI) 40.6 Intake & Output: Intake and Output for Last 24 Hours 03/13/22 03/14/22 03/15/22 23:59 23:59 23:59 Intake Total 1545.67 / 1545.67 2060.33 / 2060.33 Balance 1545.67 / 1545.67 2060.33 / 2060.33 Lab / Micro Data Result Diagrams: 03/15/22 06:00 03/15/22 06:00 Labs: Laboratory Results - last 24 hr 03/14/22 10:15: WBC 7.4, RBC 5.03, Hgb 13.4, Hct 42.5, MCV 84.5, MCH 26.6 L, MCHC 31.5 L, RDW Std Deviation 43.4, RDW Coeff of Cari 14.1, Plt Count 197, MPV 12.5 H, Immature Gran % (Auto) 0.100, Neut % (Auto) 70.8 H, Lymph % (Auto) 19.7, [place] % (Auto) 7.3, Eos % (Auto) 1.4, Baso % (Auto) 0.7, Absolute Neuts (auto) 5.2, Absolute Lymphs (auto) 1.46, Nucleated RBC % 0 03/14/22 10:15: Sodium 139, Potassium 3.8, Chloride 104, Carbon Dioxide 25.0, Anion Gap 10, BUN 11, Creatinine 0.73, Estim Creat Clear Calc 71.86, Est GFR (MDRD) Af Amer 102, Est GFR (MDRD) Non-Af 85, BUN/Creatinine Ratio 15.2, Glucose 207 H, Calcium 9.2, Total Bilirubin 1.40 H, Direct Bilirubin 0.67 H, AST 108 H, ALT 72 H, Alkaline Phosphatase 263 H, Troponin I High Sens 5, Total Protein 7.6, Albumin 3.5, Globulin 4.1, Lipase 230 03/14/22 10:15: Ammonia 31.0 03/14/22 10:15: Urine Color Yellow, Urine Clarity Sl. Cloudy, Urine pH 6.0, Ur Specific [place] 1.020, Urine Protein 30 H, Urine Glucose (UA) 50 H, Urine Ketones 15 H, Urine Occult Blood 10 H, Urine Nitrite Negative, Urine Bilirubin 3 H, Urine Urobilinogen 4 H, Ur Leukocyte Esterase 100 H, Urine RBC 0-5 SEEN, Urine WBC 5-10 SEEN, Ur Squamous Epith Cells 0-5 SEEN, Ur Renal Epithelial Cell 0-5 SEEN, Urine Bacteria 1+, Hyaline Casts 0-5 SEEN, Urine Mucus 2+ 03/14/22 13:00: POC Glucose 159 H 03/14/22 16:02: MRSA (PCR) Negative 03/14/22 18:04: POC Glucose 164 H 03/14/22 20:34: POC Glucose 216 H 03/15/22 06:00: WBC 6.8, RBC 4.30, Hgb 11.7 L, Hct 36.6 L, MCV 85.1, MCH 27.2, MCHC 32.0, RDW Std Deviation 43.9, RDW Coeff of Cari 14.1, Plt Count 158, MPV 12.8 H, Immature Gran % (Auto) 0.300, Neut % (Auto) 82.6 H, Lymph % (Auto) 13.9 L, [place] % (Auto) 3.2, Eos % (Auto) 0.0, Baso % (Auto) 0.0, Absolute Neuts (auto) 5.6, Absolute Lymphs (auto) 0.94, Nucleated RBC % 0 03/15/22 06:00: Sodium 140, Potassium 4.1, Chloride 108 H, Carbon Dioxide 25.0, Anion Gap 7, BUN 15, Creatinine 0.70, Estim Creat Clear Calc 72.50, Est GFR (MDRD) Af Amer 107, Est GFR (MDRD) Non-Af 89, BUN/Creatinine Ratio 21.6 H, Glucose 250 H, Calcium 8.0 L, Total Bilirubin 0.70, AST 76 H, ALT 59 H, Alkaline Phosphatase 215 H, Total Protein 6.7, Albumin 2.8 L, Globulin 3.9, Albumin/Globulin Ratio 0.7 L, Lipase 261 Micro: Microbiology 03/14/22 17:10 Mucosa - Nasopharyngeal Respiratory Panel (PCR) - Final 03/14/22 10:15 Urine, Clean Catch Legionella Antigen - Final 03/14/22 10:15 Urine, Clean Catch Streptococcus pneumoniae Antigen (M - Final Radiography Diagnostic Testing: Radiology Impression Abdomen/Pelvis CT 03/14/22 11:01 IMPRESSION: Diffuse fatty infiltration of liver with a nodular contour suggestive of a cirrhotic change. Multiple rounded nodular densities in the region of the gastroepiploic ligament as well as in the fat in the region of the head and uncinate process of the pancreas suggestive of adenopathy. Consolidation in the left aspect of the right middle lobe. Electronically Signed: Eric Pichardo MD at 12:33 EST , Chest CT 03/14/22 11:25 IMPRESSION: Right perihilar mass with postobstructive pneumonitis of the right middle lobe and volume loss. Enlarged mediastinal lymph nodes. Electronically Signed: Eric Pichardo MD at 12:36 EST , Rhythm Strip Rhythm Strip: Sinus Rhythm Rate: 94 Ectopy: None Physical Exam Const alert, oriented x3, no apparent distress and well nourished Constitutional Narrative: Morbidly obese, upper middle-aged white female sitting up in bed, appears older than stated age, daughter at bedside, patient appears comfortable nontoxic, asking to eat HEENT head/scalp atraumatic and moist oral mucous membranes HEENT Narrative: Dentition is poor, Mallampati is 3, no thrush Head and Scalp: normocephalic Eyes PERRL, EOMs intact bilaterally and conjunctivae normal Eyes Narrative: No scleral icterus Neck no lymphadenopathy, supple and no JVD Neck Narrative: Trachea midline, no thyroid enlargement Resp normal respiratory effort, no retractions, no use of accessory muscles and clear to auscultation bilaterally Resp Narrative: Diminished but clear, no adventitious sounds noted Auscultation: Negative for crackles, rhonchi or wheezes Cardio regular rate, regular rhythm, S1 normal heart sound, S2 normal heart sound, no rub, no gallops, no clicks and no JVD Cardio Narrative: 2 out of 6 systolic murmur loudest at right upper sternal border GI normal to inspection, nondistended, normoactive bowel sounds, soft to palpation and non-tender GI Narrative: Soft, nontender Extremity no clubbing, cyanosis or edema Extremity Narrative: 2+ pedal pulses Skin no rashes or lesions noted, no wounds, skin turgor normal, no jaundice, no petechiae and no mottling Neuro oriented x3, CN's II-XII intact bilaterally, moves all extremities and no focal motor deficits Speech: speech normal Psych affect normal Psych Narrative: Very pleasant, appropriately interactive Assessment & Plan Assessment/Plan (1) Obstructive pneumonia: (2) Mass of right lung: (3) Abdominal pain, acute, epigastric: (4) Hypoxia: PLAN: Plan Acute hypoxia secondary to postobstructive pneumonia/pneumonitis and right perihilar mass -Was on 2 L this morning has been weaned to room air--> no ambulatory pulse ox required -Discharged on Levaquin -MRSA screen is negative -Strep pneumo and Legionella antigens and are negative -Respiratory viral panel is unremarkable -Continue I-S -Add Acapella -Add Mucinex -Pulmonary medicine is consulted--> plans to schedule outpatient EBUS and outpatient pulmonary follow-up will be arranged at discharge. Epigastric pain/nausea/vomiting -GI is following -MRCP pending however GI suspects that she passed a gallstone -Epigastric pain/nausea and vomiting have resolved -Start regular diet -Discontinue IV fluids -Continue antiemetics -CA 19-9 is pending -GI following appreciate input--> okay for discharge Liver cirrhosis -Bilirubin and LFTs were elevated on presentation -Bilirubin has normalized -LFTs are trending down -Ammonia level is normal -Continue rifaximin as recommended by gastroenterology -Continue your ursodiol -Alpha-fetoprotein level is pending -Does follow as an outpatient for this -Suspect secondary to JACOME DM-2 -Hold home oral agents -Hold home Trulicity -Patient currently n.p.o. no next event Home regimen held mission -May need to initiate basal insulin at a lower dose as she is at baseline on 68 units -Prandial insulin on hold--> patient takes 24 units 3 times daily at baseline -Continue sliding scale -Accu-Cheks as ordered Diabetic neuropathy -Continue home amitriptyline Rheumatoid arthritis -Patient is not on any chronic regimen -Outpatient follow-up -No acute issues Hypertension/hyperlipidemia -Patient is on no antihypertensive regimen at baseline but there is documentation of hypertension in her chart -Monitor BP -Continue statin GERD -Continue IV PPI started on admission Morbid obesity -BMI is 41.3 -Recommend weight loss -Complicates treatment, prognosis, outcomes BRAXTON -Continue not internal CPAP History of tobacco abuse -Encourage ongoing cessation Anxiety/depression -Continue home amitriptyline -Continue home Zoloft Chronic pain -Continue home as needed Flexeril -Continue home as needed [place] DVT prophylaxis -SCDs -Start Lovenox 40 twice daily CODE STATUS -Full code verified on admission
[2022-03-15] MEDS: Ipratropium/Albuterol Sulfate 3 ML AMPUL.NEB INHALATION ×3 (07:37→15:39)
[2022-03-15 07:46] LABS: Bedside Glucose 254 mg/dL (74-106)
[2022-03-15] MEDS: Insulin Lispro 100 UNIT/ML INSULN.PEN SC ×3 (07:46→16:42)
[2022-03-15] MEDS: Sertraline 50 MG Tablet PO (07:47)
[2022-03-15] MEDS: Oxybutynin 5 MG Tablet 10 MG PO (07:47)
[2022-03-15] MEDS: Ferrous Sulfate 325 MG Tablet PO (07:47)
[2022-03-15] MEDS: Ursodiol 250 MG Tablet PO (07:48)
[2022-03-15] MEDS: guaiFENesin 1,200 MG Tablet 1200 MG PO (07:50)
[2022-03-15] MEDS: Enoxaparin 40 MG/0.4 ML Syringe SC (08:46)
--- NOTE | 2022-03-15 09:00 | PN_ITS ---
Subjective Subjective Patient is feeling a lot better today. She tolerated a diet. She still having some shortness of breath but she is not requiring oxygen. Objective Data Objective Data Vital Signs: Vital Signs Temp Pulse Resp BP Pulse Ox O2 Del Method O2 Flow Rate 98.3 F 82 18 125/59 H 95 Room Air 2 03/15/22 17:15 03/15/22 17:15 03/15/22 17:15 03/15/22 17:15 03/15/22 17:15 03/15/22 17:15 03/15/22 05:36 Oxygen Flow Rate (L/min) 2 Oxygen Delivery Method Room Air Weight: 190 lb 11.2 oz Body Mass Index (BMI) 40.6 Intake & Output: Intake and Output for Last 24 Hours 03/13/22 03/14/22 03/15/22 23:59 23:59 23:59 Intake Total 1545.67 / 1545.67 2522.33 / 2522.33 Balance 1545.67 / 1545.67 2522.33 / 2522.33 Lab / Micro Data Result Diagrams: 03/15/22 06:00 03/15/22 06:00 Labs: Laboratory Results - last 24 hr 03/14/22 16:02: MRSA (PCR) Negative 03/14/22 18:04: POC Glucose 164 H 03/14/22 20:34: POC Glucose 216 H 03/15/22 06:00: WBC 6.8, RBC 4.30, Hgb 11.7 L, Hct 36.6 L, MCV 85.1, MCH 27.2, MCHC 32.0, RDW Std Deviation 43.9, RDW Coeff of Cari 14.1, Plt Count 158, MPV 12.8 H, Immature Gran % (Auto) 0.300, Neut % (Auto) 82.6 H, Lymph % (Auto) 13.9 L, [place]cho % (Auto) 3.2, Eos % (Auto) 0.0, Baso % (Auto) 0.0, Absolute Neuts (auto) 5.6, Absolute Lymphs (auto) 0.94, Nucleated RBC % 0 03/15/22 06:00: Sodium 140, Potassium 4.1, Chloride 108 H, Carbon Dioxide 25.0, Anion Gap 7, BUN 15, Creatinine 0.70, Estim Creat Clear Calc 72.50, Est GFR (MDRD) Af Amer 107, Est GFR (MDRD) Non-Af 89, BUN/Creatinine Ratio 21.6 H, Glucose 250 H, Calcium 8.0 L, Total Bilirubin 0.70, AST 76 H, ALT 59 H, Alkaline Phosphatase 215 H, Total Protein 6.7, Albumin 2.8 L, Globulin 3.9, Albumin/Globulin Ratio 0.7 L, Lipase 261 03/15/22 07:23: POC Glucose 254 H 03/15/22 10:52: POC Glucose 225 H 03/15/22 16:41: POC Glucose 449 H Micro: Microbiology 03/14/22 17:10 Mucosa - Nasopharyngeal Respiratory Panel (PCR) - Final 03/14/22 10:15 Urine, Clean Catch Legionella Antigen - Final 03/14/22 10:15 Urine, Clean Catch Streptococcus pneumoniae Antigen (M - Final Radiography Diagnostic Testing: Radiology Impression MRCP 03/15/22 09:30 IMPRESSION: No biliary dilation or choledocolithiasis. Cirrhotic liver with evidence of portal hypertension including small volume ascites. No suspicious mass. Periportal lymphadenopathy. Electronically Signed: Yohan Sanchez MD at 16:51 EST , Rhythm Strip Rhythm Strip: Sinus Rhythm Rate: 94 Ectopy: None Physical Exam Const alert, oriented x3, no apparent distress and well nourished Constitutional Narrative: Morbidly obese, upper middle-aged white female sitting up in bed, appears older than stated age, daughter at bedside, patient appears comfortable nontoxic, asking to eat General Appearance: cooperative, comfortable, well kempt and well developed Orientation / Consciousness: awake, oriented to person, oriented to place and or iented to time Exam Limitations: no limitations Nutritional Appearance: morbidly obese HEENT normocephalic, head/scalp atraumatic and moist oral mucous membranes HEENT Narrative: Mallampati 3, no thrush Eyes PERRL, EOMs intact bilaterally and conjunctivae normal Eyes Narrative: No scleral icterus Neck no lymphadenopathy, supple and no JVD Neck Narrative: Trachea midline, no thyroid enlargement Resp normal respiratory effort, no retractions, no use of accessory muscles and clear to auscultation bilaterally Resp Narrative: Diminished but clear, no adventitious sounds noted Auscultation: Negative for crackles, rhonchi or wheezes Cardio regular rate, regular rhythm, S1 normal heart sound, S2 normal heart sound, no rub, no gallops, no clicks and no JVD Cardio Narrative: 2 out of 6 systolic murmur loudest at right upper sternal border GI normal to inspection, nondistended, normoactive bowel sounds, soft to palpation and non-tender GI Narrative: Soft, nontender Extremity no clubbing, cyanosis or edema Extremity Narrative: 2+ pedal pulses Skin no rashes or lesions noted, no wounds, skin turgor normal, no jaundice, no petechiae and no mottling Neuro oriented x3, CN's II-XII intact bilaterally, moves all extremities and no focal motor deficits Speech: speech normal Psych affect normal Psych Narrative: Very pleasant, appropriately interactive Assessment & Plan Assessment/Plan (1) Pneumonia: PLAN: Plan Nonalcoholic steatohepatitis with cirrhosis. 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 She has been having intermittent abdominal pain for the last several months and has not been seen in the office in approximately 3-1/2 to 4 months. She has lost weight since she was seen in the office. CT scan does show some diffuse lymphadenopathy near the pancreas and I am concerned about obstructive physiology affecting the hepatobiliary system in the setting of possible decompensated cirrhosis. I would recommend an MRCP for evaluation of her hepatobiliary system. I agree with antibiotic at this time. She is not exhibiting any signs of a sending cholangitis. She has multiple factors for chronic nausea including poorly controlled diabetes, med side effect from multiple anticholinergic medicines that she takes on a daily basis. She can have a liquid diet until midnight. Continue ursodiol and I will start Xifaxan 550 mg twice a day, Reglan and continue PPI twice a day. Check ammonia level. Check CA 19-9 and alpha- fetoprotein. Charges/Coding Visit Charges Inpatient E&M: 79003 Subs Hosp L3
--- NOTE | 2022-03-15 09:21 | NURSING ---
pt to mri
--- NOTE | 2022-03-15 09:30 | MRI_ITS ---
INDICATION: obstructive jaundice EXAMINATION: MRI - MR MRCP W/O Contrast TECHNIQUE: Multiplanar and multisequence MR images of the abdomen were obtained with MRCP sequence. Three-dimensional post-processing reconstructions were performed. IV Contrast Dosage and Agent: None. COMPARISON: CT 03/14/2022. FINDINGS: LIVER: No mass. Nodular contour. Heterogeneous parenchyma. GALLBLADDER AND BILIARY TREE: The gallbladder is surgically absent. The CBD measures 3 mm. No intra- or extrahepatic biliary dilation. No choledochal filling defect. PANCREAS: No mass. No pancreatic duct dilation. SPLEEN: Non-enlarged. ADRENAL GLANDS: No nodules. KIDNEYS: Normal renal size and position. No hydronephrosis. No mass. LYMPH NODES: There is periportal lymphadenopathy. PERITONEUM: Trace ascites. VESSELS: Aorta is non-dilated. Aortoiliac atherosclerosis. LOWER CHEST: No pleural effusion. MRI/MRCP Abdomen without Contrast IMPRESSION: No biliary dilation or choledocolithiasis. Cirrhotic liver with evidence of portal hypertension including small volume ascites. No suspicious mass. Periportal lymphadenopathy. Electronically Signed: Yohan Sanchez MD at 16:51 EST ,
--- NOTE | 2022-03-15 10:39 | CON.PCM.CC_ITS ---
Assessment & Plan Assessment/Plan (1) Mass of right lung: PLAN: Plan RECOMMENDATIONS: 1. Continue antimicrobials to complete 7 days of therapy. Okay to transition to Levaquin at discharge. 2. Perform walking oximetry study prior to consideration for discharge home. 3. Please arrange outpatient pulmonary follow-up next week to facilitate scheduling for EBUS. 4. Will sign off at this time. Please call with any additional questions. IMPRESSIONS: 1. Right perihilar lung mass with mediastinal lymphadenopathy These findings were noted incidentally in the emergency department while being worked up from a GI perspective. The patient does have a remote smoking history. Given the possibility of underlying postobstructive pneumonia, I agree with continuing antimicrobials to complete 7 days of treatment. Recommend performing a walking oximetry study prior to consideration for discharge home. I did advise that the patient follow-up in the pulmonary medicine clinic within 2 weeks of discharge so that we can help facilitate outpatient bronchoscopy with EBUS to facilitate mediastinal lymph node sampling. The patient is in agreement. 2. Epigastric pain with nausea and vomiting Gastroenterology is following to assist with medical management. MRCP is completed. Awaiting interpretation. 3. Questionable COPD/morbid obesity/hypertension/hyperlipidemia/rheumatoid arthritis Complicates care, management, recovery and prognosis. Continue home medications as indicated. This note was generated with [employer] dictation software. It may contain incorrect words, spelling, and punctuation that were not noted in checking the note before signing. HPI Consult Data Date of Consult: 03/15/22 HPI Narrative Reason for Consultation: Lung mass HPI Narrative: The patient is a 67-year-old female, with a history as outlined below, who presented to the emergency department on March 14 with epigastric abdominal pain and associated nausea and emesis. The patient has reported history of COPD and cirrhosis of the liver. She has a prior smoking history, having quit completely 10+ years ago. Despite the aforementioned, the patient has never been formally evaluated by a geochemical manager or completed PFTs. On presentation to the emergency department, the patient was noted to be afebrile hemodynamically stable. She was maintaining appropriate oxygen saturations on room air. Initial laboratory evaluation revealed no evidence of leukocytosis. Chemistry profile was unrevealing. CT abdomen/pelvis demonstrated diffuse fatty infiltration of the liver along with consolidation in the left aspect of the right middle lobe. Given the findings noted within the lung, a dedicated chest CT was obtained, which revealed a right perihilar lung mass with consolidation in the right middle lobe and mediastinal lymphadenopathy. The patient was subsequently admitted to the hospital for gastroenterology evaluation. [facility] Medical History Abnormal liver ultrasound Anemia Anxiety Arthritis Asthma Back problem Cataract Chronic bronchitis Chronic migraine Depression Diabetes Diabetes mellitus, type 2 Easy bruising Esophagitis Former smoker Heart murmur High cholesterol History of stress test Hypertension Injury of head and neck Low iron Migraines Neuropathy Obesity BRAXTON (obstructive sleep apnea) Proteinuria due to type 2 diabetes mellitus Rheumatoid arthritis Shortness of breath on exertion UTI (urinary tract infection) Vision loss of left eye Vision loss of right eye Vision problems Wears dentures Wears glasses Home Medications amitriptyline 10 mg tablet 50 mg PO QHS heart 01/16/16 [History Last Taken 03/13/22] metformin 1,000 mg tablet 1,000 mg PO BIDCM blood sugar 01/16/16 [History Last Taken 03/13/22] oxybutynin chloride 5 mg tablet 10 mg PO DAILY bladder 01/16/16 [History Last Taken 03/13/22] simvastatin 20 mg tablet 40 mg PO QHS cholesterol lowering 01/16/16 [History Last Taken 03/13/22] cyclobenzaprine 10 mg tablet 10 mg PO TID PRN PRN Pain 03/27/17 [History Last Taken 03/13/22] hydrocodone-acetaminophen 5-325mg 5mg-325mg 1 tab PO BID PRN Pain 12/13/20 [History Last Taken 03/13/22] ferrous sulfate 325 mg (65 mg iron) tablet 325 mg PO DAILY supplement 07/05/21 [History Last Taken 03/13/22] insulin aspart U-100 100 unit/mL (3 mL) subcutaneous pen 24 unit subcut TIDCM blood sugar 08/24/21 [History Last Taken 03/13/22] insulin glargine 100 unit/mL (3 mL) subcutaneous pen (Lantus Solostar U-100 Insulin) 68 unit subcut QPM DM 08/24/21 [History Last Taken 03/13/22] sertraline 50 mg tablet (Zoloft) 50 mg PO DAILY mood 09/09/21 [History Last Taken 03/13/22] dulaglutide 3 mg/0.5 mL subcutaneous pen injector (Trulicity) 1.5 mg subcut QWEEK dm 10/21/21 [History Last Taken 03/08/22] ergocalciferol (vitamin D2) 25,000 unit capsule 50,000 unit PO WE supplement 10/21/21 [History Last Taken 03/08/22] albuterol sulfate 90 mcg/actuation aerosol inhaler 2 puff inhalation Q4H PRN PRN sob 03/14/22 [History Last Taken Unknown] tiotropium bromide 2.5 mcg/actuation mist for inhalation (Spiriva Respimat) 2 puff inhalation DAILY PRN sob 03/14/22 [History Last Taken 3 Days Ago ~03/11/22] ursodiol 300 mg capsule 300 mg PO BID GI 03/14/22 [History Last Taken 03/13/22] vitamin E (dl, acetate) 180 mg (400 unit) capsule 180 mg PO BID supplement 03/14/22 [History Last Taken 03/13/22] Allergy/AdvReac Type Severity Reaction Status Date / Time codeine Allergy Rash Verified 03/14/22 08:56 lisinopril AdvReac Angioedema Verified 03/14/22 08:56 naproxen AdvReac Other Verified 03/14/22 08:56 Family History Mother Diabetes Breast cancer Sister Diabetes CAD (coronary artery disease) Other Arthritis Surgical History History of cholecystectomy History of colonoscopy History of esophagogastroduodenoscopy (EGD) History of hysterectomy Social History Smoking Status: Former smoker alcohol intake: never substance use type: does not use what type of physical activity do you participate in: none ROS ROS Narrative 10 systems reviewed with pertinent positives as noted in the HPI above. Physical Exam Const alert and no apparent distress General Appearance: cooperative HEENT normocephalic, head/scalp atraumatic and moist oral mucous membranes Eyes PERRL, EOMs intact bilaterally and conjunctivae normal Neck supple General: trachea midline Chest inspection of chest normal Resp normal respiratory effort Auscultation: Negative for rales, rhonchi or wheezes Cardio regular rate and regular rhythm GI normal to inspection, nondistended, normoactive bowel sounds Extremity no clubbing, cyanosis or edema Skin no rashes or lesions noted Neuro CN's II-XII intact bilaterally, moves all extremities and no focal motor deficits Psych cooperative and affect normal Lab / Micro Data Result Diagrams: 03/15/22 06:00 03/15/22 06:00 Labs: Laboratory Results - last 24 hr 03/14/22 10:15: Sodium 139, Potassium 3.8, Chloride 104, Carbon Dioxide 25.0, Anion Gap 10, BUN 11, Creatinine 0.73, Estim Creat Clear Calc 71.86, Est GFR (MDRD) Af Amer 102, Est GFR (MDRD) Non-Af 85, BUN/Creatinine Ratio 15.2, Glucose 207 H, Calcium 9.2, Total Bilirubin 1.40 H, Direct Bilirubin 0.67 H, AST 108 H, ALT 72 H, Alkaline Phosphatase 263 H, Troponin I High Sens 5, Total Protein 7.6, Albumin 3.5, Globulin 4.1, Lipase 230 03/14/22 10:15: Ammonia 31.0 03/14/22 13:00: POC Glucose 159 H 03/14/22 16:02: MRSA (PCR) Negative 03/14/22 18:04: POC Glucose 164 H 03/14/22 20:34: POC Glucose 216 H 03/15/22 06:00: WBC 6.8, RBC 4.30, Hgb 11.7 L, Hct 36.6 L, MCV 85.1, MCH 27.2, MCHC 32.0, RDW Std Deviation 43.9, RDW Coeff of Cari 14.1, Plt Count 158, MPV 12.8 H, Immature Gran % (Auto) 0.300, Neut % (Auto) 82.6 H, Lymph % (Auto) 13.9 L, Ritchie % (Auto) 3.2, Eos % (Auto) 0.0, Baso % (Auto) 0.0, Absolute Neuts (auto) 5.6, Absolute Lymphs (auto) 0.94, Nucleated RBC % 0 03/15/22 06:00: Sodium 140, Potassium 4.1, Chloride 108 H, Carbon Dioxide 25.0, Anion Gap 7, BUN 15, Creatinine 0.70, Estim Creat Clear Calc 72.50, Est GFR (MDRD) Af Amer 107, Est GFR (MDRD) Non-Af 89, BUN/Creatinine Ratio 21.6 H, Glucose 250 H, Calcium 8.0 L, Total Bilirubin 0.70, AST 76 H, ALT 59 H, Alkaline Phosphatase 215 H, Total Protein 6.7, Albumin 2.8 L, Globulin 3.9, Albumin/Globulin Ratio 0.7 L, Lipase 261 03/15/22 07:23: POC Glucose 254 H Micro: Microbiology 03/14/22 17:10 Mucosa - Nasopharyngeal Respiratory Panel (PCR) - Final 03/14/22 10:15 Urine, Clean Catch Legionella Antigen - Final 03/14/22 10:15 Urine, Clean Catch Streptococcus pneumoniae Antigen (M - Final Rhythm Strip Rhythm Strip: Sinus Rhythm Rate: 94 Ectopy: None Radiology Impression Abdomen/Pelvis CT 03/14/22 11:01 IMPRESSION: Diffuse fatty infiltration of liver with a nodular contour suggestive of a cirrhotic change. Multiple rounded nodular densities in the region of the gastroepiploic ligament as well as in the fat in the region of the head and uncinate process of the pancreas suggestive of adenopathy. Consolidation in the left aspect of the right middle lobe. Electronically Signed: Eric Pichardo MD at 12:33 EST , Chest CT 03/14/22 11:25 IMPRESSION: Right perihilar mass with postobstructive pneumonitis of the right middle lobe and volume loss. Enlarged mediastinal lymph nodes. Electronically Signed: Eric Pichardo MD at 12:36 EST , Charges/Coding Visit Charges Inpatient E&M: 77991 Init Hosp L3
[2022-03-15 11:26] LABS: Bedside Glucose 225 mg/dL (74-106)
--- NOTE | 2022-03-15 14:00 | CASEMGMT ---
GARRICK GREWAL DC Planning Assessment: Face to face with patient for initial transition planning/care coordination. GARRICK GREWAL introduced self and role at [facility], pt voices understanding. Pt alert, ambulating in room independently and is agreeable to participating in assessment. Admitting Dx: post obs pneumonia, lung mass, elevated LFTs PCP: Dr. Garcia Specialists: none recently Preferred Pharmacy: [facility] retail Insurance: [facility], [facility] Prescription benefit: yes Living will/HPOA: yes/yes HPOA is pt's bette Ibrahim. Notified pt that these documents are not in our EMR and encouraged pt to have these brought in. 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 LNOK: daughter Alexandria, son Earl Living arrangements: Pt lives in a single story apartment that is handicapped accessible including a ramp to enter. Pt reports she is independent with all ADLs including self care and household tasks. States she helps care for her grandchildren who are in her home frequently. States her son Earl lives in the apartment above her and her daughter lives in the next block over so they are able to assist her as needed. Transportation: pt states she drives short distances including to the grocery store, family is able to assist if she is unable to drive. DME: multiple canes, wheeled walker, rollator with broken seat (was her mothers), and grab bars in her bathroom. Also has two lift chairs. HHC/SNF: denies Plan: pt states she plans to return home with the support of her family. Noted pt did not qualify for home O2. 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 Per Anna, pt does not qualify since pt has a wheeled walker already. Will notify pt. No discharge needs are identified at this time. Will remain available if pt has any additional needs or concerns. Silvia Boyd RN CM
--- NOTE | 2022-03-15 14:23 | DS.PCM_ITS ---
Providers Date of Admission: 03/14/22 Date of Discharge: 03/15/22 Primary Care Physician: Dr. Jesus Garcia MD Consultations 03/14/22 16:02 Consult: Gastroenterology Routine Consulting Provider: [facility] Reason for Consult: Worsening Bili, LFTs, known cirrhotic disease, suspect met CA in abd EMERGENT Consult: No Notified: Yes Date Notified: 03/14/22 Time Notified: 14:16 Method of Notification: ED Physician Initiated Consult: [employer] / Pulmonary Medicine Routine Consulting Provider: Hussein Bullock Reason for Consult: Post-obstructive PNA, Lung Mass EMERGENT Consult: No Notified: Yes Date Notified: 03/14/22 Time Notified: 14:09 Method of Notification: ED Physician Initiated Reason For Visit: POST OPSTRUCTIVE PNA, LUNG MASS, ELEVATED LFT/BILI Diagnosis Discharge Diagnosis (1) Obstructive pneumonia: Status: Acute Code(s): J18.9 - Pneumonia, unspecified organism (2) Mass of right lung: Status: Acute Code(s): R91.8 - Other nonspecific abnormal finding of lung field (3) Abdominal pain, acute, epigastric: Status: Acute Code(s): R10.13 - Epigastric pain (4) Hypoxia: Status: Acute Code(s): R09.02 - Hypoxemia Medications at Discharge Home Medications amitriptyline 10 mg tablet 50 mg PO QHS heart 01/16/16 metformin 1,000 mg tablet 1,000 mg PO BIDCM blood sugar 01/16/16 oxybutynin chloride 5 mg tablet 10 mg PO DAILY bladder 01/16/16 simvastatin 20 mg tablet 40 mg PO QHS cholesterol lowering 01/16/16 cyclobenzaprine 10 mg tablet 10 mg PO TID PRN PRN Pain 03/27/17 hydrocodone-acetaminophen 5-325mg 5mg-325mg 1 tab PO BID PRN Pain 12/13/20 ferrous sulfate 325 mg (65 mg iron) tablet 325 mg PO DAILY supplement 07/05/21 insulin aspart U-100 100 unit/mL (3 mL) subcutaneous pen 24 unit subcut TIDCM blood sugar 08/24/21 insulin glargine 100 unit/mL (3 mL) subcutaneous pen (Lantus Solostar U-100 Insulin) 68 unit subcut QPM DM 08/24/21 sertraline 50 mg tablet (Zoloft) 50 mg PO DAILY mood 09/09/21 dulaglutide 3 mg/0.5 mL subcutaneous pen injector (Trulicity) 1.5 mg subcut QWEEK dm 10/21/21 ergocalciferol (vitamin D2) 25,000 unit capsule 50,000 unit PO WE supplement 10/21/21 albuterol sulfate 90 mcg/actuation aerosol inhaler 2 puff inhalation Q4H PRN PRN sob 03/14/22 tiotropium bromide 2.5 mcg/actuation mist for inhalation (Spiriva Respimat) 2 puff inhalation DAILY PRN sob 03/14/22 ursodiol 300 mg capsule 300 mg PO BID GI 03/14/22 vitamin E (dl, acetate) 180 mg (400 unit) capsule 180 mg PO BID supplement 03/14/22 levofloxacin 750 mg tablet 750 mg PO DAILY #6 tabs 03/15/22 Hospital Course Procedures - (MRCP/CT chest/CT abdomen pelvis) Summary of Care Provided Minutes Spent on Discharge: 36 Hospital Course: Mrs. Ashley is a 67-year-old white female who presented to the emergency department on 03/14/2022 with abdominal pain, nausea, and vomiting.? She indicated on presentation she has had about a 2-week history of worsening epigastric pain and discomfort with the inability to appropriately intake food and drink with worsening discomfort approximately 20 to 30 minutes following the intake with associated nausea and intermittent emesis.? She denies any specific changes to her bowel movements and has had no improvement with any administered medications including Pepto-Bismol.? She indicated she does have some pain that intermittently radiates to the upper abdomen and back right greater than left however her symptoms did improve with a GI cocktail in the emergency dep artment.? CT of the chest was performed as she became hypoxic with ambulation on room air but denied dyspnea.? Oxygen saturations were 98% with rest and 85% with exertion on room air.? CT of the chest showed a right perihilar mass with a postobstructive pneumonitis of the right middle lobe and volume loss along with a large mediastinal lymph nodes.? A CT of the abdomen pelvis with IV contrast showed diffuse fatty liver infiltration of the liver with a nodular contour suggestive of cirrhosis, multiple rounded nodular densities in the region of the gastroepiploic ligament as well as the fat in the region of the head and the uncinate process of the pancreas suggestive of adenopathy and consolidation of the left aspect of the middle lobe.? She is a known cirrhotic and follows with gastroenterology for this.? They were consulted for her abdominal pain and recommended an MRCP as they were concerned based on her CAT scan findings that some of the diffuse lymphadenopathy near the pancreas could be causing obstructive physiology.? He also ordered rifaximin 550 mg p.o. twice daily as well as Reglan and a PPI to continue twice daily.? He assessed an ammonia level which was normal, CA 19-9 which was pending at discharge, and an alpha- fetoprotein level which was pending at discharge.? Discussed the case the pulmonology and she is now on room air and they feel comfortable discharging her home to complete a total of 7-day course of antibiotics with Levaquin. We did an ambulatory pulse ox and she was satting 93% with exertion on room air. I discussed the case with GI post MRCP and given the fact that her pain had resolved he was okay with feeding her. We put her on a diet she tolerated this well. We highly suspect based on her labs given the fact that she had an elevated bilirubin and transaminitis which was all new that she passed a stone and that is the etiology for her abdominal pain/nausea/vomiting on presentation. Her MRCP noted. Gastroenterology would like to follow-up with her in the next 2 to 4 weeks in the GI office. We faxed a prescription for her Levaquin and outpatient follow-ups with GI and pulmonary medicine need to be pursued after discharge. Pulmonary medicine appointment will need to be in the next 1 week and GI follow-up within the next month. Discharge diagnoses: Acute hypoxia secondary to postobstructive pneumonia-hypoxia is resolved Postobstructive pneumonia/pneumonitis Perihilar mass Lymphadenopathy in the chest and abdomen Epigastric pain/nausea/vomiting-resolved Transaminitis-improving Hyperbilirubinemia-resolved Suspected choledocholithiasis-resolved Liver cirrhosis secondary to [place] DM-2 Diabetic neuropathy Rheumatoid arthritis Hypertension Hyperlipidemia GERD BRAXTON Tobacco abuse Anxiety Depression Morbid obesity Chronic pain Physical Exam Const alert, oriented x3, no apparent distress and well nourished Constitutional Narrative: Morbidly obese, upper middle-aged white female sitting up in bed, appears older than stated age, daughter at bedside, patient appears comfortable nontoxic, asking to eat General Appearance: cooperative, comfortable, well kempt and well developed Orientation / Consciousness: awake, oriented to person, oriented to place and oriented to time Exam Limitations: no limitations Nutritional Appearance: morbidly obese HEENT normocephalic, head/scalp atraumatic and moist oral mucous membranes HEENT Narrative: Mallampati 3, no thrush Eyes PERRL, EOMs intact bilaterally and conjunctivae normal Eyes Narrative: No scleral icterus Neck no lymphadenopathy, supple and no JVD Neck Narrative: Trachea midline, no thyroid enlargement Resp normal respiratory effort, no retractions, no use of accessory muscles and clear to auscultation bilaterally Resp Narrative: Diminished but clear, no adventitious sounds noted Auscultation: Negative for crackles, rhonchi or wheezes Cardio regular rate, regular rhythm, S1 normal heart sound, S2 normal heart sound, no rub, no gallops, no clicks and no JVD Cardio Narrative: 2 out of 6 systolic murmur loudest at right upper sternal border GI normal to inspection, nondistended, normoactive bowel sounds, soft to palpation and non-tender GI Narrative: Soft, nontender Extremity no clubbing, cyanosis or edema Extremity Narrative: 2+ pedal pulses Skin no rashes or lesions noted, no wounds, skin turgor normal, no jaundice, no petechiae and no mottling Neuro oriented x3, CN's II-XII intact bilaterally, moves all extremities and no focal motor deficits Speech: speech normal Psych affect normal Psych Narrative: Very pleasant, appropriately interactive Weight / BMI Weight Weight: 86.5 kg Body Mass Index (BMI) 40.6 ABG / Lab / Microbiology Data Result Diagrams: 03/15/22 06:00 03/15/22 06:00 Laboratory: Laboratory Results - last 24 hr 03/14/22 16:02: MRSA (PCR) Negative 03/14/22 18:04: POC Glucose 164 H 03/14/22 20:34: POC Glucose 216 H 03/15/22 06:00: WBC 6.8, RBC 4.30, Hgb 11.7 L, Hct 36.6 L, MCV 85.1, MCH 27.2, MCHC 32.0, RDW Std Deviation 43.9, RDW Coeff of Cari 14.1, Plt Count 158, MPV 12.8 H, Immature Gran % (Auto) 0.300, Neut % (Auto) 82.6 H, Lymph % (Auto) 13.9 L, [place] % (Auto) 3.2, Eos % (Auto) 0.0, Baso % (Auto) 0.0, Absolute Neuts (auto) 5.6, Absolute Lymphs (auto) 0.94, Nucleated RBC % 0 03/15/22 06:00: Sodium 140, Potassium 4.1, Chloride 108 H, Carbon Dioxide 25.0, Anion Gap 7, BUN 15, Creatinine 0.70, Estim Creat Clear Calc 72.50, Est GFR (MDRD) Af Amer 107, Est GFR (MDRD) Non-Af 89, BUN/Creatinine Ratio 21.6 H, Glucose 250 H, Calcium 8.0 L, Total Bilirubin 0.70, AST 76 H, ALT 59 H, Alkaline Phosphatase 215 H, Total Protein 6.7, Albumin 2.8 L, Globulin 3.9, Albumin/Globulin Ratio 0.7 L, Lipase 261 03/15/22 07:23: POC Glucose 254 H 03/15/22 10:52: POC Glucose 225 H Microbiology: Microbiology 03/14/22 17:10 Mucosa - Nasopharyngeal Respiratory Panel (PCR) - Final 03/14/22 10:15 Urine, Clean Catch Legionella Antigen - Final 03/14/22 10:15 Urine, Clean Catch Streptococcus pneumoniae Antigen (M - Final Radiography Diagnostic Testing: Radiology Impression Abdomen/Pelvis CT 03/14/22 11:01 IMPRESSION: Diffuse fatty infiltration of liver with a nodular contour suggestive of a cirrhotic change. Multiple rounded nodular densities in the region of the gastroepiploic ligament as well as in the fat in the region of the head and uncinate process of the pancreas suggestive of adenopathy. Consolidation in the left aspect of the right middle lobe. Electronically Signed: Eric Pichardo MD at 12:33 EST , Chest CT 03/14/22 11:25 IMPRESSION: Right perihilar mass with postobstructive pneumonitis of the right middle lobe and volume loss. Enlarged mediastinal lymph nodes. Electronically Signed: Eric Pichardo MD at 12:36 EST , D/C Instructions Discharge Diet: Low fat / Low cholesterol and 1800 Calorie Control Diet Discharge Activity: Return to Normal Activity Meaningful Use Info Meaningful Use Diagnoses (Choose all that apply): None applicable Discharge Plan Admission Admit Date/Time: 03/14/22 14:08 Primary Reason for Your Visit: Epigastric pain/nausea/vomiting Attending Provider: Chey Meraz Primary Care Provider: Jesus Garcia Consulting Providers: Hussein Bullock ; Evelin Perdue Discharge Orders/Prescriptions Prescriptions: New levofloxacin 750 mg tablet 750 mg PO DAILY Qty: 6 0RF Continued ferrous sulfate 325 mg (65 mg iron) tablet 325 mg PO DAILY Lantus Solostar U-100 Insulin 100 unit/mL (3 mL) insulin pen 68 unit subcut QPM amitriptyline 10 MG tablet 50 mg PO QHS simvastatin 20 MG tablet 40 mg PO QHS metformin 1,000 MG tablet 1,000 mg PO BIDCM oxybutynin chloride 5 MG tablet 10 mg PO DAILY insulin aspart U-100 100 unit/mL (3 mL) insulin pen 24 unit subcut TIDCM cyclobenzaprine 10 MG tablet 10 mg PO TID PRN PRN (Reason: Pain) hydrocodone-acetaminophen 5-325 mg Tablet 1 tab PO BID PRN (Reason: Pain) sertraline [Zoloft] 50 mg Tablet 50 mg PO DAILY Trulicity 3 mg/0.5 mL pen injector 1.5 mg subcut QWEEK Rx Instructions: Sunday ergocalciferol (vitamin D2) 25,000 unit Capsule 50,000 unit PO WE ursodiol 300 mg capsule 300 mg PO BID vitamin E (dl, acetate) 180 mg (400 unit) capsule 180 mg PO BID albuterol sulfate 90 mcg/actuation HFA aerosol inhaler 2 puff INHALATION Q4H PRN PRN (Reason: sob) Label Comments: Inhale 2 Puffs as instructed every 4 hours as needed for wheezing/shortness of breath. Spiriva Respimat 2.5 mcg/actuation mist 2 puff INHALATION DAILY PRN (Reason: sob) Label Comments: Inhale 2 Puffs as instructed once daily. Referrals / Follow Up: Hussein Bullock DO [Med Staff - Active Staff] - See Referral Note (Outpatient appointment to be set up for you by pulmonary office, if you do not hear from them by Sunday call) Friend,DO Kirk [Med Staff - Active Staff] - Within 1 Month (Call to make an appointment) Jesus Garcia MD [Primary Care Provider] - Within 2 Weeks Disposition Disposition (needs filled in before D/C Order can be placed): Home, Self Care Charges/Coding Visit Charges Inpatient E&M: 31032 Disch Hosp >30min
--- NOTE | 2022-03-15 16:14 | CASEMGMT ---
GARRICK GREWAL obtained script for wheeled walker/rollator to pt. Discussed options for obtaining after discharge. Silvia Boyd RN CM
[2022-03-15 17:35] LABS: Bedside Glucose 449 mg/dL (74-106)
== END 2022-03-15 18:30 | disposition home or self-care (01) | DRG 194 ==
LOC: ED 10:37 → MS2 14:55
PROVIDERS: Admitting Provider Family Medicine; Emergency Provider Emergency Medicine; PCP Family Medicine; Visit Provider Internal Medicine
DX: J18.8 Other pneumonia, unspecified organism (principal); J44.1 Chronic obstructive pulmonary disease with (acute) exacerbation; J44.0 Chronic obstructive pulmonary disease with (acute) lower respiratory infection; Z68.41 Body mass index [BMI] 40.0-44.9, adult; E11.40 Type 2 diabetes mellitus with diabetic neuropathy, unspecified; K74.60 Unspecified cirrhosis of liver; E11.65 Type 2 diabetes mellitus with hyperglycemia; E66.01 Morbid (severe) obesity due to excess calories; Z79.4 Long term (current) use of insulin; M06.9 Rheumatoid arthritis, unspecified; K80.50 Calculus of bile duct without cholangitis or cholecystitis without obstruction; E78.00 Pure hypercholesterolemia, unspecified; K75.81 Nonalcoholic steatohepatitis (NASH); I10 Essential (primary) hypertension; F41.9 Anxiety disorder, unspecified; G47.33 Obstructive sleep apnea (adult) (pediatric); K21.9 Gastro-esophageal reflux disease without esophagitis; R59.1 Generalized enlarged lymph nodes; R09.02 Hypoxemia; F32.A Depression, unspecified; G89.29 Other chronic pain; R91.8 Other nonspecific abnormal finding of lung field; Z90.49 Acquired absence of other specified parts of digestive tract; Z79.84 Long term (current) use of oral hypoglycemic drugs; Z79.899 Other long term (current) drug therapy; Z87.891 Personal history of nicotine dependence
CPT/HCPCS: 36415; 71250; 74177; 74181; 80048; 80053; 80076; 81001; 82140; 82962; 83690; 84484; 85025; 87449; 87633; 87641; 93005; 94640; 94668; 99252; 99284; J7030; Q9967; A4216; G0463; J0295; J2405

== ENCOUNTER 2022-03-19 18:00 | Emergency (ER) | payer MEDICARE, MEDICAID, SELFPAY ==
[2022-03-19 18:01] VITALS: BP 105/66; PULSE 112; RESP 18; TEMP 36.6; O2SAT 98; BMI 40.4
[2022-03-19 18:34] LABS: Absolute Lymphocyte Count 1.56 X10^3/uL (0.83-4.51); Absolute Neutrophil Count 7.5 X10^3/uL (2.0-7.7); Basophil# 0.03 X10^3/uL; Basophil% 0.3 % (0-1); Eosinophil# 0.06 X10^3/uL; Eosinophils% 0.6 % (0-5); Hematocrit 41.7 % (37-47); Lymphocyte # 1.56 X10^3/ul (0.83-4.51); Lymphocyte % 15.4 % (19-41); Mean Corp Hgb Conc 31.2 g/dL (32-36); Mean Corpuscular Hgb 26.7 pg (27.0-32.0); Mean Corpuscular Volume 85.6 fL (81-99); Mean Platelet Vol. 12.7 fl (6.2-12.0); Monocyte# 0.94 X10^3/uL; Monocyte% 9.3 % (0-10); NRBC Flagged by Analyzer 0 % (0-5); Neutrophil # 7.47 X10^3/uL (2.7-7.7); Platelet Count 241 K/mm3 (150-450); RBC Distribution Width CV 14.6 % (11.6-14.6); RBC Distribution Width SD 45.5 fl (35.1-43.9); Red Blood Count 4.87 M/mm3 (4.2-5.4); White Blood Count 10.1 K/mm3 (4.4-11.0)
[2022-03-19 18:52] LABS: ALB/GLOB Ratio 0.8 RATIO (0.9-2.4); AST(SGOT) 89 U/L (15-37); Alanine Aminotransfer ALT/SGPT 65 U/L (13-56); Albumin, Serum 3.1 g/dL (3.2-5.0); Alkaline Phosphatase 299 U/L (45-117); Anion Gap 11 (5-15); BUN 16 mg/dL (7-18); BUN/Creat Ratio 16.7 RATIO (10-20); Calcium,Total 8.9 mg/dL (8.5-10.1); Chloride 99 mmol/L (98-107); Creatinine, Serum 0.96 mg/dL (0.55-1.02); EST Glomerular Filtration Rate 61 mL/min (>60); Est Glom Filt Rate - Afr Amer 74 mL/min (>60); Estimated Creatinine Clearance 74.06 ml/min; Globulin 3.9 g/dL (2.2-4.2); Glucose 257 mg/dL (74-106); Lipase 271 U/L (73-393); Potassium 3.9 mmol/L (3.5-5.1); Sodium Level 137 mmol/L (136-145)
[2022-03-19 19:33] LABS: Bacteria 0 SEEN /hpf (None Seen); Mucous, Urine 0 SEEN /hpf (<or=2+)
[2022-03-19 19:35] LABS: Glucose, Dipstick 100 mg/dl (Normal); Ketone-Dipstick 15 mg/dl (Negative); Leukocyte Esterase-Dipstick 100 /ul (Negative); Nitrite-Dipstick Positive (Negative); Occult Blood-Urine 10 /ul (Negative); Protein-Dipstick 100 mg/dl (Negative); Specific Gravity, Urine 1.015 (1.002-1.030); Urine Urobilinogen 8 mg/dl (Normal)
--- NOTE | 2022-03-19 19:39 | EX.ED.DYSGE1 ---
HPI History of Present Illness Chief Complaint: Abd Pain Narrative Narrative: 67-year-old female presenting with abdominal pain. She states in the left upper quadrant in the epigastrium. It is the exact same pain she has had since her previous admission. She still has nausea. She was told it was due to a massively pulling on her abdomen and she states it was initially better when she arrived home but now she does not have any pain medicine. She is not vomiting. She has been taking her antibiotics prescribed to her for pneumonia. She is post to follow-up with Dr. Bullock next week and pulmonology. She is also had a GI follow-up scheduled for this next month. Patient states she called her primary care provider for pain medicine and he sent her to the emergency room. [facility] Medical History Abnormal liver ultrasound Anemia Anxiety Arthritis Asthma Back problem Cataract Chronic bronchitis Chronic migraine Depression Diabetes Diabetes mellitus, type 2 Easy bruising Esophagitis Former smoker Heart murmur High cholesterol History of stress test Hypertension Injury of head and neck Low iron Migraines Neuropathy Obesity BRAXTON (obstructive sleep apnea) Proteinuria due to type 2 diabetes mellitus Rheumatoid arthritis Shortness of breath on exertion UTI (urinary tract infection) Vision loss of left eye Vision loss of right eye Vision problems Wears dentures Wears glasses Home Medications amitriptyline 10 mg tablet 50 mg PO QHS heart 01/16/16 [History Last Taken 03/13/22] metformin 1,000 mg tablet 1,000 mg PO BIDCM blood sugar 01/16/16 [History Last Taken 03/13/22] oxybutynin chloride 5 mg tablet 10 mg PO DAILY bladder 01/16/16 [History Last Taken 03/13/22] simvastatin 20 mg tablet 40 mg PO QHS cholesterol lowering 01/16/16 [History Last Taken 03/13/22] cyclobenzaprine 10 mg tablet 10 mg PO TID PRN PRN Pain 03/27/17 [History Last Taken 03/13/22] hydrocodone-acetaminophen 5-325mg 5mg-325mg 1 tab PO BID PRN Pain 12/13/20 [History Last Taken 03/13/22] ferrous sulfate 325 mg (65 mg iron) tablet 325 mg PO DAILY supplement 07/05/21 [History Last Taken 03/13/22] insulin aspart U-100 100 unit/mL (3 mL) subcutaneous pen 24 unit subcut TIDCM blood sugar 08/24/21 [History Last Taken 03/13/22] insulin glargine 100 unit/mL (3 mL) subcutaneous pen (Lantus Solostar U-100 Insulin) 68 unit subcut QPM DM 08/24/21 [History Last Taken 03/13/22] sertraline 50 mg tablet (Zoloft) 50 mg PO DAILY mood 09/09/21 [History Last Taken 03/13/22] dulaglutide 3 mg/0.5 mL subcutaneous pen injector (Trulicity) 1.5 mg subcut QWEEK dm 10/21/21 [History Last Taken 03/08/22] ergocalciferol (vitamin D2) 25,000 unit capsule 50,000 unit PO WE supplement 10/21/21 [History Last Taken 03/08/22] albuterol sulfate 90 mcg/actuation aerosol inhaler 2 puff inhalation Q4H PRN PRN sob 03/14/22 [History Last Taken Unknown] tiotropium bromide 2.5 mcg/actuation mist for inhalation (Spiriva Respimat) 2 puff inhalation DAILY PRN sob 03/14/22 [History Last Taken 3 Days Ago ~03/11/22] ursodiol 300 mg capsule 300 mg PO BID GI 03/14/22 [History Last Taken 03/13/22] vitamin E (dl, acetate) 180 mg (400 unit) capsule 180 mg PO BID supplement 03/14/22 [History Last Taken 03/13/22] levofloxacin 750 mg tablet 750 mg PO DAILY #6 tabs 03/15/22 [Rx Last Taken Unknown] hydrocodone-acetaminophen 5-325mg 5mg-325mg 1 tab PO Q6H 3 days #12 TABLETS 03/19/22 [Rx Last Taken Unknown] ondansetron 4 mg disintegrating tablet 4 mg PO Q8H PRN PRN Nausea #14 tabs 03/19/22 [Rx Last Taken Unknown] Allergy/AdvReac Type Severity Reaction Status Date / Time codeine Allergy Rash Verified 03/19/22 18:02 lisinopril AdvReac Angioedema Verified 03/19/22 18:02 naproxen AdvReac Other Verified 03/19/22 18:02 Family History Mother Diabetes Breast cancer Sister Diabetes CAD (coronary artery disease) Other Arthritis Surgical History History of cholecystectomy History of colonoscopy History of esophagogastroduodenoscopy (EGD) History of hysterectomy Social History Smoking Status: Former smoker alcohol intake: never substance use type: does not use what type of physical activity do you participate in: none ROS ROS ED Constitutional Constitutional ED: Denies chills, fever(s) or sweats Eyes Eyes: Denies blurry vision or change in vision ENT ENT ED: Denies ear pain or sore throat Cardiovascular Cardiovascular: Denies chest pain, palpitations or racing heartbeat Respiratory/Chest Respiratory/Chest: Denies cough, dyspnea or sputum Gastrointestinal Gastrointestinal: Reports abdominal pain and nausea; Denies constipation, diarrhea or vomiting Genitourinary Genitourinary ED: Denies dysuria, hematuria or urinary frequency Musculoskeletal Musculoskeletal: Denies arthralgias, myalgias or neck pain Integumentary Denies abscess, Abrasions or rash Neurologic Neurologic: Denies headache(s), paresthesias or weakness Psychiatric Psychiatric: Denies anxiety, depression, suicidal ideation or suicidal thoughts Endocrine Endocrinology: Denies polydipsia or polyuria EXAM Physical Exam Const Vital Signs: 03/19/22 18:01 03/19/22 20:02 Temperature 97.8 F Temperature Source Temporal Pulse Rate 112 H Respiratory Rate 18 16 Blood Pressure 105/66 Blood Pressure Mean 79 Pulse Ox 98 Oxygen Delivery Method Room Air Positive well nourished and obese General Appearance ED: NAD; Negative for pallor Nutritional Appearance: obese HEENT Reports moist mucous membranes Eyes PERRL and EOMs intact bilaterally Neck no lymphadenopathy Chest Wall inspection of chest normal and palpation of chest normal Cardio regular rhythm GI Palpation: tender epigastric and LUQ Extremity normal to inspection Neuro oriented x3 and CN's II-XII intact bilaterally Motor Exam: strength 5/5 throughout Psych mental status grossly normal Skin no rashes or lesions noted General Skin Exam: Negative for jaundice or pallor MDM MDM MDM Narrative Medical decision making narrative: Patient presenting with the pain that she has had since her previous admission. There is nothing new about it. The only problem is she does not have any pain medicine. She tried to request some from her primary care physician who sent her to the emergency room. Screening lab work was obtained and her CBC shows no leukocytosis. Hemoglobin hematocrit are stable. Platelets are normal. Renal function electrolytes within normal limits. Glucose 257 without anion gap. Bilirubin slightly elevated 1.4 however this is not new. Alkaline phosphatase slightly elevated at 299. Lipase normal at 271. Urinalysis positive nitrites however it is contaminated and there is no bacteria. Also this for culture. Patient currently on Levaquin. I will give her [place] and Zofran for home so she can make follow-up appointments outpatient. Return precautions discussed. Impression: 1. Abdominal pain 2. Nausea Lab Data Attestation: I reviewed the patient's lab results. Labs: Laboratory Results - last 24 hr 03/19/22 03/19/22 03/19/22 18:20 18:20 19:25 WBC 10.1 RBC 4.87 Hgb 13.0 Hct 41.7 MCV 85.6 MCH 26.7 L MCHC 31.2 L RDW Std Deviation 45.5 H RDW Coeff of Cari 14.6 Plt Count 241 MPV 12.7 H Immature Gran % (Auto) 0.400 Neut % (Auto) 74.0 H Lymph % (Auto) 15.4 L [place] % (Auto) 9.3 Eos % (Auto) 0.6 Baso % (Auto) 0.3 Absolute Neuts (auto) 7.5 Absolute Lymphs (auto) 1.56 Nucleated RBC % 0 Sodium 137 Potassium 3.9 Chloride 99 Carbon Dioxide 27.0 Anion Gap 11 BUN 16 Creatinine 0.96 Estim Creat Clear Calc 74.06 Est GFR (MDRD) Af Amer 74 Est GFR (MDRD) Non-Af 61 BUN/Creatinine Ratio 16.7 Glucose 257 H Calcium 8.9 Total Bilirubin 1.40 H AST 89 H ALT 65 H Alkaline Phosphatase 299 H Total Protein 7.0 Albumin 3.1 L Globulin 3.9 Albumin/Globulin Ratio 0.8 L Lipase 271 Urine Color RIKA Urine Clarity Sl Cloudy Urine pH 6.0 Ur Specific [place] 1.015 Urine Protein 100 H Urine Glucose (UA) 100 H Urine Ketones 15 H Urine Occult Blood 10 H Urine Nitrite Positive H Urine Bilirubin 3 H Urine Urobilinogen 8 H Ur Leukocyte Esterase 100 H Urine RBC 0-5 SEEN Urine WBC 5-10 SEEN Ur Squamous Epith Cells 5-10 SEEN Urine Bacteria 0 SEEN Hyaline Casts 0-5 SEEN Urine Mucus 0 SEEN Discharge Plan Triage Chief Complaint: Abd Pain ED Provider: Kuldeep Del Castillo Dx/Rx/DC Orders Instructions: ED Abdominal Pain Unkn Cause Fem Prescriptions: New ondansetron 4 mg tablet,disintegrating 4 mg PO Q8H PRN PRN (Reason: Nausea) Qty: 14 0RF hydrocodone-acetaminophen 5-325 mg tablet 1 tab PO Q6H 3 Days Qty: 12 0RF No Action ferrous sulfate 325 mg (65 mg iron) tablet 325 mg PO DAILY Lantus Solostar U-100 Insulin 100 unit/mL (3 mL) insulin pen 68 unit subcut QPM amitriptyline 10 MG tablet 50 mg PO QHS simvastatin 20 MG tablet 40 mg PO QHS metformin 1,000 MG tablet 1,000 mg PO BIDCM oxybutynin chloride 5 MG tablet 10 mg PO DAILY insulin aspart U-100 100 unit/mL (3 mL) insulin pen 24 unit subcut TIDCM cyclobenzaprine 10 MG tablet 10 mg PO TID PRN PRN (Reason: Pain) hydrocodone-acetaminophen 5-325 mg Tablet 1 tab PO BID PRN (Reason: Pain) sertraline [Zoloft] 50 mg Tablet 50 mg PO DAILY Trulicity 3 mg/0.5 mL pen injector 1.5 mg subcut QWEEK Rx Instructions: Sunday ergocalciferol (vitamin D2) 25,000 unit Capsule 50,000 unit PO WE ursodiol 300 mg capsule 300 mg PO BID vitamin E (dl, acetate) 180 mg (400 unit) capsule 180 mg PO BID albuterol sulfate 90 mcg/actuation HFA aerosol inhaler 2 puff INHALATION Q4H PRN PRN (Reason: sob) Label Comments: Inhale 2 Puffs as instructed every 4 hours as needed for wheezing/shortness of breath. Spiriva Respimat 2.5 mcg/actuation mist 2 puff INHALATION DAILY PRN (Reason: sob) Label Comments: Inhale 2 Puffs as instructed once daily. levofloxacin 750 mg tablet 750 mg PO DAILY Qty: 6 0RF Primary Care Provider: Jesus Garcia Referrals: Jesus Garcia MD [Primary Care Provider] - Disposition Disposition: Home, Self Care
[2022-03-19 19:40] LABS: Color, Urine AMBER (Yellow); Urine Bilirubin Dipstick 3 mg/dL (Negative); Urine Clarity Sl Cloudy (Clear)
[2022-03-19 19:55] LABS: Red Blood Cells-Urine 0-5 SEEN /hpf (0-5); Squamous Epithelial Cells - UA 5-10 SEEN /hpf (5-10); White Blood Cells 5-10 SEEN /hpf (0-5)
[2022-03-19 19:56] LABS: Hyaline Cast 0-5 SEEN /lpf (0-5)
[2022-03-19] MEDS: Morphine 4 MG/ML Syringe IV (20:01)
[2022-03-19] MEDS: Ondansetron 4 MG/2 ML Vial IV (20:01)
[2022-03-19 20:02] VITALS: RESP 16
== END 2022-03-19 21:16 | disposition home or self-care (01) ==
PROVIDERS: Emergency Provider Student in an Organized Health Care Education/Training Program; PCP Family Medicine; Visit Provider Student in an Organized Health Care Education/Training Program
DX: R10.12 Left upper quadrant pain (principal); E11.40 Type 2 diabetes mellitus with diabetic neuropathy, unspecified; Z79.4 Long term (current) use of insulin; R11.0 Nausea; E78.00 Pure hypercholesterolemia, unspecified; G47.33 Obstructive sleep apnea (adult) (pediatric); E66.9 Obesity, unspecified; Z79.899 Other long term (current) drug therapy; Z79.84 Long term (current) use of oral hypoglycemic drugs; Z87.891 Personal history of nicotine dependence
CPT/HCPCS: 80053; 81001; 83690; 85025; 87086; 96374; 96375; 99282; A4216; J2405

== ENCOUNTER 2022-03-31 10:51 | Day surgery (SDC) | payer MEDICARE, MEDICAID, SELFPAY ==
[2022-03-27 08:55] LABS: Platelet Count 250 K/mm3 (150-450)
[2022-03-27 09:08] LABS: International Normalized Ratio 1.1; Prothrombin Time (Protime)PT. 14.3 SECONDS (11.7-14.9)
[2022-03-27 09:09] LABS: Partial Thromboplast Time 31.3 Seconds (24.1-36.2)
--- NOTE | 2022-03-28 07:17 | HP.PCM_ITS ---
HPI - General HPI Narrative The patient is a 67-year-old male who was last seen in the pulmonary medicine clinic on March 23 in follow-up from a recent hospitalization. The patient was admitted to the hospital in March 2022 with abdominal pain and associated nausea and emesis.? She has reported history of COPD and cirrhosis of the liver.? The patient does have a prior smoking history, having quit completely 10+ years ago.? As part of her inpatient work-up, a dedicated chest CT was obtained which revealed a right perihilar lung mass with consolidation in the right middle lobe and mediastinal lymphadenopathy.? The patient was treated with antimicrobials for potential postobstructive pneumonia. The patient has an approximate [id number] smoking history.? She did have spirometry completed through [facility] in December 2021, which apparently demonstrated no evidence of obstruction, but suggested the possibility of a restrictive impairment.? However, lung volumes were not completed to confirm this assertion.? The patient, despite the aforementioned PFT results, is currently utilizing Spiriva and as needed albuterol.? [facility] Medical History Abnormal liver ultrasound Anemia Anxiety Arthritis Asthma Back problem Cataract Chronic bronchitis Chronic migraine Cirrhosis Depression Diabetes Diabetes mellitus, type 2 Easy bruising Esophagitis Former smoker Heart murmur High cholesterol History of stress test Hypertension Injury of head and neck Low iron Migraines Neuropathy Obesity BRAXTON (obstructive sleep apnea) Proteinuria due to type 2 diabetes mellitus Rheumatoid arthritis Shortness of breath on exertion UTI (urinary tract infection) Vision loss of left eye Vision loss of right eye Vision problems Wears dentures Wears glasses Home Medications amitriptyline 10 mg tablet 50 mg PO QHS heart 01/16/16 [History Last Taken 03/13/22] metformin 1,000 mg tablet 1,000 mg PO BIDCM blood sugar 01/16/16 [History Last Taken 03/13/22] oxybutynin chloride 5 mg tablet 10 mg PO DAILY bladder 01/16/16 [History Last Taken 03/13/22] simvastatin 20 mg tablet 40 mg PO QHS cholesterol lowering 01/16/16 [History Last Taken 03/13/22] cyclobenzaprine 10 mg tablet 10 mg PO TID PRN PRN Pain 03/27/17 [History Last Taken 03/13/22] ferrous sulfate 325 mg (65 mg iron) tablet 325 mg PO DAILY supplement 07/05/21 [History Last Taken 03/13/22] insulin aspart U-100 100 unit/mL (3 mL) subcutaneous pen 24 unit subcut TIDCM blood sugar 08/24/21 [History Last Taken 03/13/22] insulin glargine 100 unit/mL (3 mL) subcutaneous pen (Lantus Solostar U-100 Insulin) 68 unit subcut QPM DM 08/24/21 [History Last Taken 03/13/22] sertraline 50 mg tablet (Zoloft) 50 mg PO DAILY mood 09/09/21 [History Last Taken 03/13/22] dulaglutide 3 mg/0.5 mL subcutaneous pen injector (Trulicity) 1.5 mg subcut QWE EK dm 10/21/21 [History Last Taken 03/08/22] ergocalciferol (vitamin D2) 25,000 unit capsule 50,000 unit PO WE supplement 10/21/21 [History Last Taken 03/08/22] albuterol sulfate 90 mcg/actuation aerosol inhaler 2 puff inhalation Q4H PRN PRN sob 03/14/22 [History Last Taken Unknown] tiotropium bromide 2.5 mcg/actuation mist for inhalation (Spiriva Respimat) 2 puff inhalation DAILY PRN sob 03/14/22 [History Last Taken 3 Days Ago ~03/11/22] ursodiol 300 mg capsule 300 mg PO BID GI 03/14/22 [History Last Taken 03/13/22] vitamin E (dl, acetate) 180 mg (400 unit) capsule 180 mg PO BID supplement [History Last Taken 03/13/22] hydrocodone-acetaminophen 5-325mg 5mg-325mg 1 tab PO Q6H 3 days #12 TABLETS 03/19/22 [Rx Last Taken Unknown] ondansetron 4 mg disintegrating tablet 4 mg PO Q8H PRN PRN Nausea #30 tabs 03/27/22 [Rx Last Taken Unknown] pantoprazole 40 mg tablet,delayed release (Protonix) 40 mg PO BID #60 tabs 03/27/22 [Rx Last Taken Unknown] sucralfate 100 mg/mL oral suspension (Carafate) 10 ml PO QAC #1,000 mL 03/27/22 [Rx Last Taken Unknown] Allergy/AdvReac Type Severity Reaction Status Date / Time codeine Allergy Rash Verified 03/23/22 08:33 lisinopril AdvReac Angioedema Verified 03/23/22 08:33 naproxen AdvReac Other Verified 03/23/22 08:33 Family History Mother Diabetes Breast cancer Sister Diabetes CAD (coronary artery disease) Other Arthritis Surgical History History of cholecystectomy History of colonoscopy History of esophagogastroduodenoscopy (EGD) History of hysterectomy Social History Smoking Status: Former smoker alcohol intake: never substance use type: does not use what type of physical activity do you participate in: none ROS ROS Narrative 10 systems were reviewed with pertinent positives as noted in the HPI above. Physical Exam Const alert and no apparent distress General Appearance: cooperative HEENT normocephalic and head/scalp atraumatic Eyes PERRL and EOMs intact bilaterally Neck supple General: trachea midline Resp normal respiratory effort Auscultation: Negative for rales, rhonchi or wheezes Cardio regular rate and regular rhythm GI normal to inspection, nondistended, normoactive bowel sounds Extremity no clubbing, cyanosis or edema Skin Lesions: no lesions Rashes: no rashes Neuro CN's II-XII intact bilaterally and no focal motor deficits Psych cooperative and affect normal Results Lab / Micro Data Result Diagrams: 03/27/22 08:28 Labs: Laboratory Results - last 24 hr 03/27/22 08:28: Plt Count 250 03/27/22 08:28: PT 14.3, INR 1.1, APTT 31.3 Assessment & Plan Assessment/Plan (1) Mass of right lung: PLAN: Plan The patient was recently hospitalized with abdominal pain.? As part of her work- up, a CT chest was obtained which demonstrated a right perihilar lung mass with consolidation in the right middle lobe and associated mediastinal lymphadenopathy.? The patient was treated for postobstructive pneumonia.? She has completed her antibiotic treatment course.? In light of the aforementioned findings, I did discuss the possibility of proceeding with airway evaluation and mediastinal lymph node sampling via EBUS.? Risks and benefits of the pros procedure were discussed with the patient.? Questions were answered acco rdingly.? The patient is agreement to proceed.
--- NOTE | 2022-03-31 | IMM_PTH ---
PATIENT: GLEN MOON LOC: EN U#:[id number] AGE/SX: 67/F ROOM: RE03/31/[address]: Dr. Hussein Bullock DO : 1955 BED: DIS: 03/31/2022 SPEC #: [id number] RECD: 04/03/22 12:51 STATUS: CHANTAL REQ #: [id number] ELIZABET: 03/31/22 00:[address]: Hussein Bullock DEPT: IMMUNOHISTOCHEMISTRY RECD BY: Olivia Vences ENTERED: 04/03/22 12:53 SP TYPE: IMMUNO OTHR DR: Dr. Jesus Garcia MD Tissues: E - Lung, NOS Procedures: Synapto (add) CD45 (add) CD56 (add) CHROMO (add) CK20 (add) CK7 (add) CK8 (add) KI-67 (add) TTF1 (add) Pankeratin (initial) [facility]YSICIAN [facility]STIT[facility] [address] [address] SPECIMEN INFORMATION: Tissue Source: E - EBUS, TBNA, site 7 fluid (cell block) Clinical Info: Right lung mass, mediastinal lymphadenopathy Specimen Number: [id number] CPT code: 02526, 33486 x9 METHODOLOGY: Deparaffinized sections of prefer/formalin-fixed tissue or PAP/DQ stained slides are incubated with monoclonal/polyclonal antibodies/oligonucleotide probes. Localization is made via biotin free immunoperoxidase method. Appropriate controls are performed and reacted as expected. Results on target cell population are indicated in the following table: RESULTS: ANTIBODY / CLONE RESULT Block E AE1-3 (AE1/AE3/PCK26) positive, focal CK7 (OV-TL12/30) negative CK8 (07fcvwO09) positive, focal CK20 (KS20.8) negative CD45 (RP2/18) negative CD56 (123C3.D5) positive Chromo (LK2H10) positive Synapto (polyclonal) positive TTF-1 (8G7G3/1) positive Ki-67 (30-9) positive, high, >95% These tests were developed and their performance characteristics determined by [facility]. They may not have been cleared or approved by the U.S. Food and Drug Administration. The FDA has determined that such clearance or approval is not necessary. The above immunohistochemical/dualISH markers are ordered and reviewed by the Pathologist. INTERPRETATION: E. EBUS, TBNA, site 7 fluid (cell block): Metastatic small cell neuroendocrine carcinoma. SJ:dimas 04/04/2022
[2022-03-31 11:17] VITALS: BP 104/89; PULSE 108; RESP 16; TEMP 35.9; O2SAT 99; BMI 39.6
[2022-03-31] MEDS: Insulin Lispro 100 UNIT/ML INSULN.PEN 12 UNIT SC (11:48)
[2022-03-31] MEDS: Lidocaine Jelly 2% 20 ML Syringe (URO-JET) 1 APPLIC (12:30)
--- NOTE | 2022-03-31 12:30 | ASPIG_PTH ---
PATIENT: GLEN MOON LOC: EN U#:[id number] AGE/SX: 67/F ROOM: RE03/31/[address]: Dr. Hussein Bullock DO : 1955 BED: DIS: 03/31/2022 SPEC #: [id number] RECD: 03/31/22 13:05 STATUS: CHANTAL DOUG #: [id number] ELIZABET: 03/31/22 12:[address]: Hussein Bullock DEPT: CYTOLOGY RECD BY: Maria Fernanda Conner ENTERED: 03/31/22 13:06 SP TYPE: ASP OUT OTHR DR: Dr. Jesus Garcia MD Tissues: Lung, NOS Procedures: FNA Specimen Adequacy Special Stain Group II Surgery Specimen Level IV Cytology Other HEADER OPERATION: Endobronchial ultrasound with TBNA PRE-OP DIAGNOSIS: Mass of right lung, mediastinal lymphadenopathy TISSUE SUBMITTED: A - EBUS, TBNA, site 7 #1, B - EBUS, TBNA, site 7 #2, C - EBUS, TBNA, site 10R #3, D - EBUS, TBNA, site 10R #4, E - EBUS, TBNA, site 7, F - EBUS, TBNA, site 10R DIAGNOSIS CYTOLOGY A. EBUS, TBNA, site 7 #1 (smears): Positive for malignant cells derived from small cell carcinoma. B. EBUS, TBNA, site 7 #2 (smears): Positive for malignant cells derived from small cell carcinoma. C. EBUS, TBNA, site 10R #3 (smears): Positive for malignant cells derived from small cell carcinoma. D. EBUS, TBNA, site 10R #4 (smears): Negative for malignant cells, predominantly respiratory epithelial cells. E. EBUS, TBNA, site 7 fluid (cell block): Metastatic small cell neuroendocrine carcinoma. See comment. F. EBUS, TBNA, site 10R fluid (cell block): Metastatic small cell neuroendocrine carcinoma. SJ:dimas 04/03/2022 COMMENT The specimen is evaluated at the time of procedure by Dr. Weeks. Rapid On-Site Evaluation: A. EBUS, TBNA, site 7 #1 - Positive for malignant cells derived from small cell carcinoma. B. EBUS, TBNA, site 7 #2 - Positive for malignant cells derived from small cell carcinoma. C. EBUS, TBNA, site 10R #3 - Positive for malignant cells derived from small cell carcinoma. D. EBUS, TBNA, site 10R #4 - Negative for malignant cells, predominantly respiratory epithelial cells. E. Immunohistochemistry ([id number]) supports the above diagnosis. Case has been reviewed in consultation with Dr. Sosa who concurs with the above diagnosis. IDC:AM CYTOLOGY STUDY Slides are reviewed. CYTOLOGY GROSS A - Received labeled with the patient's name and and designated EBUS, TBNA, site 7 #1. The specimen consists of two stained smears for RICARDO (Rapid On-Site Evaluation). B - Received labeled with the patient's name and and designated EBUS, TBNA, site 7 #2. The specimen consists of two stained smears for RICARDO. C - Received labeled with the patient's name and and designated EBUS, TBNA, site 10R #3. The specimen consists of two stained smears for RICARDO. D - Received labeled with the patient's name and and designated EBUS, TBNA, site 10R #4. The specimen consists of two stained smears for RICARDO. E - Received in RPMI is 20 ml of pink, needle rinsed fluid labeled with the patient's name and and designated EBUS, TBNA, site 7. The specimen is submitted for cell block preparation. F - Received in RPMI is 20 ml of pink, needle rinsed fluid labeled with the patient's name and and designated EBUS, TBNA, site 10R. The specimen is submitted for cell block preparation. / SJ:rg 03/31/2022 TC:0 CPT: 99700 x2, 56454 x2, 73812 x4
[2022-03-31 13:03] VITALS: BP 104/89; BP 106/68; PULSE 102; RESP 17; TEMP 36.2; O2SAT 97
--- NOTE | 2022-03-31 13:11 | OP.BRONCH_ITS ---
Patient Name: Krystina Day Procedure Date: 03/31/2022 11:38 AM Date of : 1955 Age: 67 Procedure: Bronchoscopy Indications: Mediastinal adenopathy, Lung mass suspicious for cancer Providers: Hussein Bullock MD Referring MD: Hussein Bullock MD Complications: No immediate complications Procedure: Pre-Anesthesia Assessment: - A History and Physical has been performed. Patient meds and allergies have been reviewed. The risks and benefits of the procedure and the sedation options and risks were discussed with the patient. All questions were answered and informed consent was obtained. Patient identification and proposed procedure were verified prior to the procedure by the physician and the nurse in the procedure room. Mental Status Examination: alert and oriented. Airway Examination: normal oropharyngeal airway. Respiratory Examination: poor air movement. CV Examination: normal. ASA Grade Assessment: III - A patient with severe systemic disease. After reviewing the risks and benefits, the patient was deemed in satisfactory condition to undergo the procedure. The anesthesia plan was to use general anesthesia. Immediately prior to administration of medications, the patient was re-assessed for adequacy to receive sedatives. The heart rate, respiratory rate, oxygen saturations, blood pressure, adequacy of pulmonary ventilation, and response to care were monitored throughout the procedure. The physical status of the patient was re-assessed after the procedure. After I obtained informed consent, the scope was passed under direct vision. Throughout the procedure, the patient's blood pressure, pulse, and oxygen saturations were monitored continuously. The ultrasound bronchoscope was introduced through the mouth, via laryngeal mask airway and advanced to the tracheobronchial tree. The bronchoscope was introduced through the mouth, via laryngeal mask airway and advanced to the tracheobronchial tree. The procedure was accomplished without difficulty. The patient tolerated the procedure well. Findings: The laryngeal mask airway is in good position. The vocal cords appear normal. The subglottic space is normal. The trachea is of normal caliber. The quin is sharp. The tracheobronchial tree of the left lung was examined to at least the first subsegmental level. Bronchial mucosa and anatomy are normal; there are no endobronchial lesions, and no secretions. Right Lung Abnormalities: Extrinsic compression was found in the bronchus intermedius. The airway is moderately narrowed. The lesion was successfully traversed. The scope was withdrawn and replaced with the EBUS bronchoscope to accomplish the ultrasound examination. Lymph Nodes: An endobronchial ultrasound endoscope was utilized to systematically examine the subcarinal mediastinum (level 7) and right hilar region (level 10R) in order to assist with guiding the biopsy needle. Lymph node sizing was performed via endobronchial ultrasound for suspected lung cancer. Sampling by transbronchial needle aspiration was also performed using an Olympus EBUS-TBNA 19 gauge needle in the subcarinal mediastinum (level 7) and right hilar region (level 10R) and sent for routine cytology. - The 7 (subcarinal) node was evaluated. Two samples with the needle were obtained. - The 10R (hilar) node was evaluated. Two samples with the needle were obtained. Lymph Nodes: Rapid On-Site Evaluation (RICARDO): Preliminary cytology was suggestive of small cell carcinoma (final results are pending) Impression: - Mediastinal adenopathy - Lung mass suspicious for cancer - The airway examination of the left lung was normal. - Extrinsic compression was found in the bronchus intermedius. - Endobronchial ultrasound was performed. - Lymph node sizing and sampling was performed. - Rapid On-Site Evaluation (RICARDO): Preliminary cytology was suggestive of small cell carcinoma. Recommendation: - Await biopsy results. Procedure Code(s): --- Professional --- 86057, Bronchoscopy, rigid or flexible, including fluoroscopic guidance, when performed; with endobronchial ultrasound (EBUS) guided transtracheal and/or transbronchial sampling (eg, aspiration[s]/biopsy[ies]), one or two mediastinal and/or hilar lymph node stations or structures Diagnosis Code(s): --- Professional --- R59.0, Localized enlarged lymph nodes R91.8, Other nonspecific abnormal finding of lung field CPT copyright 2017 [employer] [place] [employer]. All rights reserved. The codes documented in this report are preliminary and upon drug department worker review may be revised to meet current compliance requirements. DO Hussein Pires MD 03/31/2022 1:11:34 PM This report has been signed electronically. Number of Addenda: 0 Note Initiated On: 03/31/2022 11:38 AM
[2022-03-31 13:15] VITALS: BP 104/89; BP 107/79; PULSE 104; RESP 16; O2SAT 99
[2022-03-31 13:25] LABS: Bedside Glucose 372 mg/dL (74-106)
[2022-03-31 13:30] VITALS: BP 104/89; BP 132/69; PULSE 112; RESP 18; O2SAT 93
[2022-03-31 13:45] VITALS: BP 104/89; BP 114/79; PULSE 108; RESP 17; TEMP 36.1; O2SAT 91
[2022-03-31 14:24] VITALS: BP 104/89; RESP 16; O2SAT 96
[2022-04-03 11:05] LABS: Bedside Glucose 436 mg/dL (74-106)
[2022-04-03 11:05] LABS: Bedside Glucose 394 mg/dL (74-106)
== END 2022-03-31 14:28 | disposition home or self-care (01) ==
LOC: EN 10:52 → AC 10:54
PROVIDERS: PCP Family Medicine; Referring Provider Internal Medicine Critical Care Medicine; Visit Provider Internal Medicine Critical Care Medicine
PROC: BB4BZZZ Ultrasonography of Pleura (ICD-10-PCS; CPT 31652; principal; 2022-03-31 11:30)
DX: C7A.8 Other malignant neuroendocrine tumors (principal); E11.40 Type 2 diabetes mellitus with diabetic neuropathy, unspecified; Z79.4 Long term (current) use of insulin; K76.89 Other specified diseases of liver; F41.9 Anxiety disorder, unspecified; F32.A Depression, unspecified; E78.00 Pure hypercholesterolemia, unspecified; K21.9 Gastro-esophageal reflux disease without esophagitis; K75.81 Nonalcoholic steatohepatitis (NASH); J45.909 Unspecified asthma, uncomplicated; Z79.899 Other long term (current) drug therapy; Z87.891 Personal history of nicotine dependence; Z79.84 Long term (current) use of oral hypoglycemic drugs; Z86.16 Personal history of COVID-19
CPT/HCPCS: 31652; 36415; 82962; 85049; 85610; 85730; 88161; 88172; 88305; 88313; J7120; J2405

== ENCOUNTER 2022-03-31 19:02 | Inpatient (IN) | payer MEDICARE, MEDICAID, SELFPAY ==
[2022-03-31 19:02] VITALS: BP 120/52; PULSE 114; RESP 18; TEMP 36.2; O2SAT 98; BMI 39.4
--- NOTE | 2022-03-31 20:43 | CT_ITS ---
STUDY: CT ABDOMEN AND PELVIS WITHOUT CONTRAST REASON FOR EXAM: Female, 67 years old. Abdominal pain for multiple days with bloating. Patient appears jaundice. Diagnosed with lung cancer after bronchoscopy. 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 History of cholecystectomy and hysterectomy. RADIATION DOSAGE (If Supplied By Facility): CTDIvol = ( 18.49 ) mGy, DLP = ( 896.24 ) mGycm TECHNIQUE: Transaxial images were obtained from the dome of the diaphragm to the symphysis pubis without oral contrast, and without intravenous contrast. Sagittal and coronal images were reconstructed. Individualized dose optimization techniques were used for this CT. COMPARISON: CT the abdomen and pelvis, March 14, 2022. FINDINGS: Complete collapse of the right middle lobe. The lungs are otherwise clear. The visualized portions of the heart are within normal limits. Cirrhotic appearing liver without focal mass. Recannulization of the umbilical vein. There are surgical clips in the gallbladder fossa consistent with a prior cholecystectomy. Normal spleen. Total fatty replacement of pancreas. Normal bilateral adrenal glands. Normal right kidney. Normal left kidney. Well-visualized ureters. Marked gastroesophageal and gastrohepatic ligament varices. The stomach is grossly normal. Normal small intestine. Normal colon. There is non-visualization of the appendix. There is diffuse atherosclerotic calcification of the abdominal aorta, without a demonstrated aneurysm. Normal inferior vena cava. Normal retroperitoneum. Collapsed urinary bladder. Unremarkable vaginal cuff. There is mild diffuse ascites without free air. Normal abdominal wall. Degenerative changes of the lumbar spine and hips. CT/Abdomen/Pelvis without Cont IMPRESSION: 1. In development of ascites since the previous study. 2. No other major interval change when compared to March 14, 2022. Electronically Signed: Ronen Loera DO at 22:18 EST ,
[2022-03-31] MEDS: 0.9% Normal Saline 1,000 ML 1000 ML IV (21:26)
[2022-03-31 21:32] LABS: Mucous, Urine 0 SEEN /hpf (<or=2+); Red Blood Cells-Urine 0 SEEN /hpf (0-5)
[2022-03-31 21:37] LABS: Absolute Lymphocyte Count 1.81 X10^3/uL (0.83-4.51); Absolute Neutrophil Count 12.5 X10^3/uL (2.0-7.7); Basophil# 0.05 X10^3/uL; Basophil% 0.3 % (0-1); Color, Urine Amber (Yellow); Eosinophil# 0.08 X10^3/uL; Eosinophils% 0.5 % (0-5); Glucose, Dipstick 100 mg/dl (Normal); Hematocrit 42.1 % (37-47); Ketone-Dipstick 5 mg/dl (Negative); Leukocyte Esterase-Dipstick 25 /ul (Negative); Lymphocyte # 1.81 X10^3/ul (0.83-4.51); Lymphocyte % 11.5 % (19-41); Mean Corp Hgb Conc 33.3 g/dL (32-36); Mean Corpuscular Hgb 27.6 pg (27.0-32.0); Mean Corpuscular Volume 82.9 fL (81-99); Monocyte# 1.26 X10^3/uL; NRBC Flagged by Analyzer 0 % (0-5); Neutrophil # 12.47 X10^3/uL (2.7-7.7); Neutrophil % 79.3 % (47-70); Nitrite-Dipstick Positive (Negative); Occult Blood-Urine 25 /ul (Negative); Platelet Count 271 K/mm3 (150-450); Protein-Dipstick 30 mg/dl (Negative); RBC Distribution Width SD 56.5 fl (35.1-43.9); Red Blood Count 5.08 M/mm3 (4.2-5.4); Specific Gravity, Urine 1.025 (1.002-1.030); Urine Clarity Cloudy (Clear); Urine Urobilinogen 12 mg/dl (Normal); White Blood Count 15.7 K/mm3 (4.4-11.0)
[2022-03-31 21:48] LABS: Urine Bilirubin Dipstick 6 mg/dL (Negative)
[2022-03-31 21:52] LABS: Bacteria 4+ /hpf (None Seen); Hyaline Cast 0-5 SEEN /lpf (0-5); Squamous Epithelial Cells - UA 0-5 SEEN /hpf (5-10); White Blood Cells 10-25 SEEN /hpf (0-5)
[2022-03-31 22:03] LABS: AST(SGOT) 187 U/L (15-37); Alanine Aminotransfer ALT/SGPT 79 U/L (13-56); Albumin, Serum 2.8 g/dL (3.2-5.0); Alkaline Phosphatase 714 U/L (45-117); Anion Gap 11 (5-15); BUN 25 mg/dL (7-18); Bilirubin, Direct 6.82 mg/dL (0.00-0.30); Calcium,Total 9.3 mg/dL (8.5-10.1); Chloride 92 mmol/L (98-107); Creatinine, Serum 1.39 mg/dL (0.55-1.02); EST Glomerular Filtration Rate 40 mL/min (>60); Est Glom Filt Rate - Afr Amer 48 mL/min (>60); Estimated Creatinine Clearance 49.78 ml/min; Globulin 4.5 g/dL (2.2-4.2); Glucose 359 mg/dL (74-106); Lipase 338 U/L (73-393); Potassium 5.7 mmol/L (3.5-5.1); Protein, Total 7.3 g/dL (6.4-8.2); Sodium Level 131 mmol/L (136-145)
--- NOTE | 2022-03-31 22:19 | EDS_ITS ---
HPI HPI - GI History of Present Illness Chief Complaint: Abd Pain Informant: patient and family Abdominal Pain/Flank Pain Onset: Weeks (2-3) Context: Gradual Onset Timing: Continuous Quality: Aching Location: Diffuse Worsened by: Nothing Relieved by: Nothing Nausea/Vomiting/Emesis GI Symptom: Positive for Nausea and Vomiting Quality: Positive for Nonbilious; Negative for Blood streaks, Coffee ground or Hematemesis Diarrhea/Melena/Hematochezia GI Symptom: Negative for Diarrhea, Melena or Hematochezia Associated Symptoms Associated Symptoms: Negative for Dysuria, Frequency or Hematuria Narrative Narrative: Presents with abdominal pain that has been getting worse over the past 2 to 3 weeks. Patient states it is gradually getting worse. Patient states she started having some nausea and vomiting today. Patient denies any hematemesis or coffee-ground emesis. Patient states her pain is diffuse across her abdomen. Patient describes it as aching. Patient states it is constant. Patient states she had a lung biopsy today and her pain became worse after she got home from that. Patient does not feel it is related to her lung biopsy. Patient states that she was told that her biopsy was positive for cancer which caused some increase in her anxiety. [facility] Medical History Ambulates with cane Anemia Anxiety Arthritis Asthma Back problem Bladder disease Chronic bronchitis Cirrhosis COPD (chronic obstructive pulmonary disease) Depression Diabetes Diabetes mellitus, type 2 Dietary restriction Easy bruising Esophagitis Former smoker Gastric reflux Heart murmur High cholesterol History of stress test Injury of head and neck Insulin dependent diabetes mellitus Low iron JACOME (nonalcoholic steatohepatitis) Obesity Proteinuria due to type 2 diabetes mellitus Rheumatoid arthritis Shortness of breath on exertion Walker as ambulation aid Wears dentures Wears glasses Home Medications amitriptyline 10 mg tablet 50 mg PO QHS heart 01/16/16 [History Last Taken 03/13/22] metformin 1,000 mg tablet 1,000 mg PO BIDCM blood sugar 01/16/16 [History Last Taken 03/13/22] oxybutynin chloride 5 mg tablet 10 mg PO DAILY bladder 01/16/16 [History Last Taken 03/13/22] simvastatin 20 mg tablet 40 mg PO QHS cholesterol lowering 01/16/16 [History Last Taken 03/13/22] cyclobenzaprine 10 mg tablet 10 mg PO TID PRN PRN Pain 03/27/17 [History Last Taken 03/13/22] ferrous sulfate 325 mg (65 mg iron) tablet 325 mg PO DAILY supplement 07/05/21 [History Last Taken 03/13/22] insulin aspart U-100 100 unit/mL (3 mL) subcutaneous pen 24 unit subcut TIDCM blood sugar 08/24/21 [History Last Taken 03/13/22] insulin glargine 100 unit/mL (3 mL) subcutaneous pen (Lantus Solostar U-100 Insulin) 68 unit subcut QPM DM 08/24/21 [History Last Taken 03/13/22] sertraline 50 mg tablet (Zoloft) 50 mg PO DAILY mood 09/09/21 [History Last Taken 03/13/22] dulaglutide 3 mg/0.5 mL subcutaneous pen injector (Trulicity) 1.5 mg subcut QWEEK dm 10/21/21 [History Last Taken 03/08/22] ergocalciferol (vitamin D2) 25,000 unit capsule 50,000 unit PO WE supplement 10/21/21 [History Last Taken 03/08/22] albuterol sulfate 90 mcg/actuation aerosol inhaler 2 puff inhalation Q4H PRN PRN sob 03/14/22 [History Last Taken Unknown] tiotropium bromide 2.5 mcg/actuation mist for inhalation (Spiriva Respimat) 2 puff inhalation DAILY PRN sob 03/14/22 [History Last Taken 3 Days Ago ~03/11/22] ursodiol 300 mg capsule 300 mg PO BID GI 03/14/22 [History Last Taken 03/13/22] vitamin E (dl, acetate) 180 mg (400 unit) capsule 180 mg PO BID supplement 03/14/22 [History Last Taken 03/13/22] hydrocodone-acetaminophen 5-325mg 5mg-325mg 1 tab PO Q6H 3 days #12 TABLETS 03/19/22 [Rx Last Taken Unknown] pantoprazole 40 mg tablet,delayed release (Protonix) 40 mg PO BID #60 tabs 03/27/22 [Rx Last Taken Unknown] sucralfate 100 mg/mL oral suspension (Carafate) 10 ml PO QAC #1,000 mL 03/27/22 [Rx Last Taken Unknown] ondansetron 4 mg disintegrating tablet 4 mg translingual Q8H NAUSEA 03/28/22 [History Last Taken 03/31/22] Allergy/AdvReac Type Severity Reaction Status Date / Time codeine Allergy Rash Verified 03/31/22 11:15 lisinopril AdvReac Angioedema Verified 03/31/22 11:15 naproxen AdvReac Other Verified 03/31/22 11:15 Family History Mother Diabetes Breast cancer Sister Diabetes CAD (coronary artery disease) Other Arthritis Surgical History History of cholecystectomy History of colonoscopy History of esophagogastroduodenoscopy (EGD) History of hysterectomy Hx of left cataract extraction Hx of right cataract extraction Social History Smoking Status: Former smoker alcohol intake: never substance use type: does not use what type of physical activity do you participate in: none ROS ROS ED Constitutional Constitutional ED: Denies chills or fever(s) Eyes Eyes: Reports blurry vision; Denies diplopia ENT ENT ED: Denies rhinorrhea or sore throat Cardiovascular Cardiovascular: Reports chest pain; Denies palpitations Respiratory/Chest Respiratory/Chest: Reports dyspnea; Denies cough Gastrointestinal Gastrointestinal: Reports abdominal pain, nausea and vomiting; Denies diarrhea or melena Genitourinary Genitourinary ED: Denies dysuria or hematuria Musculoskeletal Musculoskeletal: Denies back pain or neck pain Integumentary Denies abscess or rash Neurologic Neurologic: Reports headache(s); Denies weakness Allergic/Immunologic Allergic/Immunologic ED: Denies mouth swelling or urticaria EXAM Physical Exam Const Vital Signs: 03/31/22 19:02 03/31/22 23:30 Temperature 97.2 F L Temperature Source Temporal Pulse Rate 114 H 99 Respiratory Rate 18 19 H Blood Pressure 120/52 L 137/57 H Blood Pressure Mean 74 83 Pulse Ox 98 98 Oxygen Delivery Method Room Air Room Air Positive well nourished, well developed and obese General Appearance ED: well developed and NAD Nutritional Appearance: obese HEENT Reports moist mucous membranes Neck supple and no JVD Resp normal respiratory effort and clear to auscultation bilaterally Cardio regular rate, regular rhythm and no murmurs GI Inspection: abdominal distention and other Other Details: There is ascites with positive fluid wave noted. Auscultation: normoactive bowel sounds Palpation: soft and tender epigastric, LLQ, RLQ, LUQ, RUQ, periumbilical and suprapubic; Negative for guarding or rebound tenderness present Extremity normal to inspection General Extremety ED: Negative for edema or tenderness General Extremity: Negative for edema Neuro oriented x3, CN's II-XII intact bilaterally and no sensory deficits noted Sensorium / Orientation: alert Motor Exam: strength 5/5 throughout Psych mental status grossly normal Skin no rashes or lesions noted MDM MDM MDM Narrative Medical decision making narrative: Differential diagnosis includes cirrhosis, bowel obstruction, perforation, hepatitis, pancreatitis, colitis, urinary tract infection, and gastroenteritis. CBC will be obtained to assess for leukocytosis and anemia. Comprehensive metabolic profile will be obtained to assess for hepatic function, renal function, and electrolyte abnormality. Lipase will be obtained to assess for pancreatitis. Urinalysis will be obtained to assess for urinary tract infection. Lab Data Attestation: I reviewed the patient's lab results. Lab results narrative: CBC was reviewed and showed a mild leukocytosis of 15.7. Platelets were normal. Comprehensive metabolic profile was reviewed. BUN was slightly elevated at 25 and creatinine was 1.39. Potassium was slightly elevated at 5.7. Glucose was elevated at 359. Total bilirubin was elevated at 9.2 and direct bilirubin was 6.82. AST was 187 and ALT was 79. Alk phos was elevated at 714. Lipase was reviewed and was normal at 338. Urine Alysis was reviewed. Leukocyte esterase was 25 with positive nitrites. There were 10-25 white blood cells and 4+ bacteria. Urine culture was ordered. Labs: Laboratory Results - last 24 hr 03/31/22 03/31/22 03/31/22 20:59 20:59 20:59 WBC 15.7 H RBC 5.08 Hgb 14.0 Hct 42.1 MCV 82.9 MCH 27.6 MCHC 33.3 RDW Std Deviation 56.5 H RDW Coeff of Cari 20.0 H Plt Count 271 MPV TNP Immature Gran % (Auto) 0.400 Neut % (Auto) 79.3 H Lymph % (Auto) 11.5 L [place] % (Auto) 8.0 Eos % (Auto) 0.5 Baso % (Auto) 0.3 Absolute Neuts (auto) 12.5 H Absolute Lymphs (auto) 1.81 Nucleated RBC % 0 Sodium 131 L Potassium 5.7 H Chloride 92 L Carbon Dioxide 28.0 Anion Gap 11 BUN 25 H Creatinine 1.39 H Estim Creat Clear Calc 49.78 Est GFR (MDRD) Af Amer 48 L Est GFR (MDRD) Non-Af 40 L BUN/Creatinine Ratio 18.0 Glucose 359 H Calcium 9.3 Total Bilirubin 9.20 H Direct Bilirubin 6.82 H AST 187 H ALT 79 H Alkaline Phosphatase 714 H Total Protein 7.3 Albumin 2.8 L Globulin 4.5 H Lipase 338 Urine Color Ivette Urine Clarity Cloudy Urine pH 5.0 Ur Specific [place] 1.025 Urine Protein 30 H Urine Glucose (UA) 100 H Urine Ketones 5 H Urine Occult Blood 25 H Urine Nitrite Positive H Urine Bilirubin 6 H Urine Urobilinogen 12 H Ur Leukocyte Esterase 25 H Urine RBC 0 SEEN Urine WBC 10-25 SEEN Ur Squamous Epith Cells 0-5 SEEN Urine Bacteria 4+ Hyaline Casts 0-5 SEEN Urine Mucus 0 SEEN Radiography Diagnostic Testing: Clinical Impression(s) from Imaging Studies Abdomen/Pelvis CT 03/31/22 20:43 IMPRESSION: 1. In development of ascites since the previous study. 2. No other major interval change when compared to March 14, 2022. Electronically Signed: Ronen Loera DO at 22:18 EST Reading Location ID and State: [address] [place] [address] Tel [phone], Service support , CT scan of the abdomen pelvis was obtained. There is ascites noted. There is no free air noted. There is no other major changes compared to previous CT dated 03/14/2022. This was interpreted by the radiologist and was also independently reviewed by myself. Treatment and Re-Evaluation Narrative: Patient was given IV fluids. Urine culture was ordered. Patient was given a dose of Rocephin. Patient was given a dose of morphine for her pain. Hepatitis profile was ordered. Case was discussed with the hospitalist. I said I contact Dr. King from gastroenterology. I discussed the case with Dr. King. He recommended obtaining a Tylenol level to see if she had been taking too much Tylenol which caused her bilirubin and liver function test to go up. This was ordered. He is okay with the patient staying here. He is agreeable with Rocephin as the antibiotic of choice. Hospitalist will be in to evaluate the patient and admit the patient to the hospital. Patient understood and was agreeable with the plan. All questions were answered. Discharge Plan Dx/Rx/DC Orders Clinical Impression: Elevated liver enzymes, Diabetes, Urinary tract infection, Non-alcoholic cirrhosis Disposition Disposition: Acute Care Hospital [facility]
[2022-03-31] MEDS: Ceftriaxone 1 GM/50 ML BAG IV (23:22)
[2022-03-31] MEDS: Morphine 4 MG/ML Syringe IV (23:25)
--- NOTE | 2022-03-31 23:29 | PCM.HP.STD ---
HPI - General General Date of Admission: 04/01/22 Date of Service: 03/31/22 Chief Complaint: Abdominal pain, nausea, emesis HPI Narrative The patient is a 67 y/o F w/ PMHx: COPD, Morbid obesity, Diabetes mellitus type II w/ neuropathy, Asthma/COPD, Rheumatoid arthritis, BRAXTON, HTN, HLD, Former tobacco use, Cirrhotic liver disease following with gastroenterology, recent discharge 03/15/22 following evaluation for worsening elevation of bilirubin, LFTs with MRCP 03/15/2022 with no evidence of biliary dilatation or choledocholithiasis with cirrhotic liver with evidence of portal hypertension including small volume ascites with no suspicious mass with periportal lymphadenopathy noted with suspected underlying metastatic cancer in the abdomen as well as postobstructive pneumonia with CT chest demonstrating a right perihilar mass discharged on Levaquin with 6 additional days of dosing with follow-up outpatient with Dr. 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 Last GI evaluation while inpatient with recommendation to continue ursodiol, xifaxan 550 BID, reglan and PPI. She notes that unfortunately she has not been taking her medications secondary to nausea and emesis with her abdominal discomfort. She denies taking any heavy amounts of Tylenol. Work-up in the ED included T97.2, heart rate 114, BP 120/52, respiratory rate 18, 98% on room air, CBC with WC 15.7, hemoglobin 14, platelet 271 with left shift, CMP with sodium 131, potassium 5.7 however this is moderately hemolyzed, chloride 92, BUN/creatinine 25/1.39, glucose 359, T. bili 9.20, direct bili 6.82, AST/ALT 197/79, alk phos 714, lipase 338, urinalysis with specific gravity elevated 1.025, protein 30, glucose 100, ketone 5, occult blood 25, nitrite positive, bilirubin 6, urobilinogen 12, leukocyte Estrace 25, urine WBCs 10-25 with 4+ urine bacteria, urine culture pending per ED, CT abdomen pelvis with complete collapse right middle lobe with lungs otherwise clear, cirrhotic appearing liver without focal mass evidence of prior cholecystectomy, marked gastroesophageal and gastrohepatic ligament varices mild diffuse ascites without any free air otherwise no interval change since 03/14/2022 CT. in the ED patient ministered morphine 4 mg IV x1, 1 L normal saline bolus as well as Rocephin 1 g IV x1. Hepatitis panel, coags and tylenol level pending upon evaluation. [facility] Medical History Ambulates with cane Anemia Anxiety Arthritis Asthma Back problem Bladder disease Chronic bronchitis Cirrhosis COPD (chronic obstructive pulmonary disease) Depression Diabetes Diabetes mellitus, type 2 Dietary restriction Easy bruising Esophagitis Former smoker Gastric reflux Heart murmur High cholesterol History of stress test Injury of head and neck Insulin dependent diabetes mellitus Low iron JACOME (nonalcoholic steatohepatitis) Obesity Proteinuria due to type 2 diabetes mellitus Rheumatoid arthritis Shortness of breath on exertion Walker as ambulation aid Wears dentures Wears glasses Home Medications amitriptyline 10 mg tablet 50 mg PO QHS heart 01/16/16 [History Last Taken 03/13/22] metformin 1,000 mg tablet 1,000 mg PO BIDCM blood sugar 01/16/16 [History Last Taken 03/13/22] oxybutynin chloride 5 mg tablet 10 mg PO DAILY bladder 01/16/16 [History Last Taken 03/13/22] simvastatin 20 mg tablet 40 mg PO QHS cholesterol lowering 01/16/16 [History Last Taken 03/13/22] cyclobenzaprine 10 mg tablet 10 mg PO TID PRN PRN Pain 03/27/17 [History Last Taken 03/13/22] ferrous sulfate 325 mg (65 mg iron) tablet 325 mg PO DAILY supplement 07/05/21 [History Last Taken 03/13/22] insulin aspart U-100 100 unit/mL (3 mL) subcutaneous pen 24 unit subcut TIDCM blood sugar 08/24/21 [History Last Taken 03/13/22] insulin glargine 100 unit/mL (3 mL) subcutaneous pen (Lantus Solostar U-100 Insulin) 68 unit subcut QPM DM 08/24/21 [History Last Taken 03/13/22] sertraline 50 mg tablet (Zoloft) 50 mg PO DAILY mood 09/09/21 [History Last Taken 03/13/22] dulaglutide 3 mg/0.5 mL subcutaneous pen injector (Trulicity) 1.5 mg subcut QWEEK dm 10/21/21 [History Last Taken 03/08/22] ergocalciferol (vitamin D2) 25,000 unit capsule 50,000 unit PO WE supplement 10/21/21 [History Last Taken 03/08/22] albuterol sulfate 90 mcg/actuation aerosol inhaler 2 puff inhalation Q4H PRN PRN sob 03/14/22 [History Last Taken Unknown] tiotropium bromide 2.5 mcg/actuation mist for inhalation (Spiriva Respimat) 2 puff inhalation DAILY PRN sob 03/14/22 [History Last Taken 3 Days Ago ~03/11/22] ursodiol 300 mg capsule 300 mg PO BID GI 03/14/22 [History Last Taken 03/13/22] vitamin E (dl, acetate) 180 mg (400 unit) capsule 180 mg PO BID supplement 03/14/22 [History Last Taken 03/13/22] hydrocodone-acetaminophen 5-325mg 5mg-325mg 1 tab PO Q6H 3 days #12 TABLETS 03/19/22 [Rx Last Taken Unknown] pantoprazole 40 mg tablet,delayed release (Protonix) 40 mg PO BID #60 tabs 03/27/22 [Rx Last Taken Unknown] sucralfate 100 mg/mL oral suspension (Carafate) 10 ml PO QAC #1,000 mL 03/27/22 [Rx Last Taken Unknown] ondansetron 4 mg disintegrating tablet 4 mg translingual Q8H NAUSEA 03/28/22 [History Last Taken 03/31/22] Allergy/AdvReac Type Severity Reaction Status Date / Time codeine Allergy Rash Verified 03/31/22 11:15 lisinopril AdvReac Angioedema Verified 03/31/22 11:15 naproxen AdvReac Other Verified 03/31/22 11:15 Family History Mother Diabetes Breast cancer Sister Diabetes CAD (coronary artery disease) Other Arthritis Surgical History History of cholecystectomy History of colonoscopy History of esophagogastroduodenoscopy (EGD) History of hysterectomy Hx of left cataract extraction Hx of right cataract extraction Social History Smoking Status: Former smoker alcohol intake: never substance use type: does not use what type of physical activity do you participate in: none ROS ROS Narrative Admission Review of Systems: CONSTITUTIONAL: No weight loss, fever, chills, + weakness or fatigue. HEENT: Eyes: No visual loss, blurred vision, double vision or yellow sclerae. Ears, Nose, Throat: No hearing loss, sneezing, congestion, runny nose or sore throat. SKIN: No rash or itching, lesions, wounds. CARDIOVASCULAR: No chest pain, chest pressure or chest discomfort, palpitations, edema, orthopnea, syncopal events. RESPIRATORY: +No shortness of breath, cough or sputum, wheezing, hemoptysis. GASTROINTESTINAL: + anorexia, nausea, vomiting, abdominal pain, No diarrhea/constipation, melena, BRBPR. GENITOURINARY: No dysuria, frequency, urgency or retention. NEUROLOGICAL: No headache, dizziness, syncope, paralysis, ataxia, numbness or tingling in the extremities, focal weakness, change in bowel or bladder control, seizure. MUSCULOSKELETAL: + muscle, back pain, joint pain or stiffness. HEMATOLOGIC: No anemia, bleeding or bruising. LYMPHATICS: No enlarged nodes. No history of splenectomy. PSYCHIATRIC: + history of depression or anxiety. ENDOCRINOLOGIC: No reports of sweating, cold or heat intolerance. No polyuria or polydipsia. ALLERGIES: + history of angioedema. Vital Signs Vital Signs Vital Signs: 03/31/22 19:02 Temperature 97.2 F L Temperature Source Temporal Pulse Rate 114 H Respiratory Rate 18 Blood Pressure 120/52 L Blood Pressure Mean 74 Pulse Ox 98 Oxygen Delivery Method Room Air Weight Weight: 182 lb Body Mass Index (BMI) 39.4 Physical Exam Narrative Physical Examination: General: Awake, alert, oriented x 3 and cooperative, seated upright in ED bed, fatigued appearing, anxious, tearful. Skin: Normal color, normal turgor, no icterus, no cyanosis. HEENT: AT/NC, EOMI, PERRLA, dry MM, no carotid bruits or JVD noted. Lungs: Improved from previous evaluation, diminished, greater bases, right still greater than left, appropriate respiratory rate and effort, no wheezing, rales or rhonchi. Heart: Very mildly tachycardic with regular rhythm; no gallop, rub audible. Abdomen: Soft, morbidly obese, generalized discomfort to the abdomen with no specific rebound but noted mild voluntary guarding, mildly hyperactive bowel sounds, difficult to assess HSM given discomfort with evaluation. Extremities: No cyanosis, clubbing, or edema. Neurological: Patient awake, alert, oriented as noted, cognitive function intact; pupils equally reactive to light and accommodation, cranial nerves II-XII grossly normal, moving all 4 extremities, no focal deficits, strength moderately to severely global decrease secondary to acute presentation and underlying comorbidities Psychiatric: Affect appears anxious, tearful, bronchoscopy recently performed with preliminary cancer diagnosis, underlying depression and anxiety. Results Lab / Micro Data Result Diagrams: 03/31/22 20:59 03/31/22 20:59 Labs: Laboratory Results - last 24 hr 03/31/22 20:59: WBC 15.7 H, RBC 5.08, Hgb 14.0, Hct 42.1, MCV 82.9, MCH 27.6, MCHC 33.3, RDW Std Deviation 56.5 H, RDW Coeff of Cari 20.0 H, Plt Count 271, MPV TNP, Immature Gran % (Auto) 0.400, Neut % (Auto) 79.3 H, Lymph % (Auto) 11.5 L, [place] % (Auto) 8.0, Eos % (Auto) 0.5, Baso % (Auto) 0.3, Absolute Neuts (auto) 12.5 H, Absolute Lymphs (auto) 1.81, Nucleated RBC % 0 03/31/22 20:59: Sodium 131 L, Potassium 5.7 H, Chloride 92 L, Carbon Dioxide 28.0, Anion Gap 11, BUN 25 H, Creatinine 1.39 H, Estim Creat Clear Calc 49.78, Est GFR (MDRD) Af Amer 48 L, Est GFR (MDRD) Non-Af 40 L, BUN/Creatinine Ratio 18.0, Glucose 359 H, Calcium 9.3, Total Bilirubin 9.20 H, Direct Bilirubin 6.82 H, AST 187 H, ALT 79 H, Alkaline Phosphatase 714 H, Total Protein 7.3, Albumin 2.8 L, Globulin 4.5 H, Lipase 338 03/31/22 20:59: Urine Color [place], Urine Clarity Cloudy, Urine pH 5.0, Ur Specific [place] 1.025, Urine Protein 30 H, Urine Glucose (UA) 100 H, Urine Ketones 5 H, Urine Occult Blood 25 H, Urine Nitrite Positive H, Urine Bilirubin 6 H, Urine Urobilinogen 12 H, Ur Leukocyte Esterase 25 H, Urine RBC 0 SEEN, Urine WBC 10-25 SEEN, Ur Squamous Epith Cells 0-5 SEEN, Urine Bacteria 4+, Hyaline Casts 0-5 SEEN, Urine Mucus 0 SEEN Radiology Impression Abdomen/Pelvis CT 03/31/22 20:43 IMPRESSION: 1. In development of ascites since the previous study. 2. No other major interval change when compared to March 14, 2022. Electronically Signed: Ronen Loera DO at 22:18 EST Reading Location ID and State: [address] [place] [address] Tel [phone], Service support , Assessment & Plan Assessment/Plan (1) Urinary tract infection: PLAN: Plan The patient is a 67 y/o F w/ PMHx: COPD, Morbid obesity, Diabetes mellitus type II w/ neuropathy, Asthma/COPD, Rheumatoid arthritis, BRAXTON, HTN, HLD, Former tobacco use, Cirrhotic liver disease following with gastroenterology, recent discharge 03/15/22 following evaluation for worsening elevation of bilirubin, LFTs with MRCP 03/15/2022 with no evidence of biliary dilatation or choledocholithiasis with cirrhotic liver with evidence of portal hypertension including small volume ascites with no suspicious mass with periportal lymphadenopathy noted with suspected underlying metastatic cancer in the abdomen as well as postobstructive pneumonia with CT chest demonstrating a right perihilar mass discharged on Levaquin with 6 additional days of dosing with follow-up outpatient with Dr. 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 #1. Intractable abdominal pain with nausea and emesis secondary to Nonalcoholic Cirrhotic Liver Disease w/ progressively worsening acutely elevated Bilirubin and LFTs: 09/01/2021 gallbladder/liver ultrasound with diffuse fatty infiltration of the liver at that time status post cholecystectomy with follow-up liver elastography with liver stiffness measuring 21 K PA compatible with F3 to F4 moderate to severe liver fibrosis score. CT biopsy liver 09/12/2021 consistent with cirrhosis with extensive macro and microvascular steatosis. 11/14/2021 gastric emptying study performed secondary to chronic nausea noted to be normal. 10/25/2021 distal esophagus biopsy with fragments of the GE mucosa with chronic inflammation, intestinal metaplasia not identified. Admission with T. bili 9.20, D bili 6.82, AST/ALT 197/79, alk phos 714 notably further elevated from previous, will admit to MS, maintain on judicious IVFs, maintain NPO status given pain and nausea/emesis, maintain on IV PPI, continue ursodiol, xifaxan 550 BID, reglan pending GI repeat evaluation. Tylenol level, hepatic profile and coags pending. #2. Possible Acute Urinary Tract Infection: UA upon ED evaluation remarkable, pending UCx, monitor I/Os, continue IV Rocephin w/ transition as able pending sensitivities and speciation. Bld cx x 2 obtained in the ED. #3. Mild acute renal insufficiency: Likely secondary to poor intake, intractable nausea and emesis with abdominal pain, admission BUN/creatinine 25/1.39, baseline 0.6-0.7 although most recently 03/19/2022 creatinine 0.96, will very judiciously hydrate and repeat CMP in AM. #4. 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 #5. Diabetes mellitus type II with chronic neuropathy: Hold oral home regimen, monitor blood sugar trending with plan for one half dose long-acting insulin while n.p.o. however if blood sugars elevated will increase to full, n.p.o. status with every 6 hours accu checks w/ ISS. #6. Rheumatoid arthritis: Not on any chronic regimen per review of current list, encourage continued outpatient follow-up with rheumatology. #7. Anxiety and depression: Given worsening hepatic function will hold sertraline and amitriptyline regimen. #8. Hypertension: Noted prior history, BP normal range in the ED, continue to monitor, as needed IV hydralazine. #9. Hyperlipidemia: Hold statin therapy. #10. Morbid Obesity: Weight loss and lifestyle changes encouraged. #11. Former tobacco use: Encourage continued tobacco cessation #12. GERD: Given acute presentation as noted will maintain on IV PPI. #13. Chronic COPD: We will temporarily hold home inhalers in interim transition to ATC budesonide therapy, PRN albuterol, HOB, IS parameters. #14. BRAXTON: CPAP nightly. #15. DVT prophylaxis: SCDs, coags requested given significantly worsened liver function noted #16. CODE status: Patient HCPOA is her daughter who is present, living will is not placed. Full Code status. Admission Evaluation Time spent evaluating chart, patient history, patient evaluation, care planning and discussion with specialists: 75 minutes.
[2022-03-31 23:30] VITALS: BP 137/57; PULSE 99; RESP 19; O2SAT 98
[2022-04-01] VITALS (8 sets, daily range): BP systolic 111–148; BP diastolic 59–80; PULSE 70–103; RESP 16–20; TEMP 36.4–36.9; O2SAT 93–98; BMI 40.6; BMI 41.7
[2022-04-01 01:07] LABS: International Normalized Ratio 1.3; Prothrombin Time (Protime)PT. 15.8 SECONDS (11.7-14.9)
[2022-04-01 01:08] LABS: Partial Thromboplast Time 30.2 Seconds (24.1-36.2)
[2022-04-01 01:28] LABS: Acetaminophen (Tylenol) Level < 2.0 ug/mL (10.0-30.0)
[2022-04-01] MEDS: 0.9% Normal Saline 1,000 ML 100 ML IV ×3 (01:47→21:51)
[2022-04-01] MEDS: Insulin Lispro 100 UNIT/ML INSULN.PEN SC ×5 (01:55→21:38)
[2022-04-01] MEDS: Metoclopramide 10 MG/2 ML Vial 5 MG IV ×4 (01:55→21:39)
[2022-04-01 02:05] LABS: Bedside Glucose 352 mg/dL (74-106)
[2022-04-01 06:45] LABS: Bedside Glucose 278 mg/dL (74-106)
[2022-04-01] MEDS: Sucralfate 1 GM Tablet PO ×3 (06:45→16:51)
[2022-04-01] MEDS: Budesonide Respules 0.5 MG/2 ML AMPUL.NEB. INHALATION ×2 (06:54→18:43)
[2022-04-01 07:09] LABS: Absolute Lymphocyte Count 1.77 X10^3/uL (0.83-4.51); Absolute Neutrophil Count 9.3 X10^3/uL (2.0-7.7); Basophil# 0.04 X10^3/uL; Basophil% 0.3 % (0-1); Eosinophils% 0.8 % (0-5); Hematocrit 40.2 % (37-47); Lymphocyte # 1.77 X10^3/ul (0.83-4.51); Lymphocyte % 14.1 % (19-41); Mean Corp Hgb Conc 32.3 g/dL (32-36); Mean Corpuscular Hgb 26.9 pg (27.0-32.0); Mean Corpuscular Volume 83.2 fL (81-99); Mean Platelet Vol. 13.5 fl (6.2-12.0); Monocyte# 1.27 X10^3/uL; Monocyte% 10.1 % (0-10); NRBC Flagged by Analyzer 0 % (0-5); Neutrophil # 9.31 X10^3/uL (2.7-7.7); Neutrophil % 74.1 % (47-70); Platelet Count 232 K/mm3 (150-450); RBC Distribution Width CV 18.9 % (11.6-14.6); RBC Distribution Width SD 54.6 fl (35.1-43.9); Red Blood Count 4.83 M/mm3 (4.2-5.4); White Blood Count 12.6 K/mm3 (4.4-11.0)
--- NOTE | 2022-04-01 07:23 | PCM.PN.HOSP ---
Reason for Visit Reason for Visit: Pain/nausea/vomiting Subjective Subjective Mrs. Ashley is a 67-year-old female who was seen here early in March at which time a lung mass was identified. At that time she presented with abdominal pain nausea vomiting and had a worsening elevation of her bilirubin and LFTs. An MRCP was done with no evidence of biliary dilation or choledocholithiasis and her liver was found to be cirrhotic with evidence of portal hypertension. She was discharged home with Levaquin and followed up with Dr. Bullock on 03/31/2022 for bronchoscopy. 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 She represented to the emergency department last evening with the onset of aching diffuse abdominal pain as well as associated nausea and vomiting. On presentation she was found to have a total bilirubin of 9.2, direct bili of 6.8 to, AST of 1.9 and ALT of 79 with an alk phos of 714. Her lipase was mildly elevated at 338. Liver biopsy done 09/12/2021 was consistent with cirrhosis and extensive macro and microvascular steatosis. She had a normal gastric emptying study on 11/14/2021. She was admitted to the medical floor maintained on IV fluids, was made n.p.o., placed on IV PPI, Ursodiol was continued as well as rifaximin and she was to continue her Reglan. GI was consulted. Her Tylenol level was undetectable. Patient states her abdominal pain, nausea, and vomiting are improved. She is requesting a clear liquid diet if possible. We will go ahead and initiate this. Transaminases are improving. Mentation is good. Objective Data Objective Data Vital Signs: Vital Signs Temp Pulse Resp BP Pulse Ox O2 Del Method 98.1 F 99 18 132/75 H 93 Room Air 04/01/22 06:23 04/01/22 06:23 04/01/22 06:23 04/01/22 06:23 04/01/22 06:23 04/01/22 06:23 Oxygen Delivery Method Room Air Weight: 87.7 kg Body Mass Index (BMI) 41.7 Intake & Output: Intake and Output for Last 24 Hours 03/30/22 03/31/22 04/01/22 23:59 23:59 23:59 Intake Total 1050 / 1050 110 / 110 Balance 1050 / 1050 110 / 110 Lab / Micro Data Result Diagrams: 04/01/22 05:52 04/01/22 05:52 Labs: Laboratory Results - last 24 hr 03/31/22 20:59: WBC 15.7 H, RBC 5.08, Hgb 14.0, Hct 42.1, MCV 82.9, MCH 27.6, MCHC 33.3, RDW Std Deviation 56.5 H, RDW Coeff of Cari 20.0 H, Plt Count 271, MPV TNP, Immature Gran % (Auto) 0.400, Neut % (Auto) 79.3 H, Lymph % (Auto) 11.5 L, [place] % (Auto) 8.0, Eos % (Auto) 0.5, Baso % (Auto) 0.3, Absolute Neuts (auto) 12.5 H, Absolute Lymphs (auto) 1.81, Nucleated RBC % 0 03/31/22 20:59: Sodium 131 L, Potassium 5.7 H, Chloride 92 L, Carbon Dioxide 28.0, Anion Gap 11, BUN 25 H, Creatinine 1.39 H, Estim Creat Clear Calc 49.78, Est GFR (MDRD) Af Amer 48 L, Est GFR (MDRD) Non-Af 40 L, BUN/Creatinine Ratio 18.0, Glucose 359 H, Calcium 9.3, Total Bilirubin 9.20 H, Direct Bilirubin 6.82 H, AST 187 H, ALT 79 H, Alkaline Phosphatase 714 H, Total Protein 7.3, Albumin 2.8 L, Globulin 4.5 H, Lipase 338 03/31/22 20:59: Urine Color [place], Urine Clarity Cloudy, Urine pH 5.0, Ur Specific [place] 1.025, Urine Protein 30 H, Urine Glucose (UA) 100 H, Urine Ketones 5 H, Urine Occult Blood 25 H, Urine Nitrite Positive H, Urine Bilirubin 6 H, Urine Urobilinogen 12 H, Ur Leukocyte Esterase 25 H, Urine RBC 0 SEEN, Urine WBC 10-25 SEEN, Ur Squamous Epith Cells 0-5 SEEN, Urine Bacteria 4+, Hyaline Casts 0-5 SEEN, Urine Mucus 0 SEEN 04/01/22 00:45: PT 15.8 H, INR 1.3, APTT 30.2 04/01/22 00:45: Acetaminophen < 2.0 L 04/01/22 00:45: Ammonia 27.0 04/01/22 01:38: POC Glucose 352 H 04/01/22 05:52: WBC 12.6 H, RBC 4.83, Hgb 13.0, Hct 40.2, MCV 83.2, MCH 26.9 L, MCHC 32.3, RDW Std Deviation 54.6 H, RDW Coeff of Cari 18.9 H, Plt Count 232, MPV 13.5 H, Immature Gran % (Auto) 0.600, Neut % (Auto) 74.1 H, Lymph % (Auto) 14.1 L, [place] % (Auto) 10.1 H, Eos % (Auto) 0.8, Baso % (Auto) 0.3, Absolute Neuts (auto) 9.3 H, Absolute Lymphs (auto) 1.77, Nucleated RBC % 0 04/01/22 06:12: POC Glucose 278 H Radiography Diagnostic Testing: Radiology Impression Abdomen/Pelvis CT 03/31/22 20:43 IMPRESSION: 1. In development of ascites since the previous study. 2. No other major interval change when compared to March 14, 2022. Electronically Signed: Ronen Loera DO at 22:18 EST Reading Location ID and State: [address] [place] [address] Tel [phone], Service support , Physical Exam Const alert, oriented x3, no apparent distress and well nourished Constitutional Narrative: Morbidly obese, white female, sitting up in bed, appears sick but nontoxic, requests tea to drink HEENT head/scalp atraumatic and moist oral mucous membranes HEENT Narrative: Mallampati is 3, no thrush Head and Scalp: normocephalic Eyes PERRL, EOMs intact bilaterally and conjunctivae normal Eyes Narrative: Positive scleral icterus Neck no lymphadenopathy, supple and no JVD Neck Narrative: Trachea midline, no thyroid enlargement Resp normal respiratory effort, no retractions, no use of accessory muscles and clear to auscultation bilaterally Resp Narrative: Diffusely diminished but clear Auscultation: Negative for crackles, rhonchi or wheezes Cardio regular rate, regular rhythm, S1 normal heart sound, S2 normal heart sound, no murmurs, no rub, no gallops and no clicks GI soft to palpation and non-distended GI Narrative: Tenderness in the epigastrium and across bilateral upper abdominal quadrants, but sounds are normoactive Extremity no clubbing, cyanosis or edema Extremity Narrative: 2+ pedal pulses Skin no wounds, skin turgor normal, No no jaundice, no petechiae and no mottling Skin Narrative: Jaundice noted Neuro oriented x3, moves all extremities and no focal motor deficits Speech: speech normal Psych Psych Narrative: Affect is mildly flat however mood seems to be stable and eye contact is good Assessment & Plan Assessment/Plan (1) Abdominal pain: (2) Elevated liver enzymes: (3) Urinary tract infection: (4) Hyperkalemia: (5) ADIS (acute kidney injury): (6) Hyperbilirubinemia: PLAN: Plan Epigastric pain/nausea/vomiting -GI consulted--> await input -MRCP done earlier this month and demonstrated no biliary dilation or choledocholithiasis, cirrhotic liver with evidence of portal hypertension and no suspicious mass, periportal lymphadenopathy was noted -N.p.o. -Continue IV fluids -Continue antiemetics -CA 19-9 is pending -Tylenol level is unremarkable Liver cirrhosis with acute transaminitis/hyperbilirubinemia -Patient had mild transaminitis before with hyperbilirubinemia that resolved at her previous admission early in March however her hyperbilirubinemia is much more severe at this time as is her alkaline phosphatase -A.m. bilirubin is down to 7.7 from 9.2 on presentation -GI consulted for further recommendations -Ammonia level was normal at 27 -Continue rifaximin as recommended by gastroenterology -Continue your ursodiol -Alpha-fetoprotein level was 4.6 on 08/24/2021 -Suspected to be secondary to JACOME--> patient has had previous liver biopsy in 2021 with extensive work-up -Continue outpatient GI follow-up after discharge ADIS -Baseline serum creatinine is between 0.7 and 1 -Serum creatinine admission was 1.39 -Continue IV fluids -Serum creatinine is down to 1.32 -We will continue hydration and reevaluate in 24 hours Hyperkalemia -Resolved--> serum creatinine is now 4.4 -Potassium on admission was 5.7 Lung mass/mediastinal lymphadenopathy -Rapid onsite evaluation with 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 Bullock as an outpatient [id number] -Last A1c was 9.1 on 08/24/2021 -Hold home oral agents -Hold home Trulicity -Patient currently n.p.o. -Basal insulin 68 units at bedtime was ordered--> finger fingerstick glucose this morning was 278 -Chemistry panel is consistent showing a blood glucose of 263--> change Lantus dosing to 40 units twice daily -Prandial insulin on hold while n.p.o.--> patient takes 24 units 3 times daily at baseline -Continue sliding scale -Accu-Cheks as ordered Diabetic neuropathy -Continue home amitriptyline Rheumatoid arthritis -Patient is not on any chronic regimen -Outpatient follow-up -No acute issues Hypertension/hyperlipidemia -Patient is on no antihypertensive regimen at baseline but there is documentation of hypertension in her chart -Monitor BP -Continue statin GERD -Continue Protonix IV push 40 mg twice daily BRAXTON -Continue nocturnal CPAP History of tobacco abuse -Encourage ongoing cessation Anxiety/depression -Continue home amitriptyline -Continue home Zoloft Chronic pain -Continue home as needed Flexeril -Oxycodone available -Hold on Tylenol -Would confirm [place] to Oxy at discharge given liver issues Morbid obesity -BMI 41.8 -Complicates treatment, prognosis, outcomes -Recommend weight loss DVT prophylaxis -SCDs -Start Lovenox 40 twice daily with BMI of 41.8 CODE STATUS -Full code verified on admission Charges/Coding Visit Charges Inpatient E&M: 45027 [facility] Hosp L3
[2022-04-01 07:42] LABS: AST(SGOT) 172 U/L (15-37); Alanine Aminotransfer ALT/SGPT 69 U/L (13-56); Albumin, Serum 2.4 g/dL (3.2-5.0); Alkaline Phosphatase 637 U/L (45-117); Anion Gap 7 (5-15); BUN 29 mg/dL (7-18); Bilirubin, Direct 6.55 mg/dL (0.00-0.30); Calcium,Total 8.3 mg/dL (8.5-10.1); Chloride 97 mmol/L (98-107); Creatinine, Serum 1.32 mg/dL (0.55-1.02); EST Glomerular Filtration Rate 42 mL/min (>60); Est Glom Filt Rate - Afr Amer 51 mL/min (>60); Estimated Creatinine Clearance 55.69 ml/min; Globulin 3.7 g/dL (2.2-4.2); Glucose 263 mg/dL (74-106); Potassium 4.4 mmol/L (3.5-5.1); Protein, Total 6.1 g/dL (6.4-8.2); Sodium Level 132 mmol/L (136-145)
[2022-04-01] MEDS: rifAXIMin 550 MG Tablet PO ×2 (09:21→21:37)
[2022-04-01] MEDS: Ferrous Sulfate 325 MG Tablet PO (09:21)
[2022-04-01] MEDS: Vitamin E 400 UNITS Capsule PO ×2 (09:21→21:37)
--- NOTE | 2022-04-01 09:21 | MRI_ITS ---
INDICATION: abnormal labs EXAMINATION: MRI - MR MRCP W/O Contrast TECHNIQUE: Multiplanar and multisequence MR images of the abdomen were obtained with MRCP sequence. Three-dimensional post-processing reconstructions were performed. IV Contrast Dosage and Agent: None. COMPARISON: None. FINDINGS: LIVER: Liver demonstrates a truncated nodular appearance consistent with cirrhosis. No evidence of focal hepatic lesion. GALLBLADDER AND BILIARY TREE: Gallbladder is not visualized likely related to prior cholecystectomy. Contracted gallbladder considered less likely. There is no evidence of intrahepatic biliary ductal dilatation. There is no evidence of extrahepatic biliary ductal dilatation. No evidence of filling defect within the common duct. The common bile duct measures 0.31 cm which is within normal limits. PANCREAS: No mass. No pancreatic duct dilation. SPLEEN: Non-enlarged. ADRENAL GLANDS: No nodules. KIDNEYS: Normal renal size and position. No hydronephrosis. No mass. LYMPH NODES: No enlarged periportal or retroperitoneal lymph nodes. PERITONEUM: Moderate perihepatic and perisplenic ascites. VESSELS: Aorta is non-dilated. LOWER CHEST: No pleural effusion. MRI/MRCP Abdomen without Contrast IMPRESSION: Gallbladder not visualized likely due to cholecystectomy less likely due to contracted gallbladder. No evidence of intra or extrahepatic biliary ductal dilatation. Findings consistent with cirrhotic liver with concurrent moderate ascites within the upper abdomen. Electronically Signed: Alberto Bentley MD, NESHA at 11:56 EST ,
[2022-04-01] MEDS: Insulin Glargine-YFGN 100 UNIT/ML Pen 40 UNIT SC ×2 (09:22→21:37)
[2022-04-01] MEDS: Enoxaparin 40 MG/0.4 ML Syringe SC ×2 (09:22→21:38)
--- NOTE | 2022-04-01 11:28 | EX.PCM.CON.G ---
HPI Consult Data Date of Consult: 04/01/22 HPI Narrative Reason for Consultation: Abnormal liver function test HPI Narrative: GLEN MOON, is a 67 F who presents with worsening abdominal pain. She presents with abdominal pain that has been getting worse over the past 2 to 3 weeks.? Patient states it is gradually getting worse.? Patient states she started having some nausea and vomiting today.? Patient denies any hematemesis or coffee-ground emesis.? Patient states her pain is diffuse across her abdomen.? Patient describes it as aching.? Patient states it is constant.? Patient states she had a lung biopsy today and her pain became worse after she got home from that.? Patient does not feel it is related to her lung biopsy.? Patient states that she was told that her biopsy was positive for cancer which caused some increase in her anxiety. Biochemical work-up in the ED did show a severe cholestatic hepatitis. She had a similar presentation not too long ago when she was admitted to the hospital and she had increase in her LFTs mostly bilirubin and alkaline phosphatase. She got an MRCP doing a visit did not show any signs of choledocholithiasis or obstructive physiology. Today she had a CT scan abdomen pelvis that showed worsening ascites around the liver. Findings from her EGD include: It was indicated for new diagnosis of cirrhosis. No esophageal varices or portal hypertensive gastropathy. Esophageal biopsies were negative for Montano's. Large bezoar found in her stomach; she is scheduled for gastric emptying study. She does report nausea, she has been waking up with nausea for the past few days. No early satiety. No vomiting. Has no bowel complaints. Has BM 2x per day. No LE edema or ascites. No bleeding. No jaundice. No confusion. No daytime sleepiness. 09/13/21 started vitamin E 400 IU bid and ursodiol 300 mg BID MELD Scores: 09/2021 6 She established with [facility] on 08/24/21 for nodular liver seen on CT and ultrasound.? A chest CT that was done in April 2021 revealed mild nodular surface of the liver as well as recannulization of the umbilical vein, raising the question of possible liver cirrhosis.? She had ultrasound in June 2021 which revealed heterogeneous echotexture of the liver and mildly lobular contour of the liver. Former smoker, no alcohol use Comorbidities include anxiety, chronic pain, COPD, degenerative disc disease, diabetes, hyperlipidemia, hypertension, murmur, low iron Past surgical history includes cholecystectomy, hysterectomy/BSO [facility] Medical History Ambulates with cane Anemia Anxiety Arthritis Asthma Back problem Bladder disease Chronic bronchitis Cirrhosis COPD (chronic obstructive pulmonary disease) Depression Diabetes Diabetes mellitus, type 2 Dietary restriction Easy bruising Esophagitis Former smoker Gastric reflux Heart murmur High cholesterol History of stress test Injury of head and neck Insulin dependent diabetes mellitus Low iron JACOME (nonalcoholic steatohepatitis) Obesity Proteinuria due to type 2 diabetes mellitus Rheumatoid arthritis Shortness of breath on exertion Walker as ambulation aid Wears dentures Wears glasses Home Medications amitriptyline 10 mg tablet 50 mg PO QHS heart 01/16/16 [History Last Taken 03/18/22] metformin 1,000 mg tablet 1,000 mg PO BIDCM blood sugar 01/16/16 [History Last Taken 03/13/22] oxybutynin chloride 5 mg tablet 10 mg PO DAILY bladder 01/16/16 [History Last Taken 03/13/22] simvastatin 20 mg tablet 40 mg PO QHS cholesterol lowering 01/16/16 [History Last Taken 03/13/22] cyclobenzaprine 10 mg tablet 10 mg PO TID PRN PRN Pain 03/27/17 [History Last Taken 03/13/22] ferrous sulfate 325 mg (65 mg iron) tablet 325 mg PO DAILY supplement 07/05/21 [History Last Taken 03/13/22] insulin aspart U-100 100 unit/mL (3 mL) subcutaneous pen 24 unit subcut TIDCM blood sugar 08/24/21 [History Last Taken 03/13/22] insulin glargine 100 unit/mL (3 mL) subcutaneous pen (Lantus Solostar U-100 Insulin) 68 unit subcut QPM DM 08/24/21 [History Last Taken 03/13/22] sertraline 50 mg tablet (Zoloft) 50 mg PO DAILY mood 09/09/21 [History Last Taken 03/13/22] dulaglutide 3 mg/0.5 mL subcutaneous pen injector (Trulicity) 1.5 mg subcut QWEEK dm 10/21/21 [History Last Taken 03/11/22] ergocalciferol (vitamin D2) 25,000 unit capsule 50,000 unit PO WE supplement 10/21/21 [History Last Taken 03/30/22] albuterol sulfate 90 mcg/actuation aerosol inhaler 2 puff inhalation Q4H PRN PRN sob 03/14/22 [History Last Taken Unknown] tiotropium bromide 2.5 mcg/actuation mist for inhalation (Spiriva Respimat) 2 puff inhalation DAILY PRN sob 03/14/22 [History Last Taken 3 Days Ago ~03/11/22] ursodiol 300 mg capsule 300 mg PO BID GI 03/14/22 [History Last Taken 03/13/22] vitamin E (dl, acetate) 180 mg (400 unit) capsule 180 mg PO BID supplement 03/14/22 [History Last Taken 03/13/22] ondansetron 4 mg disintegrating tablet 4 mg translingual Q8H NAUSEA 03/28/22 [History Last Taken 03/31/22] hydrocodone-acetaminophen 5-325mg 5mg-325mg 1 tab PO Q6H Check with primary doctor 04/01/22 [History Last Taken 03/11/22] pantoprazole 40 mg tablet,delayed release (Protonix) 40 mg PO BID Check with primary doctor 04/01/22 [History Last Taken 03/11/22] sucralfate 100 mg/mL oral suspension (Carafate) 10 ml PO QAC Check with primary doctor 04/01/22 [History Last Taken 03/31/22] Allergy/AdvReac Type Severity Reaction Status Date / Time codeine Allergy Rash Verified 03/31/22 11:15 lisinopril AdvReac Angioedema Verified 03/31/22 11:15 naproxen AdvReac Other Verified 03/31/22 11:15 Family History Mother Diabetes Breast cancer Sister Diabetes CAD (coronary artery disease) Other Arthritis Surgical History History of cholecystectomy History of colonoscopy History of esophagogastroduodenoscopy (EGD) History of hysterectomy Hx of left cataract extraction Hx of right cataract extraction Social History Smoking Status: Former smoker alcohol intake: never substance use type: does not use what type of physical activity do you participate in: none ROS ROS Narrative Admission Review of Systems: CONSTITUTIONAL: No weight loss, fever, chills, + weakness or fatigue. HEENT: Eyes: No visual loss, blurred vision, double vision or yellow sclerae. Ears, Nose, Throat: No hearing loss, sneezing, congestion, runny nose or sore throat. SKIN: No rash or itching, lesions, wounds. CARDIOVASCULAR: No chest pain, chest pressure or chest discomfort, palpitations, edema, orthopnea, syncopal events. RESPIRATORY: +No shortness of breath, cough or sputum, wheezing, hemoptysis. GASTROINTESTINAL: + anorexia, nausea, vomiting, abdominal pain, No diarrhea/constipation, melena, BRBPR. GENITOURINARY: No dysuria, frequency, urgency or retention. NEUROLOGICAL: No headache, dizziness, syncope, paralysis, ataxia, numbness or tingling in the extremities, focal weakness, change in bowel or bladder control, seizure. MUSCULOSKELETAL: + muscle, back pain, joint pain or stiffness. HEMATOLOGIC: No anemia, bleeding or bruising. LYMPHATICS: No enlarged nodes. No history of splenectomy. PSYCHIATRIC: + history of depression or anxiety. ENDOCRINOLOGIC: No reports of sweating, cold or heat intolerance. No polyuria or polydipsia. ALLERGIES: + history of angioedema. Physical Exam Narrative Physical Examination: General: Awake, alert, oriented x 3 and cooperative, seated upright in ED bed, fatigued appearing, anxious, tearful. Skin: Normal color, normal turgor, no icterus, no cyanosis. HEENT: AT/NC, EOMI, PERRLA, dry MM, no carotid bruits or JVD noted. Lungs: Improved from previous evaluation, diminished, greater bases, right still greater than left, appropriate respiratory rate and effort, no wheezing, rales or rhonchi. Heart: Very mildly tachycardic with regular rhythm; no gallop, rub audible. Abdomen: Soft, morbidly obese, generalized discomfort to the abdomen with no specific rebound but noted mild voluntary guarding, mildly hyperactive bowel sounds, difficult to assess HSM given discomfort with evaluation. Extremities: No cyanosis, clubbing, or edema. Neurological: Patient awake, alert, oriented as noted, cognitive function intact; pupils equally reactive to light and accommodation, cranial nerves II-XII grossly normal, moving all 4 extremities, no focal deficits, strength moderately to severely global decrease secondary to acute presentation and underlying comorbidities Psychiatric: Affect appears anxious, tearful, bronchoscopy recently performed with preliminary cancer diagnosis, underlying depression and anxiety. Lab / Micro Data Result Diagrams: 04/01/22 05:52 04/01/22 05:52 Labs: Laboratory Results - last 24 hr 03/31/22 20:59: WBC 15.7 H, RBC 5.08, Hgb 14.0, Hct 42.1, MCV 82.9, MCH 27.6, MCHC 33.3, RDW Std Deviation 56.5 H, RDW Coeff of Cari 20.0 H, Plt Count 271, MPV TNP, Immature Gran % (Auto) 0.400, Neut % (Auto) 79.3 H, Lymph % (Auto) 11.5 L, [place] % (Auto) 8.0, Eos % (Auto) 0.5, Baso % (Auto) 0.3, Absolute Neuts (auto) 12.5 H, Absolute Lymphs (auto) 1.81, Nucleated RBC % 0 03/31/22 20:59: Sodium 131 L, Potassium 5.7 H, Chloride 92 L, Carbon Dioxide 28.0, Anion Gap 11, BUN 25 H, Creatinine 1.39 H, Estim Creat Clear Calc 49.78, Est GFR (MDRD) Af Amer 48 L, Est GFR (MDRD) Non-Af 40 L, BUN/Creatinine Ratio 18.0, Glucose 359 H, Calcium 9.3, Total Bilirubin 9.20 H, Direct Bilirubin 6.82 H, AST 187 H, ALT 79 H, Alkaline Phosphatase 714 H, Total Protein 7.3, Albumin 2.8 L, Globulin 4.5 H, Lipase 338 03/31/22 20:59: Urine Color [place], Urine Clarity Cloudy, Urine pH 5.0, Ur Specific [place] 1.025, Urine Protein 30 H, Urine Glucose (UA) 100 H, Urine Ketones 5 H, Urine Occult Blood 25 H, Urine Nitrite Positive H, Urine Bilirubin 6 H, Urine Urobilinogen 12 H, Ur Leukocyte Esterase 25 H, Urine RBC 0 SEEN, Urine WBC 10-25 SEEN, Ur Squamous Epith Cells 0-5 SEEN, Urine Bacteria 4+, Hyaline Casts 0-5 SEEN, Urine Mucus 0 SEEN 04/01/22 00:45: PT 15.8 H, INR 1.3, APTT 30.2 04/01/22 00:45: Acetaminophen < 2.0 L 04/01/22 00:45: Ammonia 27.0 04/01/22 01:38: POC Glucose 352 H 04/01/22 05:52: WBC 12.6 H, RBC 4.83, Hgb 13.0, Hct 40.2, MCV 83.2, MCH 26.9 L, MCHC 32.3, RDW Std Deviation 54.6 H, RDW Coeff of Cari 18.9 H, Plt Count 232, MPV 13.5 H, Immature Gran % (Auto) 0.600, Neut % (Auto) 74.1 H, Lymph % (Auto) 14.1 L, [place] % (Auto) 10.1 H, Eos % (Auto) 0.8, Baso % (Auto) 0.3, Absolute Neuts (auto) 9.3 H, Absolute Lymphs (auto) 1.77, Nucleated RBC % 0 04/01/22 05:52: Sodium 132 L, Potassium 4.4, Chloride 97 L, Carbon Dioxide 28.0, Anion Gap 7, BUN 29 H, Creatinine 1.32 H, Estim Creat Clear Calc 55.69, Est GFR (MDRD) Af Amer 51 L, Est GFR (MDRD) Non-Af 42 L, BUN/Creatinine Ratio 22.0 H, Glucose 263 H, Calcium 8.3 L, Total Bilirubin 7.70 H, Direct Bilirubin 6.55 H, AST 172 H, ALT 69 H, Alkaline Phosphatase 637 H, Total Protein 6.1 L, Albumin 2.4 L, Globulin 3.7 04/01/22 06:12: POC Glucose 278 H Micro: Microbiology 03/31/22 20:59 Urine, Clean Catch Urine Culture - Preliminary Culture exhibits no growth. Radiology Impression Abdomen/Pelvis CT 03/31/22 20:43 IMPRESSION: 1. In development of ascites since the previous study. 2. No other major interval change when compared to March 14, 2022. Electronically Signed: Ronen Loera DO at 22:18 EST Reading Location ID and State: [facility] / [place] Tel [phone], Service support , Assessment & Plan Assessment/Plan (1) Pneumonia: PLAN: Plan Nonalcoholic steatohepatitis with cirrhosis. 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 She has been having intermittent abdominal pain for the last several months and has not been seen in the office in approximately 3-1/2 to 4 months. She has lost weight since she was seen in the office. CT scan does show some diffuse lymphadenopathy near the pancreas and I am not sure that there is obstructive physiology affecting the hepatobiliary system in the setting of possible decompensated cirrhosis. I would recommend an MRCP for evaluation of her hepatobiliary system. If that is negative she may need repeat liver biopsy. I agree with antibiotic at this time. She is not exhibiting any signs of a sending cholangitis. She has multiple factors for chronic nausea including poorly controlled diabetes, med side effect from multiple anticholinergic medicines that she takes on a daily basis. She can have a liquid diet until midnight. Continue ursodiol and I will start Xifaxan 550 mg twice a day, Reglan and continue PPI twice a day. Check ammonia level. Check CA 19-9 and alpha-fetoprotein. This also could be a paraneoplastic syndrome from lung cancer affecting the GI tract. There is no obvious sign for her abdominal pain at this time. When she did undergo upper endoscopy she was discovered to have a large bezoar which prompted the gastric emptying study afterwards. However it did not show severely prolonged food in her stomach. The gastric emptying time was 44 minutes which is 10 minutes less than it should be. The upper limit of normal is 54. Continue antiemetics with Reglan therapy. Charges/Coding Visit Charges Inpatient E&M: 96451 Init Hosp L3
[2022-04-01] MEDS: Ursodiol 250 MG Tablet PO ×2 (12:56→21:37)
[2022-04-01] MEDS: 0.9% Saline Lock 10 ML Syringe IV (13:02)
[2022-04-01 13:26] LABS: Bedside Glucose 300 mg/dL (74-106)
--- NOTE | 2022-04-01 15:30 | CASEMGMT ---
GARRICK GREWAL readmission note: Prior Admission: Admitted 03/14/22 w/post obstructive PNA, lung mass, and elevated LFT/Bili. During that admission a long mass was identified. An MRCP was done and her liver was found to be cirrhotic Pt was discharged home on 03/15 on total of 7-day course of PO Levaquin. Home O2 testing was completed prior to discharge and she did not qualify for home O2. She was given a script for a WW/rollator @ d/c per her request. Pt to f/u with pulmonology and GI. She did f/u with Dr Bullock on 03/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 Current admission: Admitted 03/31/22 w/elevated LFT/Bili, cirrhosis, UTI, abd pain. GARRICK GREWAL to room. Introduced self and role. Pt states, since her last admission, that she has been in to see Dr King and also Dr Bullock and has had a lung biopsy done. She initially stated she took all of her medications as prescribed since being discharged from the hospital, but then she stated that she took the atb and other medications for about 3-4 days but then she stopped taking them d/t abdominal pain and nausea. She reports she contacted Dr Garcia who prescribed her medication for the nausea. She has another appt scheduled w/Dr Garcia in April. Discussed discharge planning. Pt's family live nearby and she states they are very supportive and are available to help her when needed. She states she did get the rollator after being discharged and has been using it since then. She reports continues to be indep @ home and denies needing any HHC or other discharge planning needs. Plan: Home Stephanie ASHFORD RNCM
[2022-04-01 17:15] LABS: Bedside Glucose 270 mg/dL (74-106)
[2022-04-01] MEDS: Ceftriaxone 1 GM/50 ML BAG IV (21:44)
[2022-04-01 22:30] LABS: Bedside Glucose 292 mg/dL (74-106)
[2022-04-02] VITALS (7 sets, daily range): BP systolic 120–144; BP diastolic 65–83; PULSE 72–110; RESP 18–20; TEMP 36.6–36.9; O2SAT 92–98; BMI 42.1
[2022-04-02] MEDS: Ondansetron 4 MG/2 ML Vial IV (02:46)
[2022-04-02 03:16] LABS: Bedside Glucose 202 mg/dL (74-106)
[2022-04-02 06:00] LABS: Absolute Lymphocyte Count 1.58 X10^3/uL (0.83-4.51); Absolute Neutrophil Count 8.4 X10^3/uL (2.0-7.7); Basophil# 0.05 X10^3/uL; Basophil% 0.4 % (0-1); Eosinophil# 0.14 X10^3/uL; Eosinophils% 1.2 % (0-5); Hemoglobin 12.6 g/dL (12.0-15.0); Lymphocyte # 1.58 X10^3/ul (0.83-4.51); Lymphocyte % 13.9 % (19-41); Mean Corp Hgb Conc 32.3 g/dL (32-36); Mean Corpuscular Hgb 27.2 pg (27.0-32.0); Mean Corpuscular Volume 84.2 fL (81-99); Mean Platelet Vol. 12.9 fl (6.2-12.0); Monocyte# 1.14 X10^3/uL; NRBC Flagged by Analyzer 0 % (0-5); Neutrophil # 8.38 X10^3/uL (2.7-7.7); Platelet Count 228 K/mm3 (150-450); RBC Distribution Width CV 19.7 % (11.6-14.6); RBC Distribution Width SD 57.7 fl (35.1-43.9); Red Blood Count 4.63 M/mm3 (4.2-5.4); White Blood Count 11.4 K/mm3 (4.4-11.0)
[2022-04-02] MEDS: Metoclopramide 10 MG/2 ML Vial 5 MG IV ×3 (06:16→21:09)
[2022-04-02 06:30] LABS: BUN 26 mg/dL (7-18); Creatinine, Serum 1.02 mg/dL (0.55-1.02); Estimated Creatinine Clearance 72.81 ml/min; Glucose 173 mg/dL (74-106)
[2022-04-02 06:31] LABS: ALB/GLOB Ratio 0.6 RATIO (0.9-2.4); AST(SGOT) 187 U/L (15-37); Alanine Aminotransfer ALT/SGPT 69 U/L (13-56); Albumin, Serum 2.3 g/dL (3.2-5.0); Alkaline Phosphatase 593 U/L (45-117); Anion Gap 8 (5-15); BUN/Creat Ratio 25.5 RATIO (10-20); Calcium,Total 7.7 mg/dL (8.5-10.1); Chloride 101 mmol/L (98-107); EST Glomerular Filtration Rate 57 mL/min (>60); Est Glom Filt Rate - Afr Amer 69 mL/min (>60); Globulin 3.6 g/dL (2.2-4.2); Magnesium 2.1 mg/dL (1.6-2.6); Phosphorus 1.8 mg/dL (2.5-4.9); Protein, Total 5.9 g/dL (6.4-8.2); Sodium Level 133 mmol/L (136-145)
[2022-04-02] MEDS: Budesonide Respules 0.5 MG/2 ML AMPUL.NEB. INHALATION ×2 (07:04→19:30)
[2022-04-02] MEDS: 0.9% Normal Saline 1,000 ML 100 ML IV (08:04)
[2022-04-02] MEDS: Ferrous Sulfate 325 MG Tablet PO (08:53)
[2022-04-02 09:07] LABS: HEPATITIS B SURFACE AG Negative (Negative); Hep C Antibodies Non Reactive (Non Reactive); Hepatitis A IgM Antibody Negative (Negative); Hepatitis B Core AB IgM Negative (Negative)
[2022-04-02] MEDS: Sucralfate 1 GM Tablet PO ×2 (10:20→14:50)
[2022-04-02] MEDS: Ursodiol 250 MG Tablet PO ×2 (10:20→21:09)
[2022-04-02] MEDS: Vitamin E 400 UNITS Capsule PO ×2 (10:20→21:09)
[2022-04-02] MEDS: Enoxaparin 40 MG/0.4 ML Syringe SC (10:20)
[2022-04-02] MEDS: Insulin Glargine-YFGN 100 UNIT/ML Pen 40 UNIT SC (10:20)
[2022-04-02] MEDS: rifAXIMin 550 MG Tablet PO ×2 (10:20→21:09)
--- NOTE | 2022-04-02 11:58 | PN_ITS ---
Subjective Subjective Patient is still having a lot of abdominal pain in the midepigastric area. On her previous upper endoscopy she was discovered to have a lot of fluid in her stomach which was consistent with delayed gastric emptying however her official gastric emptying study was prolonged but not out of the normal range. Patient says that she does not have much pain however her story changes and regarding her pain associated with eating. This is confirmed by the daughter who is at the bedside. Objective Data Objective Data Vital Signs: Vital Signs Temp Pulse Resp BP Pulse Ox O2 Del Method 98 F 94 18 137/83 H 98 Room Air 04/02/22 08:46 04/02/22 08:46 04/02/22 08:46 04/02/22 08:46 04/02/22 08:46 04/02/22 08:46 Oxygen Delivery Method Room Air Weight: 195 lb 5.273 oz Body Mass Index (BMI) 42.1 Intake & Output: Intake and Output for Last 24 Hours 03/31/22 04/01/22 04/02/22 23:59 23:59 23:59 Intake Total 1050 / 1050 3137.67 / 3487.67 1488.33 / 1488.33 Balance 1050 / 1050 3137.67 / 3487.67 1488.33 / 1488.33 Lab / Micro Data Result Diagrams: 04/02/22 05:09 04/02/22 05:09 Labs: Laboratory Results - last 24 hr 04/01/22 00:45: Hepatitis A IgM Ab Negative, Hep Bs Antigen Negative, Hep B Core IgM Ab Negative, Hepatitis C Ab (EIA) Non Reactive, Hep C Ab Comment Comment 04/01/22 13:01: POC Glucose 300 H 04/01/22 16:51: POC Glucose 270 H 04/01/22 21:36: POC Glucose 292 H 04/02/22 02:43: POC Glucose 202 H 04/02/22 05:09: WBC 11.4 H, RBC 4.63, Hgb 12.6, Hct 39.0, MCV 84.2, MCH 27.2, MCHC 32.3, RDW Std Deviation 57.7 H, RDW Coeff of Cari 19.7 H, Plt Count 228, MPV 12.9 H, Immature Gran % (Auto) 0.500, Neut % (Auto) 74.0 H, Lymph % (Auto) 13.9 L, [place] % (Auto) 10.0, Eos % (Auto) 1.2, Baso % (Auto) 0.4, Absolute Neuts (auto) 8.4 H, Absolute Lymphs (auto) 1.58, Nucleated RBC % 0 04/02/22 05:09: Sodium 133 L, Potassium 4.0, Chloride 101, Carbon Dioxide 24.0, Anion Gap 8, BUN 26 H, Creatinine 1.02, Estim Creat Clear Calc 72.81, Est GFR (MDRD) Af Amer 69, Est GFR (MDRD) Non-Af 57 L, BUN/Creatinine Ratio 25.5 H, Glucose 173 H, Calcium 7.7 L, Phosphorus 1.8 L, Magnesium 2.1, Total Bilirubin 7.80 H, AST 187 H, ALT 69 H, Alkaline Phosphatase 593 H, Total Protein 5.9 L, Albumin 2.3 L, Globulin 3.6, Albumin/Globulin Ratio 0.6 L Micro: Microbiology 03/31/22 20:59 Urine, Clean Catch Urine Culture - Final Mixed Gram Positive Organisms Physical Exam Narrative Physical Examination: General: Awake, alert, oriented x 3 and cooperative, seated upright in ED bed, fatigued appearing, anxious, tearful. Skin: Normal color, normal turgor, no icterus, no cyanosis. HEENT: AT/NC, EOMI, PERRLA, dry MM, no carotid bruits or JVD noted. Lungs: Improved from previous evaluation, diminished, greater bases, right still greater than left, appropriate respiratory rate and effort, no wheezing, rales or rhonchi. Heart: Very mildly tachycardic with regular rhythm; no gallop, rub audible. Abdomen: Soft, morbidly obese, generalized discomfort to the abdomen with no specific rebound but noted mild voluntary guarding, mildly hyperactive bowel sounds, difficult to assess HSM given discomfort with evaluation. Extremities: No cyanosis, clubbing, or edema. Neurological: Patient awake, alert, oriented as noted, cognitive function intact; pupils equally reactive to light and accommodation, cranial nerves II- XII grossly normal, moving all 4 extremities, no focal deficits, strength moderately to severely global decrease secondary to acute presentation and underlying comorbidities Psychiatric: Affect appears anxious, tearful, bronchoscopy recently performed with preliminary cancer diagnosis, underlying depression and anxiety. Assessment & Plan Assessment/Plan (1) Pneumonia: PLAN: Plan Nonalcoholic steatohepatitis with cirrhosis. Her current MELD has increased to 30 with her increase in bilirubin. 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 She has been having intermittent abdominal pain for the last several months and has not been seen in the office in approximately 3-1/2 to 4 months. She has lost weight since she was seen in the office. CT scan does show some diffuse lymphadenopathy near the pancreas and I am not sure that there is obstructive physiology affecting the hepatobiliary system in the setting of possible decompensated cirrhosis. Her MRCP did not show any obstructive physiology but it did show ascites, very small hepatobiliary system with a small liver consistent with cirrhosis. I agree with antibiotic at this time. She is not exhibiting any signs of ascending cholangitis. She has multiple factors for chronic nausea including poorly controlled diabetes, med side effect from multiple anticholinergic medicines that she takes on a daily basis. She can have a liquid diet until midnight. Continue ursodiol and I will start Xifaxan 550 mg twice a day, Reglan and continue PPI twice a day. Check ammonia level. Awaiting CA 19-9 and alpha- fetoprotein. This also could be a paraneoplastic syndrome from lung cancer affecting the GI tract. There is no obvious sign for her abdominal pain at this time. When she did undergo upper endoscopy she was discovered to have a large bezoar which prompted the gastric emptying study afterwards. However it did not show severely prolonged food in her stomach. The gastric emptying time was 44 minutes which is 10 minutes less than it should be. The upper limit of normal i s 54. Continue antiemetics with Reglan therapy. Recommend ultrasound in anticipation for possible paracentesis that is diagnostic looking for signs and symptoms of SBP. Would also recommend upper e ndoscopy to evaluate upper GI tract as I cannot explain her abdominal pain. I will give azithromycin 500 mg IV and she should have scheduled metoclopramide therapy while she is in the hospital. Charges/Coding Visit Charges Inpatient E&M: 66404 Subs Hosp L3
[2022-04-02 12:00] LABS: Bedside Glucose 137 mg/dL (74-106)
[2022-04-02] MEDS: oxyCODONE 5 MG Tablet PO ×2 (12:23→23:59)
--- NOTE | 2022-04-02 13:09 | PCM.PN.HOSP ---
Reason for Visit Reason for Visit: Abdominal pain/nausea/vomiting Subjective Subjective Patient still with nausea and vomiting intermittently. More or less this has been dry heaving. I was able to reproduce this actually by palpating her upper abdomen. This caused pretty intense pain. Patient has a tendency to under place symptoms. Daughter was at bedside and helped go through her recent history since last discharge and indicated that pretty much 2 days after she was discharged she started having symptoms again but did not want to come back to the hospital as she wanted to get her lung biopsy done. They were finally able to talk her to come back in after the biopsy was performed. She not been eating well at home. Objective Data Objective Data Vital Signs: Vital Signs Temp Pulse Resp BP Pulse Ox O2 Del Method 98 F 94 18 137/83 H 98 Room Air 04/02/22 08:46 04/02/22 08:46 04/02/22 08:46 04/02/22 08:46 04/02/22 08:46 04/02/22 08:46 Oxygen Delivery Method Room Air Weight: 88.6 kg Body Mass Index (BMI) 42.1 Intake & Output: Intake and Output for Last 24 Hours 03/31/22 04/01/22 04/02/22 23:59 23:59 23:59 Intake Total 1050 / 1050 3137.67 / 3487.67 1855.33 / 1855.33 Balance 1050 / 1050 3137.67 / 3487.67 1855.33 / 1855.33 Lab / Micro Data Result Diagrams: 04/02/22 05:09 04/02/22 05:09 Labs: Laboratory Results - last 24 hr 04/01/22 00:45: Hepatitis A IgM Ab Negative, Hep Bs Antigen Negative, Hep B Core IgM Ab Negative, Hepatitis C Ab (EIA) Non Reactive, Hep C Ab Comment Comment 04/01/22 13:01: POC Glucose 300 H 04/01/22 16:51: POC Glucose 270 H 04/01/22 21:36: POC Glucose 292 H 04/02/22 02:43: POC Glucose 202 H 04/02/22 05:09: WBC 11.4 H, RBC 4.63, Hgb 12.6, Hct 39.0, MCV 84.2, MCH 27.2, MCHC 32.3, RDW Std Deviation 57.7 H, RDW Coeff of Cari 19.7 H, Plt Count 228, MPV 12.9 H, Immature Gran % (Auto) 0.500, Neut % (Auto) 74.0 H, Lymph % (Auto) 13.9 L, [place] % (Auto) 10.0, Eos % (Auto) 1.2, Baso % (Auto) 0.4, Absolute Neuts (auto) 8.4 H, Absolute Lymphs (auto) 1.58, Nucleated RBC % 0 04/02/22 05:09: Sodium 133 L, Potassium 4.0, Chloride 101, Carbon Dioxide 24.0, Anion Gap 8, BUN 26 H, Creatinine 1.02, Estim Creat Clear Calc 72.81, Est GFR (MDRD) Af Amer 69, Est GFR (MDRD) Non-Af 57 L, BUN/Creatinine Ratio 25.5 H, Glucose 173 H, Calcium 7.7 L, Phosphorus 1.8 L, Magnesium 2.1, Total Bilirubin 7.80 H, AST 187 H, ALT 69 H, Alkaline Phosphatase 593 H, Total Protein 5.9 L, Albumin 2.3 L, Globulin 3.6, Albumin/Globulin Ratio 0.6 L 04/02/22 11:41: POC Glucose 137 H Micro: Microbiology 03/31/22 20:59 Urine, Clean Catch Urine Culture - Final Mixed Gram Positive Organisms Physical Exam Const alert, oriented x3, no apparent distress and well nourished Constitutional Narrative: Morbidly obese, white female, sitting up in a chair at the bedside, daughter and granddaughter at the bedside patient appears less ill today, nontoxic, holds her upper abdomen intermittently HEENT head/scalp atraumatic and moist oral mucous membranes HEENT Narrative: edentulous, Mallampati 2-3, no thrush Head and Scalp: normocephalic Eyes Eyes Narrative: Positive scleral icterus Resp normal respiratory effort, no retractions, no use of accessory muscles and clear to auscultation bilaterally Resp Narrative: Diffusely diminished but clear Auscultation: Negative for crackles, rhonchi or wheezes Cardio regular rate, regular rhythm, S1 normal heart sound, S2 normal heart sound, no murmurs, no rub, no gallops and no clicks GI soft to palpation and non-distended GI Narrative: Tenderness in the epigastrium and across bilateral upper abdominal quadrants, but sounds are normoactive Extremity no clubbing, cyanosis or edema Extremity Narrative: 2+ pedal pulses Neuro oriented x3, moves all extremities and no focal motor deficits Speech: speech normal Psych Psych Narrative: Affect is better today, no signs of depression, eye contact is good Assessment & Plan Assessment/Plan (1) Abdominal pain: (2) Elevated liver enzymes: (3) Urinary tract infection: (4) Hyperkalemia: (5) ADIS (acute kidney injury): (6) Hyperbilirubinemia: PLAN: Plan Epigastric pain/nausea/vomiting -GI is following and plans for repeat EGD tomorrow--> concern for SBP -Check complete abdominal ultrasound -Paracentesis ordered with fluid studies including cytology and cultures -Continue ceftriaxone -MRCP done earlier this month and demonstrated no biliary dilation or choledocholithiasis, cirrhotic liver with evidence of portal hypertension and no suspicious mass, periportal lymphadenopathy was noted -Repeat MRCP done on 04/01/2022 with no significant change -Continue clear liquid diet--> n.p.o. after midnight for EGD tomorrow -1 L IV fluids to start at midnight tonight and run for 1 L while patient n.p.o. for procedures tomorrow -Discontinue continuously running IV fluids -Continue antiemetics -CA 19-9 is pending -Tylenol level is unremarkable Liver cirrhosis with acute transaminitis/hyperbilirubinemia -Patient had mild transaminitis before with hyperbilirubinemia that resolved at her previous admission early in March however her hyperbilirubinemia is much more severe at this time as is her alkaline phosphatase -A.m. bilirubin is down to 7.7 from 9.2 on presentation -GI following and work-up as noted above and patient may require another liver biopsy -Ammonia level was normal at 27 -Continue rifaximin as recommended by gastroenterology -Continue your ursodiol -Alpha-fetoprotein level was 4.6 on 08/24/2021 -Suspected to be secondary to JACOME--> patient has had previous liver biopsy in 2021 with extensive work-up -Continue outpatient GI follow-up after discharge Hypophosphatemia -Sodium Phos bolus -Repeat lab in a.m. 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 Bullock as an outpatient [id number] -Last A1c was 9.1 on 08/24/2021 -Hold home oral agents -Hold home Trulicity -Currently on clear liquid diet but will be n.p.o. at midnight for procedures -Will need Lantus to be given despite patient having procedures -Improved blood sugars with changing Lantus dosing to 40 units twice daily from Lantus 68 units at at bedtime -Hold prandial insulin for now -->patient takes 24 units 3 times daily at baseline -Continue sliding scale -Accu-Cheks as ordered Diabetic neuropathy -Continue home amitriptyline Rheumatoid arthritis -Patient is not on any chronic regimen -Outpatient follow-up -No acute issues Hypertension/hyperlipidemia -Patient is on no antihypertensive regimen at baseline but there is documentation of hypertension in her chart -Monitor BP -Continue statin GERD -Continue Protonix IV push 40 mg twice daily BRAXTON -Continue nocturnal CPAP History of tobacco abuse -Encourage ongoing cessation Anxiety/depression -Continue home amitriptyline -Continue home Zoloft Chronic pain -Continue home as needed Flexeril -Oxycodone available -Hold on Tylenol -Would confirm [place] to Oxy at discharge given liver issues Morbid obesity -BMI 41.8 -Complicates treatment, prognosis, outcomes -Recommend weight loss DVT prophylaxis -SCDs -Continue Lovenox 40 mg twice daily CODE STATUS -Full code verified on admission Charges/Coding Visit Charges Inpatient E&M: 33232 Subs Hosp L2
[2022-04-02 17:10] LABS: Bedside Glucose 117 mg/dL (74-106)
[2022-04-02] MEDS: Ceftriaxone 1 GM/50 ML BAG IV (21:09)
[2022-04-02 22:30] LABS: Bedside Glucose 100 mg/dL (74-106)
[2022-04-03] VITALS (12 sets, daily range): BP systolic 105–150; BP diastolic 53–80; PULSE 81–119; RESP 16–96; TEMP 36.3–36.7; O2SAT 93–99; BMI 42.9
--- NOTE | 2022-04-03 | FLU_PTH ---
PATIENT: GLEN MOON LOC: MS3 U#:[id number] AGE/SX: 67/F ROOM: [facility] RE03/31/[address]: Dr. Misa Meade MD : 1955 BED: 1 DIS: 04/05/2022 SPEC #: [id number] RECD: 04/03/22 11:24 STATUS: CHANTAL REQ #: [id number] ELIZABET: 04/03/22 00:[address]: Misa Meade DEPT: CYTOLOGY RECD BY: Maria Fernanda Conner ENTERED: 04/03/22 12:45 SP TYPE: Fluid OTHR DR: MD Dr. Chey Avila DO Dr. William Lago, MD Tissues: PARACENTESIS FLUID Procedures: Special Stain Group II Surgery Specimen Level IV Cytospin Fluid HEADER OPERATION: Ultrasound-guided paracentesis right PRE-OP DIAGNOSIS: Right pleural effusion TISSUE SUBMITTED: Paracentesis fluid for cytology DIAGNOSIS CYTOLOGY Paracentesis fluid for cytology (cytospin and cell block): Negative for malignant cells. See comment. AM:dimas 04/04/2022 COMMENT Immunohistochemistry ([id number]) supports the above diagnosis. Case has been reviewed in consultation with Dr. Weeks who concurs with the above diagnosis. IDC:SJ CYTOLOGY STUDY Slides are reviewed. CYTOLOGY GROSS Received is 90 ml of alize cloudy fluid labeled with the patient's name and and designated per the requisition as paracentesis. Submitted for cytology preparation including cell block. / dimas 04/03/2022 TC:5 CPT: 39715, 89516
--- NOTE | 2022-04-03 | GASB_PTH ---
PATIENT: GLEN MOON LOC: MS3 U#:[id number] AGE/SX: 67/F ROOM: [facility] [place] RE03/31/[address]: Dr. Misa Meade MD : 1955 BED: 1 DIS: 04/05/2022 SPEC #: [id number] RECD: 04/03/22 11:20 STATUS: CHANTAL REFreedom #: [id number] ELIZABET: 04/03/22 00:[address]: Kirk King DEPT: SURGICAL PATHOLOGY RECD BY: Matthew Saldivar ENTERED: 04/03/22 11:20 SP TYPE: Gastric Bx OTHR DR: MD Dr. Chey Avila DO Dr. Paige Pierce, MD Dr. William Lago, MD Tissues: Gastric mucous membrane Procedures: Surgery Specimen Level IV Comments: @ Ordering doctor for SUIV edited from to @ by TRACIE at 04/03/22 1312 @ Submitting doctor edited from to @ by TRACIE at 04/03/22 1312 HEADER OPERATION: EGD ([facility] [place]) PRE-OP DIAGNOSIS: Abdominal pain, elevated liver enzymes TISSUE SUBMITTED: Gastric antrum MICROSCOPIC DIAGNOSIS Gastric antrum, biopsy: Chronic gastritis. See comment. AM:dimas 04/04/2022 COMMENT The results of immunohistochemistry for Helicobacter pylori will be reported separately ([id number]). MICROSCOPIC DESCRIPTION Slides are reviewed. GROSS DESCRIPTION Received in fixative is one container labeled with the patient's name and designated gastric antrum. The specimen consists of two irregular fragments of light soliman soft tissue that in aggregate measure 0.7 x 0.5 x 0.1 cm. The specimen is totally submitted in one cassette. / AM:dimas 04/03/2022 TC:3 CPT: 65965
--- NOTE | 2022-04-03 | IMM_PTH ---
PATIENT: GLEN MOON LOC: MS3 U#:[id number] AGE/SX: 67/F ROOM: [facility] RE03/31/[address]: Dr. Misa Meade MD : 1955 BED: 1 DIS: 04/05/2022 SPEC #: [id number] RECD: 04/04/22 13:43 STATUS: SOUT REQ #: [id number] ELIZABET: 04/03/22 00:[address]: Misa Meade DEPT: IMMUNOHISTOCHEMISTRY RECD BY: Olivia Vences ENTERED: 04/04/22 13:45 SP TYPE: IMMUNO OTHR DR: MD Dr. Aldo Avila MD Dr. Joseph Prah, MD Dr. Kathryn Lee, DO Dr. Mansour Isckarus, MD Dr. Robert Field, MD Dr. Ryan Jin, MD Dr. Roger Macklis, MD Dr. Steve Walston, MD Rosa M [address] Dr[address] DAYTIME CAREGIVER-C Tissues: PARACENTESIS FLUID Procedures: BCL-2 (add) CD20 (add) CD3 (add) CD45 (add) CD5 (add) CD79A (add) Pankeratin (initial) PHYSICIAN & [place] [id number] SPECIMEN INFORMATION: Tissue Source: Paracentesis fluid Clinical Info: Right pleural effusion Specimen Number: [id number] CPT code: 36816, 34455 x6 METHODOLOGY: Deparaffinized sections of prefer/formalin-fixed tissue or PAP/DQ stained slides are incubated with monoclonal/polyclonal antibodies/oligonucleotide probes. Localization is made via biotin free immunoperoxidase method. Appropriate controls are performed and reacted as expected. Results on target cell population are indicated in the following table: RESULTS: ANTIBODY / CLONE RESULT AE1-3 (AE1/AE3/PCK26) negative CD3 (PS1) positive CD5 (SP10) positive CD20 (L26) negative CD45 (RP2/18) positive CD79a (11E3) positive BCL-2 (bcl-2/100/D5) positive These tests were developed and their performance characteristics determined by [facility]. They may not have been cleared or approved by the U.S. Food and Drug Administration. The FDA has determined that such clearance or approval is not necessary. The above immunohistochemical/dualISH markers are ordered and reviewed by the Pathologist. INTERPRETATION: Paracentesis fluid (cell block): Polytypic (benign) lymphoid cell population. AM:dimas 04/05/2022
[2022-04-03 00:10] LABS: Bedside Glucose 143 mg/dL (74-106)
[2022-04-03] MEDS: Lactated Ringers 1,000 ML 60 ML IV (01:00)
--- NOTE | 2022-04-03 02:37 | EKG12_ITS ---
Test Reason : AM EKG Blood Pressure : / mmHG Vent. Rate : 105 BPM Atrial Rate : 105 BPM P-R Int : 134 ms QRS Dur : 082 ms QT Int : 344 ms P-R-T Axes : 062 -28 071 degrees QTc Int : 454 ms Sinus tachycardia Nonspecific T wave abnormality Abnormal ECG When compared with ECG of 14-MAR-2022 09:54, Nonspecific T wave abnormality, worse in Lateral leads Confirmed by ZACHARY GOINS, BRYN ([id number]), proposal editor LOC WALLS ([id number]) on 04/04/2022 10:09:09 AM Referred By: ALFREDO Confirmed By:BRYN SHARMA MD
[2022-04-03] MEDS: Metoclopramide 10 MG/2 ML Vial 5 MG IV ×3 (05:42→22:32)
[2022-04-03 05:45] LABS: Absolute Lymphocyte Count 1.83 X10^3/uL (0.83-4.51); Absolute Neutrophil Count 11.8 X10^3/uL (2.0-7.7); Basophil# 0.05 X10^3/uL; Basophil% 0.3 % (0-1); Eosinophil# 0.05 X10^3/uL; Eosinophils% 0.3 % (0-5); Hematocrit 39.2 % (37-47); Hemoglobin 12.9 g/dL (12.0-15.0); Lymphocyte # 1.83 X10^3/ul (0.83-4.51); Lymphocyte % 11.8 % (19-41); Mean Corp Hgb Conc 32.9 g/dL (32-36); Mean Corpuscular Hgb 26.5 pg (27.0-32.0); Mean Corpuscular Volume 80.7 fL (81-99); Mean Platelet Vol. 12.2 fl (6.2-12.0); Monocyte# 1.69 X10^3/uL; Monocyte% 10.9 % (0-10); NRBC Flagged by Analyzer 0 % (0-5); Neutrophil # 11.76 X10^3/uL (2.7-7.7); Neutrophil % 76.2 % (47-70); POSITIVE DIFFERENTIAL YES; Platelet Count 262 K/mm3 (150-450); RBC Distribution Width CV 19.7 % (11.6-14.6); RBC Distribution Width SD 55.3 fl (35.1-43.9); Red Blood Count 4.86 M/mm3 (4.2-5.4); White Blood Count 15.5 K/mm3 (4.4-11.0)
[2022-04-03 06:05] LABS: International Normalized Ratio 1.3; Partial Thromboplast Time 35.3 Seconds (24.1-36.2); Prothrombin Time (Protime)PT. 15.8 SECONDS (11.7-14.9)
[2022-04-03] MEDS: Dextrose 50%-Water 25 GM/50 ML DISP.SYRIN IV (06:07)
[2022-04-03 06:10] LABS: Differential Indicated SCAN CRITERIA MET
[2022-04-03 06:35] LABS: ALB/GLOB Ratio 0.6 RATIO (0.9-2.4); AST(SGOT) 206 U/L (15-37); Alanine Aminotransfer ALT/SGPT 68 U/L (13-56); Albumin, Serum 2.2 g/dL (3.2-5.0); Alkaline Phosphatase 623 U/L (45-117); Anion Gap 9 (5-15); BUN 23 mg/dL (7-18); BUN/Creat Ratio 26.3 RATIO (10-20); Calcium,Total 7.7 mg/dL (8.5-10.1); Chloride 102 mmol/L (98-107); Creatinine, Serum 0.87 mg/dL (0.55-1.02); EST Glomerular Filtration Rate 68 mL/min (>60); Est Glom Filt Rate - Afr Amer 83 mL/min (>60); Globulin 3.5 g/dL (2.2-4.2); Glucose 61 mg/dL (74-106); Potassium 3.9 mmol/L (3.5-5.1); Protein, Total 5.7 g/dL (6.4-8.2); Sodium Level 134 mmol/L (136-145)
[2022-04-03 06:41] LABS: Differential Comment SCANNED
[2022-04-03 06:50] LABS: Bedside Glucose 132 mg/dL (74-106)
--- NOTE | 2022-04-03 07:00 | US_ITS ---
STUDY: ABDOMINAL ULTRASOUND - RIGHT UPPER QUADRANT REASON FOR VISIT: Female, 67 years old abdominal pain -- RUQ ONLY PER DR SPARKS TECHNIQUE: Ultrasound evaluation of the right upper quadrant was performed with real-time and static lawson-scale imaging. TECHNICAL QUALITY: Adequate. COMPARISON: Comparison is made with prior study dated 09/01/2021. FINDINGS: Liver: The liver is enlarged and measures 22.2 cm. Lobular contour of the liver. There is a heterogeneous echogenicity of the liver. The bile ducts are within normal limits. There is hepatic color flow. The direction of portal flow is hepatopetal. There is no demonstrated mass lesion. Gallbladder: The patient is status post cholecystectomy. Common Bile Duct (C.B.D.): The common bile duct measures 4.0 mm. Pancreas: Normal size of the head, body and tail of the pancreas. There is normal echogenicity of the pancreas. 2.2 cm x 3.1 signed by 1.1 cm lymph node is seen adjacent to the pancreas. Right Kidney: Normal size of the right kidney. The right kidney measures 11.5 cm x 4.7 cm x 4.6 cm. Normal renal cortex. The right cortex measures 1.5 cm. There is no demonstrated renal mass or cyst. There is no right hydronephrosis. US/Abdomen Limited IMPRESSION: Hepatomegaly. Heterogeneous echotexture of the liver. Nodular liver contour. Electronically Signed: Eric Pichardo MD at 14:27 EST ,
--- NOTE | 2022-04-03 07:00 | US_ITS ---
PROCEDURE: Ultrasound guided paracentesis. DATE OF EXAMINATION: 04/03/2022. INDICATION: Female, 67 years old. Ascites. PHYSICIAN: Eric Pichardo M.D. TECHNIQUE: The risks, benefits, and alternatives to the procedure were explained to the patient. The specific risks of bleeding, infection, and damage to bowel were detailed and accepted. Witnessed informed consent was obtained. The abdomen was ultrasonographically surveyed. An appropriate pocket of fluid was identified at the right lower quadrant. The skin were cleaned and prepped in the usual sterile fashion. Using ultrasound guidance, the peritoneal cavity was accessed with a 5-Bulgarian paracentesis needle/catheter system. The trocar was removed. A total of 2000 ml of alize-colored fluid were removed from the peritoneal cavity. A 100 mL sample was sent to the laboratory for testing. The catheter was removed and a sterile dressing was applied. The procedure was well tolerated. US/Paracentesis with US IMPRESSION: Ultrasound guided paracentesis. Electronically Signed: Eric Pichardo MD at 12:35 EST ,
[2022-04-03] MEDS: Budesonide Respules 0.5 MG/2 ML AMPUL.NEB. INHALATION ×2 (07:02→19:13)
[2022-04-03 07:16] LABS: Bedside Glucose 61 mg/dL (74-106)
--- NOTE | 2022-04-03 08:38 | OP.CCLET_ITS ---
04/03/2022 Jesus Garcia Re : Upper GI endoscopy procedure for Krystina Alicea Radha This procedure was performed on Sunday, April 03, 2022. My impressions and recommendations are as follows: Impressions : - Normal esophagus. - Erythematous mucosa in the gastric body. Biopsied. - Normal second portion of the duodenum. Biopsied. Recommendations : - Discharge patient to home. - Resume previous diet. - Continue present medications. - Await pathology results. My findings are described in the full procedure note, which is enclosed. If I can be of further assistance, please feel free to contact me at . Sincerely, Kirk iKng, 04/03/2022 8:37:44 AM This report has been signed electronically.
--- NOTE | 2022-04-03 08:38 | OP.EGD_ITS ---
Patient Name: Krystina Day Procedure Date: 04/03/2022 8:18 AM Date of : 1955 Age: 67 Procedure: Upper GI endoscopy Indications: Epigastric abdominal pain Providers: Kirk King DO Medicines: Monitored Anesthesia Care Patient Profile: This is a 67 year old female. Refer to note in patient chart for documentation of history and physical. Patient has symptoms of acute epigastric abdominal pain. Complications: No immediate complications. Procedure: Pre-Anesthesia Assessment: - Prior to the procedure, a History and Physical was performed, and patient medications and allergies were reviewed. The patient is competent. The risks and benefits of the procedure and the sedation options and risks were discussed with the patient. All questions were answered and informed consent was obtained. Patient identification and proposed procedure were verified by the physician. Mental Status Examination: alert and oriented. Prophylactic Antibiotics: The patient does not require prophylactic antibiotics. Prior Anticoagulants: The patient has taken no previous anticoagulant or antiplatelet agents. After reviewing the risks and benefits, the patient was deemed in satisfactory condition to undergo the procedure. The anesthesia plan was to use monitored anesthesia care (MAC). Immediately prior to administration of medications, the patient was re-assessed for adequacy to receive sedatives. The heart rate, respiratory rate, oxygen saturations, blood pressure, adequacy of pulmonary ventilation, and response to care were monitored throughout the procedure. The physical status of the patient was re-assessed after the procedure. After obtaining informed consent, the endoscope was passed under direct vision. Throughout the procedure, the patient's blood pressure, pulse, and oxygen saturations were monitored continuously. The gastroscope was introduced through the mouth, and advanced to the second part of duodenum. The upper GI endoscopy was accomplished without difficulty. The patient tolerated the procedure well. Scope In: 8:27:17 AM Scope Out: 8:30:20 AM Total Procedure Duration Time 0 hours 3 minutes 3 seconds Findings: The examined esophagus was normal. Diffuse mildly erythematous mucosa without bleeding was found in the gastric body. Biopsies were taken with a cold forceps for histology. Verification of patient identification for the specimen was done. Estimated blood loss was minimal. The second portion of the duodenum was normal. Biopsies were taken with a cold forceps for histology. Verification of patient identification for the specimen was done. Estimated blood loss was minimal. Impression: - Normal esophagus. - Erythematous mucosa in the gastric body. Biopsied. - Normal second portion of the duodenum. Biopsied. Recommendation: - Discharge patient to home. - Resume previous diet. - Continue present medications. - Await pathology results. Procedure Code(s): --- Professional --- 94736, Esophagogastroduodenoscopy, flexible, transoral; with biopsy, single or multiple CPT copyright 2017 [employer]. All rights reserved. The codes documented in this report are preliminary and upon risk management analyst review may be revised to meet current compliance requirements. Kirk King DO 04/03/2022 8:37:44 AM This report has been signed electronically. Number of Addenda: 0 Note Initiated On: 04/03/2022 8:18 AM
--- NOTE | 2022-04-03 08:45 | PCM.PN.HOSP ---
Reason for Visit Reason for Visit: Diagnoses Other disorders of bilirubin metabolism (03/31/22) Hyperkalemia (03/31/22) Pneumonia, unspecified organism (03/31/22) Acute kidney failure, unspecified (03/31/22) Urinary tract infection, site not specified (03/31/22) Unspecified abdominal pain (03/31/22) Abnormal levels of other serum enzymes (03/31/22) Subjective Subjective Feeling better after paracentesis today, nausea improving, able to ambulate better. Did not have a BM for the past several days but reports p.o. prior to today Objective Data Objective Data Vital Signs: Vital Signs Temp Pulse Resp BP Pulse Ox O2 Del Method 97.6 F L 100 18 136/80 H 95 Room Air 04/03/22 08:35 04/03/22 08:40 04/03/22 08:40 04/03/22 08:40 04/03/22 08:40 04/03/22 08:40 Oxygen Delivery Method Room Air Weight: 90.3 kg Body Mass Index (BMI) 42.9 Intake & Output: Intake and Output for Last 24 Hours 04/01/22 04/02/22 04/03/22 23:59 23:59 23:59 Intake Total 3137.67 / 3487.67 3182.00 / 3382.00 200 / 200 Balance 3137.67 / 3487.67 3182.00 / 3382.00 200 / 200 Lab / Micro Data Result Diagrams: 04/03/22 05:17 04/03/22 05:17 Labs: Laboratory Results - last 24 hr 04/01/22 00:45: Hepatitis A IgM Ab Negative, Hep Bs Antigen Negative, Hep B Core IgM Ab Negative, Hepatitis C Ab (EIA) Non Reactive, Hep C Ab Comment Comment 04/02/22 06:15: POC Glucose 143 H 04/02/22 11:41: POC Glucose 137 H 04/02/22 16:48: POC Glucose 117 H 04/02/22 21:10: POC Glucose 100 04/03/22 05:17: WBC 15.5 H, RBC 4.86, Hgb 12.9, Hct 39.2, MCV 80.7 L, MCH 26.5 L, MCHC 32.9, RDW Std Deviation 55.3 H, RDW Coeff of Cari 19.7 H, Plt Count 262, MPV 12.2 H, Immature Gran % (Auto) 0.500, Neut % (Auto) 76.2 H, Lymph % (Auto) 11.8 L, Atkinson % (Auto) 10.9 H, Eos % (Auto) 0.3, Baso % (Auto) 0.3, Absolute Neuts (auto) 11.8 H, Absolute Lymphs (auto) 1.83, Nucleated RBC % 0, Differential Comment SCANNED, Diff Path Review June04/03/22 05:17: Sodium 134 L, Potassium 3.9, Chloride 102, Carbon Dioxide 23.0, Anion Gap 9, BUN 23 H, Creatinine 0.87, Estim Creat Clear Calc 87.00, Est GFR (MDRD) Af Amer 83, Est GFR (MDRD) Non-Af 68, BUN/Creatinine Ratio 26.3 H, Glucose 61 L, Calcium 7.7 L, Total Bilirubin 8.90 H, AST 206 H, ALT 68 H, Alkaline Phosphatase 623 H, Total Protein 5.7 L, Albumin 2.2 L, Globulin 3.5, Albumin/Globulin Ratio 0.6 L 04/03/22 05:17: PT 15.8 H, INR 1.3, APTT 35.3 04/03/22 05:56: POC Glucose 61 L 04/03/22 06:27: POC Glucose 132 H Micro: Microbiology 03/31/22 20:59 Urine, Clean Catch Urine Culture - Final Mixed Gram Positive Organisms Physical Exam Narrative General: Alert, oriented, no apparent distress HEENT: Atraumatic, normocephalic Eyes: Anicteric, normal conjunctiva, extraocular movements grossly intact Neck: Supple Respiratory: Scattered wheezes, normal respiratory effort Cardiovascular: Regular rate and rhythm GI: Soft, minimal tenderness no rebound, guarding, rigidity, nondistended Extremities: No edema Musculoskeletal: Moving all extremities Neuro: No overt focal neurological deficits Skin: No rashes appreciated Psych: Cooperative Assessment & Plan Assessment/Plan (1) Abdominal pain: (2) Elevated liver enzymes: (3) Urinary tract infection: (4) Hyperkalemia: (5) ADIS (acute kidney injury): (6) Hyperbilirubinemia: PLAN: Plan 67-year-old female with a history of type 2 diabetes mellitus, COPD, back pain, JACOME, GERD, obesity, who presented to [facility] 03/31 with abdominal pain, nausea, emesis. She recently was discharged 03/15/2022 following evaluation for worsening bilirubin and LFTs with MRCP with no evidence of biliary dilation or choledocholithiasis. She did have CT of the chest for concern for postobstructive pneumonia at that time and had a right perihilar mass and was discharged on Levaquin for 6 additional days with outpatient follow-up with Dr. Bullock 03/30 from bronchoscopy with noted mediastinal adenopathy and lung mass suspicious for cancer. She represented 03/31 with diffuse aching abdominal discomfort with nausea and emesis. Heart rate ED 114 white count 15.7, potassium 5.7 but moderately hemolyzed, creatinine 1.39 with a glucose of 359. T. bili 9.2, direct bili 6.82, AST 197/ALT 79 and an alk phos of 714, lipase 338. CT abdomen pelvis showed complete collapse of right middle lobe lungs otherwise clear, cirrhotic appearing liver with evidence of prior cholecystectomy with marked gastroesophageal gastropathic ligament varices with mild diffuse ascites otherwise no interval change since 03/14. She is given Rocephin, 1 L normal saline, 4 mg morphine IV and admitted. #Abdominal pain, nausea, vomiting -MRCP earlier in the month with evidence of portal hypertension but no biliary dilation or choledocho cholelithiasis, repeat MRCP 04/01 no significant change -GI consulted -Possible SBP, abdominal ultrasound ordered to assess right upper quadrant and fluid, paracentesis ordered with fluid studies including cytology and cultures -Continue Rocephin at this time -Has been receiving IVF -CA 19?9 pending -EGD 04/03 with some erythematous mucosa in the gastric body which was biopsied and no other abnormalities noted -Had paracentesis which helped abdominal pain as well as her nausea and vomiting, 2000 mL removed #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 Bullock in the office #ADIS?resolved -Baseline creatinine 0.7-1 and had ADIS on admission with creatinine of 1.39 #Type 2 diabetes mellitus uncontrolled -A1c 8.9 -Glucose checks, basal, sliding scale insulin -Has had glargine held as she has been n.p.o. for procedures and has still had glucose well within range despite the 40 units twice daily on hold, will decrease this and can escalated as indicated #GERD -PPI #Anxiety/depression -Amitriptyline and Zoloft #BRAXTON -CPAP nightly #Chronic pain -As needed Flexeril, as needed oxycodone -Hold Tylenol #Morbid obesity -BMI 43.1 -Complicates treatment, prognosis, outcomes -Recommend weight loss #DVT ppx: ted subq held for procedure Misa Meade MD Time spent in the patient's overall evaluation,decision-making process, review of diagnostic data, adjustment of management, discussion with other providers, nursing nursing and ancillary staff involved in patient's care documentation, 35 Minutes Charges/Coding Visit Charges Inpatient E&M: 47601 Subs Hosp L2
[2022-04-03 09:11] LABS: Phosphorus 2.7 mg/dL (2.5-4.9)
[2022-04-03 09:16] LABS: Hemoglobin A1c 8.4 % (3.8-5.6)
[2022-04-03] MEDS: Lidocaine 2% (20 ml mdv) 20 ML Vial INFILT (10:45)
--- NOTE | 2022-04-03 10:45 | NURSING ---
Patient off unit to ultrasound. TC to Michelle in radiology making her aware that patient had a low BS this AM and her current BS before going to radiology was 85.
[2022-04-03 10:55] LABS: Bedside Glucose 85 mg/dL (74-106)
[2022-04-03 11:16] LABS: Carbohydrate Ag 19-9 2261 314 U/mL (0-35)
[2022-04-03 11:31] LABS: Cytology, Body Fluid / CSF SEE PATHOLOGY REPORT
[2022-04-03 11:48] LABS: Body Fluid Mononuclear WBC # 0.212 10^3/uL; Body Fluid Mononuclear WBC % 97.7 %; Body Fluid Polynuclear WBC # 0.005 10^3/uL; Body Fluid Polynuclear WBC % 2.3 %; Body Fluid Total Cells Counted 0.219 10^3/ul; White Blood Count/Body Fluid 0.217 10^3/uL
[2022-04-03 11:54] LABS: Appearance/Body Fluid CLEAR; Auto B Fluid Analyzer BKGD Ct COUNTS W/IN LIMITS (W/IN LIMITS); Color/Body Fluid YELLOW; Source- Body Fluid OTHER
[2022-04-03 11:59] LABS: Red Cell Count/Body Fluid 445 /mm3
[2022-04-03 12:02] LABS: Body Fluid QC Type(s) BF1Q,BF2Q
[2022-04-03 12:15] LABS: Glucose, Body Fluid 96 mg/dL (40-70); LDH,Body Fluid 190 Units/l (Not Establ.); Protein, Body Fluid 1.6 g/dL (Not Establ.)
[2022-04-03 12:18] LABS: Lymphocytes 88 %; Macrophages 1 %; Monocytes 7 %; Neutrophil (Segs) 4 %
[2022-04-03 12:30] LABS: Other Cell Type/BF 1 %; Plasma Cell/BodyFluid 1 %
--- NOTE | 2022-04-03 13:00 | IMM_PTH ---
PATIENT: GLEN MOON LOC: MS3 U#:[id number] AGE/SX: 67/F ROOM: [facility] [place] RE03/31/[address]: Dr. Misa Meade MD : 1955 BED: 1 DIS: 04/05/2022 SPEC #: [id number] RECD: 04/03/22 13:10 STATUS: SOUKameron REQ #: [id number] ELIZABET: 04/03/22 13:[address]: Kirk King DEPT: IMMUNOHISTOCHEMISTRY RECD BY: Olivia Vences ENTERED: 04/03/22 13:11 SP TYPE: IMMUNO OTHR DR: MD Dr. Chey Avila DO Dr. Paige Pierce, MD Dr. William Lago, MD Tissues: Stomach, NOS Procedures: H Pylori (initial) Comments: @ Ordering doctor for H.PYLORI edited from to @ by TRACIE at 04/03/22 1312 @ Submitting doctor edited from to @ by TRACIE at 04/03/22 1312 PHYSICIAN & [place] [phone] SPECIMEN INFORMATION: Tissue Source: Gastric antrum Clinical Info: Abdominal pain, elevated liver enzymes Specimen Number: [id number] CPT code: 74600 METHODOLOGY: Deparaffinized sections of prefer/formalin-fixed tissue or PAP/DQ stained slides are incubated with monoclonal/polyclonal antibodies/oligonucleotide probes. Localization is made via biotin free immunoperoxidase method. Appropriate controls are performed and reacted as expected. Results on target cell population are indicated in the following table: RESULTS: ANTIBODY / CLONE RESULT H Pylori (polyclonal) negative These tests were developed and their performance characteristics determined by [facility]. They may not have been cleared or approved by the U.S. Food and Drug Administration. The FDA has determined that such clearance or approval is not necessary. The above immunohistochemical/dualISH markers are ordered and reviewed by the Pathologist. INTERPRETATION: Gastric antrum, biopsy: Negative for Helicobacter pylori organisms. LILLIE:dimas 04/05/2022
[2022-04-03] MEDS: Vitamin E 400 UNITS Capsule PO ×2 (13:11→22:33)
[2022-04-03] MEDS: Ferrous Sulfate 325 MG Tablet PO (13:11)
[2022-04-03] MEDS: rifAXIMin 550 MG Tablet PO ×2 (13:11→22:33)
[2022-04-03] MEDS: Sucralfate 1 GM Tablet PO ×2 (13:11→16:17)
[2022-04-03] MEDS: Ursodiol 250 MG Tablet PO ×2 (13:12→22:33)
[2022-04-03 14:29] LABS: Pathologist Review Reviewed
[2022-04-03] MEDS: Senna/Docusate Sodium 1 Tablet PO ×2 (14:44→22:33)
[2022-04-03] MEDS: Polyethylene Glycol 3350 17 GM PACKET PO (14:44)
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
[2022-04-03] MEDS: Insulin Lispro 100 UNIT/ML INSULN.PEN SC ×2 (16:17→22:30)
[2022-04-03 16:40] LABS: Bedside Glucose 225 mg/dL (74-106)
[2022-04-03] MEDS: Insulin Glargine-YFGN 100 UNIT/ML Pen 15 UNIT SC (22:31)
[2022-04-03] MEDS: Ceftriaxone 1 GM/50 ML BAG IV (22:33)
[2022-04-03] MEDS: 0.9% Saline Lock 10 ML Syringe IV (22:38)
[2022-04-04] VITALS (15 sets, daily range): BP systolic 107–149; BP diastolic 21–87; PULSE 91–111; RESP 16–36; TEMP 36.3–36.8; O2SAT 94–100
[2022-04-04] LABS: Bedside Glucose 258 mg/dL (74-106)
--- NOTE | 2022-04-04 | LIVB_PTH ---
PATIENT: GLEN MOON LOC: MS3 U#:[id number] AGE/SX: 67/F [place] [facility] [place]/31/[address]: Dr. Misa Meade MD : 1955 BED: 1 DIS: 04/05/2022 SPEC #: [id number] RECD: 04/04/22 13:25 STATUS: CHANTAL REQ #: [id number] ELIZABET: 04/04/22 00:[address]: Misa Meade DEPT: SURGICAL PATHOLOGY RECD BY: Matthew Saldivar ENTERED: 04/04/22 13:25 SP TYPE: LIVER BX OTHR DR: MD Dr. Aldo Avila MD Dr. Joseph Prah, MD Dr. Kathryn Lee, DO Dr. Mansour Isckarus, MD Dr. Robert Field, MD Dr. Ryan Jin, MD Dr. Roger Macklis, MD Dr. Steve Walston, MD Rosa M [address] CLIENT TECHNICAL SPECIALIST-C Tissues: Liver, NOS Procedures: PAS with Diastase (control) Trichrome (control) Special Stain Group II PAS Stain (control) Surgery Specimen Level V Retic (control) Iron Stain (control) HEADER OPERATION: CT-guided liver biopsy PRE-OP DIAGNOSIS: Jaundice TISSUE SUBMITTED: Right lobe liver 18-gauge x4 cores MICROSCOPIC DIAGNOSIS Right lobe liver, CT-guided core biopsy: Metastatic small cell neuroendocrine carcinoma. Consistent with cirrhosis. See microscopic description and comment. LILLIE:dimas 04/05/2022 COMMENT Correlation with clinical findings and appropriate follow up are necessary. Immunohistochemistry ([id number]) supports the above diagnosis. Please make reference to previous specimen ([id number]) EBUS, TBNA, site 7 and site 10 with diagnosis of ?metastatic small cell neuroendocrine carcinoma.? MICROSCOPIC DESCRIPTION Slides are reviewed. The specimen shows liver parenchymal tissue with foci of metastatic small cell neuroendocrine carcinoma. Uninvolved liver parenchymal tissue shows distortion of normal lobular architecture into multiple nodules divided by fibrous septae consistent with cirrhosis. Hepatocytes in the nodules show reactive changes. Focal dilatation of sinusoids is noted. Fibrous septae in between the nodules show mild to moderate chronic inflammation. Interface inflammation is not seen. Iron stain shows absent iron. Trichrome and reticulin stains highlight the fibrous septae. PAS and PASD do not show any abnormal accumulation of protein. All stains are performed with appropriate matched controls. GROSS DESCRIPTION Received is one container labeled with the patient's name and not further designated. The specimen consists of two elongated fragments of soliman soft tissue each measuring 1.5 cm in length and 0.1 cm in diameter. The specimen is totally submitted in one cassette. / SJ:dimas 04/04/2022 TC:0 CPT: 98301, 11669 x5
--- NOTE | 2022-04-04 | IMM_PTH ---
PATIENT: GLEN MOON LOC: MS3 U#:[id number] AGE/SX: 67/F ROOM: [facility] RE03/31/[address]: Dr. Misa Meade MD : 1955 BED: 1 DIS: 04/05/2022 SPEC #: [id number] RECD: 04/05/22 13:45 STATUS: SOUT REQ #: [id number] ELIZABET: 04/04/22 00:[address]: Misa Meade DEPT: IMMUNOHISTOCHEMISTRY RECD BY: Olivia Vences ENTERED: 04/05/22 13:46 SP TYPE: IMMUNO OTHR DR: MD Dr. Aldo Avila MD Dr. Joseph Prah, MD Dr. Kathryn Lee, DO Dr. Mansour Isckarus, MD Dr. Robert Field, MD Dr. Ryan Jin, MD Dr. Roger Macklis, MD Dr. Steve Walston, MD Rosa M [address] Dr[address] CUTTING SUPERVISOR-C Tissues: Liver, NOS Procedures: Synapto (add) CD45 (add) CD56 (add) CHROMO (add) CK20 (add) CK7 (add) CK8 (add) KI-67 (add) TTF1 (add) Pankeratin (initial) PHYSICIAN & [place] [id number] SPECIMEN INFORMATION: Tissue Source: Right lobe liver Clinical Info: Jaundice Specimen Number: [id number] CPT code: 88513, 66514 x9 METHODOLOGY: Deparaffinized sections of prefer/formalin-fixed tissue or PAP/DQ stained slides are incubated with monoclonal/polyclonal antibodies/oligonucleotide probes. Localization is made via biotin free immunoperoxidase method. Appropriate controls are performed and reacted as expected. Results on target cell population are indicated in the following table: RESULTS: ANTIBODY / CLONE RESULT AE1-3 (AE1/AE3/PCK26) positive CK7 (OV-TL12/30) negative CK8 (16tffyL03) positive CK20 (KS20.8) negative CD45 (RP2/18) negative CD56 (123C3.D5) positive Chromo (LK2H10) positive Synapto (polyclonal) positive TTF-1 (8G7G3/1) positive Ki-67 (30-9) positive, >95% These tests were developed and their performance characteristics determined by [facility]. They may not have been cleared or approved by the U.S. Food and Drug Administration. The FDA has determined that such clearance or approval is not necessary. The above immunohistochemical/dualISH markers are ordered and reviewed by the Pathologist. INTERPRETATION: Right lobe of liver, CT-guided core biopsy: Metastatic small cell neuroendocrine carcinoma. SJ:dimas 04/06/2022
[2022-04-04] MEDS: Metoclopramide 10 MG/2 ML Vial 5 MG IV ×3 (05:47→21:52)
[2022-04-04] MEDS: Insulin Lispro 100 UNIT/ML INSULN.PEN SC ×4 (05:50→21:51)
[2022-04-04] MEDS: Sucralfate 1 GM Tablet PO ×3 (05:50→15:09)
[2022-04-04 06:44] LABS: Absolute Lymphocyte Count 1.53 X10^3/uL (0.83-4.51); Basophil# 0.04 X10^3/uL; Basophil% 0.3 % (0-1); Eosinophil# 0.07 X10^3/uL; Eosinophils% 0.5 % (0-5); Hematocrit 43.2 % (37-47); Hemoglobin 14.2 g/dL (12.0-15.0); Lymphocyte # 1.53 X10^3/ul (0.83-4.51); Lymphocyte % 11.7 % (19-41); Mean Corp Hgb Conc 32.9 g/dL (32-36); Mean Corpuscular Volume 82.3 fL (81-99); Mean Platelet Vol. 12.8 fl (6.2-12.0); Monocyte# 1.37 X10^3/uL; Monocyte% 10.5 % (0-10); NRBC Flagged by Analyzer 0 % (0-5); Neutrophil # 10.01 X10^3/uL (2.7-7.7); Neutrophil % 76.4 % (47-70); POSITIVE MORPHOLOGY YES; Platelet Count 282 K/mm3 (150-450); RBC Distribution Width CV 20.7 % (11.6-14.6); RBC Distribution Width SD 58.6 fl (35.1-43.9); Red Blood Count 5.25 M/mm3 (4.2-5.4); White Blood Count 13.1 K/mm3 (4.4-11.0)
[2022-04-04 06:53] LABS: Differential Indicated SCAN CRITERIA MET
[2022-04-04 07:01] LABS: Bedside Glucose 218 mg/dL (74-106)
[2022-04-04] MEDS: Budesonide Respules 0.5 MG/2 ML AMPUL.NEB. INHALATION (07:02)
[2022-04-04 07:28] LABS: ALB/GLOB Ratio 0.6 RATIO (0.9-2.4); AST(SGOT) 183 U/L (15-37); Alanine Aminotransfer ALT/SGPT 66 U/L (13-56); Albumin, Serum 2.3 g/dL (3.2-5.0); Alkaline Phosphatase 640 U/L (45-117); Anion Gap 10 (5-15); BUN 25 mg/dL (7-18); Bilirubin, Direct 8.58 mg/dL (0.00-0.30); Calcium,Total 8.1 mg/dL (8.5-10.1); Chloride 100 mmol/L (98-107); EST Glomerular Filtration Rate 58 mL/min (>60); Est Glom Filt Rate - Afr Amer 71 mL/min (>60); Estimated Creatinine Clearance 75.69 ml/min; Glucose 224 mg/dL (74-106); Potassium 4.5 mmol/L (3.5-5.1); Protein, Total 6.3 g/dL (6.4-8.2); Sodium Level 131 mmol/L (136-145)
--- NOTE | 2022-04-04 07:43 | PCM.PN.HOSP ---
Reason for Visit Reason for Visit: Diagnoses Other disorders of bilirubin metabolism (03/31/22) Hyperkalemia (03/31/22) Pneumonia, unspecified organism (03/31/22) Acute kidney failure, unspecified (03/31/22) Urinary tract infection, site not specified (03/31/22) Unspecified abdominal pain (03/31/22) Abnormal levels of other serum enzymes (03/31/22) Subjective Subjective Does report some right upper quadrant pain this morning and some more abdominal fullness, had eaten slightly better yesterday evening. Due to increasing bilirubin she is scheduled for liver biopsy this morning Objective Data Objective Data Vital Signs: Vital Signs Temp Pulse Resp BP Pulse Ox O2 Del Method 98.1 F 91 18 146/63 H 97 Room Air 04/04/22 06:00 04/04/22 07:02 04/04/22 07:02 04/04/22 06:00 04/04/22 06:00 04/04/22 07:02 Oxygen Delivery Method [2] Room Air Oxygen Delivery Method [1 ( Room Air Initial Baseline)] Oxygen Delivery Method Room Air Weight: 90.3 kg Body Mass Index (BMI) 42.9 Intake & Output: Intake and Output for Last 24 Hours 04/02/22 04/03/22 04/04/22 23:59 23:59 23:59 Intake Total 3182.00 / 3382.00 1541 / 1591 240 / 240 Output Total 1999 Balance 3182.00 / 3382.00 -459 / -409 240 / 240 Lab / Micro Data Result Diagrams: 04/04/22 06:30 04/04/22 06:30 Labs: Laboratory Results - last 24 hr 04/01/22 00:45: CA 19-9 Antigen 314 H 04/03/22 05:17: Diff Path Review Reviewed 04/03/22 05:17: Phosphorus 2.7 04/03/22 05:17: Hemoglobin A1c 8.4 H 04/03/22 10:36: POC Glucose 85 04/03/22 16:15: POC Glucose 225 H 04/03/22 22:23: POC Glucose 258 H 04/03/22 : Fluid Glucose 96 H, Fluid Total Protein 1.6, Fluid LDH 190 04/03/22 : Fluid Source OTHER, Fluid Color YELLOW, Fluid Appearance CLEAR, Fluid WBC 0.217, Fluid RBC 445, Fluid Tot Cell Count 0.219 H, Fld Polynuclear WBCs # 0.005, Fld Polynuclear WBCs % 2.3, Fluid Mononuclear WBCs 0.212, Fld Mononuclear WBCs % 97.7, Fluid Neutrophils 4, Fluid Lymphocytes 88, Fluid Monocytes 7, Fluid Plasma Cells 1, Fluid Macrophages 1, Fluid Other Cells 1, Fl Pathologist Comment May follow, Fluid Comment 2 SEE COMMENT 04/04/22 05:49: POC Glucose 218 H 04/04/22 06:30: WBC 13.1 H, RBC 5.25, Hgb 14.2, Hct 43.2, MCV 82.3, MCH 27.0, MCHC 32.9, RDW Std Deviation 58.6 H, RDW Coeff of Cari 20.7 H, Plt Count 282, MPV 12.8 H, Immature Gran % (Auto) 0.600, Neut % (Auto) 76.4 H, Lymph % (Auto) 11.7 L, [place] % (Auto) 10.5 H, Eos % (Auto) 0.5, Baso % (Auto) 0.3, Absolute Neuts (auto) 10.0 H, Absolute Lymphs (auto) 1.53, Nucleated RBC % 0 04/04/22 06:30: Sodium 131 L, Potassium 4.5, Chloride 100, Carbon Dioxide 21.0, Anion Gap 10, BUN 25 H, Creatinine 1.00, Estim Creat Clear Calc 75.69, Est GFR (MDRD) Af Amer 71, Est GFR (MDRD) Non-Af 58 L, BUN/Creatinine Ratio 25.0 H, Glucose 224 H, Calcium 8.1 L, Total Bilirubin 11.10 H, Direct Bilirubin 8.58 H, AST 183 H, ALT 66 H, Alkaline Phosphatase 640 H, Total Protein 6.3 L, Albumin 2.3 L, Globulin 4.0, Albumin/Globulin Ratio 0.6 L Micro: Microbiology 04/03/22 Unknown Fluid - Paracentesis (Abd) Gram Stain - Final 03/31/22 20:59 Urine, Clean Catch Urine Culture - Final Mixed Gram Positive Organisms Radiography Diagnostic Testing: Radiology Impression Abdomen Ultrasound 04/03/22 07:00 IMPRESSION: Hepatomegaly. Heterogeneous echotexture of the liver. Nodular liver contour. Electronically Signed: Eric Pichardo MD at 14:27 EST , Paracentesis Ultrasound 04/03/22 07:00 IMPRESSION: Ultrasound guided paracentesis. Electronically Signed: Eric Pichardo MD at 12:35 EST , Physical Exam Narrative General: Alert, oriented, no apparent distress HEENT: Atraumatic, normocephalic Eyes: Anicteric, normal conjunctiva, extraocular movements grossly intact Neck: Supple Respiratory: Scattered wheezes, normal respiratory effort Cardiovascular: Regular rate and rhythm GI: Soft though slightly less so than immediately after paracentesis yesterday, minimal tenderness no rebound, guarding, rigidity, nondistended Extremities: No edema Musculoskeletal: Moving all extremities Neuro: No overt focal neurological deficits Skin: No rashes appreciated Psych: Cooperative Assessment & Plan Assessment/Plan (1) Abdominal pain: (2) Elevated liver enzymes: (3) Urinary tract infection: (4) Hyperkalemia: (5) ADIS (acute kidney injury): (6) Hyperbilirubinemia: PLAN: Plan 67-year-old female with a history of type 2 diabetes mellitus, COPD, back pain, LOERA, GERD, obesity, who presented to [facility] 03/31 with abdominal pain, nausea, emesis. She recently was discharged 03/15/2022 following evaluation for worsening bilirubin and LFTs with MRCP with no evidence of biliary dilation or choledocholithiasis. She did have CT of the chest for concern for postobstructive pneumonia at that time and had a right perihilar mass and was discharged on Levaquin for 6 additional days with outpatient follow-up with Dr. Bullock 03/30 from bronchoscopy with noted mediastinal adenopathy and lung mass suspicious for cancer. She represented 03/31 with diffuse aching abdominal discomfort with nausea and emesis. Heart rate ED 114 white count 15.7, potassium 5.7 but moderately hemolyzed, creatinine 1.39 with a glucose of 359. T. bili 9.2, direct bili 6.82, AST 197/ALT 79 and an alk phos of 714, lipase 338. CT abdomen pelvis showed complete collapse of right middle lobe lungs otherwise clear, cirrhotic appearing liver with evidence of prior cholecystectomy with marked gastroesophageal gastropathic ligament varices with mild diffuse ascites otherwise no interval change since 03/14. She is given Rocephin, 1 L normal saline, 4 mg morphine IV and admitted. #Abdominal pain, nausea, vomiting -MRCP earlier in the month with evidence of portal hypertension but no biliary dilation or choledocho cholelithiasis, repeat MRCP 04/01 no significant change -GI consulted -Possible SBP, abdominal ultrasound ordered to assess right upper quadrant and fluid, paracentesis ordered with fluid studies including cytology and cultures -Continue Rocephin at this time -Has been receiving IVF -CA 19?9 pending -EGD 04/03 with some erythematous mucosa in the gastric body which was biopsied and no other abnormalities noted -Had paracentesis which helped abdominal pain as well as her nausea and vomiting, 2000 mL removed -04/04: Does have slightly more abdominal pain this a.m., is n.p.o. 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 Plan is for biopsy today #Lung mass suspicious for small cell carcinoma -Had bronchoscopy with mediastinal adenopathy and lung mass suspicious for cancer -status post biopsy with preliminary cytology concerning for small cell carcinoma, follows with Dr. Bullock in the office #ADIS?resolved -Baseline creatinine 0.7-1 and had ADIS on admission with creatinine of 1.39 #Type 2 diabetes mellitus uncontrolled -A1c 8.9 -Glucose checks, basal, sliding scale insulin -Has had glargine held as she has been n.p.o. for procedures and has still had glucose well within range despite the 40 units twice daily on hold, will decrease this and can escalated as indicated #GERD -PPI #Anxiety/depression -Amitriptyline and Zoloft #BRAXTON -CPAP nightly #Chronic pain -As needed Flexeril, as needed oxycodone -Hold Tylenol #Morbid obesity -BMI 43.1 -Complicates treatment, prognosis, outcomes -Recommend weight loss #DVT ppx: ted subq held for procedure Misa Meade MD Time spent in the patient's overall evaluation,decision-making process, review of diagnostic data, adjustment of management, discussion with other providers, nursing nursing and ancillary staff involved in patient's care documentation, 35 Minutes Charges/Coding Visit Charges Inpatient E&M: 70473 Subs Hosp L2
[2022-04-04 08:12] LABS: Anisocytosis 2+; Target Cells 2+
[2022-04-04] MEDS: fentaNYL 100 MCG/2 ML Ampul IV (09:41)
[2022-04-04] MEDS: Midazolam 2 MG/2 ML Syringe IV (09:41)
[2022-04-04] MEDS: Lidocaine 2% (20 ml mdv) 20 ML Vial INFILT (09:58)
[2022-04-04] MEDS: Polyethylene Glycol 3350 17 GM PACKET PO (11:07)
[2022-04-04] MEDS: rifAXIMin 550 MG Tablet PO ×2 (11:07→21:51)
[2022-04-04] MEDS: Ferrous Sulfate 325 MG Tablet PO (11:07)
[2022-04-04] MEDS: Ursodiol 250 MG Tablet PO ×2 (11:07→21:51)
[2022-04-04] MEDS: Senna/Docusate Sodium 1 Tablet PO ×2 (11:08→21:51)
[2022-04-04 11:30] LABS: Bedside Glucose 181 mg/dL (74-106)
[2022-04-04] MEDS: Ondansetron 4 MG/2 ML Vial IV (11:56)
[2022-04-04 13:10] LABS: Pathologist Comment/Body Fluid Reviewed
[2022-04-04] MEDS: oxyCODONE 5 MG Tablet PO (13:18)
[2022-04-04] MEDS: Vitamin E 400 UNITS Capsule PO ×2 (13:19→21:51)
--- NOTE | 2022-04-04 13:58 | CT_ITS ---
PROCEDURE: CT DIRECTED CORE LIVER BIOPSY INDICATION: Female, 67 years old. Jaundice. PHYSICIAN: Dr. RHODA Carnes CONSENT: Written informed consent was obtained having explained the risks, benefits and alternatives in detail with the patient who accepted the risks and agreed to proceed. Laboratory review and clinical assessment was performed. CONSCIOUS SEDATION PROTOCOL: The Drugs used were: 2 mg Versed, IV., and 50 mcg Fentanyl, IV. The sedation time was: 20 minutes. Conscious sedation was started in 1940 1:00 AM and terminated at 10:01 AM. The conscious sedation protocol was independently monitored. RADIATION DOSAGE (If Supplied By Facility): CTDIvol = ( 32 ) mGy, DLP = ( 745.47 ) mGycm Individualized dose optimization techniques were used for this CT. TECHNIQUE: Using CT image guidance with image documentation, a suitable location in the right lobe of the liver was identified. Using an anterior approach, puncture of the liver was uneventful with an 18-gauge core needle system. 4, 18-gauge core samples were obtained, and submitted in formalin to the pathologist for further assessment. Followup CT scan revealed no distinct sequelae. CT/Biopsy/Inj or Needle Placement IMPRESSION: 1. CT directed core needle biopsy of the liver, using CT image guidance with image documentation as described. 2. Conscious Sedation protocol utilized with independent monitoring. Electronically Signed: Eric Pichardo MD at 10:27 [facility] ,
--- NOTE | 2022-04-04 14:48 | ONC.CONSULT ---
Assessment & Plan Assessment/Plan (1) Small cell lung cancer in adult: Status: Acute Code(s): C34.90 - Malignant neoplasm of unspecified part of unspecified bronchus or lung Plan: Small cell lung cancer R hilar mass 4cm, mediastinal node-T2 N2 M0-Stage IIB. Functional status is poor. Prognosis is poor because of comorbid disease of liver failure. Poor candidate for therapy. Discussed supportive and hospice care with Pt, she wants to think about it. Suggestion supportive and hospice care. (2) Liver failure without hepatic coma: Status: Acute Code(s): K72.90 - Hepatic failure, unspecified without coma Plan: Continue supportive care. HPI Consult Data Date of Service:: 04/04/22 PCP / Referring Provider: Dr. Jesus Garcia MD Attending: Dr. Misa Meade MD Chief Complaint Chief Complaint: Asked to see Pt for Small cell Lung Cancer management. History of Present Illness History of Present Illness: 67-year-old woman with multiple medical problems, was admitted on 03/14/2022 with abdominal pain, CT of the chest on 03/14/2022 showed right perihilar mass with postobstructive pneumonitis of right middle lobe and volume loss and large mediastinal lymph nodes. She underwent bronchoscopy and biopsy on 03/31/2022, findings showed extrinsic compression of right bronchus intermedius endoscopic ultrasound biopsy of level 7 and right level 10 R biopsy was obtained. Pathology showed level 7 node positive for small cell carcinoma, 10 R also showed small cell carcinoma. Asked to see the patient while on admission for further management. Advanced Directives Power of Apparatus Engineering Technologist: No Living Will: No PFSH Medical History Ambulates with cane Anemia Anxiety Arthritis Asthma Back problem Bladder disease Chronic bronchitis Cirrhosis COPD (chronic obstructive pulmonary disease) Depression Diabetes Diabetes mellitus, type 2 Dietary restriction Easy bruising Esophagitis Former smoker Gastric reflux Heart murmur High cholesterol History of stress test Injury of head and neck Insulin dependent diabetes mellitus Low iron JACOME (nonalcoholic steatohepatitis) Obesity Proteinuria due to type 2 diabetes mellitus Rheumatoid arthritis Shortness of breath on exertion Walker as ambulation aid Wears dentures Wears glasses Home Medications amitriptyline 10 mg tablet 50 mg PO QHS heart 01/16/16 [History Last Taken 03/18/22] metformin 1,000 mg tablet 1,000 mg PO BIDCM blood sugar 01/16/16 [History Last Taken 03/13/22] oxybutynin chloride 5 mg tablet 10 mg PO DAILY bladder 01/16/16 [History Last Taken 03/13/22] simvastatin 20 mg tablet 40 mg PO QHS cholesterol lowering 01/16/16 [History Last Taken 03/13/22] cyclobenzaprine 10 mg tablet 10 mg PO TID PRN PRN Pain 03/27/17 [History Last Taken 03/13/22] ferrous sulfate 325 mg (65 mg iron) tablet 325 mg PO DAILY supplement 07/05/21 [History Last Taken 03/13/22] insulin aspart U-100 100 unit/mL (3 mL) subcutaneous pen 24 unit subcut TIDCM blood sugar 08/24/21 [History Last Taken 03/13/22] insulin glargine 100 unit/mL (3 mL) subcutaneous pen (Lantus Solostar U-100 Insulin) 68 unit subcut QPM DM 08/24/21 [History Last Taken 03/13/22] sertraline 50 mg tablet (Zoloft) 50 mg PO DAILY mood 09/09/21 [History Last Taken 03/13/22] dulaglutide 3 mg/0.5 mL subcutaneous pen injector (Trulicity) 1.5 mg subcut QWEEK dm 10/21/21 [History Last Taken 03/11/22] ergocalciferol (vitamin D2) 25,000 unit capsule 50,000 unit PO WE supplement 10/21/21 [History Last Taken 03/30/22] albuterol sulfate 90 mcg/actuation aerosol inhaler 2 puff inhalation Q4H PRN PRN sob 03/14/22 [History Last Taken Unknown] tiotropium bromide 2.5 mcg/actuation mist for inhalation (Spiriva Respimat) 2 puff inhalation DAILY PRN sob 03/14/22 [History Last Taken 3 Days Ago ~03/11/22] ursodiol 300 mg capsule 300 mg PO BID GI 03/14/22 [History Last Taken 03/13/22] vitamin E (dl, acetate) 180 mg (400 unit) capsule 180 mg PO BID supplement 03/14/22 [History Last Taken 03/13/22] ondansetron 4 mg disintegrating tablet 4 mg translingual Q8H NAUSEA 03/28/22 [History Last Taken 03/31/22] hydrocodone-acetaminophen 5-325mg 5mg-325mg 1 tab PO Q6H Check with primary doctor 04/01/22 [History Last Taken 03/11/22] pantoprazole 40 mg tablet,delayed release (Protonix) 40 mg PO BID Check with primary doctor 04/01/22 [History Last Taken 03/11/22] sucralfate 100 mg/mL oral suspension (Carafate) 10 ml PO QAC Check with primary doctor 04/01/22 [History Last Taken 03/31/22] Allergy/AdvReac Type Severity Reaction Status Date / Time codeine Allergy Rash Verified 03/31/22 11:15 lisinopril AdvReac Angioedema Verified 03/31/22 11:15 naproxen AdvReac Other Verified 03/31/22 11:15 Family History Mother Diabetes Breast cancer Sister Diabetes CAD (coronary artery disease) Other Arthritis Surgical History History of cholecystectomy History of colonoscopy History of esophagogastroduodenoscopy (EGD) History of hysterectomy Hx of left cataract extraction Hx of right cataract extraction Social History Smoking Status: Former smoker alcohol intake: never substance use type: does not use what type of physical activity do you participate in: none ROS ENT HEENT: Reports other; Denies dysphagia or hoarseness Cardiovascular Cardiovascular: Reports edema; Denies chest pain Respiratory/Chest Respiratory/Chest: Denies chest tightness, cough, dyspnea or dyspnea on exertion Gastrointestinal Gastrointestinal: Reports other Details: abdominal distention, sometimes with pain. Genitourinary Genitourinary: Denies change in urinary stream Musculoskeletal Musculoskeletal: Reports abnormal gait and other Details: Uses a walker at home, Integumentary Integumentary: Denies alopecia Neurologic Neurologic: Denies headache(s) Psychiatric Psychiatric: Denies depression Endocrine Endocrinology: Denies cold intolerance, flushing or heat intolerance Hematologic/Lymphatic Hematologic/Lymphatic: Denies lymphadenopathy Physical Exam Narrative Elderly woman Const alert and oriented x3 HEENT normocephalic HEENT Narrative: edentulous Eyes PERRL Eyes Narrative: +jaundiced sclera. Neck no lymphadenopathy Lymph Lymphatic: no lymphadenopathy noted Chest inspection of breasts normal Resp normal respiratory effort and clear to auscultation bilaterally Cardio S1 normal heart sound and S2 normal heart sound GI GI Narrative: Distended with vague tenderness. Extremity Extremity Narrative: bilateral pedal edema Skin no rashes or lesions noted Neuro CN's II-XII intact bilaterally and moves all extremities Psych mental status grossly normal Vital Signs Temperature 97.9 F 04/04/22 12:33 Temperature Source Oral 04/04/22 12:33 Pulse Rate 101 H 04/04/22 12:33 Respiratory Rate 18 04/04/22 12:33 Respiratory Effort 04/04/22 09:00 Respiratory Depth Normal 04/03/22 21:00 Respiratory Pattern Normal 04/04/22 10:31 Blood Pressure 126/63 H 04/04/22 12:33 Blood Pressure Mean 84 04/04/22 12:33 Blood Pressure Source Monitor 04/04/22 12:33 Blood Pressure Position Right Lateral 04/04/22 12:33 Blood Pressure Location Left Arm 04/04/22 12:33 Baseline BP 122/60 04/04/22 10:31 Pulse Ox 95 04/04/22 12:33 Oxygen Delivery Method Room Air 04/04/22 12:33 Oxygen Flow Rate (L/min) 2 04/04/22 09:41 Laboratory Results - last 24 hr 04/03/22 16:15: POC Glucose 225 H 04/03/22 22:23: POC Glucose 258 H 04/03/22 : Fl Pathologist Comment Reviewed 04/04/22 05:49: POC Glucose 218 H 04/04/22 06:30: WBC 13.1 H, RBC 5.25, Hgb 14.2, Hct 43.2, MCV 82.3, MCH 27.0, MCHC 32.9, RDW Std Deviation 58.6 H, RDW Coeff of Cari 20.7 H, Plt Count 282, MPV 12.8 H, Immature Gran % (Auto) 0.600, Neut % (Auto) 76.4 H, Lymph % (Auto) 11.7 L, [place] % (Auto) 10.5 H, Eos % (Auto) 0.5, Baso % (Auto) 0.3, Absolute Neuts (auto) 10.0 H, Absolute Lymphs (auto) 1.53, Nucleated RBC % 0, Anisocytosis 2+, Target Cells 2+ 04/04/22 06:30: Sodium 131 L, Potassium 4.5, Chloride 100, Carbon Dioxide 21.0, Anion Gap 10, BUN 25 H, Creatinine 1.00, Estim Creat Clear Calc 75.69, Est GFR (MDRD) Af Amer 71, Est GFR (MDRD) Non-Af 58 L, BUN/Creatinine Ratio 25.0 H, Glucose 224 H, Calcium 8.1 L, Total Bilirubin 11.10 H, Direct Bilirubin 8.58 H, AST 183 H, ALT 66 H, Alkaline Phosphatase 640 H, Total Protein 6.3 L, Albumin 2.3 L, Globulin 4.0, Albumin/Globulin Ratio 0.6 L 04/04/22 11:05: POC Glucose 181 H Microbiology 04/03/22 Unknown Fluid - Paracentesis (Abd) Gram Stain - Final 04/03/22 Unknown Fluid - Paracentesis (Abd) Body Fluid Culture - Preliminary No growth-Final to follow Diagnostic Data Abdomen/Pelvis CT 03/31/22 20:43 IMPRESSION: 1. In development of ascites since the previous study. 2. No other major interval change when compared to March 14, 2022. Electronically Signed: Ronen Loera DO at 22:18 EST Reading Location ID and State: [facility] / [place] Tel [phone], Service support , MRCP 04/01/22 09:21 IMPRESSION: Gallbladder not visualized likely due to cholecystectomy less likely due to contracted gallbladder. No evidence of intra or extrahepatic biliary ductal dilatation. Findings consistent with cirrhotic liver with concurrent moderate ascites within the upper abdomen. Electronically Signed: Alberto Bentley MD, NESHA at 11:56 EST , Abdomen Ultrasound 04/03/22 07:00 IMPRESSION: Hepatomegaly. Heterogeneous echotexture of the liver. Nodular liver contour. Electronically Signed: Eric Pichardo MD at 14:27 EST , Paracentesis Ultrasound 04/03/22 07:00 IMPRESSION: Ultrasound guided paracentesis. Electronically Signed: Eric Pichardo MD at 12:35 EST , Biopsy CT 04/04/22 13:58 IMPRESSION: 1. CT directed core needle biopsy of the liver, using CT image guidance with image documentation as described. 2. Conscious Sedation protocol utilized with independent monitoring. Electronically Signed: Eric Pichardo MD at 10:27 EST , Charges/Coding Visit Charges Office Visits / Consults: 97921 IP Consult L4
--- NOTE | 2022-04-04 16:39 | PN_ITS ---
Subjective Subjective She underwent liver biopsy today. She has minimal pain. She is tolerating a diet. Objective Data Objective Data Vital Signs: Vital Signs Temp Pulse Resp BP Pulse Ox O2 Del Method O2 Flow Rate 97.9 F 101 H 18 126/63 H 95 Room Air 2 04/04/22 12:33 04/04/22 12:33 04/04/22 12:33 04/04/22 12:33 04/04/22 12:33 04/04/22 12:33 04/04/22 09:41 Oxygen Flow Rate (L/min) [5] 2 Oxygen Flow Rate (L/min) [4] 2 Oxygen Flow Rate (L/min) [3] 2 Oxygen Flow Rate (L/min) [2] 2 Oxygen Delivery Method [2] Room Air Oxygen Delivery Method [1 ( Room Air Initial Baseline)] Oxygen Delivery Method [5] Nasal Cannula Oxygen Delivery Method [4] Nasal Cannula Oxygen Delivery Method [3] Nasal Cannula Oxygen Delivery Method [2] Nasal Cannula Oxygen Delivery Method [1 ( Room Air Initial Baseline)] Oxygen Delivery Method Room Air Weight: 199 lb 1.239 oz Body Mass Index (BMI) 42.9 Intake & Output: Intake and Output for Last 24 Hours 04/02/22 04/03/22 04/04/22 23:59 23:59 23:59 Intake Total 3182.00 / 3382.00 1541 / 1591 400 / 400 Output Total 1999 / 1999 Balance 3182.00 / 3382.00 -459 / -409 400 / 400 Lab / Micro Data Result Diagrams: 04/04/22 06:30 04/04/22 06:30 Labs: Laboratory Results - last 24 hr 04/03/22 16:15: POC Glucose 225 H 04/03/22 22:23: POC Glucose 258 H 04/03/22 : Fl Pathologist Comment Reviewed 04/04/22 05:49: POC Glucose 218 H 04/04/22 06:30: WBC 13.1 H, RBC 5.25, Hgb 14.2, Hct 43.2, MCV 82.3, MCH 27.0, MCHC 32.9, RDW Std Deviation 58.6 H, RDW Coeff of Cari 20.7 H, Plt Count 282, MPV 12.8 H, Immature Gran % (Auto) 0.600, Neut % (Auto) 76.4 H, Lymph % (Auto) 11.7 L, [place] % (Auto) 10.5 H, Eos % (Auto) 0.5, Baso % (Auto) 0.3, Absolute Neuts (auto) 10.0 H, Absolute Lymphs (auto) 1.53, Nucleated RBC % 0, Anisocytosis 2+, Target Cells 2+ 04/04/22 06:30: Sodium 131 L, Potassium 4.5, Chloride 100, Carbon Dioxide 21.0, Anion Gap 10, BUN 25 H, Creatinine 1.00, Estim Creat Clear Calc 75.69, Est GFR (MDRD) Af Amer 71, Est GFR (MDRD) Non-Af 58 L, BUN/Creatinine Ratio 25.0 H, Glucose 224 H, Calcium 8.1 L, Total Bilirubin 11.10 H, Direct Bilirubin 8.58 H, AST 183 H, ALT 66 H, Alkaline Phosphatase 640 H, Total Protein 6.3 L, Albumin 2.3 L, Globulin 4.0, Albumin/Globulin Ratio 0.6 L 04/04/22 11:05: POC Glucose 181 H Micro: Microbiology 04/03/22 Unknown Fluid - Paracentesis (Abd) Gram Stain - Final 04/03/22 Unknown Fluid - Paracentesis (Abd) Body Fluid Culture - Preliminary No growth-Final to follow 03/31/22 20:59 Urine, Clean Catch Urine Culture - Final Mixed Gram Positive Organisms Radiography Diagnostic Testing: Radiology Impression Biopsy CT 04/04/22 13:58 IMPRESSION: 1. CT directed core needle biopsy of the liver, using CT image guidance with image documentation as described. 2. Conscious Sedation protocol utilized with independent monitoring. Electronically Signed: Eric Pichardo MD at 10:27 EST , Physical Exam Narrative She looks a lot older than stated age Const alert and oriented x3 HEENT normocephalic HEENT Narrative: edentulous Eyes PERRL Eyes Narrative: +jaundiced sclera. Neck no lymphadenopathy Lymph Lymphatic: no lymphadenopathy noted Chest inspection of breasts normal Resp normal respiratory effort and clear to auscultation bilaterally Cardio S1 normal heart sound and S2 normal heart sound GI GI Narrative: Distended with vague tenderness. Extremity Extremity Narrative: bilateral pedal edema Skin no rashes or lesions noted Neuro CN's II-XII intact bilaterally and moves all extremities Psych mental status grossly normal Assessment & Plan Assessment/Plan (1) Pneumonia: PLAN: Plan Nonalcoholic steatohepatitis with cirrhosis. Her current MELD has increased to 30 with her increase in bilirubin. 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 She has been having intermittent abdominal pain for the last several months and has not been seen in the office in approximately 3-1/2 to 4 months. She has lost weight since she was seen in the office. CT scan does show some diffuse lymphadenopathy near the pancreas and I am not sure that there is obstructive physiology affecting the hepatobiliary system in the setting of possible decompensated cirrhosis. Her MRCP did not show any obstructive physiology but it did show ascites, very small hepatobiliary system with a small liver consistent with cirrhosis. I agree with antibiotic at this time. She is not exhibiting any signs of ascending cholangitis. She has multiple factors for chronic nausea including po inderjit controlled diabetes, med side effect from multiple anticholinergic medicines that she takes on a daily basis. She can have a liquid diet until midnight. Continue ursodiol and I will start Xifaxan 550 mg twice a day, Reglan and continue PPI twice a day. Check ammonia level. Awaiting CA 19-9 and alpha- fetoprotein. This also could be a paraneoplastic syndrome from lung cancer affecting the GI tract. There is no obvious sign for her abdominal pain at this time. When she did undergo upper endoscopy she was discovered to have a large bezoar which prompted the gastric emptying study afterwards. However it did not show severely prolonged food in her stomach. The gastric emptying time was 44 minutes which is 10 minutes less than it should be. The upper limit of normal is 54. Continue antiemetics with Reglan therapy. Recommend ultrasound in anticipation for possible paracentesis that is diagnostic looking for signs and symptoms of SBP. Would also recommend upper endoscopy to evaluate upper GI tract as I cannot explain her abdominal pain. I will give azithromycin 500 mg IV and she should have scheduled metoclopramide therapy while she is in the hospital. 04/04: Increasing bilirubin down elevated alkaline phosphatase. Status post liver biopsy today. I am unsure why her liver function test and liver enzymes are still elevating in the setting of nonobstructive disease seen on MRCP. There is a possibility that because she had ascites the MRCP was not a good study but her ducts did not look dilated although was not a total clear study. Vanishing bile duct syndrome is a rare but serious outcome and complication of drug induced liver injury marked clinically by chronic cholestasis and histologically by loss of intrahepatic bile ducts. VBDS typically occurs after a bout of severe cholestatic hepatitis, often with immunoallergic features. It also can be associated with metastatic disease. More likely renal cell carcinoma than squamous cell carcinoma of the lung.Other conditions that can mimic or cause vanishing bile duct syndrome include eeegq-df-byer disease, Hodgkin's disease, sclerosing cholangitis and primary biliary cholangitis.?It typically arises in the setting of severe acute cholestatic hepatitis in which there is an inadequate recovery as shown by persistent elevations in alkaline phosphatase levels and bilirubin, which often occur despite a decrease in serum aminotransferase levels into the normal or near-normal range. Serum cholesterol levels are also raised as are serum bile acid levels. Liver biopsy findings of paucity of intralobular bile ducts (<50% of portal areas with bile duct in a biopsy with at least 10 portal areas) Charges/Coding Visit Charges Inpatient E&M: 19440 Subs Hosp L3
[2022-04-04 18:05] LABS: Bedside Glucose 177 mg/dL (74-106)
[2022-04-04] MEDS: Insulin Glargine-YFGN 100 UNIT/ML Pen 15 UNIT SC (21:52)
[2022-04-04] MEDS: 0.9% Saline Lock 10 ML Syringe IV (21:53)
[2022-04-04 22:20] LABS: Bedside Glucose 193 mg/dL (74-106)
[2022-04-05 03:00] VITALS: BP 152/61; PULSE 102; RESP 18; TEMP 36.6; O2SAT 96
[2022-04-05] MEDS: oxyCODONE 5 MG Tablet PO (04:36)
[2022-04-05 06:07] VITALS: BMI 43.3
[2022-04-05] MEDS: Sucralfate 1 GM Tablet PO ×3 (06:33→16:31)
[2022-04-05] MEDS: Insulin Lispro 100 UNIT/ML INSULN.PEN SC ×3 (06:34→16:31)
[2022-04-05] MEDS: Metoclopramide 10 MG/2 ML Vial 5 MG IV ×2 (06:34→13:50)
[2022-04-05 06:52] LABS: Basophil# 0.03 X10^3/uL; Basophil% 0.2 % (0-1); Eosinophil# 0.08 X10^3/uL; Eosinophils% 0.6 % (0-5); Hemoglobin 13.6 g/dL (12.0-15.0); Lymphocyte % 11.5 % (19-41); Mean Corp Hgb Conc 33.2 g/dL (32-36); Mean Corpuscular Hgb 27.7 pg (27.0-32.0); Mean Corpuscular Volume 83.5 fL (81-99); Monocyte# 1.41 X10^3/uL; Monocyte% 10.8 % (0-10); NRBC Flagged by Analyzer 0 % (0-5); Neutrophil # 9.96 X10^3/uL (2.7-7.7); Neutrophil % 76.4 % (47-70); POSITIVE MORPHOLOGY YES; Platelet Count 286 K/mm3 (150-450); RBC Distribution Width SD 61.4 fl (35.1-43.9); Red Blood Count 4.91 M/mm3 (4.2-5.4); White Blood Count 13.1 K/mm3 (4.4-11.0)
[2022-04-05 07:00] LABS: Bedside Glucose 175 mg/dL (74-106)
[2022-04-05 07:08] LABS: Differential Indicated SCAN CRITERIA MET
[2022-04-05 07:35] VITALS: PULSE 101; RESP 18; O2SAT 92
[2022-04-05] MEDS: Budesonide Respules 0.5 MG/2 ML AMPUL.NEB. INHALATION (07:35)
[2022-04-05 07:46] LABS: ALB/GLOB Ratio 0.6 RATIO (0.9-2.4); AST(SGOT) 166 U/L (15-37); Alanine Aminotransfer ALT/SGPT 61 U/L (13-56); Albumin, Serum 2.1 g/dL (3.2-5.0); Alkaline Phosphatase 584 U/L (45-117); Anion Gap 11 (5-15); BUN 31 mg/dL (7-18); BUN/Creat Ratio 30.1 RATIO (10-20); Bilirubin, Direct 8.82 mg/dL (0.00-0.30); Chloride 99 mmol/L (98-107); Creatinine, Serum 1.03 mg/dL (0.55-1.02); EST Glomerular Filtration Rate 56 mL/min (>60); Est Glom Filt Rate - Afr Amer 68 mL/min (>60); Estimated Creatinine Clearance 74.22 ml/min; Globulin 3.6 g/dL (2.2-4.2); Glucose 180 mg/dL (74-106); Potassium 4.2 mmol/L (3.5-5.1); Protein, Total 5.7 g/dL (6.4-8.2); Sodium Level 132 mmol/L (136-145)
[2022-04-05 08:27] VITALS: BP 119/62; PULSE 109; RESP 16; TEMP 36.6; O2SAT 96
[2022-04-05 08:41] LABS: International Normalized Ratio 1.3; Prothrombin Time (Protime)PT. 16.3 SECONDS (11.7-14.9)
[2022-04-05 08:54] LABS: Anisocytosis 2+; Differential Comment SCANNED; Target Cells 2+
--- NOTE | 2022-04-05 08:58 | PCM.PN.HOSP ---
Reason for Visit Reason for Visit: Diagnoses Malignant neoplasm of unspecified part of unspecified bronchus or lung (03/31/22) Other disorders of bilirubin metabolism (03/31/22) Hyperkalemia (03/31/22) Pneumonia, unspecified organism (03/31/22) Hepatic failure, unspecified without coma (03/31/22) Acute kidney failure, unspecified (03/31/22) Urinary tract infection, site not specified (03/31/22) Unspecified abdominal pain (03/31/22) Abnormal levels of other serum enzymes (03/31/22) Objective Data Objective Data Vital Signs: Vital Signs Temp Pulse Resp BP Pulse Ox O2 Del Method O2 Flow Rate 97.9 F 109 H 16 119/62 96 Room Air 2 04/05/22 08:27 04/05/22 08:27 04/05/22 08:27 04/05/22 08:27 04/05/22 08:27 04/05/22 08:27 04/04/22 09:41 Oxygen Flow Rate (L/min) [5] 2 Oxygen Flow Rate (L/min) [4] 2 Oxygen Flow Rate (L/min) [3] 2 Oxygen Flow Rate (L/min) [2] 2 Oxygen Delivery Method [2] Room Air Oxygen Delivery Method [1 ( Room Air Initial Baseline)] Oxygen Delivery Method [5] Nasal Cannula Oxygen Delivery Method [4] Nasal Cannula Oxygen Delivery Method [3] Nasal Cannula Oxygen Delivery Method [2] Nasal Cannula Oxygen Delivery Method [1 ( Room Air Initial Baseline)] Oxygen Delivery Method Room Air Weight: 91.2 kg Body Mass Index (BMI) 43.3 Intake & Output: Intake and Output for Last 24 Hours 04/03/22 04/04/22 04/05/22 23:59 23:59 23:59 Intake Total 1541 / 1591 510 / 510 700 / 700 Output Total 1999 Balance -459 / -409 510 / 510 700 / 700 Lab / Micro Data Result Diagrams: 04/05/22 06:30 04/05/22 06:30 Labs: Laboratory Results - last 24 hr 04/03/22 : Fl Pathologist Comment Reviewed 04/04/22 11:05: POC Glucose 181 H 04/04/22 16:30: POC Glucose 177 H 04/04/22 21:47: POC Glucose 193 H 04/05/22 06:30: WBC 13.1 H, RBC 4.91, Hgb 13.6, Hct 41.0, MCV 83.5, MCH 27.7, MCHC 33.2, RDW Std Deviation 61.4 H, RDW Coeff of Cari 21.0 H, Plt Count 286, MPV 13.0 H, Immature Gran % (Auto) 0.500, Neut % (Auto) 76.4 H, Lymph % (Auto) 11.5 L, [place] % (Auto) 10.8 H, Eos % (Auto) 0.6, Baso % (Auto) 0.2, Absolute Neuts (auto) 10.0 H, Absolute Lymphs (auto) 1.50, Nucleated RBC % 0, Differential Comment SCANNED, Anisocytosis 2+, Target Cells 2+ 04/05/22 06:30: PT 16.3 H, INR 1.3 04/05/22 06:30: Sodium 132 L, Potassium 4.2, Chloride 99, Carbon Dioxide 22.0, Anion Gap 11, BUN 31 H, Creatinine 1.03 H, Estim Creat Clear Calc 74.22, Est GFR (MDRD) Af Amer 68, Est GFR (MDRD) Non-Af 56 L, BUN/Creatinine Ratio 30.1 H, Glucose 180 H, Calcium 8.0 L, Total Bilirubin 9.90 H, Direct Bilirubin 8.82 H, AST 166 H, ALT 61 H, Alkaline Phosphatase 584 H, Total Protein 5.7 L, Albumin 2.1 L, Globulin 3.6, Albumin/Globulin Ratio 0.6 L 04/05/22 06:30: POC Glucose 175 H Micro: Microbiology 04/03/22 Unknown Fluid - Paracentesis (Abd) Gram Stain - Final 04/03/22 Unknown Fluid - Paracentesis (Abd) Body Fluid Culture - Preliminary No growth-Final to follow 03/31/22 20:59 Urine, Clean Catch Urine Culture - Final Mixed Gram Positive Organisms Radiography Diagnostic Testing: Radiology Impression Biopsy CT 04/04/22 13:58 IMPRESSION: 1. CT directed core needle biopsy of the liver, using CT image guidance with image documentation as described. 2. Conscious Sedation protocol utilized with independent monitoring. Electronically Signed: Eric Pichardo MD at 10:27 EST ,
[2022-04-05] MEDS: Insulin Glargine-YFGN 100 UNIT/ML Pen 15 UNIT SC (09:13)
[2022-04-05] MEDS: Vitamin E 400 UNITS Capsule PO (09:14)
[2022-04-05] MEDS: Ferrous Sulfate 325 MG Tablet PO (09:14)
[2022-04-05] MEDS: rifAXIMin 550 MG Tablet PO (09:14)
[2022-04-05] MEDS: Ursodiol 250 MG Tablet PO (09:14)
[2022-04-05] MEDS: 0.9% Saline Lock 10 ML Syringe IV ×3 (09:25→17:30)
--- NOTE | 2022-04-05 10:12 | CASEMGMT ---
Addendum entered by Ivette Colon 04/05/22 13:12: SW met with pt in room with pt children present. Pt daughter inquired about HCPOA and requested SW assist with completing this document. SW explained pt had informed this morning that a HCPOA has already been completed. Daughter stated this document does not exist. Pt kept asking daughter to stop asking questions. SW suspecting pt does not want Daughter to be named agent and this is why pt informed that a HCPOA was already made. Daughter continued to to ask about getting this document done immediately. SW explained pt would have to be agreeable to completing this form and that SW would check back with pt later when more time allows. Daughter appeared upset but ended the conversation. Children also discussed a Power of [employer] and Will. SW explained these documents cannot be completed at [facility] and will have to be finished with a chief learning officer, or at least to speak to one for guidance on finishing these documents properly. Family voiced understanding. SW also spoke to family and offered education on the difference between Hospice and Palliative Care. Provided family with printouts of information. SUSAN Caro Original Note: Social Work SW notified in handoff from previous SW that pt wanted to meet with a hospital SW to ask questions. This SW in to pt room to discuss. Pt informed that family was wanting to inquire about a DPOA to divide pt assets. SW informed that pt and family would need to consult with a chief learning officer to complete a DPOA as the hospital on assists with completing the Health Care power of litigation attorney. Pt voiced understanding and shared already has HCPOA. Pt also asked about assistance receiving home delivered meals for free. SW inquired if pt is involved with the [facility]. Pt denied. SW explained [facility] would be able to offer meals and other services if pt qualifies. Pt has medicaid, so likely would be approved. Pt agreeable, declined information regarding [employer] and Meals on wheels as pt has tried these services before and had to pay. Pt agreeable to allowing SW send referral to [facility]. SW sent referral to [facility]. Pt also voiced that children, pt son and daughter, had questions and would like to speak to SW. SW told pt to send children to front desk monitor and inform department secretary they are here and would like to speak to SW when they arrive today. Pt voiced understanding. SUSAN Caro
--- NOTE | 2022-04-05 11:40 | CASEMGMT ---
Addendum entered by Stephie James 04/05/22 14:43: Per liaison, pt did sign with palliative care. Addendum entered by Stephie James 04/05/22 13:42: GARRICK GREWAL notified that liaison can see pt at 2pm. GARRICK GREWAL in to pt room, pt is agreeable to this time. Pt son and dtr present. They ask the difference between palliative and hospice. Provided information and stated that the liaison may be able to clarify further. Pt and family deny further needs at this time. Original Note: Pt screened with [facility] Palliative Care Screening Tool, pt met criteria. Order received. Referral emailed at this time. GARRICK GREWAL into pt room. Pt denies homegoing needs. She states that she has a ramp to enter the home, rollator and lift chair. She denies any need for therapy. Pt is aware that the palliative referral was made and they will be in touch with her.
[2022-04-05 11:56] LABS: Bedside Glucose 238 mg/dL (74-106)
[2022-04-05 13:55] VITALS: BP 120/91; PULSE 111; RESP 18; TEMP 36.4; O2SAT 96
--- NOTE | 2022-04-05 16:40 | PN_ITS ---
Subjective Subjective Patient is tolerating a diet and says she wants to go home. She is not have any abdominal pain with eating. The cytology from the paracentesis fluid did not show malignancy. Objective Data Objective Data Vital Signs: Vital Signs Temp Pulse Resp BP Pulse Ox O2 Del Method O2 Flow Rate 97.5 F L 111 H 18 120/91 H 96 Room Air 2 04/05/22 13:55 04/05/22 13:55 04/05/22 13:55 04/05/22 13:55 04/05/22 13:55 04/05/22 13:55 04/04/22 09:41 Oxygen Flow Rate (L/min) [5] 2 Oxygen Flow Rate (L/min) [4] 2 Oxygen Flow Rate (L/min) [3] 2 Oxygen Flow Rate (L/min) [2] 2 Oxygen Delivery Method [2] Room Air Oxygen Delivery Method [1 ( Room Air Initial Baseline)] Oxygen Delivery Method [5] Nasal Cannula Oxygen Delivery Method [4] Nasal Cannula Oxygen Delivery Method [3] Nasal Cannula Oxygen Delivery Method [2] Nasal Cannula Oxygen Delivery Method [1 ( Room Air Initial Baseline)] Oxygen Delivery Method Room Air Weight: 201 lb 0.985 oz Body Mass Index (BMI) 43.3 Intake & Output: Intake and Output for Last 24 Hours 04/03/22 04/04/22 04/05/22 23:59 23:59 23:59 Intake Total 1541 / 1591 510 / 510 810 / 810 Output Total 1999 Balance -459 / -409 510 / 510 810 / 810 Lab / Micro Data Result Diagrams: 04/05/22 06:30 04/05/22 06:30 Labs: Laboratory Results - last 24 hr 04/03/22 : Miscellaneous Cytology SEE PATHOLOGY REPORT 04/04/22 16:30: POC Glucose 177 H 04/04/22 21:47: POC Glucose 193 H 04/05/22 06:30: WBC 13.1 H, RBC 4.91, Hgb 13.6, Hct 41.0, MCV 83.5, MCH 27.7, MCHC 33.2, RDW Std Deviation 61.4 H, RDW Coeff of Cari 21.0 H, Plt Count 286, MPV 13.0 H, Immature Gran % (Auto) 0.500, Neut % (Auto) 76.4 H, Lymph % (Auto) 11.5 L, [place] % (Auto) 10.8 H, Eos % (Auto) 0.6, Baso % (Auto) 0.2, Absolute Neuts (auto) 10.0 H, Absolute Lymphs (auto) 1.50, Nucleated RBC % 0, Differential Comment SCANNED, Anisocytosis 2+, Target Cells 2+ 04/05/22 06:30: PT 16.3 H, INR 1.3 04/05/22 06:30: Sodium 132 L, Potassium 4.2, Chloride 99, Carbon Dioxide 22.0, Anion Gap 11, BUN 31 H, Creatinine 1.03 H, Estim Creat Clear Calc 74.22, Est GFR (MDRD) Af Amer 68, Est GFR (MDRD) Non-Af 56 L, BUN/Creatinine Ratio 30.1 H, Glucose 180 H, Calcium 8.0 L, Total Bilirubin 9.90 H, Direct Bilirubin 8.82 H, AST 166 H, ALT 61 H, Alkaline Phosphatase 584 H, Total Protein 5.7 L, Albumin 2.1 L, Globulin 3.6, Albumin/Globulin Ratio 0.6 L 04/05/22 06:30: POC Glucose 175 H 04/05/22 11:23: POC Glucose 238 H Micro: Microbiology 04/03/22 Unknown Fluid - Paracentesis (Abd) Gram Stain - Final 04/03/22 Unknown Fluid - Paracentesis (Abd) Body Fluid Culture - Preliminary No growth-Final to follow 04/03/22 Unknown Fluid - Paracentesis (Abd) Anaerobic Culture - Preliminary No growth in 48 hours. 03/31/22 20:59 Urine, Clean Catch Urine Culture - Final Mixed Gram Positive Organisms Physical Exam Narrative Elderly woman Const alert and oriented x3 HEENT normocephalic HEENT Narrative: edentulous Eyes PERRL Eyes Narrative: +jaundiced sclera. Neck no lymphadenopathy Lymph Lymphatic: no lymphadenopathy noted Chest inspection of breasts normal Resp normal respiratory effort and clear to auscultation bilaterally Cardio S1 normal heart sound and S2 normal heart sound GI GI Narrative: Distended with vague tenderness. Extremity Extremity Narrative: bilateral pedal edema Skin no rashes or lesions noted Neuro CN's II-XII intact bilaterally and moves all extremities Psych mental status grossly normal Assessment & Plan Assessment/Plan (1) Pneumonia: PLAN: Plan Nonalcoholic steatohepatitis with cirrhosis. Her current MELD has increased to 30 with her increase in bilirubin. 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 She has been having intermittent abdominal pain for the last several months and has not been seen in the office in approximately 3-1/2 to 4 months. She has lost weight since she was seen in the office. CT scan does show some diffuse lymphadenopathy near the pancreas and I am not sure that there is obstructive physiology affecting the hepatobiliary system in the setting of poss ible decompensated cirrhosis. Her MRCP did not show any obstructive physiology but it did show ascites, very small hepatobiliary system with a small liver consistent with cirrhosis. I agree with antibiotic at this time. She is not exhibiting any signs of ascending cholangitis. She has multiple factors for chronic nausea including poorly controlled diabetes, med side effect from multiple anticholinergic medicines that she takes on a daily basis. She can have a liquid diet until midnight. Continue ursodiol and I will start Xifaxan 550 mg twice a day, Reglan and continue PPI twice a day. Check ammonia level. Awaiting CA 19-9 and alpha- fetoprotein. This also could be a paraneoplastic syndrome from lung cancer affecting the GI tract. There is no obvious sign for her abdominal pain at this time. When she did undergo upper endoscopy she was discovered to have a large bezoar which prompted the gastric emptying study afterwards. However it did not show severely prolonged food in her stomach. The gastric emptying time was 44 minutes which is 10 minutes less than it should be. The upper limit of normal is 54. Continue antiemetics with Reglan therapy. Recommend ultrasound in anticipation for possible paracentesis that is diagnostic looking for signs and symptoms of SBP. Would also recommend upper endoscopy to evaluate upper GI tract as I cannot explain her abdominal pain. I will give azithromycin 500 mg IV and she should have scheduled metoclopramide therapy while she is in the hospital. 04/04: Increasing bilirubin down elevated alkaline phosphatase. Status post liver biopsy today. I am unsure why her liver function test and liver enzymes are still elevating in the setting of nonobstructive disease seen on MRCP. There is a possibility that because she had ascites the MRCP was not a good study but her ducts did not look dilated although was not a total clear study. Vanishing bile duct syndrome is a rare but serious outcome and complication of drug induced liver injury marked clinically by chronic cholestasis and histologically by loss of intrahepatic bile ducts. VBDS typically occurs after a bout of severe cholestatic hepatitis, often with immunoallergic features. It also can be associated with metastatic disease. More likely renal cell carcinoma than squamous cell carcinoma of the lung.Other conditions that can mimic or cause vanishing bile duct syndrome include jtwny-ly-pyjo disease, Hodgkin's disease, sclerosing cholangitis and primary biliary cholangitis.?It typically arises in the setting of severe acute cholestatic hepatitis in which there is an inadequate recovery as shown by persistent elevations in alkaline phosphatase levels and bilirubin, which often occur despite a decrease in serum aminotransferase levels into the normal or near-normal range. Serum cholesterol levels are also raised as are serum bile acid levels. Liver biopsy findings of paucity of intralobular bile ducts (<50% of portal areas with bile duct in a biopsy with at least 10 portal areas) 3: LFTs are improving slightly LFTs are improving slightly. She did undergo paracentesis yesterday which could be a reason why her LFTs are improving. The fluid is consistent with ascites from cirrhosis and not metastatic disease from her metastatic squamous cell carcinoma of the lung. She is not exhibiting any signs of encephalopathy at this time. She has not thrown up with a diet. She needs to see oncology for plan regarding a new diagnosis of metastatic squamous cell carcinoma of the lung. We are waiting on her liver biopsies to hopefully determine why she has decompensated cirrhosis. Charges/Coding Visit Charges Inpatient E&M: 60709 Subs Hosp L3
--- NOTE | 2022-04-05 16:41 | PCM.DC ---
Discharge Instructions Diet Discharge Diet: - (Advance diet as tolerated, would recommend low-salt) Activity Discharge Activity: Use Walker Follow Up Care Test Results: Test results from this visit will be discussed in further detail at your follow-up appointment, if applicable. Discharge Plan Admission Admit Date/Time: 03/31/22 23:31 Primary Reason for Your Visit: Abdominal pain, nausea, vomiting Attending Provider: Misa Meade Primary Care Provider: Jesus Garcia Consulting Providers: Evelin Perdue ; Chey Meraz ; Aldo Babin ; Channing Rivera ; Db Chicas ; Sulaiman Schuster ; Roe Garduno ; Greg Posada ; Rafi Fontenot ; Rosa M Woody INVENTORY CONTROL SUPERVISOR Instructions Patient Instructions: TRENTON RN Paracentesis [place], TRENTON RN Biopsy Liver [place], TRENTON RN Procedural Sedation Additional Instructions / Restrictions: DISCHARGE INSTRUCTIONS PLEASE READ *Please take this with you to your next doctors appointment* -You have had several medication changes during this hospitalization. It is advised to discontinue amitriptyline, oxybutynin, and cyclobenzaprine because of your liver and also the increased risk of falls and confusion. You will also stop your simvastatin and metformin. -Recommend stopping hydrocodone?acetaminophen due to the Tylenol content and switching to oxycodone, you will be given several days prescription to bridge you until you can discuss with your prescribing physician about the change, ultimately that is at the discretion of your prescribing physician -Your sucralfate will be increased to 3 times daily 1 hour before meals -Your insulin was also adjusted and you will no longer take the 68 units at bedtime, you will take 15 units of Lantus twice daily and you will no longer take scheduled insulin aspart with meals. It is possible that your insulin will need further adjusted on an outpatient basis, please continue to monitor your glucose and discuss with your primary care physician -And will be important that you continue to move your bowels, please take MiraLAX 17 g daily and sennosides?docusate 2 tabs twice daily or the equivalent [id number] until regular bowel movements are achieved and then discuss with your primary care physician about a maintenance regimen. If you develop diarrhea please discontinue these agents and call your primary care physician - Would recommend lab work (CMP and direct bilirubin) to check your liver function and bilirubin in 2 to 3 days through your primary care physician's office. Please call their office upon discharge to obtain order for lab work. -Upon discharge please call Dr. Rivera's (the cancer doctor you saw while you are in the hospital) office to schedule hospital follow-up -You will need to follow-up with Dr. King with GI in his office upon discharge. Please call his office to schedule your hospital follow-up appointment (ph. [phone]) -Please call your primary care physician in the morning to schedule hospital follow-up appointment, obtain blood work order, and obtain order for shower chair -Please call your primary care provider's office upon discharge to schedule a hospital follow up within 1 week. -For any concerning signs or symptoms please call 911 or proceed to the nearest emergency department Discharge Orders/Prescriptions Prescriptions: New oxycodone 5 mg Tablet 5 mg PO Q8H PRN PRN (Reason: Pain Score 4-10) 3 Days Qty: 15 0RF sucralfate 1 gram Tablet 1 g PO 0700,1100,1600 30 Days Qty: 90 0RF polyethylene glycol 3350 17 gram Powder In Packet 17 g PO DAILY Qty: 100 0RF sennosides-docusate sodium [Stool Softener-Stimulant Laxat] 8.6-50 mg Tablet 2 tab PO BID Qty: 90 0RF Continued ferrous sulfate 325 mg (65 mg iron) tablet 325 mg PO DAILY sertraline [Zoloft] 50 mg Tablet 50 mg PO DAILY Trulicity 3 mg/0.5 mL pen injector 1.5 mg subcut QWEEK Rx Instructions: Sunday ergocalciferol (vitamin D2) 25,000 unit Capsule 50,000 unit PO WE ursodiol 300 mg capsule 300 mg PO BID vitamin E (dl, acetate) 180 mg (400 unit) capsule 180 mg PO BID albuterol sulfate 90 mcg/actuation HFA aerosol inhaler 2 puff INHALATION Q4H PRN PRN (Reason: sob) Label Comments: Inhale 2 Puffs as instructed every 4 hours as needed for wheezing/shortness of breath. Spiriva Respimat 2.5 mcg/actuation mist 2 puff INHALATION DAILY PRN (Reason: sob) Label Comments: Inhale 2 Puffs as instructed once daily. ondansetron 4 mg tablet,disintegrating 4 mg translingual Q8H pantoprazole [Protonix] 40 mg tablet,delayed release (DR/EC) 40 mg PO BID Changed insulin glargine [Lantus Solostar U-100 Insulin] 100 unit/mL (3 mL) insulin pen 15 unit subcut BID 30 Days Qty: 15 0RF Discontinued amitriptyline 10 MG tablet 50 mg PO QHS simvastatin 20 MG tablet 40 mg PO QHS metformin 1,000 MG tablet 1,000 mg PO BIDCM oxybutynin chloride 5 MG tablet 10 mg PO DAILY insulin aspart U-100 100 unit/mL (3 mL) insulin pen 24 unit subcut TIDCM cyclobenzaprine 10 MG tablet 10 mg PO TID PRN PRN (Reason: Pain) hydrocodone-acetaminophen 5-325 mg tablet 1 tab PO Q6H sucralfate [Carafate] 100 mg/mL suspension 10 ml PO QAC Rx Instructions: take one hour before meals and two hours away from other medications three times a day Referrals / Follow Up: Channing Rivera MD [Med Staff - Active Staff] - See Referral Note (If you would like to follow-up with a cancer doctor upon discharge please call Dr. Rivera's office to schedule hospital follow-up) Kirk King DO [Med Staff - Active Staff] - See Referral Note (You will need to follow-up with Dr. King with GI in his office upon discharge. Please call his office to schedule your hospital follow-up appointment (ph. [phone])) Jesus Garcia MD [Primary Care Provider] - Within 1 Week Disposition Disposition (needs filled in before D/C Order can be placed): Home, Self Care
[2022-04-05 16:56] LABS: Bedside Glucose 277 mg/dL (74-106)
--- NOTE | 2022-04-05 17:05 | PCM.DC.SUM ---
Providers Date of Admission: 03/31/22 Date of Discharge: 04/05/22 Primary Care Physician: Dr. 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 ?liver involvement EMERGENT Consult: No Notified: Yes Date Notified: 04/04/22 Time Notified: 13:00 Method of Notification: Answering Service Comments:: Dr Rivera Reason For Visit: ELEVATED BILI/LFT/CIRRHOSIS,UTI,ABD INTRACTABLE Diagnosis Discharge Diagnosis (1) Small cell lung cancer in adult: Status: Acute Code(s): C34.90 - Malignant neoplasm of unspecified part of unspecified bronchus or lung (2) Liver failure without hepatic coma: Status: Acute Code(s): K72.90 - Hepatic failure, unspecified without coma (3) Hyperbilirubinemia: Status: Acute Code(s): E80.6 - Other disorders of bilirubin metabolism (4) ADIS (acute kidney injury): Status: Acute Code(s): N17.9 - Acute kidney failure, unspecified Plan (1) Abdominal pain: (2) Elevated liver enzymes: (3) Lung cancer (4) Hyperkalemia: (5) ADIS (acute kidney injury): (6) Hyperbilirubinemia: Medications at Discharge Home Medications ferrous sulfate 325 mg (65 mg iron) tablet 325 mg PO DAILY supplement 07/05/21 sertraline 50 mg tablet (Zoloft) 50 mg PO DAILY mood 09/09/21 dulaglutide 3 mg/0.5 mL subcutaneous pen injector (Trulicity) 1.5 mg subcut QWEEK dm 10/21/21 ergocalciferol (vitamin D2) 25,000 unit capsule 50,000 unit PO WE supplement 10/21/21 albuterol sulfate 90 mcg/actuation aerosol inhaler 2 puff inhalation Q4H PRN PRN sob 03/14/22 tiotropium bromide 2.5 mcg/actuation mist for inhalation (Spiriva Respimat) 2 puff inhalation DAILY PRN sob 03/14/22 ursodiol 300 mg capsule 300 mg PO BID GI 03/14/22 vitamin E (dl, acetate) 180 mg (400 unit) capsule 180 mg PO BID supplement 03/14/22 ondansetron 4 mg disintegrating tablet 4 mg translingual Q8H NAUSEA 03/28/22 pantoprazole 40 mg tablet,delayed release (Protonix) 40 mg PO BID Check with primary doctor 04/01/22 insulin glargine 100 unit/mL (3 mL) subcutaneous pen (Lantus Solostar U-100 Insulin) 15 unit (0.15 mL) subcut BID DM 30 days #15 mL 04/05/22 oxycodone 5 mg tablet 5 mg PO Q8H PRN PRN Pain Score 4-10 3 days #15 tabs 04/05/22 polyethylene glycol 3350 17 gram oral powder packet 17 g PO DAILY #100 ea 04/05/22 sennosides 8.6 mg-docusate sodium 50 mg tablet (Stool Softener-Stimulant Laxative) 2 tab PO BID #90 tabs 04/05/22 sucralfate 1 gram tablet 1 g PO 0700,1100,1600 30 days #90 tabs 04/05/22 Hospital Course Procedures - (EGD, liver biopsy, paracentesis) Summary of Care Provided Minutes Spent on Discharge: 45 Hospital Course: 67-year-old female with a history of type 2 diabetes mellitus, COPD, back pain, JACOME, GERD, obesity, who presented to [facility] 03/31 with abdominal pain, nausea, emesis.? She recently was discharged 03/15/2022 following evaluation for worsening bilirubin and LFTs with MRCP with no evidence of biliary dilation or choledocholithiasis.? She did have CT of the chest for concern for postobstructive pneumonia at that time and had a right perihilar mass and was discharged on Levaquin for 6 additional days with outpatient follow-up with Dr. Bullock 03/30 from bronchoscopy with noted mediastinal adenopathy and lung mass suspicious for cancer.? She represented 03/31 with diffuse aching abdominal discomfort with nausea and emesis.? Heart rate ED 114 white count 15.7, potassium 5.7 but moderately hemolyzed, creatinine 1.39 with a glucose of 359.? T. bili 9.2, direct bili 6.82, AST 197/ALT 79 and an alk phos of 714, lipase 338.? CT abdomen pelvis showed complete collapse of right middle lobe lungs otherwise clear, cirrhotic appearing liver with evidence of prior cholecystectomy with marked gastroesophageal gastropathic ligament varices with mild diffuse ascites otherwise no interval change since 03/14.? She is given Rocephin, 1 L normal saline, 4 mg morphine IV and admitted. GI was consulted. She also had ADIS and was given gentle hydration. For her abdominal discomfort she was put on Reglan and rifaximin as well as PPI, did have a gastric emptying study previously which was normal but there is unclear etiology for her abdominal pain, nausea, vomiting. She was made n.p.o. for an EGD which was performed 04/03. She was found to have erythematous mucosa in the gastric body and this was biopsied. She also had paracentesis. Afterwards she did report she was feeling somewhat better. Unfortunately did have continued worsening of her hyperbilirubinemia and had liver biopsy performed 04/04. Spoke with Dr. King and oncology was consulted who did not think that beginning treatment was indicated. Her Rocephin was stopped and she did begin to improve the next day. She had reported she had not had a bowel movement for multiple days and was given an aggressive bowel regimen which did help her abdominal pain and she wanted to go home. Still has poor appetite overall but feeling better. Agreeable to palliative care. Discharge instructions as followed: -You have had several medication changes during this hospitalization.? It is advised to discontinue amitriptyline, oxybutynin, and cyclobenzaprine because of your liver and also the increased risk of falls and confusion.? You will also stop your simvastatin and metformin. -Recommend stopping hydrocodone?acetaminophen due to the Tylenol content and switching to oxycodone, you will be given several days prescription to bridge you until you can discuss with your prescribing physician about the change, ultimately that is at the discretion of your prescribing physician -Your sucralfate will be increased to 3 times daily 1 hour before meals -Your insulin was also adjusted and you will no longer take the 68 units at bedtime, you will take 15 units of Lantus twice daily and you will no longer take scheduled insulin aspart with meals.? It is possible that your insulin will need further adjusted on an outpatient basis, please continue to monitor your glucose and discuss with your primary care physician -And will be important that you continue to move your bowels, please take MiraLAX 17 g daily and sennosides?docusate 2 tabs twice daily or the equivalent [id number] until regular bowel movements are achieved and then discuss with your primary care physician about a maintenance regimen.? If you develop diarrhea please discontinue these agents and call your primary care physician - Would recommend lab work (CMP and direct bilirubin) to check your liver function and bilirubin in 2 to 3 days through your primary care physician's office.? Please call their office upon discharge to obtain order for lab work. -Upon discharge please call Dr. Rivera's (the cancer doctor you saw while you are in the hospital) office to schedule hospital follow-up -You will need to follow-up with Dr. King with GI in his office upon discharge.? Please call his office to schedule your hospital follow-up appointment (ph. [phone]) -Please call your primary care physician in the morning to schedule hospital follow-up appointment, obtain blood work order, and obtain order for shower chair -Please call your primary care provider's office upon discharge to schedule a hospital follow up within 1 week. -For any concerning signs or symptoms please call 911 or proceed to the nearest emergency department Physical Exam Narrative General: Alert, oriented, no apparent distress HEENT: Atraumatic, normocephalic Eyes: Some scleral icterus appreciated, extraocular movements grossly intact Neck: Supple Respiratory: Clear to auscultation, normal respiratory effort Cardiovascular: Regular rate and rhythm GI: Fairly soft, tenderness improving Extremities: No edema Musculoskeletal: Moving all extremities Neuro: No overt focal neurological deficits Skin: No rashes appreciated Psych: Cooperative Weight / BMI Weight Weight: 91.2 kg Body Mass Index (BMI) 43.3 ABG / Lab / Microbiology Data Result Diagrams: 04/05/22 06:30 04/05/22 06:30 Laboratory: Laboratory Results - last 24 hr 04/03/22 : Miscellaneous Cytology SEE PATHOLOGY REPORT 04/04/22 16:30: POC Glucose 177 H 04/04/22 21:47: POC Glucose 193 H 04/05/22 06:30: WBC 13.1 H, RBC 4.91, Hgb 13.6, Hct 41.0, MCV 83.5, MCH 27.7, MCHC 33.2, RDW Std Deviation 61.4 H, RDW Coeff of Cari 21.0 H, Plt Count 286, MPV 13.0 H, Immature Gran % (Auto) 0.500, Neut % (Auto) 76.4 H, Lymph % (Auto) 11.5 L, [place] % (Auto) 10.8 H, Eos % (Auto) 0.6, Baso % (Auto) 0.2, Absolute Neuts (auto) 10.0 H, Absolute Lymphs (auto) 1.50, Nucleated RBC % 0, Differential Comment SCANNED, Anisocytosis 2+, Target Cells 2+ 04/05/22 06:30: PT 16.3 H, INR 1.3 04/05/22 06:30: Sodium 132 L, Potassium 4.2, Chloride 99, Carbon Dioxide 22.0, Anion Gap 11, BUN 31 H, Creatinine 1.03 H, Estim Creat Clear Calc 74.22, Est GFR (MDRD) Af Amer 68, Est GFR (MDRD) Non-Af 56 L, BUN/Creatinine Ratio 30.1 H, Glucose 180 H, Calcium 8.0 L, Total Bilirubin 9.90 H, Direct Bilirubin 8.82 H, AST 166 H, ALT 61 H, Alkaline Phosphatase 584 H, Total Protein 5.7 L, Albumin 2.1 L, Globulin 3.6, Albumin/Globulin Ratio 0.6 L 04/05/22 06:30: POC Glucose 175 H 04/05/22 11:23: POC Glucose 238 H 04/05/22 16:30: POC Glucose 277 H Microbiology: Microbiology 04/03/22 Unknown Fluid - Paracentesis (Abd) Gram Stain - Final 04/03/22 Unknown Fluid - Paracentesis (Abd) Body Fluid Culture - Preliminary No growth-Final to follow 04/03/22 Unknown Fluid - Paracentesis (Abd) Anaerobic Culture - Preliminary No growth in 48 hours. 03/31/22 20:59 Urine, Clean Catch Urine Culture - Final Mixed Gram Positive Organisms D/C Instructions Discharge Diet: - (Advance diet as tolerated, would recommend low-salt) Meaningful Use Info Meaningful Use Diagnoses (Choose all that apply): None applicable Discharge Plan Admission Admit Date/Time: 03/31/22 23:31 Primary Reason for Your Visit: Abdominal pain, nausea, vomiting Attending Provider: Misa Meade Primary Care Provider: Jesus Garcia Consulting Providers: Evelin Perdue ; Chey Meraz ; Aldo Babin ; Channing Rivera ; Db Chicas ; Sulaiman Schuster ; Roe Garduno ; Greg Posada ; Rafi Fontenot ; Rosa M Woody CONSTRUCTION MANAGEMENT INSTRUCTOR Instructions Patient Instructions: TRENTON MCCAULEY Paracentesis [place], TRENTON MCCAULEY Biopsy Liver [place], TRENTON RN Procedural Sedation Additional Instructions / Restrictions: DISCHARGE INSTRUCTIONS PLEASE READ *Please take this with you to your next doctors appointment* -You have had several medication changes during this hospitalization. It is advised to discontinue amitriptyline, oxybutynin, and cyclobenzaprine because of your liver and also the increased risk of falls and confusion. You will also stop your simvastatin and metformin. -Recommend stopping hydrocodone?acetaminophen due to the Tylenol content and switching to oxycodone, you will be given several days prescription to bridge you until you can discuss with your prescribing physician about the change, ultimately that is at the discretion of your prescribing physician -Your sucralfate will be increased to 3 times daily 1 hour before meals -Your insulin was also adjusted and you will no longer take the 68 units at bedtime, you will take 15 units of Lantus twice daily and you will no longer take scheduled insulin aspart with meals. It is possible that your insulin will need further adjusted on an outpatient basis, please continue to monitor your glucose and discuss with your primary care physician -And will be important that you continue to move your bowels, please take MiraLAX 17 g daily and sennosides?docusate 2 tabs twice daily or the equivalent [id number] until regular bowel movements are achieved and then discuss with your primary care physician about a maintenance regimen. If you develop diarrhea please discontinue these agents and call your primary care physician - Would recommend lab work (CMP and direct bilirubin) to check your liver function and bilirubin in 2 to 3 days through your primary care physician's office. Please call their office upon discharge to obtain order for lab work. -Upon discharge please call Dr. Rivera's (the cancer doctor you saw while you are in the hospital) office to schedule hospital follow-up -You will need to follow-up with Dr. King with GI in his office upon discharge. Please call his office to schedule your hospital follow-up appointment (ph. [phone]) -Please call your primary care physician in the morning to schedule hospital follow-up appointment, obtain blood work order, and obtain order for shower chair -Please call your primary care provider's office upon discharge to schedule a hospital follow up within 1 week. -For any concerning signs or symptoms please call 911 or proceed to the nearest emergency department Discharge Orders/Prescriptions Prescriptions: New oxycodone 5 mg Tablet 5 mg PO Q8H PRN PRN (Reason: Pain Score 4-10) 3 Days Qty: 15 0RF sucralfate 1 gram Tablet 1 g PO 0700,1100,1600 30 Days Qty: 90 0RF polyethylene glycol 3350 17 gram Powder In Packet 17 g PO DAILY Qty: 100 0RF sennosides-docusate sodium [Stool Softener-Stimulant Laxat] 8.6-50 mg Tablet 2 tab PO BID Qty: 90 0RF Continued ferrous sulfate 325 mg (65 mg iron) tablet 325 mg PO DAILY sertraline [Zoloft] 50 mg Tablet 50 mg PO DAILY Trulicity 3 mg/0.5 mL pen injector 1.5 mg subcut QWEEK Rx Instructions: Sunday ergocalciferol (vitamin D2) 25,000 unit Capsule 50,000 unit PO WE ursodiol 300 mg capsule 300 mg PO BID vitamin E (dl, acetate) 180 mg (400 unit) capsule 180 mg PO BID albuterol sulfate 90 mcg/actuation HFA aerosol inhaler 2 puff INHALATION Q4H PRN PRN (Reason: sob) Label Comments: Inhale 2 Puffs as instructed every 4 hours as needed for wheezing/shortness of breath. Spiriva Respimat 2.5 mcg/actuation mist 2 puff INHALATION DAILY PRN (Reason: sob) Label Comments: Inhale 2 Puffs as instructed once daily. ondansetron 4 mg tablet,disintegrating 4 mg translingual Q8H pantoprazole [Protonix] 40 mg tablet,delayed release (DR/EC) 40 mg PO BID Changed insulin glargine [Lantus Solostar U-100 Insulin] 100 unit/mL (3 mL) insulin pen 15 unit subcut BID 30 Days Qty: 15 0RF Discontinued amitriptyline 10 MG tablet 50 mg PO QHS simvastatin 20 MG tablet 40 mg PO QHS metformin 1,000 MG tablet 1,000 mg PO BIDCM oxybutynin chloride 5 MG tablet 10 mg PO DAILY insulin aspart U-100 100 unit/mL (3 mL) insulin pen 24 unit subcut TIDCM cyclobenzaprine 10 MG tablet 10 mg PO TID PRN PRN (Reason: Pain) hydrocodone-acetaminophen 5-325 mg tablet 1 tab PO Q6H sucralfate [Carafate] 100 mg/mL suspension 10 ml PO QAC Rx Instructions: take one hour before meals and two hours away from other medications three times a day Referrals / Follow Up: Channing Rivera MD [Med Staff - Active Staff] - See Referral Note (If you would like to follow-up with a cancer doctor upon discharge please call Dr. Rivera's office to schedule hospital follow-up) Kirk King DO [Med Staff - Active Staff] - See Referral Note (You will need to follow-up with Dr. King with GI in his office upon discharge. Please call his office to schedule your hospital follow-up appointment (ph. [phone])) Jesus Garcia MD [Primary Care Provider] - Within 1 Week Disposition Disposition (needs filled in before D/C Order can be placed): Home, Self Care Charges/Coding Visit Charges Inpatient E&M: 15988 Disch Hosp >30min
== END 2022-04-05 19:05 | disposition home or self-care (01) | DRG 844 ==
LOC: ED 23:24 → MS3 04-01 01:19
PROVIDERS: Anesthesiology; Internal Medicine; Internal Medicine Gastroenterology; Admitting Provider Family Medicine; Emergency Provider Emergency Medicine; PCP Family Medicine; Visit Provider Internal Medicine
PROC: 0DJ08ZZ Inspection of Upper Intestinal Tract, Via Natural or Artificial Opening Endoscopic (ICD-10-PCS; CPT 43235; principal; 2022-04-03 12:55)
DX: C7B.8 Other secondary neuroendocrine tumors (principal); N17.9 Acute kidney failure, unspecified; R18.8 Other ascites; C34.01 Malignant neoplasm of right main bronchus; Z68.41 Body mass index [BMI] 40.0-44.9, adult; N39.0 Urinary tract infection, site not specified; K72.90 Hepatic failure, unspecified without coma; E83.39 Other disorders of phosphorus metabolism; J44.9 Chronic obstructive pulmonary disease, unspecified; E11.40 Type 2 diabetes mellitus with diabetic neuropathy, unspecified; E11.65 Type 2 diabetes mellitus with hyperglycemia; Z79.4 Long term (current) use of insulin; E66.01 Morbid (severe) obesity due to excess calories; M06.9 Rheumatoid arthritis, unspecified; K75.81 Nonalcoholic steatohepatitis (NASH); F41.9 Anxiety disorder, unspecified; G47.33 Obstructive sleep apnea (adult) (pediatric); E78.00 Pure hypercholesterolemia, unspecified; E87.5 Hyperkalemia; K21.9 Gastro-esophageal reflux disease without esophagitis; K74.00 Hepatic fibrosis, unspecified; K29.50 Unspecified chronic gastritis without bleeding; F32.A Depression, unspecified; G89.29 Other chronic pain; Z90.49 Acquired absence of other specified parts of digestive tract; Z90.710 Acquired absence of both cervix and uterus; Z79.01 Long term (current) use of anticoagulants; Z79.85 Long-term (current) use of injectable non-insulin antidiabetic drugs; Z79.899 Other long term (current) drug therapy; Z86.16 Personal history of COVID-19; Z87.891 Personal history of nicotine dependence
CPT/HCPCS: 36415; 49083; 74176; 74181; 76705; 77012; 80048; 80053; 80074; 80076; 80329; 81001; 82140; 82248; 82945; 82962; 83036; 83615; 83690; 83735; 84100; 84157; 85025; 85049; 85610; 85730; 86301; 87070; 87075; 87086; 87088; 87205; 88108; 88161; 88172; 88305; 88307; 88313; 88341; 88342; 89050; 93005; 94640; 94668; 97161; 97165; 99156; 99252; 99284; J7030; J7050; J7120; A4216; G0463; G0480; J2405